=== PATIENT | female | born 1955 | race Caucasian/White ===

== ENCOUNTER 2020-02-06 08:01 | Emergency (ER) | payer MEDICARE, MEDICAID, SELFPAY ==
--- NOTE | ~2020-02-06 | XR_ITS ---
XR mandible min 4V DATE: 02/06/2020 08:56 INDICATION: Patient fell on chin 5 weeks ago. Persistent pain. TECHNIQUE: Multiple views COMPARISON: None FINDINGS: No fracture or dislocation or bone destruction is detected. IMPRESSION: No fracture or dislocation detected Reviewed, dictated and finalized at location A.
[2020-02-06 08:17] VITALS: BP 153/75; PULSE 79; RESP 16; TEMP 36.5; O2SAT 100
--- NOTE | 2020-02-06 08:20 | ED.GENADULT ---
HPI - General Adult General Chief complaint: Fall Stated complaint: Chin injury Time Seen by Provider: 02/06/20 08:20 Source: patient and RN notes reviewed Mode of arrival: ambulatory Limitations: no limitations History of Present Illness HPI narrative: This is a 64 years old female presented office for evaluation of chin injury post fall 5 weeks ago. Stated she accidentally tripped and fell onto a wooden bench at home. She injured her chin, left arm, and right knee at the time of fall, her right knee and left arm seems to heal except her chin. She still have constant pain and worse when she touches it. She did not seek care immediately because she afraid to go to the hospital. She spoke to her primary care doctor yesterday over the phone who recommended that she should get her chin evaluated today. She has tried ice on affected area along with ibuprofen and Tylenol at time for her pain. Denies head injury at the time of fall. Td is up-to-date. Related Data Home Medications Medication Instructions Recorded Confirmed buspirone 10 mg PO BID 02/06/20 02/06/20 divalproex 500 mg PO TID 02/06/20 02/06/20 insulin detemir U-100 [Levemir 25 unit SUBCUT 02/06/20 U-100 Insulin] insulin lispro [Humalog KwikPen unit SUBCUT 02/06/20 Insulin] metformin 500 mg PO BID 02/06/20 02/06/20 risperidone 1 mg PO 02/06/20 venlafaxine 150 mg PO DAILY 02/06/20 02/06/20 Allergies Allergy/AdvReac Type Severity Reaction Status Date / Time No Known Allergies Allergy Unverified 04/25/19 14:50 Review of Systems Review of Systems: Narrative: CONSTITUTIONAL: Denies feeling ill EYES: Denies visual changes ENT: Denies difficulty swallowing or her to open her jaw or CARDIOVASCULAR: Denies chest pain RESPIRATORY: Denies dyspnea GASTROINTESTINAL: Denies nausea, vomiting SKIN: Reports wound on chin appears to heal well; it was much bigger than it is right now. MUSCULOSKELETAL: Reports right knee sore at time; however she states it is much better than five weeks ago. NEUROLOGIC: Denies lightheaded PMFSH Past Medical History Medical History (Updated 02/06/20 @ 08:41 by GIOVANNI Tellez) Bipolar depression Diabetes mellitus, type II Heel spur Peripheral neuropathy TIA (transient ischemic attack) Surgical History Surgical History (Updated 02/06/20 @ 08:32 by GIOVANNI Tellez) Hx of cholecystectomy Hx of inguinal hernia repair Social History Social History (Updated 02/06/20 @ 08:30 by GIOVANNI Tellez) Smoking status: Current every day smoker Comments At time of signature, I agree with nursing past medical, surgical, social and family history. There is no relevant family history pertinent to the presenting complaint. Exam Narrative: Exam Narrative: GENERAL: This is a well-nourished, well-developed patient, in no apparent distress. HEAD: normocephalic, atraumatic. EYES: PERRL. Sclera clear/white. Vision is grossly intact. EARS: External ears normal.Hearing grossly intact. NOSE: External nose normal THROAT: Mucous membranes moist, posterior pharynx clear. No TMJ tendernesss. NECK: Neck supple, non-tender without lymphadenopathy, masses or thyromegaly. CARDIOVASCULAR: Regular rate and rhythm without murmurs, gallops, or rubs. RESPIRATORY: Clear to auscultation. Breath sounds equal bilaterally. No wheezes, rales, or rhonchi. GASTROINTESTINAL: Abdomen soft, non-tender, nondistended. Bowel sounds are active. No hepato-splenomegaly, or palpable masses. No guarding. SKIN: Right side mandibular noted a small scalp with tenderness to palpation; no obvious erythema,edematous or warmth to touch. NEURO: awake, alert, and oriented to person, place and time. There were no obvious focal neurologic abnormalities. Steady gait [place] Coma Scale Eye Opening: Spontaneous 4 [place] Coma Scale Motor: Obeys Commands 6 [place] Coma Scale Verbal: Oriented 5 Course Course Emergency Course: @1030: Spoke to Ms Weir on the p
== END 2020-02-06 09:33 | disposition home or self-care (01) ==
PROVIDERS: Emergency Provider Nurse Practitioner; PCP Family Medicine
DX: S09.93XA Unspecified injury of face, initial encounter (principal); W19.XXXD Unspecified fall, subsequent encounter; E11.42 Type 2 diabetes mellitus with diabetic polyneuropathy; Z86.73 Personal history of transient ischemic attack (TIA), and cerebral infarction without residual deficits; Z72.0 Tobacco use
CPT/HCPCS: 70110; 99213; G0463

== ENCOUNTER 2020-02-22 09:24 | Emergency (ER) | payer MEDICARE, MEDICAID, SELFPAY ==
--- NOTE | ~2020-02-22 | XR_ITS ---
EXAMINATION: XR lumbar spine 2-3V EXAM DATE: 02/22/2020 09:59 INDICATION: Initial encounter following injury, with pain of the low back. TECHNIQUE: Lumber spine frontal, lateral, lateral L5-S1 projections for interpretation. Comparison is made to prior examination from 05/30/2016. FINDINGS: Mild diffuse lumbar disc disease. The vertebral body heights are maintained. There are no acute fractures identified. There is no spondylolysis. Mild to moderate lower lumbar facet arthropath y. Sacrum, sacroiliac joints, sacral arcuate lines are intact. There are cholecystectomy clips. Scatt ered abdominal aortic arterial sclerosis. IMPRESSION: 1. Mild to moderate lumbar spondylosis. Reviewed, dictated and finalized at location A.
--- NOTE | ~2020-02-22 | XR_ITS ---
EXAMINATION: XR wrist LT min 3V EXAM DATE: 02/22/2020 09:58 INDICATION: Initial encounter following injury, with pain of the left wrist. TECHNIQUE: Left wrist frontal, frontal with ulnar deviation, oblique and lateral projections obtained and reviewed. There is no prior study for comparison. FINDINGS: Left wrist scapholunate joint space is maintained. There are no acute fractures or dislocat ions identified. There is no subcutaneous gas. The soft tissue is unremarkable. There are no radi opaque foreign bodies. IMPRESSION: 1. Left wrist exam without acute osseous findings. Reviewed, dictated and finalized at location A.
[2020-02-22 09:34] VITALS: BP 119/90; PULSE 88; RESP 16; TEMP 36.6; O2SAT 98
--- NOTE | 2020-02-22 09:35 | ED.UPPEXIN ---
HPI - Extremity Injury (Upper) General Chief Complaint: Extremity Injury, Upper Stated Complaint: rib pain/left and right wrist pain Time Seen by Provider: 02/22/20 09:35 Source: patient Mode of arrival: ambulatory Limitations: no limitations History of Present Illness HPI narrative: Carmella Sheriff is a 64 yo female with L wrist and lower lumbar pain. Fell in shower yesterday- no syncope or dizziness. rates pain as 9 out of 10 Related Data Home Medications Medication Instructions Recorded Confirmed buspirone 10 mg PO BID 02/06/20 02/22/20 divalproex 500 mg PO TID 02/06/20 02/22/20 insulin detemir U-100 [Levemir 25 unit SUBCUT DAILY 02/06/20 02/22/20 U-100 Insulin] insulin lispro [Humalog KwikPen 10 unit SUBCUT TID 02/06/20 02/22/20 Insulin] metformin 500 mg PO BID 02/06/20 02/22/20 risperidone 1 mg PO DAILY 02/06/20 02/22/20 venlafaxine 150 mg PO DAILY 02/06/20 02/22/20 Allergies Allergy/AdvReac Type Severity Reaction Status Date / Time No Known Allergies Allergy Verified 02/22/20 09:39 Review of Systems Review of Systems: Narrative: CONSTITUTIONAL: Denies fever, chills, sweats. EYES: Denies visual changes, redness, discharge. ENT: Denies rhinorrhea, congestion, sore throat, otalgia. CARDIOVASCULAR: Denies chest pain, palpitations, edema. RESPIRATORY: Denies dyspnea, wheezing, cough GASTROINTESTINAL: Denies abdominal pain, nausea, vomiting, diarrhea. GENITOURINARY: Denies dysuria, hematuria, abnormal discharge SKIN: Denies rash or itching. NEUROLOGIC: Denies numbness, or focal weakness. PSYCHIATRIC: Denies anxiety or depression. BACK: Tenderness Extremity: L wrist pain PMFSH Past Medical History Medical History Bipolar depression Diabetes mellitus, type II Heel spur Peripheral neuropathy TIA (transient ischemic attack) Surgical History Surgical History Hx of cholecystectomy Hx of inguinal hernia repair Family History Family History Other Diabetes mellitus Heart disease Hypertension Pancreatic cancer metastasized to intra-abdominal lymph node Social History Social History Smoking status: Current every day smoker Alcohol intake: current Comments At time of signature, I agree with nursing past medical, surgical, social and family history. There is no relevant family history pertinent to the presenting complaint. Exam Narrative: Exam Narrative: GENERAL: This is a well-nourished, well-developed patient, in mild distress. HEAD: normocephalic, atraumatic. EYES: PERRL. Sclera clear/white. Vision is grossly intact. EARS: External ears normal,. Hearing grossly intact. NOSE: External nose normal without nasal discharge, nares without redness, no rhinorrhea. THROAT: Mucous membranes moist, posterior pharynx NECK: Neck supple, non-tender CARDIOVASCULAR: Regular rate and rhythm without murmurs, gallops, or rubs. RESPIRATORY: Diminished to auscultation. Breath sounds equal bilaterally. Has wheezes, GASTROINTESTINAL: Abdomen soft, SKIN: warm, intact with no suspicious lesions or rash, good texture and turgor. NEURO: awake, alert, and oriented to person, place and time. There were no obvious focal neurologic abnormalities. Steady gait EXTREMITIES: Left hand cannot do finger opposition, skin warm, flexion-extension with difficulty BACK: tender without deformity Course Course Emergency Course: X-ray left wrist negative for fracture-Marv applied X-ray lumbar back-negative for fracture Vital Signs Vital signs: Vital Signs Temperature 98 F 02/22/20 09:34 Pulse Rate 88 02/22/20 09:34 Respiratory Rate 16 02/22/20 09:34 Blood Pressure 119/90 02/22/20 09:34 Pulse Oximetry 98 02/22/20 09:34 Temperature 98 F 02/22/20 09:34 Pulse Rate 88 05/2
== END 2020-02-22 10:23 | disposition home or self-care (01) ==
PROVIDERS: Emergency Provider Nurse Practitioner; PCP Family Medicine
DX: S63.502A Unspecified sprain of left wrist, initial encounter (principal); S66.912A Strain of unspecified muscle, fascia and tendon at wrist and hand level, left hand, initial encounter; M54.5 Low back pain; F31.9 Bipolar disorder, unspecified; E11.42 Type 2 diabetes mellitus with diabetic polyneuropathy; Z86.73 Personal history of transient ischemic attack (TIA), and cerebral infarction without residual deficits; F17.210 Nicotine dependence, cigarettes, uncomplicated; Z79.84 Long term (current) use of oral hypoglycemic drugs; Z79.4 Long term (current) use of insulin; W18.2XXA Fall in (into) shower or empty bathtub, initial encounter
CPT/HCPCS: 72100; 73110; 99214; G0463

== ENCOUNTER 2020-05-07 09:48 | Emergency (ER) | payer MEDICARE, MEDICAID, SELFPAY ==
--- NOTE | ~2020-05-07 | XR_ITS ---
XR shoulder LT min 2V 05/07/2020 10:26 Indication: Left shoulder pain. Limited range of motion. Procedure: 4 Views left shoulder Comparison: No prior studies for comparison. Findings: There is a comminuted mildly displaced left humeral neck fracture. Surrounding osseous stru ctures and soft tissues are unremarkable. Impression: 1: Comminuted, mildly displaced left humeral neck fracture. Reviewed, dictated and finalized at location I. Impression: 1: Comminuted, mildly displaced left humeral neck fracture.
--- NOTE | 2020-05-07 10:04 | ED.FALL ---
HPI - Fall General Chief Complaint: Extremity Injury, Upper Stated Complaint: Fall Time Seen by Provider: 05/07/20 10:04 Source: patient and RN notes reviewed History of Present Illness HPI Narrative: Patient is a 64-year-old female who presents the urgent care with complaints of left shoulder/arm pain after falling at [email or web address] just prior to arrival. Patient states that someone left a bench in the aisle and she tripped over the stool. Patient states that she fell forward and denies of any other complaints of pain to other extremities. Patient has a few bruises and abrasions on the lower right arm but otherwise no obvious injuries with the exception of the left shoulder. No other acute complaints. No acute distress noted. Patient read the plan of care. Related Data Home Medications Medication Instructions Recorded Confirmed buspirone 10 mg PO BID 02/06/20 02/22/20 divalproex 500 mg PO TID 02/06/20 02/22/20 insulin detemir U-100 [Levemir 25 unit SUBCUT DAILY 02/06/20 02/22/20 U-100 Insulin] insulin lispro [Humalog KwikPen 10 unit SUBCUT TID 02/06/20 02/22/20 Insulin] metformin 500 mg PO BID 02/06/20 02/22/20 risperidone 1 mg PO DAILY 02/06/20 02/22/20 venlafaxine 150 mg PO DAILY 02/06/20 02/22/20 Allergies Allergy/AdvReac Type Severity Reaction Status Date / Time No Known Allergies Allergy Verified 02/22/20 09:39 Review of Systems Review of Systems: Narrative: CONSTITUTIONAL: Denies fever, chills, or sweats. EYES: Denies visual changes, redness, or discharge. ENT: Denies rhinorrhea, congestion, sore throat, or otalgia. CARDIOVASCULAR: Denies chest pain, palpitations, or edema. RESPIRATORY: Denies cough or dyspnea. GASTROINTESTINAL: Denies abdominal pain, nausea, vomiting, or diarrhea. GENITOURINARY: Denies dysuria or hematuria. SKIN: Denies rash or itching. MUSCULOSKELETAL: Reports of left arm/shoulder pain NEUROLOGIC: Denies headache, numbness, or weakness. All other systems reviewed are negative, except as documented in HPI. [facility] Social History Social History Smoking status: Current every day smoker Alcohol intake: current Comments At the time of my signature, I reviewed and agree with the nursing past medical, surgical, social, and family history. There is no relevant family history pertinent to the patient complaint. Exam Narrative: Exam Narrative: GENERAL: This is a well-nourished, well-developed patient, in no apparent distress. HEAD: normocephalic, atraumatic. EYES: PERRL. Sclera clear/white. Vision is grossly intact. EARS: External ears normal NOSE: External nose normal with no obvious nasal discharge, nares without redness, no rhinorrhea. THROAT: Mucous membranes moist NECK: Neck supple SKIN: warm, intact with no suspicious lesions or rash, good texture and turgor. NEURO: awake, alert, and oriented to person, place and time. There were no obvious focal neurologic abnormalities. EXTREMITIES: Slightly depressed shoulder height on the left with moderate pain with any range of motion. Range of motion not tested due to pain. Positive strong left radial pulse with capillary refill less than 2 seconds. Hand tobacco prizer equal Course Vital Signs Vital signs: Vital Signs Temperature 97.4 F L 05/07/20 10:06 Pulse Rate 83 05/07/20 10:06 Respiratory Rate 20 05/07/20 10:06 Blood Pressure 161/77 H 05/07/20 10:06 Pulse Oximetry 98 05/07/20 10:06 Temperature 97.4 F L 05/07/20 10:06 Pulse Rate 83 05/07/20 10:06 Respiratory Rate 20 05/07/20 10:06 Blood Pressure 161/77 H 05/07/20 10:06 Pulse Oximetry 98 05/07/20 10:06 Reviewed?patient is informed that they may have pre-hypertension or hypertension based on a blood pressure reading in the department. I recommend the patient call the primary care provider listed on their discharge instructions or a physician of their choice this week to arrange follow-up for further eval
[2020-05-07 10:06] VITALS: BP 161/77; PULSE 83; RESP 20; TEMP 36.3; O2SAT 98
== END 2020-05-07 10:59 | disposition home or self-care (01) ==
PROVIDERS: Emergency Provider Nurse Practitioner Family; PCP Family Medicine
DX: S42.212A Unspecified displaced fracture of surgical neck of left humerus, initial encounter for closed fracture (principal); W18.09XA Striking against other object with subsequent fall, initial encounter; F17.200 Nicotine dependence, unspecified, uncomplicated; J44.9 Chronic obstructive pulmonary disease, unspecified; E11.9 Type 2 diabetes mellitus without complications; F31.9 Bipolar disorder, unspecified
CPT/HCPCS: 73030; 99214; A4565; G0463

== ENCOUNTER 2020-05-26 11:06 | Emergency (ER) | payer MEDICARE, MEDICAID, SELFPAY ==
--- NOTE | ~2020-05-26 | XR_ITS ---
EXAMINATION: XR elbow LT min 3V DATE: 05/26/2020 12:00 INDICATION: Left elbow swelling. TECHNIQUE: 4 views of left elbow were obtained. COMPARISON: None. FINDINGS: Bone alignment is normal. No fracture. Joint spaces are normal. No elbow joint effusion. Th ere are enthesophytes at the medial and lateral humeral epicondyles. There is posterior soft tissue s welling. IMPRESSION: 1. No fracture. Reviewed, dictated and finalized at location B. IMPRESSION: 1. No fracture.
[2020-05-26 11:24] VITALS: BP 147/87; PULSE 81; RESP 16; TEMP 36.4; O2SAT 97
--- NOTE | 2020-05-26 11:25 | ED.GENADULT ---
HPI - General Adult General Chief complaint: Extremity Injury, Upper Stated complaint: arm pain Time Seen by Provider: 05/26/20 11:40 Source: patient and RN notes reviewed Mode of arrival: ambulatory Limitations: no limitations History of Present Illness HPI narrative: 65-year-old female presents with LT upper extremity in sling and complaints of bruising, tenderness, and swelling to the left forearm for the past 20 days. Carmella says on 05/07/20 she fell and injured LT shoulder and arm was treated here at [facility] and diagnosis with a LT neck humerus closed fracture (comminuted, mildly displaced) and sent home in a sling with follow-up instructions. Ice, sling, Vicodin with some relief. Pain and swelling to LT arm continues. Carmella says she followed up and called due to the pain and swelling and was given more Vicodin for pain control. No radiation of pain. Exacerbation factor consist of movement and palpation. The relieving factor is immobility and pain medication. Dominant hand is the RT hand. The patient reports she have not been diagnosed with COVID-19. The patient reports she is not waiting for the results of a COVID-19 lab test. The patient reports she do not have fever, chills, weakness, fatigue, myalgia, or facial swelling. The patient reports she do not have a new or worsening cough or shortness of breath. Denies chest pain. The patient reports she do not have any rhinorrhea, congestion, sore throat, nausea, vomiting, abdominal pain, and diarrhea. Tolerating po intake well. Denies recent traveling. Denies concerns for COVID-19 or exposures been home with limited outdoor exposure except for essential household needs and return home. At this time, patient is not suspected of having COVID-19. Some parts of this dictation were generated by voice recognition software and may contain typographical and/or grammatical inaccuracies. Related Data Home Medications Medication Instructions Recorded Confirmed buspirone 10 mg PO BID 02/06/20 05/26/20 divalproex 500 mg PO TID 02/06/20 05/26/20 insulin detemir U-100 [Levemir 25 unit SUBCUT DAILY 02/06/20 05/26/20 U-100 Insulin] insulin lispro [Humalog KwikPen 10 unit SUBCUT TID 02/06/20 05/26/20 Insulin] metformin 500 mg PO BID 02/06/20 05/26/20 risperidone 1 mg PO DAILY 02/06/20 05/26/20 venlafaxine 150 mg PO DAILY 02/06/20 05/26/20 Allergies Allergy/AdvReac Type Severity Reaction Status Date / Time No Known Allergies Allergy Verified 05/26/20 11:32 Review of Systems Review of Systems: Narrative: CONSTITUTIONAL: Denies fever, chills, sweats. EYES: Denies visual changes, redness, discharge. ENT: Denies rhinorrhea, congestion, sore throat, otalgia. CARDIOVASCULAR: Denies chest pain, palpitations, edema. RESPIRATORY: Denies dyspnea, wheezing, cough GASTROINTESTINAL: Denies abdominal pain, nausea, vomiting, diarrhea. GENITOURINARY: Denies dysuria, hematuria, abnormal discharge SKIN: Denies rash or itching. MUSCULOSKELETAL: Denies acute back pain or myalgia. Complains of bruising, tenderness, and swelling to the left forearm pain. NEUROLOGIC: Denies numbness, or focal weakness. PSYCHIATRIC: Denies anxiety or depression. All other systems reviewed are negative, except as documented in HPI and below. [facility] Past Medical History Medical History (Updated 05/27/20 @ 00:00 by Yadira Arroyo) Bipolar depression COPD (chronic obstructive pulmonary disease) Diabetes mellitus, type II Heel spur Peripheral neuropathy TIA (transient ischemic attack) Surgical History Surgical History (Updated 05/26/20 @ 11:55 by GIOVANNI Zamorano) Hx of cholecystectomy Hx of inguinal hernia repair Family History Family History (Updated 05/26/20 @ 11:56 by GIOVANNI Zamorano) Other Diabetes mellitus Heart disease Hypertension Pancreatic cancer metastasized to intra-abdominal lymph node Social History Social History (Updated 05/26/20 @ 11:57 by Alcides
== END 2020-05-26 12:26 | disposition home or self-care (01) ==
PROVIDERS: Emergency Provider Nurse Practitioner Family; PCP Family Medicine
DX: S59.812A Other specified injuries left forearm, initial encounter (principal); W19.XXXA Unspecified fall, initial encounter; F17.210 Nicotine dependence, cigarettes, uncomplicated; J44.9 Chronic obstructive pulmonary disease, unspecified; E11.42 Type 2 diabetes mellitus with diabetic polyneuropathy; Z86.73 Personal history of transient ischemic attack (TIA), and cerebral infarction without residual deficits; F31.9 Bipolar disorder, unspecified; Z79.4 Long term (current) use of insulin; Z79.84 Long term (current) use of oral hypoglycemic drugs
CPT/HCPCS: 73080; 99213; G0463

== ENCOUNTER 2024-12-01 13:09 | Emergency (ER) | payer MEDICARE, MEDICAID, SELFPAY ==
--- NOTE | ~2024-12-01 | XR_ITS ---
XR chest 2V Ordering provider: Jacinda Krishnamurthy NP History: 69 years Female with . cough congestion . Comparison: None. FINDINGS: MEDIASTINUM: The cardiac silhouette is not enlarged. LUNGS: No infiltrates, effusions or pneumothorax. OTHER: No free air under the diaphragm. Degenerative changes of the spine with dextroscoliosis. IMPRESSION: No acute cardiopulmonary pathology. Reviewed, dictated and finalized at location A. [employer]
[2024-12-01 13:22] VITALS: BP 149/70; PULSE 85; RESP 24; TEMP 36.2; O2SAT 96
--- OUTSIDE RECORDS SUMMARY | 2024-12-01 15:00 | XMS_ITS | Continuity of Care Document ---
Author Organization [facility] Address [address] [place] [address] Insurance Providers Payer Plan Claims Address Claims Phone Policy Number Group Number Relation Employer Guarantor Name Guarantor Guarantor Address Guarantor Phone [place] Medic aid [id number] Self Carmella Bartlettde [address] [place] [address] [id number] [facility] [id number] Self Carmella Pride [address] [place] [id number] [employer] [address] [address], [place] [address] tel:[phone] Self Carmella Bartlettde [address] [place] [phone] Problems Unknown Problems Results No Results Allergies, adverse reactions, alerts No known allergies and adverse reactions Immunizations Vaccine Route Date Status Covid-19 09/16/2023 Completed Medications No administered medications reported Vital Signs Date Vital Result Comment 10/29/2023 Inhaled Oxygen Concentration 21.0 % N Faces Pain Scale 0.0 N Oxygen Saturation 98 % N Respiratory Rate 18 /min N Heart Rate 78 /min N Blood Pressure Systolic 130 mm[Hg] N Blood Pressure Diastolic 72 mm[Hg] N Body Height 56 [in_i] N Body Weight 130 [lb_av] N Body Mass Index 29.1 kg/m2 N 05/13/2023 Inhaled Oxygen Concentration 21.0 % N Faces Pain Scale 0.0 N Temperature 97.2 [degF] N Oxygen Saturation 97 % N Respiratory Rate 18 /min N Heart Rate 78 /min N Blood Pressure Systolic 132 mm[Hg] N Blood Pressure Diastolic 74 mm[Hg] N Body Height 56 [in_i] N Body Weight 157 [lb_av] N Body Mass Index 35.2 kg/m2 N 06/14/2023 Inhaled Oxygen Concentration 21.0 % N Faces Pain Scale 0.0 N Oxygen Saturation 98 % N Respiratory Rate 18 /min N Heart Rate 78 /min N Blood Pressure Systolic 128 mm[Hg] N Blood Pressure Diastolic 74 mm[Hg] N Body Height 56 [in_i] N Body Weight 147 [lb_av] N Body Mass Index 33 kg/m2 N 08/27/2023 Inhaled Oxygen Concentration 21.0 % N Faces Pain Scale 0.0 N Oxygen Saturation 97 % N Respiratory Rate 18 /min N Heart Rate 78 /min N Blood Pressure Systolic 118 mm[Hg] N Blood Pressure Diastolic 68 mm[Hg] N Body Height 56 [in_i] N Body Weight 155 [lb_av] N Body Mass Index 34.7 kg/m2 N 03/20/2024 Inhaled Oxygen Concentration 21.0 % N Faces Pain Scale 0.0 N Oxygen Saturation 97 % N Respiratory Rate 18 /min N Heart Rate 68 /min N Blood Pressure Systolic 122 mm[Hg] N Blood Pressure Diastolic 74 mm[Hg] N Body Height 56 [in_i] N Body Weight 135 [lb_av] N Body Mass Index 30.3 kg/m2 N 07/13/2024 Inhaled Oxygen Concentration 21.0 % N Faces Pain Scale 0.0 N Oxygen Saturation 98 % N Respiratory Rate 18 /min N Heart Rate 78 /min N Blood Pressure Systolic 128 mm[Hg] N Blood Pressure Diastolic 78 mm[Hg] N Body Height 56 [in_i] N Body Weight 160 [lb_av] N Body Mass Index 35.9 kg/m2 N 11/13/2024 Inhaled Oxygen Concentration 21.0 % N Oxygen Saturation 96 % N Respiratory Rate 18 /min N Heart Rate 74 /min N Blood Pressure Systolic 132 mm[Hg] N Blood Pressure Diastolic 78 mm[Hg] N Body Height 56 [in_i] N Body Weight 192 [lb_av] N Body Mass Index 43 kg/m2 N Social History No smoking Hx information available Functional Status Category Condition Date Problem (Bathing: Independen t (or in shower)) Bathing: Independent (or in shower) 05/13/2023 Problem (Feeding: Independent) Feeding: Independ ent 05/13/2023 Problem (Bowels: Continent) Bowels: Continent Problem (Mobility (on level surfaces): Independent (but may use any aid; for example, stick) >50 yards) Mobility (on level surfaces): Independent (but may use any aid; for example, stick) >50 yards 05/13/2023 Problem (Dressing: Independe nt (including buttons, zips, laces, etc.)) Dressing: Independent (including buttons, zips, laces, etc.) 05/13/2023 Problem (Transfers (bed to c hair and back): Independent) Transfers (bed to chair and back): Independent 05/13/2023 Problem (Grooming: Independe nt face/hair/teeth/ shaving (implements provided)) Grooming: Independent face/hair/teeth/ shaving (implements provided) 05/13/2023 Problem (Toilet use: Indepen dent (on and off, dressing, wiping)) Toilet use: Independent (on and off, dressing, wiping) 05/13/2023 Problem (Total score: 95) Total score: 95 2022 Problem (Bladder: Continent) Bladder: Continent 05/13/2023 Problem (Stairs: Needs help (verbal, physical, carrying aid)) Stairs: Needs help (verbal, physical, carrying aid) 05/13/2023 Problem (Feeding: Independent) Feeding: Independ ent 07/13/2024 Problem (Bathing: Independen t (or in shower)) Bathing: Independent (or in shower) 07/13/2024 Problem (Grooming: Independe nt face/hair/teeth/ shaving (implements provided)) Grooming: Independent face/hair/teeth/ shaving (implements provided) 07/13/2024 Problem (Dressing: Independe nt (including buttons, zips, laces, etc.)) Dressing: Independent (including buttons, zips, laces, etc.) 07/13/2024 Problem (Bowels: Continent) Bowels: Continent Problem (Bladder: Continent) Bladder: Continent 07/13/2024 Problem (Toilet use: Indepen dent (on and off, dressing, wiping)) Toilet use: Independent (on and off, dressing, wiping) 07/13/2024 Problem (Transfers (bed to c hair and back): Independent) Transfers (bed to chair and back): Independent 07/13/2024 Problem (Mobility (on level surfaces): Independent (but may use any aid; for example, stick) >50 yards) Mobility (on level surfaces): Independent (but may use any aid; for example, stick) >50 yards 07/13/2024 Problem (Stairs: Independent) Stairs: Independen t 07/13/2024 Problem (Total score: 100) Total score: 100 06/30 Mental Status Category Condition Date Cognitive function Normal 06/14/2023
--- OUTSIDE RECORDS SUMMARY | 2024-12-01 15:00 | XMS_ITS | Data Portability ---
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 Plan of Treatment Reminders Order Date Submit Date Provider Last Modified By Organization Details Last Modified Time Details Appointments ANY 15 2024 09:45A M Mirella Damon APN, STEM FRAZER-C Not available Not available Not available ANY 15 2024 07:30A M Mirella Damon APN, STEM FRAZER-C Not available Not available Not available Lab HbA1c (hemogl obin A1c), blood 2023 024 [facility], [address] [place] [address], [address], 07/17/2024 08:27:08 CMP, serum or plasma 2023 024 [facility], [address] [place] [address], [place], [address], 07/17/2024 08:27:06 albumin /creati nine, mass ratio, urine 2023 024 [facility], [address] [place] [address], [place], [address], 07/17/2024 08:27:03 CBC w/ auto diff 2023 024 [facility], [address] [place] [address], [place], [address], 07/17/2024 08:27:09 TSH + free T4, serum 2023 024 [facility], [address] [facility], [address], [place], [address], 07/17/2024 08:27:05 urinaly sis, dipstic k 2022 023 In-Office Order, Internal Use Only DO Not Attach Compendium DO Not Attach Compendium, Do Not Delete/merge, [id number] 09/09/2023 23:02:46 CBC w/ auto diff 2022 023 [facility], [address] [facility], [facility], [place], [address], 09/10/2023 03:07:56 CMP, serum or plasma 2022 023 [facility], [address] [facility], [facility], [place], [address], 09/10/2023 03:07:55 C reactiv e protein , QN, serum or plasma 2022 023 [facility], [address] [facility], [facility], [place], [address], 09/11/2023 08:24:09 ESR (erythr ocyte sedimen tation rate), blood 2022 023 [facility], [address] [facility], [address], [place], [address], 09/11/2023 08:24:08 TSH, ultra-s ensitiv e, serum 2022 023 [facility], [address] [facility], [address], [place], [address], 09/11/2023 08:24:06 culture , urine 2022 023 [facility], [address], [facility], [place], [address], 09/11/2023 08:24:09 HbA1c (hemogl obin A1c), blood 2022 023 [facility], [address] [facility], [facility], [place], [address], 09/11/2023 08:24:07 Referral physica l therapi st referra l 2024 025 [facility], [address] [place], [address], 11/18/2024 16:13:[address] referra l 2024 025 [facility], [address] [place], [address], 11/18/2024 16:13:[address] referra l 2022 023 [facility], [address] [facility], [facility] [address], [place], [address], 01/24/2024 11:23:56 Procedures None recorde d. Surgeries None recorde d. Imaging XR, chest, 2 view 2023 024 [facility] Scheduling, [address] [place], [address], 07/04/2024 16:13:26 Medication Orders Macrobi d 100 mg capsule 2022 023 [id number], [address] [place], [place], [id number], 01/09/2024 11:23:44 Patient TargetsNo targets recorded. Patient Instructions Encounter Date Encounter Id Patient Instructions Last Modified By Organization Details Last Modified Time 09/09/2023 [id number] influenza (flu) vaccine: care instructions Not available 09/09/2023 15:11:08 painful urinatio n (dysuria): care instructions Not available 09/09/2023 15:11:08 Quitting Tobacco : Care Instructions Not available 09/09/2023 15:11:08 Stress Incontine nce: Care Instructions Not available 09/09/2023 15:11:07 type 2 diabetes: care instructions Not available 09/09/2023 15:11:08 Increase intake of fresh fruits, and vegetables. Avoid packaged foods and fast foods. Follow a low salt diet, drink at least 8-10 8oz glasses of water a day, exercise most days of the week. Take all medications as prescribed. Keep appointments with PCP and all specialists. Not available 09/09/2023 15:09:51 follow up pendin g labs follow up in 4 months Not available 09/09/2023 15:10:14 01/09/2024 [id number] osteoporosis: ca re instructions Not available 01/09/2024 11:57:26 Quitting Tobacco : Care Instructions Not available 01/09/2024 11:57:26 chronic obstruct martin pulmonary disease (COPD): care instructions Not available 01/09/2024 11:57:26 learning about c opd and how to prevent lung infections Not available 01/09/2024 11:57:26 gastroesophageal reflux disease (GERD): care instructions Not available 01/09/2024 11:57:26 type 2 diabetes: care instructions Not available 01/09/2024 11:57:26 Stress Incontine nce: Care Instructions Not available 01/09/2024 11:57:26 Increase intake of fresh fruits, and vegetables. Avoid packaged foods and fast foods. Follow a low salt diet, drink at least 8-10 8oz glasses of water a day, exercise most days of the week. Take all medications as prescribed. Keep appointments with PCP and all specialists. Not available 01/09/2024 11:49:32 follow up in 6 months Not available 01/09/2024 11:57:38 07/01/2024 [id number] scrapes (abrasio ns): care instructions Not available 07/01/2024 15:04:10 skin tears: care instructions Not available 07/01/2024 15:04:10 A healthy lifest yle: care instructions Not available 07/01/2024 15:03:52 chronic obstruct martin pulmonary disease (COPD): care instructions Not available 07/01/2024 14:58:38 learning about c opd and how to prevent lung infections Not available 07/01/2024 14:58:38 Increase intake of fresh fruits, and vegetables. Avoid packaged foods and fast foods. Follow a low salt diet, drink at least 8-10 8oz glasses of water a day, exercise most days of the week. Take all medications as prescribed. Keep appointments with PCP and all specialists. Not available 07/01/2024 15:01:50 keep f/u as planned Not availa ble 07/01/2024 15:01:15 07/16/2024 [id number] osteoporosis: ca re instructions Not available 07/16/2024 08:58:12 tetanus and diphtheria booster: care instructions Not available 07/16/2024 09:00:10 Quitting Tobacco : Care Instructions Not available 07/16/2024 08:58:12 chronic obstruct martin pulmonary disease (COPD): care instructions Not available 07/16/2024 08:58:12 learning about c opd and how to prevent lung infections Not available 07/16/2024 08:58:12 gastroesophageal reflux disease (GERD): care instructions Not available 07/16/2024 08:58:11 type 2 diabetes: care instructions Not available 07/16/2024 08:58:12 Stress Incontine nce: Care Instructions Not available 07/16/2024 08:58:12 Increase intake of fresh fruits, and vegetables. Avoid packaged foods and fast foods. Follow a low salt diet, drink at least 8-10 8oz glasses of water a day, exercise most days of the week. Take all medications as prescribed. Keep appointments with PCP and all specialists. Not available 07/16/2024 08:46:24 follow up in 6 months Not available 07/16/2024 08:46:25 11/03/2024 [id number] Continue all medications as prescribed. Not available 11/03/2024 15:56:31 keep f/u as planned Not availa ble 11/03/2024 15:56:25 Reason for Referral Urologist Referral for Urina ry incontinence Referring Physician: Mirella Damon [facility], Encounter Date: 09/09/2023 Physical Therapist Referral for At increased risk for falls Referring Physician: Mirella Damon [facility], Encounter Date: 11/03/2024 Occupational Therapist Refer ral for At increased risk for falls Referring Physician: Mirella Damon [facility], Encounter Date: 11/03/2024 Results Created Date Observation Date Name Description Value Unit Range Abnormal Flag Note LastModifiedBy Organization Detail LastModifiedTime 09/09/20 23 09/09/2023 COMP. METAB OLIC PANEL (14) glucose 128 mg/dL 70-99 above high normal Not Available [facility] [address] [place] [address], [address], 09/10/2023 03:07:55 09/09/20 23 09/09/2023 COMP. METAB OLIC PANEL (14) BUN 17 mg/dL 8-27 Not Available [facility] [address] [place], [address], 09/10/2023 03:07:55 09/09/20 23 09/09/2023 COMP. METAB OLIC PANEL (14) creatinine 0.76 mg/dL 0.76-1 .27 Not Available [facility] [address] [place], [address], 09/10/2023 03:07:55 09/09/20 23 09/09/2023 COMP. METAB OLIC PANEL (14) eGFR 86 >=60 Units for eGFR value s are mL/mi n/1.7 3 The eGFR Calcu latio n has not been valid ated for patie nts under the age of 18. If test resul ts are displ ayed for a patie nt under the age of 18, disre sergey that value . Not Available [facility] [address] [place] [address], [address], 09/10/2023 03:07:55 09/09/20 23 09/09/2023 COMP. METAB OLIC PANEL (14) BUN/creatini ne ratio 22 07- Not Available [facility] Department [address] [place] [address], [address], 09/10/2023 03:07:55 09/09/20 23 09/09/2023 COMP. METAB OLIC PANEL (14) sodium 142 mmol/ L 134-14 4 Not Available [facility] [address] [place] [address], [address], 09/10/2023 03:07:55 09/09/20 23 09/09/2023 COMP. METAB OLIC PANEL (14) potassium 4.9 mmol/ L 3.5-5. 2 Not Available [facility] [address] [place] [address], [address], 09/10/2023 03:07:55 09/09/20 23 09/09/2023 COMP. METAB OLIC PANEL (14) chloride 103 mmol/ L 96-106 Not Available [facility] [address] [place] [address], [address], 09/10/2023 03:07:55 09/09/20 23 09/09/2023 COMP. METAB OLIC PANEL (14) carbon dioxide, total 26 mmol/ L 20-29 Not Available [facility] [address] [place] [address], [address], 09/10/2023 03:07:55 09/09/20 23 09/09/2023 COMP. METAB OLIC PANEL (14) calcium 9.6 mg/dL 8.7-10 .3 Not Available [facility] [address] [place], [address], 09/10/2023 03:07:55 09/09/20 23 09/09/2023 COMP. METAB OLIC PANEL (14) protein, total 6.5 g/dL 6.0-8. 5 Not Available [facility] [address] [place], [address], 09/10/2023 03:07:55 09/09/20 23 09/09/2023 COMP. METAB OLIC PANEL (14) albumin 3.6 g/dL 3.8-4. 8 below low normal Not Available [facility] [address] [place], [address], 09/10/2023 03:07:55 09/09/20 23 09/09/2023 COMP. METAB OLIC PANEL (14) globulin, total 2.9 g/dL 1.5-4. 5 Not Available [facility] [address] [place], [address], 09/10/2023 03:07:55 09/09/20 23 09/09/2023 COMP. METAB OLIC PANEL (14) A/G ratio 1.2 1.2-2. 2 Not Available [facility] [address] [place], [address], 09/10/2023 03:07:55 09/09/20 23 09/09/2023 COMP. METAB OLIC PANEL (14) bilirubin, total <=0.2 mg/dL 0.0-1. 2 Not Available [facility] [address] [place], [address], 09/10/2023 03:07:55 09/09/20 23 09/09/2023 COMP. METAB OLIC PANEL (14) alkaline phosphatase 145 IU/L 44-121 above high normal Not Available [facility] [address] [place] [address], [address], 09/10/2023 03:07:55 09/09/20 23 09/09/2023 COMP. METAB OLIC PANEL (14) AST (SGOT) 11 IU/L 0-40 Not Available [facility] Department [address] [place], [address], 09/10/2023 03:07:55 09/09/20 23 09/09/2023 COMP. METAB OLIC PANEL (14) ALT (SGPT) 7 IU/L 0-32 Not Available [facility] Department [address] [place], [address], 09/10/2023 03:07:55 09/09/20 23 09/09/2023 CBC WITH DIFFE RENTI AL/PL ATELE T WBC 12.8 x10e3 /uL 3.4-10 .8 above high normal Not Available [facility] [address] [place], [address], 09/10/2023 03:07:56 09/09/20 23 09/09/2023 CBC WITH DIFFE RENTI AL/PL ATELE T RBC 4.22 x10e6 /uL 3.77-5 .28 Not Available [facility] [address] [place], [address], 09/10/2023 03:07:56 09/09/20 23 09/09/2023 CBC WITH DIFFE RENTI AL/PL ATELE T hemoglobin 11.8 g/dL 11.1-1 5.9 Not Available [facility] [address] [place], [address], 09/10/2023 03:07:56 09/09/20 23 09/09/2023 CBC WITH DIFFE RENTI AL/PL ATELE T hematocrit 39.1 % 34.0-4 6.6 Not Available [facility] [address] [place], [address], 09/10/2023 03:07:56 09/09/20 23 09/09/2023 CBC WITH DIFFE RENTI AL/PL ATELE T MCV 93 fL 79-97 Not Available [facility] [address] [place], [address], 09/10/2023 03:07:56 09/09/20 23 09/09/2023 CBC WITH DIFFE RENTI AL/PL ATELE T MCH 28.0 pg 26.6-3 3.0 Not Available [facility] [address] [place], [address], 09/10/2023 03:07:56 09/09/20 23 09/09/2023 CBC WITH DIFFE RENTI AL/PL ATELE T MCHC 30.2 g/dL 31.5-3 5.7 below low normal Not Available [facility] [address] [place], [address], 09/10/2023 03:07:56 09/09/20 23 09/09/2023 CBC WITH DIFFE RENTI AL/PL ATELE T RDW 13.6 % 11.5-1 4.5 Not Available [facility] [address] [place], [address], 09/10/2023 03:07:56 09/09/20 23 09/09/2023 CBC WITH DIFFE RENTI AL/PL ATELE T platelets 548 x10e3 /uL 150-45 0 above high normal Not Available [facility] [address] [place], [address], 09/10/2023 03:07:56 09/09/20 23 09/09/2023 CBC WITH DIFFE RENTI AL/PL ATELE T neutrophils 62 % notest b. Not Available [facility] [address] [place], [address], 09/10/2023 03:07:56 09/09/20 23 09/09/2023 CBC WITH DIFFE RENTI AL/PL ATELE T lymphs 26 % notest b. Not Available [facility] [address] [place], [address], 09/10/2023 03:07:56 09/09/20 23 09/09/2023 CBC WITH DIFFE RENTI AL/PL ATELE T monocytes 7 % notest b. Not Available [facility] [address] [place], [address], 09/10/2023 03:07:56 09/09/20 23 09/09/2023 CBC WITH DIFFE RENTI AL/PL ATELE T eos 4 % notest b. Not Available [facility] [address] [place], [address], 09/10/2023 03:07:56 09/09/20 23 09/09/2023 CBC WITH DIFFE RENTI AL/PL ATELE T basos 1 % notest b. Not Available [facility] [address] [place], [address], 09/10/2023 03:07:56 09/09/20 23 09/09/2023 CBC WITH DIFFE RENTI AL/PL ATELE T neutrophils (absolute) 7.9 x10e3 /uL 1.4-7. 0 above high normal Not Available [facility] [address] [place], [address], 09/10/2023 03:07:56 09/09/20 23 09/09/2023 CBC WITH DIFFE RENTI AL/PL ATELE T lymphs (absolute) 3.4 x10e3 /uL 0.7-3. 1 above high normal Not Available [facility] [address] [place], [address], 09/10/2023 03:07:56 09/09/20 23 09/09/2023 CBC WITH DIFFE RENTI AL/PL ATELE T monocytes(ab solute) 0.9 x10e3 /uL 0.1-0. 9 Not Available [facility] [address] [place], [address], 09/10/2023 03:07:56 09/09/20 23 09/09/2023 CBC WITH DIFFE RENTI AL/PL ATELE T eos (absolute) 0.5 x10e3 /uL 0.0-0. 4 above high normal Not Available [facility] [address] [place], [address], 09/10/2023 03:07:56 09/09/20 23 09/09/2023 CBC WITH DIFFE RENTI AL/PL ATELE T baso (absolute) 0.1 x10e3 /uL 0.0-0. 2 Not Available [facility] [address] [place], [address], 09/10/2023 03:07:56 09/09/20 23 09/09/2023 CBC WITH DIFFE RENTI AL/PL ATELE T immature granulocytes 0.4 % notest b. Not Available [facility] [address] [place], [address], 09/10/2023 03:07:56 09/09/20 23 09/09/2023 CBC WITH DIFFE RENTI AL/PL ATELE T immature grans (abs) 0.1 x10e3 /uL 0.0-0. 1 Not Available [facility] [address] [place], [address], 09/10/2023 03:07:56 09/09/20 23 09/09/2023 CBC WITH DIFFE RENTI AL/PL ATELE T NRBC 0 % 0-0 Not Available [facility] [address] [place], [address], 09/10/2023 03:07:56 09/09/2009/10/2023 TSH RFX ON ABNOR MAL TO FREE T4 TSH 1.310 uIU/m L 0.450- 4.500 Not Available [facility] ([facility]) [address] [facility], [place], [address], 09/11/2023 08:24:06 09/09/20 23 09/10/2023 HEMOG LOBIN A1C hemoglobin A1C 6.8 % 4.8-5. 6 above high normal Predi abete s: 5.7 - 6.4 Diabe kathi: >6.4 Glyce mckinley contr ol for adult s with diabe kathi: <7.0 Not Available [facility] ([facility]) [address] [facility], [place], [address], 09/11/2023 08:24:07 09/09/20 23 09/10/2023 SEDIM ENTAT ION RATE- WESTE RGREN sedimentatio n rate-westerg chantel 30 mm/HR 0-40 Not Available [facility]) [address] [facility], [place], [address], 09/11/2023 08:24:08 09/09/20 23 09/10/2023 C-NIRMALA CTIVE PROTE IN, QUANT C-reactive protein, quant 5 mg/L 0-10 Not Available [facility]) [address] [facility], [place], [address], 09/11/2023 08:24:08 09/09/2009/11/2023 URINE CULTU RE,CO MPREH ENSIV E urine culture,comp rehensive Final report Not Available [facility] ([facility]) [address] [place], [address], 09/11/2023 08:24:09 09/09/2009/11/2023 URINE CULTU RE,CO MPREH ENSIV E result 1 Commen t Mixed uroge nital octavio 6,000 Colon ies/m L Not Available [facility] ([facility]) [address] [place], [address], 09/11/2023 08:24:09 09/09/20 23 09/09/2023 urina lysis , dipst ick Leukocytes Large Not Available In-Offi ce Order Internal Use Only DO Not Attach Compendium DO Not Attach Compendium, Do Not Delete/merge, [id number] 09/09/2023 14:52:47 09/09/20 23 09/09/2023 urina lysis , dipst ick Nitrite negati ve Not Available In-Office Order Internal Use Only DO Not Attach Compendium DO Not Attach Compendium, Do Not Delete/merge, [id number] 09/09/2023 14:52:47 09/09/20 23 09/09/2023 urina lysis , dipst ick Urobilinogen .2 Not Available In-Of fice Order Internal Use Only DO Not Attach Compendium DO Not Attach Compendium, Do Not Delete/merge, [id number] 09/09/2023 14:52:47 09/09/20 23 09/09/2023 urina lysis , dipst ick Protein Negati ve Not Available In-Office Order Internal Use Only DO Not Attach Compendium DO Not Attach Compendium, Do Not Delete/merge, [id number] 09/09/2023 14:52:47 09/09/20 23 09/09/2023 urina lysis , dipst ick pH 6.0 Not Available In-Office Order Internal Use Only DO Not Attach Compendium DO Not Attach Compendium, Do Not Delete/merge, [id number] 09/09/2023 14:52:47 09/09/2009/09/2023 urina lysis , dipst ick Blood Non-He molyze d: Trace Not Available In-Office Order Internal Use Only DO Not Attach Compendium DO Not Attach Compendium, Do Not Delete/merge, [id number] 09/09/2023 14:52:47 09/09/20 23 09/09/2023 urina lysis , dipst ick Specific [place] 1.005 Not Available In-Off ice Order Internal Use Only DO Not Attach Compendium DO Not Attach Compendium, Do Not Delete/merge, [id number] 09/09/2023 14:52:47 09/09/20 23 09/09/2023 urina lysis , dipst ick Ketone Negati ve Not Available In-Office Order Internal Use Only DO Not Attach Compendium DO Not Attach Compendium, Do Not Delete/merge, [id number] 09/09/2023 14:52:47 09/09/20 23 09/09/2023 urina lysis , dipst ick Bilirubin Negati ve Not Available In-Office Order Internal Use Only DO Not Attach Compendium DO Not Attach Compendium, Do Not Delete/merge, [id number] 09/09/2023 14:52:47 09/09/20 23 09/09/2023 urina lysis , dipst ick Glucose Negati ve Not Available In-Office Order Internal Use Only DO Not Attach Compendium DO Not Attach Compendium, Do Not Delete/merge, [id number] 09/09/2023 14:52:47 09/09/20 23 09/09/2023 urina lysis , dipst ick Appearance Slight ly Cloudy Not Available In-Office Order Internal Use Only DO Not Attach Compendium DO Not Attach Compendium, Do Not Delete/merge, [id number] 09/09/2023 14:52:47 09/09/20 23 09/09/2023 urina lysis , dipst ick Color Yellow Not Available In-Office Order Internal Use Only DO Not Attach Compendium DO Not Attach Compendium, Do Not Delete/merge, [id number] 09/09/2023 14:52:47 07/16/20 24 07/17/2024 ALBUM IN/CR EATIN INE RATIO ,URIN E creatinine, urine 15.5 mg/dL notest ab. Not Available [facility] ([facility]) [address] [place], [address], 07/17/2024 08:27:03 07/16/20 24 07/17/2024 ALBUM IN/CR EATIN INE RATIO ,URIN E albumin, urine <3.0 ug/mL notest ab. Not Available [facility] ([facility]) [address] [place], [address], 07/17/2024 08:27:03 07/16/20 24 07/17/2024 ALBUM IN/CR EATIN INE RATIO ,URIN E alb/creat ratio <19 Tanesha l: 0 - 29 Moder ately incre ased: 30 - 300 Sever smiley incre ased: >300 Not Available [facility] ([facility]) [address] [facility] [place], [address], 07/17/2024 08:27:03 07/16/20 24 07/17/2024 TSH+F REE T4 TSH 2.220 uIU/m L 0.450- 4.500 Not Available [facility] ([facility]) [address] [facility] [place], [address], 07/17/2024 08:27:04 07/16/20 24 07/17/2024 TSH+F REE T4 T4,free(dire ct) 1.33 NG/dL 0.82-1 .77 Not Available [facility] ([facility]) [address] [facility] [place], [address], 07/17/2024 08:27:04 07/16/2007/17/2024 COMP. METAB OLIC PANEL (14) glucose 110 mg/dL 70-99 above high normal Not Available [facility] ([facility]) [address] [place], [address], 07/17/2024 08:27:06 07/16/2007/17/2024 COMP. METAB OLIC PANEL (14) BUN 24 mg/dL 8-27 Not Available [facility] ([facility]) [address] [place], [address], 07/17/2024 08:27:06 07/16/20 24 07/17/2024 COMP. METAB OLIC PANEL (14) creatinine 0.81 mg/dL 0.57-1 .00 Not Available [facility] ([facility]) [address] [place], [address], 07/17/2024 08:27:06 07/16/20 24 07/17/2024 COMP. METAB OLIC PANEL (14) eGFR 79 mL/mi n/1.7 3 >59 Not Available [facility] ([facility]) [address] [place], [address], 07/17/2024 08:27:06 07/16/20 24 07/17/2024 COMP. METAB OLIC PANEL (14) BUN/creatini ne ratio 30 12-28 above high normal Not Available [facility] ([facility]) [address] [facility] [place], [address], 07/17/2024 08:27:06 07/16/20 24 07/17/2024 COMP. METAB OLIC PANEL (14) sodium 135 mmol/ L 134-14 4 Not Available [facility] ([facility]) [address] [facility] [place], [address], 07/17/2024 08:27:06 07/16/20 24 07/17/2024 COMP. METAB OLIC PANEL (14) potassium 5.1 mmol/ L 3.5-5. 2 Not Available [facility] ([facility]) [address] [facility] [place], [address], 07/17/2024 08:27:06 07/16/20 24 07/17/2024 COMP. METAB OLIC PANEL (14) chloride 96 mmol/ L 96-106 Not Available [facility] ([facility]) [address] [place], [address], 07/17/2024 08:27:06 07/16/20 24 07/17/2024 COMP. METAB OLIC PANEL (14) carbon dioxide, total 25 mmol/ L 20-29 Not Available [facility] ([facility]) [address] [place], [address], 07/17/2024 08:27:06 07/16/20 24 07/17/2024 COMP. METAB OLIC PANEL (14) calcium 9.8 mg/dL 8.7-10 .3 Not Available [facility] ([facility]) [address] [place], [address], 07/17/2024 08:27:06 07/16/20 24 07/17/2024 COMP. METAB OLIC PANEL (14) protein, total 6.4 g/dL 6.0-8. 5 Not Available [facility] ([facility]) [address] [place], [address], 07/17/2024 08:27:06 07/16/20 24 07/17/2024 COMP. METAB OLIC PANEL (14) albumin 3.9 g/dL 3.9-4. 9 Not Available [facility] ([facility] [address] [place] [address], 07/17/2024 08:27:06 07/16/20 24 07/17/2024 COMP. METAB OLIC PANEL (14) globulin, total 2.5 g/dL 1.5-4. 5 Not Available [facility] ([facility]) [address], [place], [address], 07/17/2024 08:27:06 07/16/20 24 07/17/2024 COMP. METAB OLIC PANEL (14) bilirubin, total 0.4 mg/dL 0.0-1. 2 Not Available [facility] ([facility]) [address] [facility] [place], [address], 07/17/2024 08:27:06 07/16/20 24 07/17/2024 COMP. METAB OLIC PANEL (14) alkaline phosphatase 115 IU/L 44-121 Not Available [facility] ([facility]) [address] [facility] [place], [address], 07/17/2024 08:27:06 07/16/20 24 07/17/2024 COMP. METAB OLIC PANEL (14) AST (SGOT) 13 IU/L 0-40 Not Available [facility] ([facility]) [address] [facility] [place], [address], 07/17/2024 08:27:06 07/16/20 24 07/17/2024 COMP. METAB OLIC PANEL (14) ALT (SGPT) 17 IU/L 0-32 Not Available [facility] ([facility]) [address] [facility], [place], [address], 07/17/2024 08:27:06 07/16/2007/17/2024 HEMOG LOBIN A1C hemoglobin A1C 6.4 % 4.8-5. 6 above high normal Predi abete s: 5.7 - 6.4 Diabe kathi: >6.4 Glyce mckinley contr ol for adult s with diabe kathi: <7.0 Not Available [facility] ([facility]) [address] [facility], [place], [address], 07/17/2024 08:27:08 07/16/2007/17/2024 CBC WITH DIFFE RENTI AL/PL ATELE T WBC 9.1 x10e3 /uL 3.4-10 .8 Not Available [facility] ([facility]) [address] [facility], [place], [address], 07/17/2024 08:27:09 07/16/2007/17/2024 CBC WITH DIFFE RENTI AL/PL ATELE T RBC 4.19 x10e6 /uL 3.77-5 .28 Not Available [facility] ([facility]) [address] [facility], [place], [address], 07/17/2024 08:27:09 07/16/2007/17/2024 CBC WITH DIFFE RENTI AL/PL ATELE T hemoglobin 13.8 g/dL 11.1-1 5.9 Not Available [facility] ([facility]) [address] [facility], [place], [address], 07/17/2024 08:27:09 07/16/2007/17/2024 CBC WITH DIFFE RENTI AL/PL ATELE T hematocrit 41.7 % 34.0-4 6.6 Not Available [facility] ([facility]) [address] [facility], [place], [address], 07/17/2024 08:27:09 07/16/20 24 07/17/2024 CBC WITH DIFFE RENTI AL/PL ATELE T MCV 100 fL 79-97 above high normal Not Available [facility] ([facility]) [address] [facility], [place], [address], 07/17/2024 08:27:09 07/16/20 24 07/17/2024 CBC WITH DIFFE RENTI AL/PL ATELE T MCH 32.9 pg 26.6-3 3.0 Not Available [facility] ([facility]) [address] [facility], [place], [address], 07/17/2024 08:27:09 07/16/2007/17/2024 CBC WITH DIFFE RENTI AL/PL ATELE T MCHC 33.1 g/dL 31.5-3 5.7 Not Available [facility] ([facility]) [address] [facility], [place], [address], 07/17/2024 08:27:09 07/16/2007/17/2024 CBC WITH DIFFE RENTI AL/PL ATELE T RDW 12.4 % 11.7-1 5.4 Not Available [facility] ([facility]) [address] [facility], [place], [address], 07/17/2024 08:27:09 07/16/2007/17/2024 CBC WITH DIFFE RENTI AL/PL ATELE T platelets 305 x10e3 /uL 150-45 0 Not Available [facility] ([facility]) [address] [facility], [place], [address], 07/17/2024 08:27:09 07/16/2007/17/2024 CBC WITH DIFFE RENTI AL/PL ATELE T neutrophils 44 % notest ab. Not Available [facility] ([facility]) [address] [facility], [place], [address], 07/17/2024 08:27:09 07/16/2007/17/2024 CBC WITH DIFFE RENTI AL/PL ATELE T lymphs 34 % notest ab. Not Available [facility] ([facility]) [address] [facility], [place], [address], 07/17/2024 08:27:09 07/16/20 24 07/17/2024 CBC WITH DIFFE RENTI AL/PL ATELE T monocytes 9 % notest ab. Not Available [facility] ([facility]) [address] [facility], [place], [address], 07/17/2024 08:27:09 07/16/2007/17/2024 CBC WITH DIFFE RENTI AL/PL ATELE T eos 10 % notest ab. Not Available [facility] ([facility]) [address] [facility], [place], [address], 07/17/2024 08:27:09 07/16/2007/17/2024 CBC WITH DIFFE RENTI AL/PL ATELE T basos 2 % notest ab. Not Available [facility] ([facility]) [address] [facility], [place], [address], 07/17/2024 08:27:09 07/16/20 24 07/17/2024 CBC WITH DIFFE RENTI AL/PL ATELE T neutrophils (absolute) 4.1 x10e3 /uL 1.4-7. 0 Not Available [facility] ([facility]) [address] [facility], [place], [address], 07/17/2024 08:27:09 07/16/20 24 07/17/2024 CBC WITH DIFFE RENTI AL/PL ATELE T lymphs (absolute) 3.0 x10e3 /uL 0.7-3. 1 Not Available [facility] ([facility]) [address] [facility], [place], [address], 07/17/2024 08:27:09 07/16/20 24 07/17/2024 CBC WITH DIFFE RENTI AL/PL ATELE T monocytes(ab solute) 0.8 x10e3 /uL 0.1-0. 9 Not Available [facility] ([facility]) [address] [place], [address], 07/17/2024 08:27:09 07/16/20 24 07/17/2024 CBC WITH DIFFE RENTI AL/PL ATELE T eos (absolute) 0.9 x10e3 /uL 0.0-0. 4 above high normal Not Available [facility] ([facility]) [address] [facility], [place], [address], 07/17/2024 08:27:09 07/16/2007/17/2024 CBC WITH DIFFE RENTI AL/PL ATELE T baso (absolute) 0.2 x10e3 /uL 0.0-0. 2 Not Available [facility] ([facility]) [address] [place], [address], 07/17/2024 08:27:09 07/16/20 24 07/17/2024 CBC WITH DIFFE RENTI AL/PL ATELE T immature granulocytes 1 % notest ab. Not Available [facility] ([facility]) [address] [place], [address], 07/17/2024 08:27:09 07/16/2007/17/2024 CBC WITH DIFFE RENTI AL/PL ATELE T immature grans (abs) 0.1 x10e3 /uL 0.0-0. 1 Not Available [facility] ([facility]) [address] [place], [address], 07/17/2024 08:27:09 07/23/2007/23/2024 Compr ehens martin metab olic 1999 panel - Serum or Plasm a sodium [moles/volum e] in serum or plasma 135 mmol/ L low: 136mmo l/Lhig h: 145mmo l/L low SODIU M 135 (L) 136 - 145 mmol/ L 07/23 1:05 PM CDT [facility] Not Available Not Available 11/20/2024 12:38:42 07/23/2007/23/2024 Compr ehens martin metab olic 1999 panel - Serum or Plasm a potassium [moles/volum e] in serum or plasma 4.3 mmol/ L low: 3.5mmo l/Lhig h: 5.1mmo l/L POTAS SIUM 4.3 3.5 - 5.1 mmol/ L 07/23 1:05 PM CDT [facility] Not Available Not Available 11/20/2024 12:38:42 07/23/2007/23/2024 Compr ehens martin metab olic 1999 panel - Serum or Plasm a chloride [moles/volum e] in serum or plasma 99 mmol/ L low: 98mmol /Lhigh : 107mmo l/L CHLOR FERNANDO 99 98 - 107 mmol/ L 07/23 1:05 PM CDT [facility] Not Available Not Available 11/20/2024 12:38:42 07/23/2007/23/2024 Compr ehens martin metab olic 1999 panel - Serum or Plasm a carbon dioxide, total [moles/volum e] in serum or plasma 28 mmol/ L low: 22mmol /Lhigh : 30mmol /L CO2, VENOU S 28 22 - 30 mmol/ L 07/23 1:05 PM CDT [facility] Not Available Not Available 11/20/2024 12:38:42 07/23/2007/23/2024 Compr ehens martin metab olic 1999 panel - Serum or Plasm a anion gap in serum or plasma 12.3 mmol/ L high: 18mmol /L ANION GAP 12.3 <18.0 mmol/ L 07/23 1:05 PM CDT [facility] Not Available Not Available 11/20/2024 12:38:42 07/23/20 24 07/23/2024 Compr ehens martin metab olic 1999 panel - Serum or Plasm a glucose [mass/volume ] in serum or plasma 75 mg/dL low: 70mg/d Lhigh: 99mg/d L GLUCO SE 75 70 - 99 mg/dL 07/23 1:05 PM CDT [facility] [employer] [facility] Not Available Not Available 11/20/2024 12:38:42 07/23/20 24 07/23/2024 Compr ehens martin metab olic 1999 panel - Serum or Plasm a urea nitrogen [mass/volume ] in serum or plasma 23 mg/dL low: 10mg/d Lhigh: 20mg/d L high BUN 23 (H) 10 - 20 mg/dL 07/23 1:05 PM CDT [facility] [employer] [facility] Not Available Not Available 11/20/2024 12:38:42 07/23/20 24 07/23/2024 Compr [employer] ([employer]ens martin metab olic 1999 panel - Serum or Plasm a creatinine [mass/volume ] in serum or plasma 0.86 mg/dL low: 0.6mg/ dLhigh : 1mg/dL CREAT ININE , BLOOD 0.86 0.60 - 1.00 mg/dL 07/23 1:05 PM CDT [facility] [employer] [facility] Not Available Not Available 11/20/2024 12:38:42 07/23/20 24 07/23/2024 Compr [employer] (formerly [employer]ens martin metab olic 1999 panel - Serum or Plasm a urea nitrogen/cre atinine [mass ratio] in serum or plasma 27 text: 12 - 20 ratio high BUN/C REATI NINE RATIO 27 (H) 12 - 20 ratio 07/23 1:05 PM CDT [facility] [employer] [facility] Not Available Not Available 11/20/2024 12:38:42 07/23/20 24 07/23/2024 Compr [employer]iser (formerly [employer]ens martin metab olic 1999 panel - Serum or Plasm a protein [mass/volume ] in serum or plasma 7.1 g/dL low: 6.3g/d Lhigh: 8.2g/d L TOTAL PROTE IN 7.1 6.3 - 8.2 g/dL 07/23 1:05 PM CDT [facility] [employer] [facility] Not Available Not Available 11/20/2024 12:38:42 07/23/2007/23/2024 Compr Wiser (formerly [employer]ens martin metab olic 1999 panel - Serum or Plasm a albumin [mass/volume ] in serum or plasma 4 g/dL low: 3.5g/d Lhigh: 5g/dL ALBUM IN 4.0 3.5 - 5.0 g/dL 07/23 1:05 PM CDT [facility] [employer] [facility] Not Available Not Available 11/20/2024 12:38:42 07/23/20 24 07/23/2024 Compr [employer] (formerly [employer]ens martin metab olic 1999 panel - Serum or Plasm a albumin/glob ulin [mass ratio] in serum or plasma 1.3 low: 1high: 2.2 A/G RATIO 1.3 1.0 - 2.2 07/23 1:05 PM CDT [facility] [employer] [facility] Not Available Not Available 11/20/2024 12:38:42 07/23/2007/23/2024 Compr [employer] (formerly [employer]ens martin metab olic 1999 panel - Serum or Plasm a calcium [mass/volume ] in serum or plasma 9 mg/dL low: 8.7mg/ dLhigh : 10.5mg /dL CALCI UM 9.0 8.7 - 10.5 mg/dL 07/23 1:05 PM CDT [facility] [employer] [facility] Not Available Not Available 11/20/2024 12:38:42 07/23/2007/23/2024 Compr [employer] (formerly [employer]ens martin metab olic 1999 panel - Serum or Plasm a bilirubin.to sergio [mass/volume ] in serum or plasma 0.4 mg/dL low: 0.2mg/ dLhigh : 1.2mg/ dL T BILI 0.4 0.2 - 1.2 mg/dL 07/23 1:05 PM CDT [facility] [employer] [facility] Not Available Not Available 11/20/2024 12:38:42 07/23/20 24 07/23/2024 Compr [employer] (formerly [employer]ens martin metab olic 2000 panel - Serum or Plasm a aspartate aminotransfe rase [enzymatic activity/vol ume] in serum or plasma 16 U/L low: 5U/Lhi gh: 34U/L SGOT (AST) 16 5 - 34 U/L 07/23 1:05 PM CDT [facility] [employer] [facility] Not Available Not Available 11/20/2024 12:38:42 07/23/2007/23/2024 Compr ehens martin metab olic 2000 panel - Serum or Plasm a alanine aminotransfe rase [enzymatic activity/vol ume] in serum or plasma 16 U/L low: 0U/Lhi gh: 55U/L SGPT (ALT) 16 0 - 55 U/L 07/23 1:05 PM CDT [facility] [employer] [facility] Not Available Not Available 11/20/2024 12:38:42 07/23/2007/23/2024 Compr ehens martin metab olic 2000 panel - Serum or Plasm a alkaline phosphatase [enzymatic activity/vol ume] in serum or plasma 102 U/L low: 40U/Lh igh: 150U/L ALKAL INE PHOSP HATAS E 102 40 - 150 U/L 07/23 1:05 PM CDT [facility] [employer] [facility] Not Available Not Available 11/20/2024 12:38:42 07/23/2007/23/2024 Compr ehens martin metab olic 2000 panel - Serum or Plasm a IS the patient required to BE fasting? No IS THE PATIE NT REQUI RED TO BE FASTI NG? No 07/23 1:05 PM CDT [facility] [employer] [facility] Not Available Not Available 11/20/2024 12:38:42 07/23/2007/23/2024 Compr ehens martin metab olic 2000 panel - Serum or Plasm a glomerular filtration rate/1.73 sq M.predicted among non-blacks [volume rate/area] in serum, plasma or blood by creatinine-b ased formula (MDRD) low: 60 GFR, ESTIM ATED >60 >=60 07/23 1:05 PM CDT [facility] [employer] [facility] Not Available Not Available 11/20/2024 12:38:42 07/23/2007/23/2024 Compr ehens martin metab olic 2000 panel - Serum or Plasm a glomerular filtration rate/1.73 sq M.predicted among blacks [volume rate/area] in serum, plasma or blood by creatinine-b ased formula (MDRD) low: 60 GFR, EST. AFRIC AN >60 >=60 07/23 1:05 PM CDT [facility] Not Available Not Available 11/20/2024 12:38:42 07/23/20 24 07/23/2024 Compr ehens martin metab olic 2000 panel - Serum or Plasm a glomerular filtration rate/1.73 sq M.predicted among non-blacks [volume rate/area] in serum, plasma or blood by creatinine-b ased formula (MDRD) low: 60 GFR, EST. NONAF RICAN >60 >=60 07/23 1:05 PM CDT [facility] [employer] [facility] [facility] Not Available Not Available 11/20/2024 12:38:42 07/23/20 24 07/23/2024 Compr ehens martin metab olic 2000 panel - Serum or Plasm a interpretati on and review of laboratory results Abnorm al Not Available Not Available 12:38:42 07/23/2007/23/2024 Hemog lobin A1c/H emogl obin. total in Blood hemoglobin A1C/hemoglob in.total in blood 6.5 % low: 4%high : 6% abnormal HGB-A 1C 6.5 (A) 4 - 6 % Not Available Not Available 11/20/2024 12:38:42 07/23/2007/23/2024 Hemog lobin A1c/H emogl obin. total in Blood interpretati on and review of laboratory results Abnorm al Not Available Not Available 12:38:42 06/22/20 24 06/19/2024 MAMMO , carlose li, digit al, bilat eral No observ ation record ed. jschulterma [facility] (Radiology) [address] [place], [address], 06/22/2024 11:16:16 07/04/2007/01/2024 XR, chest , 2 view No observ ation record ed. FITZ Jasmine [address], [place], [address], 07/06/2024 12:24:54 Result Notes None recorded. Problems Name Problem SNOMED Code Status Onset Date Resolution Date Notes Provider Name and Address Organization Details Recorded Time Dyslipidem ia 957197127 Active Not Available [facility] 4 21:31:40 Tobacco user 810462069 Active 2021 Not Available [facility] 4 21:31:39 Gastroesop hageal reflux disease without esophagiti s 151728509 Active 2021 Not Available [facility] 4 21:31:40 Overactive urinary bladder 789388932 Active 2021 Not Available [facility] 4 21:31:40 Sleep pattern disturbanc e 55173706 Active 2022 Not Available [facility] 4 21:31:40 Urinary incontinen ce 267954164 Active 2022 Not Available [facility] 4 21:31:40 Candidiasi s of skin 55388909 Active 2022 Not Available [facility] 4 21:31:40 Unintentio nal weight loss 962542064 Active 2022 Not Available [facility] 4 21:31:40 Osteoporos is 89034075 Active 2022 Not Available [facility] 4 21:31:40 Abdominal pain 42381566 Active 2022 Not Available [facility] 4 21:31:40 At increased risk for falls 425785726 Active 2024 Mirella Damon APN, [employer] Attn: Accounting [facility], [place], [address] , [place] 5 15:42:52 Does mobilize using walker 073432931 Active 2024 Mirella Damon APN [employer] Attn: Accounting ,[address] [facility], [place], [address] , [place] - [place] 5 15:42:54 Hip pain 26430039 Active Not Available [facility] 4 21:31:40 Obesity 489609369 Active Not Available [facility] 4 21:31:40 Chronic obstructiv e pulmonary disease 51732497 Active Mirella Damon APN [employer] Attn: Accounting ,[address] [facility], [place], [place], [address] [place] [address] , [place] - [place] 4 11:54:39 Type 2 diabetes mellitus without complicati on 348977961 Active Not Available [facility] 4 21:31:40 History of psychiatri c disorder 520954415 Active Per Dr. Mallory Not Available [facility] 4 21:31:40 Ataxia 68474107 Active Not Available [facility] 4 21:31:40 Smoker 98656327 Completed 08/31/2021 Mirella Damon APN [employer] Attn: Accounting ,[address] [facility], [place], [place], [address] [place] [address] , [facility] - [place] 11:37:56 Upper respirator y infection 67518910 Completed 08/31/2021 Mirella Damon APN [employer] Attn: Accounting ,[address] [facility], [place], [place], [address] [place] [address] , [place] - [place] 11:37:53 Acute bronchitis 66851099 Completed 08/31/2021 Mirella Damon APN [employer] Attn: Accounting ,[address] [facility], [place], [address] , [place] - [place] 11:37:28 Acute sinusitis 60871043 Completed 08/31/2021 Mirella Damon APN [employer] Attn: Accounting ,[address] [facility], [place], [address] , [place] - [place] 11:38:08 Cough 60420438 Completed 08/31/2021 Mirella Damon APN, [employer] Attn: Accounting ,[address] [place], [address] , [facility] 11:38:02 Low back pain 203185168 Active Not Available [facility] 4 21:31:40 Notes:Some problems listed i n Document: #[id number] could not be added to this patient's chart. Please review this document and add these problems to the patient's chart manually as needed. Problem Notes None recorded. Procedures Surgical History Date Name Laterality Status Provider Name and Address Organization Details Recorded Time 023 osteoplasty of femur completed Mirella Damon APN, [employer] Attn: Accounting,[address] [place], [address], [facility] 09/09/2023 14:59:47 022 open reduction of fracture of femur completed Mirella Damon APN, [employer] Attn: Accounting,[address] [place], [address], [facility] - [place] 09/09/2023 14:58:59 020 colonoscopy completed Adelia Garza MA [place] - [facility] 11/06/2019 16:23:25 014 Most Recent Mammogram completed Nida Nelson [place] - [place] 08/18/2014 11:21:25 Cholecystectomy completed Alexandra Platt [facility] 11/12/2016 15:48:55 Hernia Repair completed Alexandra Platt [place] - [place] 05/10/2017 16:06:24 Imaging Results Imaging Date Name Status LastModified by [facility] Details LastModified Time 06/19/2024 MAMMO, screening, digital, bilateral completed [facility] (Radiology) [address] [place] [address], [address], 06/22/2024 11:16:16 07/01/2024 XR, chest, 2 view completed [address] [place], [address], 07/06/2024 12:24:54 Procedure Notes None recorded. Medical Equipment None Reported. Allergies No known drug allergies Medications Name Sig Start Date Stop Date Status Note LastModified by Organization Details LastModified Time easy comfort safety pen needles 32g x4mm 32g x 4 mm misc active Not Available Not Available Not Available apap/code ine tab 300-30mg 04/15 completed Not Available Not Available Not Available pure comfort safety pen needle 32g x 4mm 32g x 4 mm misc 07/01 completed Not Available Not Available Not Available easy comfort pen needles 33g x 4mm 33g x 4 mm misc 09/09 completed Not Available Not Available Not Available onetouch del mis plus 33g 05/29 completed Not Available Not Available Not Available risperido ne 1 mg tabs 04/15 completed Not Available Not Available Not Available blood glucose test strips Use to test blood sugars three times daily 09/09 completed Not Available Not Available Not Available venlafaxi ne hcl er 150 mg cp24 04/15 completed Not Available Not Available Not Available insulin lispro kwikpen 100 unit/ml sopn 04/15 completed Not Available Not Available Not Available insulin syringe/0 .5ml/31g x 5/16 31g x 5/16 0.5 ml misc 07/01 completed Not Available Not Available Not Available Prescript ion - Change 01/30 completed Not Available Not Available Not Available humalog kwikpen 100 unit/ml sopn 01/12 completed Not Available Not Available Not Available senna tablets 12/14 completed Not Available Not Available Not Available alcohol pads 70 % pads 07/01 completed Not Available Not Available Not Available safety lancets 28g misc active Not Available Not Available Not Available buspirone hydrochlo ride 10 mg tabs 10/31 completed Not Available Not Available Not Available onetouch kathi ultra 09/09 completed Not Available Not Available Not Available true comfort safety pen needles 32g x 4mm 32g x 4 mm misc 09/09 completed Not Available Not Available Not Available glucomete r active Not Available Not Available Not Available insulin syrg mis 0.5/31g 07/01 completed Not Available Not Available Not Available cyclobenz aprine 10 mg tablet TK 1 T PO HS PRN 05/29 completed Not Available Not Available Not Available amoxicill in 500 mg capsule Take 1 capsule 3 times a day by oral route for 10 days. 02/08 completed Not Available Not Available Not Available latanopro st 0.005 % eye drops INSTILL 1 DROP IN BOTH EYES AT BEDTIME DIRECTED active Not Available Not Available No t Available metformin 500 mg tablet TAKE 1 TABLET BY MOUTH TWICE DAILY WITH EVENING AND MORNING MEALS 11/14 completed Not Available Not Available Not Available Qvar 80 mcg/actua tion Metered Aerosol oral inhaler INHALE 2 PUFFS BY MOUTH TWICE DAILY 05/29 completed Not Available Not Available Not Available doxycycli ne hyclate 100 mg capsule Take 1 capsule twice a day by oral route for 7 days. 05/16 completed Not Available Not Available Not Available cefuroxim e axetil 250 mg tablet TAKE 1 TABLET BY MOUTH TWICE DAILY FOR 5 DAYS FOR UTI 12/14 completed Not Available Not Available Not Available atorvasta tin 20 mg tablet 11/03 completed Not Available Not Available Not Available dihydroer gotamine 0.5 mg/pump act. (4 mg/mL) nasal spray active Not Available Not Available Not Available azithromy luis 250 mg tablet TAKE 2 TABLETS (500 MG) BY ORAL ROUTE ONCE DAILY FOR 1 DAY THEN 1 TABLET (250 MG) BY ORAL ROUTE ONCE DAILY FOR 4 DAYS 11/08 completed Not Available Not Available Not Available pravastat in 40 mg tablet Take 1 tablet every day by oral route at bedtime for 90 days. 11/06 completed Raises pt. blood sugar Not Available Not Available Not Available ibuprofen 800 mg tablet 01/30 completed Not Available Not Available Not Available ofloxacin 0.3 % eye drops 12/14 completed Not Available Not Available Not Available fluconazo le 150 mg tablet TAKE 1 TABLET BY MOUTH ONCE 05/29 completed Not Available Not Available Not Available benzonata te 200 mg capsule Take 1 capsule 3 times a day by oral route for 10 days. 11/08 completed Not Available Not Available Not Available hydrocodo ne 5 mg-acetam inophen 325 mg tablet TAKE 1 TABLET BY MOUTH EVERY 8 HOURS FOR UP TO 5 DAYS NEEDED FOR MODERATE TO SEVERE PAIN 07/01 completed Not Available Not Available Not Available Cheratuss in DAC 30 mg-10 mg-100 mg/5 mL oral syrup TAKE 10 ML EVERY 4 HOURS BY MOUTH NEEDED FOR COUGH 10/23 completed Not Available Not Available Not Available flurbipro fen 0.03 % eye drops 07/01 completed Not Available Not Available Not Available meloxicam 15 mg tablet TAKE 1 TABLET BY MOUTH EVERY DAY 12/14 completed Not Available Not Available Not Available venlafaxi ne 25 mg tablet TAKE 1 TABLET BY MOUTH TWICE DAILY 07/01 completed Not Available Not Available Not Available famotidin e 40 mg tablet 07/01 completed Wants refilled Not Available Not Available Not Available prednison e 20 mg tablet active Not Available Not Available Not Available Alcohol Pads TEST 3 TIMES A DAY active Not Available Not Available No t Available Lantus U-100 Insulin 100 unit/mL subcutane ous solution active Not Available Not Available Not Available venlafaxi ne ER 150 mg capsule,e xtended release 24 hr TAKE 1 CAPSULE BY MOUTH EVERY MORNING active Not Available Not Available No t Available diphenoxy late-atro pine 2.5 mg-0.025 mg tablet TAKE 1 TABLET BY MOUTH FOUR TIMES DAILY NEEDED FOR DIARRHEA 01/08 completed Not Available Not Available Not Available potassium chloride ER 10 mEq tablet,ex tended release TAKE 1 TABLET BY MOUTH EVERY DAY 11/03 completed Not Available Not Available Not Available acetamino phen 300 mg-codein e 30 mg tablet TK 1 T PO BID PRN 08/29 completed Not Available Not Available Not Available divalproe x 500 mg tablet,de layed release TAKE 1 TABLET BY MOUTH THREE TIMES DAILY active Not Available Not Available No t Available ciproflox acin 500 mg tablet TAKE 1 TABLET BY MOUTH TWICE DAILY FOR 10 DAYS 07/01 completed Not Available Not Available Not Available omeprazol e 40 mg capsule,d elayed release 09/09 completed Not Available Not Available Not Available aspirin 81 mg tablet,de layed release Take 1 tablet every day by oral route. active Not Available Not Available No t Available tramadol 50 mg tablet TAKE 1 TABLET BY MOUTH EVERY 6 HOURS NEEDED FOR PAIN 07/01 completed Not Available Not Available Not Available triamcino lone acetonide 0.1 % topical cream APPLY THIN LAYER TOPICALL Y TO THE AFFECTED AREA TWICE DAILY active Not Available Not Available No t Available amoxicill in 500 mg tablet Take 1 tablet 3 times a day by oral route. 04/06 completed Not Available Not Available Not Available glimepiri de 1 mg tablet TAKE 1 TABLET BY MOUTH DAILY AFTER BREAKFAS T active Not Available Not Available No t Available ketorolac 0.5 % eye drops INSTILL 1 DROP INTO AFFECTED EYE(S) BY OPHTHALM IC ROUTE 4 TIMES PER DAY 07/01 completed Not Available Not Available Not Available risperido ne 2 mg tablet active Not Available Not Available Not Available oxycodone -acetamin ophen 5 mg-325 mg tablet TAKE 1 TABLET BY MOUTH EVERY 12 HOURS NEEDED FOR PAIN 12/14 completed Not Available Not Available Not Available amoxicill in 875 mg tablet Take 1 tablet every 12 hours by oral route for 10 days. 09/01 completed Not Available Not Available Not Available prednisol one acetate 1 % eye drops,néstor pension SHAKE LIQUID AND INSTILL 1 DROP TO SURGICAL EYE THREE TIMES DAILY STARTING AFTER SURGERY 07/01 completed Not Available Not Available Not Available ciproflox acin 0.3 % eye drops 01/08 completed Not Available Not Available Not Available OneTouch Ultra Test strips TEST 3 TIMES A DAY active Not Available Not Available No t Available benzonata te 100 mg capsule TAKE 1 CAPSULE BY MOUTH THREE TIMES DAILY DIRECTED 11/03 completed Not Available Not Available Not Available Risperdal 4 mg tablet Take 1 tablet every day by oral route. 01/30 completed Not Available Not Available Not Available diclofena c 0.1 % eye drops 11/14 completed Not Available Not Available Not Available tobramyci n 0.3 % eye drops 08/09 completed Not Available Not Available Not Available buspirone 10 mg tablet TAKE 1 TABLET BY MOUTH TWICE DAILY active Not Available Not Available No t Available divalproe x ER 500 mg tablet,ex tended release 24 hr TAKE 1 TABLET BY MOUTH THREE TIMES DAILY 12/14 completed Not Available Not Available Not Available lidocaine 5 % topical patch APPLY 1 PATCH ONCE DAILY TO MOST PAINFUL AREA OF SKIN. REMOVE AFTER 12 HOURS AND ALLOW FOR 12 HOUR PATCH-FR EE PERIOD. active Not Available Not Available No t Available indometha luis 25 mg capsule Take 1 capsule 3 times a day by oral route cc prn. active Not Available Not Available No t Available nicotine 21 mg/24 hr daily transderm al patch Apply 1 patch every day by transder mal route for 42 days. 08/31 completed Not Available Not Available Not Available omeprazol e 20 mg capsule,d elayed release TAKE 1 CAPSULE BY MOUTH TWICE DAILY 07/01 completed Not Available Not Available Not Available codeine 10 mg-guaife nesin 100 mg/5 mL oral liquid Take 10 mL every 4 hours by oral route as needed cough. 11/06 completed Not Available Not Available Not Available zinc 50 mg tablet Take 1 tablet every day by oral route. 02/08 completed Not Available Not Available Not Available diclofena c sodium 50 mg tablet,de layed release 11/06 completed Not Available Not Available Not Available furosemid e 20 mg tablet TAKE 1 TABLET BY MOUTH DAILY 2023 active Not Available Not Available Not Avai lable clobetaso l 0.05 % topical ointment APPLY THIN LAYER TOPICALL Y TO GROIN RASH EVERY NIGHT 01/08 completed Not Available Not Available Not Available polyethyl leonard glycol 3350 17 gram/dose oral powder active Not Available Not Available Not Available lovastati n 20 mg tablet Take 1 tablet every day by oral route. 09/06 completed Not Available Not Available Not Available levofloxa luis 750 mg tablet 08/11 completed Not Available Not Available Not Available albuterol sulfate HFA 90 mcg/actua tion aerosol inhaler INHALE 2 PUFFS BY MOUTH EVERY 6 HOURS NEEDED FOR WHEEZING OR SHORTNES S OF BREATH active Not Available Not Available No t Available oxybutyni n chloride 5 mg tablet TAKE 1 TABLET BY MOUTH TWICE A DAY 07/16 completed Not Available Not Available Not Available ondansetr on 4 mg disintegr ating tablet DISSOLVE 1 TABLET ON TONGUE EVERY 6 HOURS NEEDED FOR NAUSEA - 1ST LINE 09/09 completed Not Available Not Available Not Available cefdinir 300 mg capsule TAKE 1 CAPSULE BY MOUTH TWICE DAILY FOR 10 DAYS 07/01 completed Not Available Not Available Not Available fluticaso ne propionat e 50 mcg/actua tion nasal spray,néstor pension 11/06 completed Not Available Not Available Not Available risperido ne 1 mg tablet TAKE 1 TABLET BY MOUTH AT BEDTIME active Not Available Not Available No t Available lisinopri l 2.5 mg tablet Take 1 tablet(s ) every day by oral route. 09/06 completed Not Available Not Available Not Available doxycycli ne hyclate 100 mg tablet 09/09 completed Not Available Not Available Not Available naproxen 500 mg tablet Take 1 tablet twice a day by oral route with meals. 01/30 completed Not Available Not Available Not Available diazepam 5 mg tablet 09/06 completed Not Available Not Available Not Available amoxicill in 875 mg-potass ium clavulana te 125 mg tablet TAKE 1 TABLET BY MOUTH TWICE DAILY FOR 14 DAYS 05/16 completed Not Available Not Available Not Available bupropion HCl XL 150 mg 24 hr tablet, extended release 08/09 completed Not Available Not Available Not Available lancing device USE DIRECTED 07/01 completed Not Available Not Available Not Available Spiriva with [employer] r 18 mcg and inhalatio n capsules INHALE THE CONTENTS OF 1 CAPSULE VIA INHALATI ON DEVICE DAILY 05/29 completed Not Available Not Available Not Available nitrofura ntoin monohydra te/macroc rystals 100 mg capsule TAKE 1 CAPSULE BY MOUTH EVERY 12 HOURS FOR 7 DAYS 01/08 completed Not Available Not Available Not Available Levemir U-100 Insulin 100 unit/mL subcutane ous solution ADMINIST ER 30 UNITS UNDER THE SKIN EVERY DAY 12/14 completed Not Available Not Available Not Available Levemir FlexPen 100 unit/mL (3 mL) solution subcutane ous insulin pen INJECT 40 UNITS UNDER THE SKIN NIGHTLY 05/29 completed Not Available Not Available Not Available BD Ultra-Fin e Short Pen Needle 31 gauge x 5/16 USE TO INJECT UNDER THE SKIN THREE TIMES DAILY DIRECTED 09/09 completed Not Available Not Available Not Available calcium 600 mg (as carbonate )-vit D3 10 mcg (400 unit)-min erals tablet Take 1 tablet twice a day by oral route. 02/08 completed Not Available Not Available Not Available Lantus Solostar U-100 Insulin 100 unit/mL (3 mL) subcutane ous pen INJECT 10 UNITS UNDER THE SKIN EVERY NIGHT 07/01 completed Not Available Not Available Not Available Humalog KwikPen (U-100) Insulin 100 unit/mL subcutane ous INJECT 12 UNITS UNDER THE SKIN THREE TIMES DAILY NEEDEDMU ST SCHEDULE APPT FOR FURTHER REFILLS 07/01 completed 5 unites 3 times daily prn Not Available Not Available Not Available Creon 24,000-76 ,000-120, 000 unit capsule,d elayed release active Not Available Not Available Not Available Myrbetriq 50 mg tablet,ex tended release TAKE 1 TABLET BY MOUTH DAILY active Not Available Not Available No t Available TRUEplus Insulin 0.5 mL 31 gauge x 5/16 syringe USE DIRECTED 09/09 completed Not Available Not Available Not Available lancets 33 gauge CHECK BLOOD SUGAR THREE TIMES DAILY 07/01 completed Not Available Not Available Not Available Ultra Thin Lancets 31 gauge TEST 3 TIMES A DAY 09/09 completed Not Available Not Available Not Available Eliquis 2.5 mg tablet TAKE 1 TABLET BY MOUTH TWICE DAILY 11/03 completed Not Available Not Available Not Available Safety Lancets 28 gauge TEST 3 TIMES A DAY 11/03 completed Not Available Not Available Not Available Anoro Ellipta 62.5 mcg-25 mcg/actua tion powder for inhalatio n INHALE 1 PUFF BY MOUTH DAILY 11/03 completed Not Available Not Available Not Available Jardiance 10 mg tablet TAKE 1 TABLET BY MOUTH EVERY DAY 12/14 completed Not Available Not Available Not Available Jardiance 25 mg tablet TAKE 1 TABLET BY MOUTH DAILY FOR DIABETES 07/01 completed Not Available Not Available Not Available Breo Ellipta 200 mcg-25 mcg/dose powder for inhalatio n Inhale 1 puff every day by inhalati on route. 01/30 completed Not Available Not Available Not Available Fish Oil 1,000 mg (120 mg-180 mg) capsule Take by oral route. 12/14 completed Not Available Not Available Not Available OneTouch Ultra Blue Test Strip TEST THREE TIMES DAILY 05/29 completed Not Available Not Available Not Available BD Angela 2nd Gen Pen Needle 32 gauge x 5/32 USE FOUR TIMES DAILY 09/09 completed Not Available Not Available Not Available OneTouch Ultra2 Meter USE TO TEST BLOOD SUGAR DIRECTED 09/09 completed Not Available Not Available Not Available Easy Comfort Pen [place] 33 gauge x 5/32 USE TO INJECT 3 TIMES A DAY 09/09 completed Not Available Not Available Not Available Pure Comfort Safety Lancets 30 gauge TEST 3 TIMES A DAY 09/09 completed Not Available Not Available Not Available Dexcom G7 Conveyor Operator USE TO CHECK BLOOD GLUCOSE BEFORE EACH MEAL AND AT BEDTIME 07/01 completed Not Available Not Available Not Available Dexcom G7 Sensor device CHANGE EVERY 10 DAYS 07/01 completed Not Available Not Available Not Available Easy Comfort Safety Pen Needle 32 gauge x 5/32 USE TO INJECT 3 TIMES A DAY active Not Available Not Available No t Available Vitals Date Recorded Body height Body mass index (BMI) Body weight Oxygen saturation Oxygen saturation in Arterial blood by Pulse oximetry Heart rate Respiratory rate Body temperature Systolic blood pressure Diastolic blood pressure Provider Name and Address Organization Details Last Updated DateTime 3 168.91 cm 23.2 kg/m2 37037.2 g 98 % 98 % 90 /min 16 /min 97.8 [degF] 122 mm[Hg] 76 mm[Hg] Sara Arango MA [place] - [facility] 3 14:43:26 Date Recorded Body height Body mass index (BMI) Body weight Oxygen saturation Oxygen saturation in Arterial blood by Pulse oximetry Heart rate Respiratory rate Body temperature Systolic blood pressure Diastolic blood pressure Provider Name and Address Organization Details Last Updated DateTime 4 168.91 cm 21.3 kg/m2 48470.3 8 g 97 % 97 % 90 /min 16 /min 98 [degF] 110 mm[Hg] 70 mm[Hg] JOSELITO Harper [place] - [facility] 4 11:34:53 Date Recorded Body height Body mass index (BMI) Body weight Oxygen saturation Oxygen saturation in Arterial blood by Pulse oximetry Respiratory rate Body temperature Heart rate Systolic blood pressure Diastolic blood pressure Provider Name and Address Organization Details Last Updated DateTime 4 168.91 cm 26.9 kg/m2 09145.1 1 g 95 % 95 % 16 /min 97.5 [degF] 72 /min 136 mm[Hg] 80 mm[Hg] Tessy Medina Minh [facility] 14:36:27 Date Recorded Body height Body mass index (BMI) Body weight Oxygen saturation Oxygen saturation in Arterial blood by Pulse oximetry Respiratory rate Body temperature Heart rate Systolic blood pressure Diastolic blood pressure Provider Name and Address Organization Details Last Updated DateTime 4 168.91 cm 27.7 kg/m2 89727.0 7 g 99 % 99 % 16 /min 97.5 [degF] 82 /min 158 mm[Hg] 82 mm[Hg] Tessy Medina Minh [facility] 08:40:35 Date Recorded Systolic blood pressure Diastolic blood pressure Provider Name and Address Organization Details Last Updated DateTime 07/16/2024 148 mm[Hg] 80 mm[Hg] Mirella Damon APN, [employer] [facility] Attn: [address] [place], [address], [facility] 07/16/2024 09:03:24 Date Recorded Body height Body mass index (BMI) Body weight Body temperature Respiratory rate Heart rate Oxygen saturation Oxygen saturation in Arterial blood by Pulse oximetry Systolic blood pressure Diastolic blood pressure Provider Name and Address Organization Details Last Updated DateTime 5 168.91 cm 30.5 kg/m2 63753.7 4 g 98 [degF] 16 /min 86 /min 98 % 98 % 162 mm[Hg] 82 mm[Hg] Tessy Medina Minh [facility] 5 15:29:14 Social History Question Answer Notes LastModified by Organizat ion Details LastModified Time Tobacco Smoking Status Current Every Day Smoker NICKY Dorado, [facility] 09/09/2023 14:37:33 Do You Have An Advance Directive? No Information not available 01/12/2021 What Is Your Level Of Alcohol Consumption? None Information not available 11/03/2024 How Many Years Have You Consumed Alcohol? 43 Information not available 01/12/2021 Are You Blind Or Do You Have Difficulty Seeing? No Glasses Information not available 09/09/2023 What Is Your Level Of Caffeine Consumption? Moderate Coffee And Pepsi Information not available 01/12/2021 In The 14 Days Before Symptom Onset, Have You Had Close Contact With A Laboratory-confi rmed COVID-19 While That Case Was Ill? No Information not available 01/12/2021 In The 14 Days Before Symptom Onset, Have You Had Close Contact With A Person Who Is Under Investigation For COVID-19 While That Person Was Ill? No Information not available 01/12/2021 Have You Been To An Area Known To Be High Risk For COVID-19? No Information not available 01/12/2021 Are You Currently Employed? No Retired Information not available 01/12/2021 Are You Deaf Or Do You Have Serious Difficulty Hearing? No Information not available 01/12/2021 What Type Of Diet Are You Following? REGULAR Information not available 01/30/2019 Do You Or Have You Ever Used E-cigarettes Or Vape? Never Used Electronic Cigarettes Information not available 10/06/2019 Are There Any Guns Present In Your Home? No Information not available 01/12/2021 What Was The Date Of Your Most Recent Tobacco Screening? 11/03/2024 Information not available 11/03/2024 How Many Children Do You Have? 3 Information not available 01/12/2021 What Is Your Current Pack Years? 30ormorepacky ears Information not available 01/12/2021 What Is Your Relationship Status? Information not available 01/12/2021 Do You Use Your Seat Belt Or Car Seat Routinely? Yes Information not available 01/12/2021 Are You Sexually Active? No Information not available 01/12/2021 Do You Have Smoke And Carbon Monoxide Detectors In Your Home? Yes No Carbon Monoxide Detectors. Information not available 01/12/2021 At What Age Did You Start Smoking Tobacco? 20 Information not available 01/12/2021 Are You Passively Exposed To Smoke? Yes Information not available 01/12/2021 Do You Or Have You Ever Used Smokeless Tobacco? Never Used Smokeless Tobacco Information not available 10/06/2019 How Much Tobacco Do You Smoke? 1 PPD Information not available 09/09/2023 General Stress Level Medium Information not available 01/30/2019 Do You Feel Stressed (tense, Restless, Nervous, Or Anxious, Or Unable To Sleep At Night)? [id number] Information not available 07/01/2024 Do You Use Any Illicit Or Recreational Drugs? Yes Marijuanna Occ Information not available 07/01/2024 Do You Use Sunscreen Routinely? Yes Information not available 01/12/2021 Has Tobacco Cessation Counseling Been Provided? Yes Information not available 01/12/2021 On What Date Was Tobacco Cessation Counseling Provided? 11/03/2024 Information not available 11/03/2024 How Many Years Have You Smoked Tobacco? 49 11/03/24 Information not available 11/03/2024 Do You Or Have You Ever Used Any Other Forms Of Tobacco Or Nicotine? No Information not available 01/12/2021 Sex: Female Functional Status Question Answer Note LastModified by Organization D etails LastModified Time Are you able to care for yourself? Yes Information n ot available 01/12/2021 What is your exercise level? None Information not available 01/09/2024 Mental Status None recorded. Family History Relationship Description Onset Age of this Age Resolved Age Notes LastModified by Organization Details LastModified Time Mother 04/30/18 ( pancra tic cancer ) sebyrma Not available 04/29/2019 15:17:25 Son Malignant tumor of kidney sebyrma Not available 2018 15:17:58 Son Total nephrectomy erobbinsma Not available 03/2020 15:37:21 Unspecified Relation Family history of malignant neoplasm colon and pancre atic erobbinsma Not available 04/06/2021 11:26:16 Unspecified Relation Disorder of stomach runs in family erobbinsma Not available 04/06/2021 11:26:37 Notes:no new changes reporte d 08/29/20, 07/06/21, 08/22/21 Oldest son is getting ready to have his 10th child.01/12/21 Youngest son is going through a divorce 01/12/21 Medical History Condition Response Coronary Artery Disease N High Blood Pressure Y Atrial Fibrillation N Kidney or Bladder Problems Y Thyroid Problems N GI Problems N Depression Y COPD Y Blood Clots N Skin Problems Y Eating Disorder N Anemia N Heart Attack ([place]) N Anxiety Disorder Y Diabetes Y Muscle, Joint, or Bone Problems Y Seizures/Epilepsy N Acid Reflux (GERD) Y Cancer N Stroke Y Asthma N Allergies N High Cholesterol Y Hepatitis N Liver Disease N Headaches N Heart Failure N Gynecological History Statement/Question Response Most Recent Mammogram 06/24/2014 Obstetrics History GPAL:G 3 P 0 0 0 3 Type Value Living 3 Total 3 Immunizations Vaccine Type Date Status Note Provider Nam e and Address Organization Details Recorded Time Influenza, split virus, trivalent, preservative 4 completed Mirella Damon APN, [employer] Attn: [address] [place], [address], [facility] 07/16/2024 08:48:17 Influenza, split virus, quadrivalent, PF 8 completed Mirella Damon APN, [employer] Attn: [address] [place], [address], [facility] 07/16/2024 08:48:17 pneumococcal polysaccharide PPV23 8 completed Mirella Damon APN, [employer] Attn: [address] [place], [address], [facility] 07/16/2024 08:48:17 Influenza, split virus, trivalent, preservative 5 completed Not Available [facility] 10/04/2023 21:31:41 Influenza, split virus, trivalent, PF 6 completed Not Available [facility] 10/04/2023 21:31:41 Influenza, MDCK, quadrivalent, PF 7 completed Not Available [facility] 10/04/2023 21:31:41 Influenza, adjuvanted, quadrivalent, PF 3 completed Not Available [facility] 10/04/2023 21:31:41 Influenza, split virus, quadrivalent, PF 0 completed Mirella Damon, INTERNET SITE DESIGNER, [employer] Attn: [address] [facility], [place], [address], [facility] 07/16/2024 08:48:17 Pneumococcal conjugate PCV 13 7 completed Not Available [facility] 10/17/2019 02:44:13 Pneumococcal conjugate PCV 13 9 completed Not Available [facility] 10/17/2019 02:37:33 Influenza, split virus, quadrivalent, preservative 9 completed Not Available [facility] 10/17/2019 02:45:32 pneumococcal polysaccharide PPV23 9 completed Not Available [facility] 10/17/2019 02:44:15 Influenza, high-dose, quadrivalent, PF 1 completed Adelia Garza MA null, [place] - [facility] 07/06/2021 13:17:27 Influenza, high-dose, quadrivalent, PF 3 completed Mirella Damon, INTERNET SITE DESIGNER, [employer] Attn: [address] [facility], [place], [place], [address] [place] [address], [facility] - [facility] 09/09/2023 22:51:12 Tdap 4 completed JOSELITO Harper null, [place] - [facility] 07/16/2024 09:29:23 Pneumococcal conjugate PCV20, polysaccharide [id number] conjugate, adjuvant, PF 5 completed Mirella Damon, INTERNET SITE DESIGNER, [employer] Attn: [address] [facility], [place], [place], [address] [place] [address], [facility] - [facility] 11/03/2024 18:15:34 Influenza, split virus, quadrivalent, preservative 7 completed Not Available [facility] 10/04/2023 21:31:41 Past Encounters Encounter ID Performer Location Encounter Start Date Encounter Closed Date Diagnosis/Indication Diagnosis SNOMED-CT Code Diagnosis ICD10 Code Diagnosis Note [id number] Jean-Pierre Kahn MD [place] [address] [place] [address] [id number] 1 08/18/2014 11:14:19 08/18/2014 12:49:18 Type 2 diabetes mellitus without complication [id number] Chronic ob structive pulmonary disease 79121187 Adult [facility] examination [id number] UTD on colonoscop y, mammogram, and flu shot. Smoker 18722632 [id number] [facility] [address] [place] [address] 99366-604 1 11/01/2014 10:09:57 11/01/2014 13:16:47 Chronic obstructive pulmonary disease 11762593 Dyslipidemia 267158803 Type 2 nishant betes mellitus without complication [id number] Lacy Goldstein [facility] [address] [place] [address] [id number] 1 03/01/2015 14:11:13 03/02/2015 11:00:11 Hip pain 01320199 [id number] [place] [address] [place] [address] [id number] 1 03/24/2015 14:28:28 03/24/2015 15:27:41 Type 2 diabetes mellitus without complication [id number] [facility] [id number] [place] [address] [place] [address] 28727-542 1 05/02/2015 10:51:07 05/02/2015 16:39:07 Type 2 diabetes mellitus without complication 434938541 Chronic ob structive pulmonary disease 49206964 Adult [facility] examination [id number] UTD on colonoscop y, mammogram, and flu shot. [id number] Regina Whyte [facility] [address] [place] [address] 27328-767 1 06/20/2015 13:59:05 06/21/2015 09:05:12 Upper respiratory infection 74728953 Smoker [id number] Regina Whyte [facility] [address] [place] [address] [id number] 1 11/02/2015 09:47:19 11/02/2015 15:03:22 Chronic obstructive pulmonary disease 98208916 J44.9 Type 2 nishant betes mellitus without complication 390588043 E11.9 Smoker 38182712 F17.200 Obesity 609883475 E66.9 [id number] Jean-Pierre Kahn MD [place] [address] [place] [address] 48683-515 1 12/06/2015 10:02:32 12/07/2015 09:27:40 Type 2 diabetes mellitus without complication 461571552 E11.9 Smoker 10886300 F17.200 Obesity 942987823 E66.9 [id number] Jean-Pierre Kahn MD [place] [address] [place] [address] [id number] 1 02/08/2016 09:50:50 02/08/2016 15:03:46 Upper respiratory infection 87763410 J06.9 Type 2 nishant betes mellitus without complication 087784988 E11.9 Acute sinusitis 95185673 J01.90 Obesity 739047137 E66.9 Smoker 83152168 F17.200 [id number] Jean-Pierre Kahn MD [place] [address] [place] [address] [id number] 1 06/11/2016 10:24:52 06/12/2016 14:22:26 Type 2 diabetes mellitus without complication 894958029 E11.9 Obesity 093119994 E66.9 Dyslipidemia 271817264 E 78.5 Chronic ob structive pulmonary disease 12914617 J44.9 Low back pain 857254815 M54.5 Adult heal th examination 554110129 Z00.00 [id number] Jean-Pierre Kahn MD [place] [address] [place] [address] 92254-154 1 11/12/2016 15:36:55 11/13/2016 15:24:08 Type 2 diabetes mellitus without complication 139009747 E11.9 Chronic ob structive pulmonary disease 09398072 J44.9 History of psychiatric disorder 045277846 Z86.59 Cramp in lower limb 4499 88777 R25.2 Low back pain 789063041 M54.5 Smoker 82847748 F17.353 [id number] Jean-Pierre Kahn MD [place] [address] [place] [address] [id number] 1 05/10/2017 15:49:42 05/13/2017 09:33:53 Type 2 diabetes mellitus 05885374 E11.9 Dyslipidemia 981979618 E 78.5 Obesity 846482472 E66.9 [id number] Jean-Pierre Kahn MD [place] [address] [place] [address] [id number] 1 08/09/2017 15:51:27 08/12/2017 10:36:47 Chronic obstructive pulmonary disease 20810702 J44.9 Low back pain 957017694 M54.5 Diabetes mellitus 452270 09 E11.9 Smoker 07738163 F17.200 Adult heal th examination 662108419 Z00.00 [id number] MD Portillo Galarza [facility] [address] [place] [address] 09/06/2017 15:19:48 09/09/2017 10:59:17 Smoker 50422504 F17.200 Acute bronchitis 6449713 2 J20.9 Chronic ob structive pulmonary disease 39478265 J44.9 [id number] MD Portillo Galarza [facility] [address] [place] [address] 1 11/08/2017 16:00:31 11/11/2017 11:10:48 Chronic obstructive pulmonary disease 52975823 J44.9 Type 2 nishant betes mellitus without complication 631685672 E11.9 Adult heal th examination 147614144 Z00.00 [id number] MD Portillo Galarza [facility] [address] [place] [address] 1 12/27/2017 15:41:03 12/30/2017 10:20:57 Otitis media 68682368 H66.91 Cough 00461204 R05 [id number] MD Alexandra Galarza [address] [facility] [place] [address] 02/21/2018 15:57:25 02/21/2018 17:29:48 Chronic obstructive pulmonary disease 91911354 J44.9 Type 2 nishant betes mellitus without complication 470328642 E11.9 Smoker 51816171 F17.342 [id number] MD Alexandra Galarza 14 IM 4 [facility] [place] [address] 1 05/23/2018 15:48:48 05/24/2018 11:36:40 Chronic obstructive pulmonary disease 59079974 J44.9 Type 2 nishant betes mellitus without complication 031348053 E11.9 Hip pain 33716684 M25.55 9 Low back pain 002601536 M54.5 [id number] MD Alexandra Galarza 14 IM 4 [facility] [place] [address] 08/11/2018 14:17:39 08/13/2018 15:23:12 History of pneumonia 373123285 Z87.01 Smoker 30246632 F17.291 [id number] MD Alexandra Galarza [address] [facility] [place] [address] 11/14/2018 15:52:22 11/17/2018 10:40:53 Type 2 diabetes mellitus 38744753 E11.9 Acute sinusitis 10231665 J01.90 Smoker 26681119 F17.200 Low back pain 319297493 M54.5 [id number] MD Alexandra Galarza [address] [facility] [place] [address] 01/30/2019 13:52:10 02/02/2019 16:43:19 Type 2 diabetes mellitus 87615443 E11.9 Contusion of forehead 11 1264211 S00.83XD Active or passive immunization 038515062 Z23 [id number] MD Alexandra Galarza 14 IM [address] [facility] [place] [address] 04/29/2019 14:57:54 05/04/2019 10:44:06 Type 2 diabetes mellitus 64412474 E11.9 Injury of wrist 60010101 3 S69.91XD Smoker 00952621 F17.404 [id number] MD Alexandra Galarza [address] [facility] [place] [address] 09/01/2019 14:59:45 09/04/2019 11:33:04 Type 2 diabetes mellitus 38600684 E11.9 Needs infl uenza immunization 562813017 Z28.3 Administra tion of pneumococcal vaccine 58035734 Z23 Smoker 38224284 F17.200 Obesity 538945936 E66.9 [id number] MD Alexandra Galarza [address] IM [address] [facility] [place] [address] 10/06/2019 15:23:38 10/08/2019 14:25:33 Acute bronchitis 73338073 J20.9 [id number] MD Alexandra Galarza [address] [facility] [place] [address] 11/06/2019 16:13:42 11/09/2019 12:24:21 Chronic obstructive pulmonary disease 75326385 J44.9 Type 2 nishant betes mellitus without complication 922588057 Z01.00 Smoker 40859771 F17.432 [id number] MD Alexandra Galarza [address] [facility] [place] [address] 02/05/2020 09:25:27 02/08/2020 21:00:10 History of fall 777464854 Z91.81 Apparently this was an one-time incident. Injury of foot 680664861 S99.921A Chin injury 352195134 S0 9.93XA Type 2 nishant betes mellitus without complication 809395391 Z01.00 Pt does not have much comment here. [id number] MD Alexandra Galarza [address] [facility] [place] [address] 04/15/2020 13:59:42 04/18/2020 10:03:46 Insomnia 647568150 G47.00 Pt states that cyclobenza kerry helps. Type 2 nishant betes mellitus 91260145 E11.9 Seizure disorder 6380350 02 G40.[address] t Dr. Acosta [id number] TYSHAWN Espino [address] [place] [address] 07/25/2020 13:22:04 07/26/2020 12:46:12 Viral screening 330911051 Z11.59 D/w pt the current pandemic of COVID-19 and call for social isolation in order to blunt the curve and minimize risk and spread. Encouraged patient and family to take restrictio ns seriously. They have verbalized understand ing of such. Viral syndrome 376818973 B34.9 [id number] MD Alexandra Galarza [address] [place] [place] [address] 08/29/2020 10:05:37 08/30/2020 14:03:24 History of fall 866136699 Z91.81 Trying to give up smoking 380682725 Z72.0 She will buy OTC nicoderm patches. Influenza immunization advised 990075506 Z71.89 [id number] MD Alexandra Galarza [address] [place] [place] [address] 01/12/2021 13:05:34 01/16/2021 18:46:16 Type 2 diabetes mellitus without complication 156796073 Z01.00 Obesity 104132972 E66.9 Smoker 21696855 F17.200 History of psychiatric disorder 390497559 Z86.59 Dyslipidemia 584786031 E 78.5 Urinary incontinence 165 739500 R32 [id number] MD Alexandra Galarza 14 IM [address] [facility] [address] [place] [address] [address] 04/06/2021 10:55:48 04/11/2021 22:42:22 Smoker 46107831 F17.200 Obesity 993060341 E66.9 Type 2 nishant betes mellitus without complication 967626396 Z01.00 Under care of neurologist 663080137 Z76.89 Screening for malignant neoplasm of colon 696302102 Z12.11 colonoscop y was done on 10-21-2019- -[facility] 616938950 Z91.89 Screening for malignant neoplasm of respiratory tract 595407080 Z12.2 Screening mammography 24 461305 Z12.31 already done this year at [facility] on 02-10-2021 Adult heal th examination 963199146 Z00.00 [id number] MD Alexandra Galarza 14 IM [address] [facility] [address] [place] [address] 07/06/2021 12:10:46 07/10/2021 12:23:16 Smoker 74784638 F17.200 Overweight 184664472 E66 .3 Type 2 nishant betes mellitus without complication 589433460 Z01.00 Edema of l ower extremity 851795476 R60.0 Toenail thickened 014650 000 R23.8 Influenza immunization advised 561244173 Z71.89 [facility] 854880589 Z91.89 Screening for malignant neoplasm of colon 638634263 Z12.11 colonoscop y was done on 10-21-2019- -to be repeated in five years Screening for malignant neoplasm of respiratory tract 425400652 Z12.2 Risk of ex posure to communicable disease 583805625 Z20.9 Active or passive immunization 830549115 Z23 Pt does not want to receive the covid vaccinatio n at present. [id number] MD Alexandra Galarza 14 IM [address] [facility] [address] [place] [address] 08/22/2021 11:56:23 08/26/2021 00:40:58 Obesity 000288275 E66.9 Smoker 02705362 F17.200 Under care of vice president regulatory 335989506 Z76.89 Diabetes mellitus 674041 09 E11.9 HgbA1c has improved during the course of this year--hylton ges to her dosages were made at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
--- OUTSIDE RECORDS SUMMARY | 2024-12-01 15:00 | XMS_ITS | Encounter Summary ---
Author Organization [facility] Address [address] [place] [address] Care Team Providers Care Seamless Hosiery Knitter Name Role Phone Mirella Mendoza TIRE MOLD TESTER-DISEASE MANAGEMENT NURSE Primary Care Provider [phone]- [phone] Reason for Visit * Reason Comments Refill Request Encounter Details Date Type Department Care Team ([facility] Contact Info) Description 10/22/2023 Refill [facility] - [address] [place] [address] Luisa Schwab MD Refill Request Social History Tobacco Use Types Packs/Day Years Used Date Smoking Tobacco: Every Day Cigarettes 1.5 46 Smokeless Tobacco: Never Alcohol Use Standard Drinks/Week Comments Yes 0 (1 standard drink = 0.6 oz pur e alcohol) a few times per year AUDIT-C Answer Date Recorded Frequency of Alcohol Consumption Not on file 07/24/2023 Q2: How many drinks containi ng alcohol do you have on a typical day when you are drinking? Patient does not drink Frequency of Binge Drinking Not on file 07/01 Overall Financial Resource Strain (CARDIA) Answe r Date Recorded How hard is it for you to pa y for the very basics like food, housing, medical care, and heating? Not hard at all 07/24/2023 [facility] [place] [facility] Occupat ional [facility] - Occupational Stress Questionnaire Answer Date Recorded Do you feel stress - tense, restless, nervous, or anxious, or unable to sleep at night because your mind is troubled all the time - these days? Only a little 07/24/2023 Hunger Vital Sign Answer Date Recorded Within the past 12 months, y ou worried that your food would run out before you got the money to buy more. Never true 07/24/20 23 Within the past 12 months, t he food you bought just didn't last and you didn't have money to get more. Never true 07/24/2023 PRAPARE - Transportation Answer Date Re corded In the past 12 months, has l ack of transportation kept you from medical appointments or from getting medications? No 07/01 In the past 12 months, has l ack of transportation kept you from meetings, work, or from getting things needed for daily living? No 07/24/2023 Housing Stability Vital Sign Answer Horace e Recorded In the last 12 months, was t here a time when you were not able to pay the mortgage or rent on time? No 07/24/2023 In the last 12 months, how many places have you lived? 1 07/24/2023 In the last 12 months, was t here a time when you did not have a steady place to sleep or slept in a prison (including now)? No 07/24/2023 Sex and Gender Information Value Date Recorded Sex Assigned at Not on file Gender Identity Not on file Sexual Orientation Not on file documented as of this encounter Functional Status Functional Status Response Date of Assess ment Is person deaf or have serious hearing difficult y? No 07/24/2023 Is person blind or have serious difficulty seein g? No 07/24/2023 Does person have serious dif ficulty walking/climbing stairs? No 07/24/2023 Does person have difficulty dressing/bathing? No 07/24/2023 Does person have difficulty doing errands alone? No 07/24/2023 Cognitive Status Response Date of Assessm ent Does person have difficulty concentrating/remembering/making decisions? No 07/24/2023 documented as of this encounter Plan of Treatment Not on file documented as of this encounter Visit Diagnoses Not on filedocumented in this encounter Care Teams Seamless Hosiery Knitter Relationship Specialty Start Date End Date Mirella Mendoza APRN-IGNACIO [address] [place] [address] PCP - General Nurse Practitioner Family 01/23/24 documented as of this encounter
--- OUTSIDE RECORDS SUMMARY | 2024-12-01 15:00 | XMS_ITS | Clinical Summary ---
Author Organization [facility] Resource Data Address [address] [place] [address] Care Team Providers Care Supervisor Transcribing Operators Name Role Phone Mirella Mendoza JUAN LUIS-WAITER/WAITRESS ECONOMY CLASS Primary Care Provider [phone]- [phone] Source Comments [facility] Resource Data,non-owned Affiliates and Associated Physician Practices is amultiple site organization consisting of ambulatory clinics and hospital sitesin [place], [place], [place] and [place]. This disclosure is being madepursuant to the Care Everywhere program and may not contain all informatio navailable regarding this patient. Last updated 18.[facility] Resource Data Allergies Active Allergy Reactions Criticality Noted Date Comments Anesthesia S-I-60 Nausea and/or Vomiting,Unknown 01/26/2022 Medications * Be aware that medications may not be up to date on this document. Always verify current medications with the patient. Medication Sig Dispensed Refills Start Date End Date Status divalproex DR (Depakote) 500 MG tablet Take 1 (one) tablet by mouth 3 times daily 03/22/2022 Active oxybutynin (Ditropan) 5 MG tablet Take 1 (one) tablet by mouth 2 times daily 07/28/2022 Active risperiDONE (RisperDAL) 1 MG tablet Take 1 (one) tablet by mouth at bedtime 03/23/2022 Active venlafaxine (Effexor) 25 MG tablet Take 1 (one) tablet by mouth 2 times daily Active Alcohol Swabs (Alcohol Pads) 70 % TEST 3 TIMES A DAY 08/11/2022 Active aspirin EC (Ecotrin) 81 MG tablet Take 1 (one) tablet by mouth once daily Active Blood Glucose Monitoring Suppl (GlucoCom Blood Glucose Monitor) SAJI Active Blood Glucose Monitoring Suppl (ONE TOUCH ULTRA 2) w/Device KIT as directed 05/28/2022 Active busPIRone (Buspar) 10 MG tablet 08/06/2022 Active OneTouch Ultra test strip TEST 3 TIMES A DAY 08/11/2022 Active blood glucose (Precision QID Test) test strip USE TO TEST BLOOD SUGAR THREE TIMES DAILY 03/20/2021 Active B-D ULTRAFINE III SHORT PEN 31G X 8 MM needle USE TO INJECT UNDER THE SKIN THREE TIMES DAILY DIRECTED 07/09/2022 Active insulin pen needle (B-D ULTRAFINE III SHORT PEN) 31G X 8 MM needle USE TO INJECT UNDER THE SKIN THREE TIMES DAILY 05/07/2021 Active TRUEplus Insulin Syringe 31G X 5/16 0.5 ML syringe as directed 03/20/2022 Active Lancet Devices (Simple Diagnostics Lancing Dev) MISC as directed 05/28/2022 Active Lancets (ONETOUCH DELICA PLUS 33G EXTRA FINE LANCET) USE TO CHECK BLOOD SUGAR THREE TIMES DAILY 07/22/2022 Active [place]-3 Fatty Acids (fish oil) 1000 MG capsule Take 1 (one) capsule by mouth once daily Active Jardiance 10 MG tablet Take 1 (one) tablet by mouth once daily 07/11/2022 Active Easy Comfort Pen [place] 33G X 4 MM MISC USE TO INJECT 3 TIMES A DAY 08/11/2022 Active BD Pen Needle Angela 2nd Gen 32G X 4 MM MISC USE FOUR TIMES DAILY 02/23/2022 Acti ve Insulin Pen Needle (Pen [place]) 32G X 4 MM MISC 4 times a day 02/23/2022 Active albuterol HFA (Proventil; Ventolin; Proair) 108 (90 Base) MCG/ACT inhaler Inhale 2 (two) puffs by mouth every 4 hours as needed for Shortness of Breath or Wheezing 09/12/2022 Active acetaminophen (Tylenol) 500 MG tablet Take 2 (two) tablets by mouth every 8 hours Maximum allowable Acetaminophen amount = 4 Grams (4000 mg) / 24 hours. 07/29/2023 Active atorvastatin (Lipitor) 20 MG tablet Take 1 (one) tablet by mouth at bedtime 07/29/2023 Active polyethylene glycol 3350 (Miralax) 17 g packet Take 17 (seventeen) g by mouth once daily as needed for Constipation 07/29/2023 Active Additional Information Patient not taking.Reported on 08/15/2023 senna (Senokot Extra Strength) 17.2 MG Take 17.2 mg by mouth 2 times daily 07/29/2023 Active Additional Information Patient not taking.Reported on 08/15/2023 vitamin D3 (Cholecalciferol) 25 MCG (1000 UNITS) tablet Take 1 (one) tablet by mouth once daily 07/30/2023 Active insulin detemir (Levemir FlexPen) pen Inject 10 (ten) Units subcutaneously at bedtime Active naloxone HCl (Narcan) 4 MG/0.1ML nasal spray [place] 1 (one) spray into the nose as needed 07/29/2023 Active omeprazole (PriLOSEC) 40 MG capsule Take 1 (one) capsule by mouth daily before breakfast 07/29/2023 Active apixaban (Eliquis) 2.5 MG tablet Take 1 (one) tablet by mouth 2 times daily for 35 days 07/29/2023 Active Additional Information Patient not taking.Reported on 08/15/2023 oxyCODONE, immediate release, (Roxicodone) 5 MG tabletIndications: Closed fracture of distal end of femur, unspecified fracture morphology, initial encounter ([facility]) Take 1 (one) tablet to 2 (two) tablets by mouth every 4 hours as needed (For moderate or severe pain) 12 tablet 07/29/2023 Active lidocaine (Lidoderm) 5 % patch Apply 1 (one) patch to skin once daily Apply patch to most painful area and remove after 12 hours. May reapply a new patch 12 hours later. 30 patch 08/15/2023 Active lidocaine (Lidoderm) 5 % patch APPLY 1 PATCH ONCE DAILY TO MOST PAINFUL AREA OF SKIN. REMOVE AFTER 12 HOURS AND ALLOW FOR 12 HOUR PATCH-FREE PERIOD. 10 patch 05/04/2024 Active Active Problems Problem Noted Date Diagnosed Date Grade I diastolic dysfunction 07/27/2023 COPD (chronic obstructive pulmonary disease) GERD (gastroesophageal reflux disease) History of CVA (cerebral vascular accident) 07/01 Severe sepsis 08/26/2022 Trauma 08/25/2022 Hypertension, unspecified type 08/25/2022 Tobacco use disorder 08/25/2022 Closed fracture of distal en d of femur, unspecified fracture morphology, initial encounter 08/25/2022 Type 2 diabetes mellitus wit hout complication, with long-term current use of insulin 08/25/2022 Chronic bronchitis 08/25/2022 Bipolar 2 disorder 08/25/2022 Class 1 obesity due to exces s calories without serious comorbidity in adult 08/25/2022 Encounters Date Type Department Care Team Description 11/05/2024 11:30 AM SUPERVISOR DISPLAY FABRICATION Office Visit [facility] - Orthopedics [address] [place] [phone] Ashlee Kern, TRANSLATOR DEAF-WAITER/WAITRESS ECONOMY CLASS Closed fracture of distal end of femur with routine healing, subsequent encounter (Primary Dx) 11/05/2024 11:29 AM SUPERVISOR DISPLAY FABRICATION - 11/05/2024 11:59 PM SUPERVISOR DISPLAY FABRICATION Hospital Encounter [facility] [address] [place] [address] Judy Blum MD Discharge Disposition: Home or Self Care 11/05/2024 Travel 10/28/2024 Travel 09/28/2024 Orders Only [facility] - [facility]opedics [address] [place] [phone] Judy Blum MD Closed fracture of distal end of femur with routine healing, subsequent encounter from Last 3 Months Immunizations Name Administration Dates Next Due FLU VACCINE QUAD IIV4 SPLIT 0.25 ML IM 9,06/11/2016 FLU VACCINE TRI IIV3 SPLIT IM (FLUVIRIN) 015,07/28/2014 INFLUENZA VACCINE, CELL CULT URE, QUADR. (FLUCELVAX QUADRIVALENT; 6MO+) (CCIIV4) 07/24/2017 INFLUENZA VACCINE, HIGH-DOSE , QUADR. (FLUZONE HIGH-DOSE QUADRIVALENT; 65Y+), 0.7 ML (HD-IIV4) 07/06/2021 INFLUENZA VACCINE, QUADR. (A FLURIA, FLUZONE QUADRIVALENT; 6MO+) (IIV4) 08/09/2017 INFLUENZA VACCINE, QUADR. (F LUZONE; FLULAVAL; FLUARIX; AFLURIA QUADRIVALENT; 6MO+), 0.5 ML (IIV4) 08/29/2020,07/20/2018 INFLUENZA VACCINE, TRIV. (FL UZONE; FLULAVAL; FLUARIX; AFLURIA TRIVALENT; 6MO+), 0.5 ML (IIV3) 06/10/2016 PNEUMOCOCCAL PPSV23 09/01/2019 PNEUMOCOCCAL PPV VACCINE 07/20/2018 Pneumococcal Pcv13 Conj 01/30/2019,08/09/2017 Social History Tobacco Use Types Packs/Day Years Used Date Smoking Tobacco: Every Day Cigarettes 1.5 46 Smokeless Tobacco: Never Tobacco Cessation:Ready to Q uit: Not Asked; Counseling Given: Not Answered Alcohol Use Standard Drinks/Week Comments Yes 0 [...] and heating? Not hard at all 07/24/2023 PHQ-2 Answer Date Recorded Patient Health Questionnaire-2 Score 0 11/05/2024 [facility] [place] of Occupat ional Health - Occupational Stress [...] place to sleep or slept in a alf (including now)? No 07/24/2023 Sex and Gender Information Value Date Recorded Sex Assigned at Not on file Gender Identity Not on file Sexual Orientation Not on file Last Filed Vital Signs Vital Sign Reading Time Taken Comments Blood Pressure 109/62 07/29/2023 3:30 PM CDT Pulse 76 07/29/2023 3:30 PM CDT Temperature 36.5 C (97.7 F) 07/29/2023 3:30 PM CDT Respiratory Rate 18 07/29/2023 3:30 PM CDT Oxygen Saturation 96% 07/29/2023 3:30 PM CDT Inhaled Oxygen Concentration - - Weight 61.7 kg (136 lb) 11/05/2024 11:49 AM SUPERVISOR DISPLAY FABRICATION Height 167.6 cm (5' 6 ) 11/05/2024 11:49 AM SUPERVISOR DISPLAY FABRICATION Body Mass Index 21.95 11/05/2024 11:49 AM SUPERVISOR DISPLAY FABRICATION Plan of Treatment Health Maintenance Due Date Last Done Comments COLOGUARD (AGES 45-75) - COLON CA SCREENING [address] COLONOGRAPHY - COLON CA SCREENING 1955 FIT - COLON CA SCREENING 1955 FLEX SIG - COLON CA SCREENING 1956 HEPATITIS C SCREENING 05/05/1974 DTAP/TDAP/TD VACCINES (1 - Tdap) 1975 ZOSTER VACCINE (1 of 2) 2006 Respiratory Syncytial Virus (RSV) Vaccine Pt: or over 60 yrs (1 - Risk 60-74 years 1-dose series) 2016 DIABETES RETINOPATHY SCREENING 08/25/2022 DIABETES-FOOT EXAM WITH MONOFILAMENT 08/25/2022 LUNG CANCER SCREENING 01/25/2024 01/24/2023, 021 COVID-19 VACCINE (1 - season) 2024 INFLUENZA VACCINE (#1) 2024 , 11/08/2022, 07/06/2021, Additional history exists PNEUMOCOCCAL VACCINE 50+ (3 of 3 - PCV20 or PCV21) 09/01/2024 09/01/2019, 01/30/2019, 07/20/2018, Additional history exists DIABETES - URINE PROTEIN SCREENING 09/30/2024 MEDICARE AWV CALENDAR YEAR 2024 DIABETES-HGB A1C 10/23/2024 07/23/2024, , 01/22/2024, Additional history exists DIABETES-SERUM CREATININE 07/23/20252023, 09/27/2023, 09/27/2023, Additional history exists MAMMOGRAM 06/19/2026 06/19/2024, 06/01, 06/20/2022, Additional history exists COLONOSCOPY - COLON CA SCREENING 10/21/2029 10/21/2019 Colorectal Cancer Screening 10/21/2029 BONE DENSITY TESTING Completed 05/01/2023 HEPATITIS B VACCINE Aged Out No longe r eligible based on patient's age to complete this topic HIB VACCINE Aged Out No longer eligi ble based on patient's age to complete this topic HPV VACCINE Aged Out No longer eligi ble based on patient's age to complete this topic MENINGOCOCCAL (Group B) VACCINE Aged Out No longer eligible based on patient's age to complete this topic MENINGOCOCCAL VACCINE Aged Out No eloy rowdy eligible based on patient's age to complete this topic Medical Devices Implanted Type Area Lead Ramp Service Man Device Identifier Shelf Expiration Date Model / Serial / Lot Graft Bone Accell Evo3 Dbm 10ml Ptty - [id number] Implanted:Qty: 1 on 08/25/2022 by Marbella Cano MD at [facility] Left: Leg Inte[employer] 03/27/2023 02-5000-100 / [id number] / [id number] Screw 3.5mm 55mm Slf-Tap Cortx Evos Strl Implanted:Qty: 1 on 08/25/2022 by Marbella Cano MD at [facility] Left: Leg [employer] [id number] / / Screw 3.5mm 65mm Slf-Tap Cortx Evos Strl Implanted:Qty: 1 on 08/25/2022 by Marbella Cano MD at [facility] Left: Leg [employer] [id number] / / Screw 3.5mm 70mm Slf-Tap Cortx Evos Strl Implanted:Qty: 1 on 08/25/2022 by Marbella Cano MD at [facility] Left: Leg [employer] [id number] / / Plate 95d 60mm 9 Hl Ss Hip Cndrl Dcp Implanted:Qty: 1 on 07/24/2023 by Judy Blum MD at [facility] Left: Femur Synthes Usa 237.92 / / Screw 4.5mm 8mm 70mm Cortx Slf-Tap Lg Implanted:Qty: 1 on 07/24/2023 by Judy Blum MD at [facility] Left: Femur [employer] 214.870 / / Screw 4.5mm 8mm 46mm 3.5mm Slf-Tap Lg Implanted:Qty: 1 on 07/24/2023 by Judy Blum MD at [facility] Left: Femur [employer] 214.846 / / Screw 4.5mm 8mm 36mm 3.5mm Slf-Tap Lg Implanted:Qty: 1 on 07/24/2023 by Judy Blum MD at [facility] Left: Femur [employer] 214.836 / / Screw 4.5mm 8mm 34mm Cortx Slf-Tap Lg Implanted:Qty: 1 on 07/24/2023 by Jean Carlos Yost MD at [facility] [employer] 214.834 / / Explanted Type Area Lead Ramp Service Man Device Identifier Shelf Expiration Date Model / Serial / Lot Wire K 1.6mm 150mm Drl Tip Cocr Fx Flut Explanted:Qty: 6 on 08/25/2022 at [facility] [employer] [id number] / / Screw 3.5mm 75mm Slf-Tap Cortx Evos Strl Explanted:Qty: 1 on 08/25/2022 by Marbella Cano MD at [facility] Left: Leg [employer] [id number] / / Cortex Screw 4.5x74 Mm Explanted:Qty: 1 on 08/25/2022 by Marbella Cano MD at [facility] Left: Leg [employer] Trauma [id number] / / 4.5mm X 76mm Lck Screw Implanted:Qty: 2 on 08/25/2022 by Marbella Cano MD at [facility] Explanted:Qty: 2 on 07/24/2023 by Jean Carlos Yost MD at [facility] [id number] / / Evos 4.5mm X 36mm Screw Implanted:Qty: 3 on 08/25/2022 at [facility] Explanted:Qty: 3 on 07/24/2023 by Jean Carlos Yost MD at [facility] [id number] / / Evos 4.5mm X 30mm Screw Implanted:Qty: 1 on 08/25/2022 at [facility] Explanted:Qty: 1 on 07/24/2023 by Jean Carlos Yost MD at [facility] [id number] / / Screw 4.5mm 8mm 64mm Cortx Slf-Tap Lg Explanted:Qty: 1 on 07/24/2023 by Judy Blum MD at [facility] Left: Femur [employer]sa 214.864 / / Screw 4.5mm 8mm 18mm Gilebrto Slf-Tap Lg Hex Explanted:Qty: 1 on 07/24/2023 by Judy Blum MD at [facility] Left: Femur [employer] 214.818 / / Screw 4.5mm 8mm 44mm 3.5mm Slf-Tap Lg Explanted:Qty: 1 on 07/24/2023 by Judy Blum MD at [facility] Left: Femur [employer] 214.844 / / Screw 4.5mm 8mm 32mm Cortx Slf-Tap Lg Explanted:Qty: 1 on 07/24/2023 by Judy Blum MD at [facility] Left: Femur [employer] 214.832 / / Locking Screw 4.5x74 Mm Implanted:Qty: 1 on 08/25/2022 by Marbella Cano MD at [facility] Explanted:Qty: 1 on 07/24/2023 by Jean Carlos Yost MD at [facility] Left: Leg [employer] Trauma [id number] / / Locking Screw 4.5x80 Mm Implanted:Qty: 1 on 08/25/2022 by Marbella Cano MD at [facility] Explanted:Qty: 1 on 07/24/2023 by Jean Carlos Yost MD at [facility] Left: Leg [employer] Trauma [id number] / / Distal Femur Plate 4.5x270 Mm, 13 Hole Implanted:Qty: 1 on 08/25/2022 by Marbella Cano MD at [facility] Explanted:Qty: 1 on 07/24/2023 by Jean Carlos Yost MD at [facility] Left: Leg [employer] Trauma [id number] / / Procedures Procedure Name Priority Date/Time Associated Diagnosis Comments XR FEMUR LEFT 2VW Routine 11/05/2024 11: 42 AM SUPERVISOR DISPLAY FABRICATION Closed fracture of distal end of femur with routine healing, subsequent encounter BASIC METABOLIC PANEL (CALCIUM TOTAL) AM Draw 07/29/2023 7:07 AM CDT HEMOGLOBIN A1C ROSELYN 08/25/2022 9:11 AM SUPERVISOR DISPLAY FABRICATION from Last 3 Months or Most Recently Relevant to Health Maintenance Results * XR Femur Left 2Vw (11/05/2024 11:42 AM SUPERVISOR DISPLAY FABRICATION) Anatomical Region Laterality Modality Lower Extremity Computed Radiogr aphy 11/05/2024 12:3 6 PM SUPERVISOR DISPLAY FABRICATION Impressions 11/05/2024 1:28 PM SUPERVISOR DISPLAY FABRICATION IMPRESSION: Unchanged alignment. Report dictated by Stephen Iglesias MD (radiology rn). I, Lisset Smith MD have personally reviewed and interpreted this examination/study. > Interpreting Provider: Lisset Smith, MD on 11/05/2024 1:28 PM Narrative 11/05/2024 1:28 PM SUPERVISOR DISPLAY FABRICATION PROCEDURE: XR FEMUR LEFT 2VW, DATE/TIME OF EXAM: 11/05/2024 11:42 AM, LOCATION [facility] INDICATION: S72.409D: Closed fracture of distal end of femur with routine healing, subsequent encounter ADDITIONAL CLINICAL INFORMATION: Ordering Provider Reason For Exam: fracture Technologist Note: Additional: COMPARISON: Left femur radiograph dated 04/23/2024. FINDINGS: Redemonstration of the distal femoral shaft fracture status post fixation with blade plate and screws. Hardware is intact. Alignment is unchanged. Lucent fracture line remains visible. No discrete callus progression. The proximal femur is intact. Diffuse osteopenia. Vascular calcifications. Procedure Note Lisset Smith MD - 11/05/2024 PROCEDURE: XR FEMUR LEFT 2VW, DATE/TIME OF EXAM: 11/05/2024 11:42 AM, LOCATION [facility] INDICATION: S72.409D: Closed fracture of distal end of femur with routine healing, subsequent encounter ADDITIONAL CLINICAL INFORMATION: Ordering Provider Reason For Exam: fracture Technologist Note: Additional: COMPARISON: Left femur radiograph dated 04/23/2024. FINDINGS: Redemonstration of the distal femoral shaft fracture status postfixation with blade plate and screws. Hardware is intact. Alignment is unchanged. Lucent fracture line remains visible. No discrete callus progression. The proximal femur is intact. Diffuse osteopenia. Vascularcalcifications. IMPRESSION: Unchanged alignment. Report dictated by Stephen Iglesias MD (radiology rn). I, Lisset Smith MD have personally reviewed and interpreted this examination/study. > Interpreting Provider: Lisset Smith MD on 11/05/2024 1:28PM Judy Blum MD DIAGNOSTIC IMAGING ORDERABLES * (ABNORMAL) BASIC METABOLIC PANEL (CALCIUM TOTAL) (07/29/2023 7:07 AM CDT) BUN 15 7 - 26 mg/dL 07/29/2023 8:20 AM CDT [facility] Creatinine 0.58 0.56 - 0.96 mg/dL 07/29/2023 8:20 AM [facility] Sodium 141 136 - 145 mmol/L 07/29/2023 8:20 AM [facility] Potassium 4.4 3.5 - 4.5 mmol/L 07/29/2023 8:20 AM [facility] Chloride 104 98 - 107 mmol/L 07/29/2023 8:20 AM [facility] CO2 26 22 - 29 mmol/L 07/29/2023 8:20 AM [facility] Glucose 128(H) 70 - 115 mg/dL 07/29/2023 8:20 AM [facility] Calcium 8.5 8.4 - 10.2 mg/dL 07/29/2023 8:20 AM [facility] Anion Gap 11 6 - 16 07/29/2023 8:20 AM [facility] BUN/Creatinine Ratio 26(H) 7 - 23 07/29/2023 8:20 AM [facility] Osmolality Calculated 294 275 - 295 mOsm/kg 07/29/2023 8:20 AM [facility] eGFR by CKD-EPI >90 >=90 mL/min/1.7 3 m2 07/29/2023 8:20 AM [facility] Blood BLOOD SPECIMEN / Unknown Lab Venipuncture / Unknown 07/29/2023 7:07 AM CDT 07/29/2023 7:49 AM [facility] Judy Blum MD LAB - CHEMISTRY ORD ERABLES [facility] [address] [place] [phone], [facility] [phone] * (ABNORMAL) HEMOGLOBIN A1C (08/25/2022 9:[address] [facility]) Hemoglobin A1c 8.6(H) <=5.6 % 08/25/2022 11:08 AM [facility] Estimated Average Glucose 200 mg/dL 08/25/2022 11:08 AM [facility] Comment: HbA1c Interpretation: Normal : < 5.7% Pre-diabetes: 5.7-6.4% Diabetes: Equal to or greater than 6.5% Test results diagnostic of diabetes should be repeated for confirmation. Treatment target values recommended by ADA and other clinical organizations should be used to evaluate metabolic control in patients. Reference: [place] Diabetes Association, Standards of Care in Diabetes -2020 In patients 70 years and older consider HbA1c target range of 7.0-7.5% (Reference: Diogenes Wilkinson et al. JAMDA. 2012) The Sebia assay for the measurement of HbA1c is a National Glycohemoglobin Standardization Program (NGSP) certified method. Blood BLOOD SPECIMEN / Unknown Venipuncture / Unknown 08/25/2022 9:11 AM SUPERVISOR DISPLAY FABRICATION 08/25/2022 9:23 AM SUPERVISOR DISPLAY FABRICATION Anyi Puentes MD LAB - CHEMISTRY LAURIE AGUILERA [facility] Organization Address City/State/ZIP Co de Phone Number [id number] [place] [address], [facility] [phone] from Last 3 Months or Most Recently Relevant to Health Maintenance Advance Directives * Full Code (Latest Code Status on File) Date Activated Date Inactivated Comments 07/24/2023 5:01 PM 07/29/2023 4:49 PM * Full Code Date Activated Date Inactivated Comments 08/25/2022 4:51 AM 09/12/2022 12:56 PM Care Teams Supervisor Transcribing Operators Relationship Specialty Start Date End Date Kelly, JUAN LUIS Vu-IGNACIO [address] [place] [phone] PCP - General Nurse Practitioner Family 01/23/24
--- OUTSIDE RECORDS SUMMARY | 2024-12-01 15:00 | XMS_ITS ---
Care Plan - [facility] Created on: December 01, 2024 MARIAH BEST : 1955 Sex: Female Author Organization [facility] Address [address] [place] [address] Phone Care Team Providers Care Concrete Bucket Hooker Name Role Phone Unavailable Unavailable Unavailable
--- OUTSIDE RECORDS SUMMARY | 2024-12-01 15:00 | XMS_ITS | Referral Summary ---
Author Organization [facility] [employer] Address [address] [place] [address] Care Team Providers Care Delimer Name Role Phone Mirella Mendoza MAGDIEL Primary Care Provider [phone] Source Comments [facility],non-owned Affiliates and Associated Physician Practices is amultiple site organization consisting of ambulatory clinics and hospital sitesin [place], [place], [place] and [place]. This disclosure is being madepursuant to the Care Everywhere program and may not contain all information available regarding this patient. Last updated 18.[facility] [employer] Encounters Date Type Department Care Team Description 11/05/2024 11:29 AM DOCTOR OF NATUROPATHIC MEDICINE - 11/05/2024 11:59 PM DOCTOR OF NATUROPATHIC MEDICINE Hospital Encounter [facility] DIAGNOSTIC RAD [address] [place] [address] Judy Blum MD Discharge Disposition: Home or Self Care 11/05/2024 Travel 11/05/2024 11:30 AM DOCTOR OF NATUROPATHIC MEDICINE Office Visit [facility] - Orthoped[facility] [address] [place] [phone] Ashlee Kern APRN-CNP Closed fracture of distal end of femur with routine healing, subsequent encounter (Primary Dx) 10/28/2024 Travel 09/28/2024 Orders Only [facility] [address] [place] [phone] Judy Blum MD Closed fracture of distal end of femur with routine healing, subsequent encounter from Last 3 Months Allergies Active Allergy Reactions Criticality Noted Date Comments Anesthesia S-I-60 Nausea and/or Vomiting,Unknown 01/26/2022 Medications * Be aware that medications may not be up to date on this document. Alwaysverify current medications with the patient. Medication Sig [...] BLOOD SUGAR THREE TIMES DAILY 07/22/2022 Active Bond-3 Fatty Acids (fish oil) 1000 MG capsule Take 1 (one) capsule by mouth once daily Active Jardiance 10 MG tablet Take 1 (one) tablet by mouth once daily 07/11/2022 Active Easy Comfort Pen Diana 33G X 4 MM MISC USE TO INJECT 3 TIMES A DAY 08/11/2022 Active BD Pen Needle Angela 2nd Gen 32G X 4 MM MISC USE FOUR TIMES DAILY 02/23/2022 Acti ve Insulin Pen Needle (Pen Diana) 32G X 4 MM MISC 4 times [...] naloxone HCl (Narcan) 4 MG/0.1ML nasal spray Maxie 1 (one) spray into the nose as [...] of femur, unspecified fracture morphology, initial encounter ([facility]) Take 1 (one) tablet to 2 (two) [...] calories without serious comorbidity in adult 08/25/2022 Immunizations Name Administration Dates Next Due FLU [...] Recorded Patient Health Questionnaire-2 Score 0 11/05/2024 [facility] [place] [facility] Occupat ional Health - Occupational Stress [...] place to sleep or slept in a skilled nursing (including now)? No 07/24/2023 Sex and Gender [...] 61.7 kg (136 lb) 11/05/2024 11:49 AM DOCTOR OF NATUROPATHIC MEDICINE Height 167.6 cm (5' 6 ) 11/05/2024 11:49 AM DOCTOR OF NATUROPATHIC MEDICINE Body Mass Index 21.95 11/05/2024 11:49 AM DOCTOR OF NATUROPATHIC MEDICINE Functional Status Functional Status Response Date of [...] person have difficulty concentrating/remembering/making decisions? No 07/24/2023 Plan of Treatment Not on file Medical Devices Implanted Type Area Dude Wrangler Device Identifier Shelf Expiration Date Model / Serial / Lot Graft Bone Accell Evo3 Dbm 10ml Ptty - [id number] Implanted:Qty: 1 on 08/25/2022 by Marbella Cano MD at [facility] Left: Leg Inte[employer] 03/27/2023 [id number] / [id number] / [id number] Screw 3.5mm 55mm Slf-Tap Cortx Evos Strl Implanted:Qty: 1 on 08/25/2022 by Marbella Cano MD at [facility] Left: Leg [employer] [id number] / / Screw 3.5mm 65mm Slf-Tap Cortx Evos Strl Implanted:Qty: 1 on 08/25/2022 by Marbella Cano MD at [facility] Left: Leg [employer] [id number] / / Screw 3.5mm 70mm Slf-Tap Cortx Evos Strl Implanted:Qty: 1 on 08/25/2022 by Marbella Cano MD at [facility] Left: Leg [employer] [id number] / / Plate 95d 60mm 9 Hl Ss Hip Cndrl Dcp Implanted:Qty: 1 on 07/24/2023 by Judy Blum MD at [facility] Left: Femur Synthes Usa 237.92 / / Screw 4.5mm 8mm 70mm Cortx Slf-Tap Lg Implanted:Qty: 1 on 07/24/2023 by Judy Blum MD at [facility] Left: Femur [employer] 214.870 / / Screw 4.5mm 8mm 46mm 3.5mm Slf-Tap Lg Implanted:Qty: 1 on 07/24/2023 by Judy Blum MD at [facility] Left: Femur [employer] 214.846 / / Screw 4.5mm 8mm 36mm 3.5mm Slf-Tap Lg Implanted:Qty: 1 on 07/24/2023 by Judy Blum MD at [facility] Left: Femur [employer] 214.836 / / Screw 4.5mm 8mm 34mm Cortx Slf-Tap Lg Implanted:Qty: 1 on 07/24/2023 by Jean Carlos Yost MD at [facility] [employer] 214.834 / / Explanted Type Area Dude Wrangler Device Identifier Shelf Expiration Date Model / Serial / Lot Wire K 1.6mm 150mm Drl Tip Cocr Fx Flut Explanted:Qty: 6 on 08/25/2022 at [facility] [employer] [id number] / / Screw 3.5mm 75mm Slf-Tap Cortx Evos Strl Explanted:Qty: 1 on 08/25/2022 by Marbella Cano MD at [facility] Left: Leg [employer] [id number] / / Cortex Screw 4.5x74 Mm Explanted:Qty: 1 on 08/25/2022 by Marbella Cano MD at [facility] Left: Leg [employer] Trauma [id number] / / 4.5mm X 76mm Lck Screw Implanted:Qty: 2 on 08/25/2022 by Marbella Cano MD at [facility] Explanted:Qty: 2 on 07/24/2023 by Jean Carlos Yost MD at [facility] [id number] / / Evos 4.5mm X 36mm Screw Implanted:Qty: 3 on 08/25/2022 at [facility] Explanted:Qty: 3 on 07/24/2023 by Jean Carlos Yost MD at [facility] [id number] / / Evos 4.5mm X 30mm Screw Implanted:Qty: 1 on 08/25/2022 at [facility] Explanted:Qty: 1 on 07/24/2023 by Jean Carlos Yost MD at [facility] [id number] / / Screw 4.5mm 8mm 64mm Cortx Slf-Tap Lg Explanted:Qty: 1 on 07/24/2023 by Judy Blum MD at [facility] Left: Femur [employer]sa 214.864 / / Screw 4.5mm 8mm 18mm Gilberto Slf-Tap Lg Hex Explanted:Qty: 1 on 07/24/2023 by Judy Blum MD at [facility] Left: Femur [employer] 214.818 / / Screw 4.5mm 8mm 44mm 3.5mm Slf-Tap Lg Explanted:Qty: 1 on 07/24/2023 by Judy Blum MD at [facility] Left: Femur [employer] 214.844 / / Screw 4.5mm 8mm 32mm Cortx Slf-Tap Lg Explanted:Qty: 1 on 07/24/2023 by Judy Blum MD at [facility] Left: Femur [employer] 214.832 / / Locking Screw 4.5x74 Mm Implanted:Qty: 1 on 08/25/2022 by Marbella Cano MD at [facility] Explanted:Qty: 1 on 07/24/2023 by Jean Carlos Yost MD at [facility] Left: Leg [employer] Trauma [id number] / / Locking Screw 4.5x80 Mm Implanted:Qty: 1 on 08/25/2022 by Marbella Cano MD at [facility] Explanted:Qty: 1 on 07/24/2023 by Jean Carlos Yost MD at [facility] Left: Leg [employer] Trauma [id number] / / Distal Femur Plate 4.5x270 Mm, 13 Hole Implanted:Qty: 1 on 08/25/2022 by Marbella Cano MD at [facility] Explanted:Qty: 1 on 07/24/2023 by Jean Carlos Yost MD at [facility] Left: Leg [employer] Trauma [id number] / / Procedures Procedure Name Priority Date/Time Associated Diagnosis Comments XR FEMUR LEFT 2VW Routine 11/05/2024 11: 42 AM DOCTOR OF NATUROPATHIC MEDICINE Closed fracture of distal end of femur with routine healing, subsequent encounter BASIC METABOLIC PANEL (CALCIUM TOTAL) AM Draw 07/29/2023 7:07 AM CDT HEMOGLOBIN A1C ROSELYN 08/25/2022 9:11 AM DOCTOR OF NATUROPATHIC MEDICINE from Last 3 Months or Most Recently Relevant to Health Maintenance Results * XR Femur Left 2Vw (11/05/2024 11:42 AM DOCTOR OF NATUROPATHIC MEDICINE) Anatomical Region Laterality Modality Lower Extremity Computed Radiogr aphy 11/05/2024 12:3 6 PM DOCTOR OF NATUROPATHIC MEDICINE Impressions 11/05/2024 1:28 PM DOCTOR OF NATUROPATHIC MEDICINE IMPRESSION: Unchanged alignment. Report dictated by Stephen Iglesias MD (cardiac cath lab radiology technologist). Lisset Cherry MD have personally reviewed and interpreted this examination/study. > Interpreting Provider: Lisset Smith MD on 11/05/2024 1:28 PM Narrative 11/05/2024 1:28 PM DOCTOR OF NATUROPATHIC MEDICINE PROCEDURE: XR FEMUR LEFT 2VW, DATE/TIME OF EXAM: 11/05/2024 11:42 AM, LOCATION [facility] INDICATION: S72.409D: Closed fracture of distal end [...] DATE/TIME OF EXAM: 11/05/2024 11:42 AM, LOCATION [facility] INDICATION: S72.409D: Closed fracture of distal end [...] alignment. Report dictated by Stephen Iglesias MD (cardiac cath lab radiology technologist). Lisset Cherry MD have personally reviewed and interpreted this examination/study. > Interpreting Provider: Lisset Smith MD on 11/05/2024 1:28PM Judy Blum MD DIAGNOSTIC IMAGING ORDERABLES * (ABNORMAL) BASIC METABOLIC PANEL (CALCIUM TOTAL) (07/29/2023 7:07 AM CDT) BUN 15 7 - 26 mg/dL 07/29/2023 8:20 AM [facility] Creatinine 0.58 0.56 - 0.96 mg/dL 07/29/2023 8:20 AM [facility] Sodium 141 136 - 145 mmol/L 07/29/2023 8:20 AM [facility] Potassium 4.4 3.5 - 4.5 mmol/L 07/29/2023 8:20 AM [facility] Chloride 104 98 - 107 mmol/L 07/29/2023 8:20 AM [facility] CO2 26 22 - 29 mmol/L 07/29/2023 8:20 AM [facility] Glucose 128(H) 70 - 115 mg/dL 07/29/2023 8:20 AM [facility] Calcium 8.5 8.4 - 10.2 mg/dL 07/29/2023 8:20 AM [facility] Anion Gap 11 6 - 16 07/29/2023 8:20 AM [facility] BUN/Creatinine Ratio 26(H) 7 - 23 07/29/2023 8:20 AM [facility] Osmolality Calculated 294 275 - 295 mOsm/kg 07/29/2023 8:20 AM [facility] eGFR by CKD-EPI >90 >=90 mL/min/1.7 3 m2 07/29/2023 8:20 AM [facility] Blood BLOOD SPECIMEN / Unknown Lab Venipuncture / Unknown 07/29/2023 7:07 AM CDT 07/29/2023 7:49 AM [facility] [place]NOTE 2] Judy Blum MD LAB - CHEMISTRY ORD ERABLES [facility] [address] [place] [address], [facility] [phone] * (ABNORMAL) HEMOGLOBIN A1C (08/25/2022 9:11 AM [facility]) Hemoglobin A1c 8.6(H) <=5.6 % 08/25/2022 11:08 AM [facility] Estimated Average Glucose 200 mg/dL 08/25/2022 11:08 AM [facility] Comment: HbA1c Interpretation: Normal : < 5.7% Pre-diabetes: 5.7-6.4% Diabetes: Equal to or greater than 6.5% Test results diagnostic of diabetes should be repeated for confirmation. Treatment target values recommended by ADA and other clinical organizations should be used to evaluate metabolic control in patients. Reference: [place] [employer], Standards of Care in Diabetes -2020 In patients 70 years and older consider HbA1c target range of 7.0-7.5% (Reference: Diogenes Wilkinson et al. JAMDA. 2012) The Sebia assay for the measurement of HbA1c is a National Glycohemoglobin Standardization Program (NGSP) certified method. Blood BLOOD SPECIMEN / Unknown Venipuncture / Unknown 08/25/2022 9:11 AM DOCTOR OF NATUROPATHIC MEDICINE 08/25/2022 9:23 AM [facility] Anyi Puentes MD LAB - CHEMISTRY LAURIE AGUILERA [facility] Organization Address City/State/ZIP Co de Phone Number [facility] [address] [place] [address], [facility] [phone] from Last 3 Months or Most Recently Relevant to Health Maintenance Advance Directives * Full Code (Latest Code Status on File) Date Activated Date Inactivated Comments 07/24/2023 5:01 PM 07/29/2023 4:49 PM * Full Code Date Activated Date Inactivated Comments 08/25/2022 4:51 AM 09/12/2022 12:56 PM Care Teams Delimer Relationship Specialty Start Date End Date Mirella Mendoza APRN-OUTDOOR LANDSCAPE ARCHITECT [address] [place] [id number] PCP - General Nurse Practitioner Family 01/23/24
--- OUTSIDE RECORDS SUMMARY | 2024-12-01 15:01 | XMS_ITS ---
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-CM) ACTIVE 07/29/2023 COGNITIVE COMMUNICATION DEFICIT (R41.841 - ICD-10-CM) ACTIVE 07/29/2023 UNSTEADINESS ON FEET (R26.81 - ICD-10-CM) ACTIVE 07/29/2023 MUSCLE WEAKNESS (GENERALIZED) (M62.81 - ICD-10-CM) ACT REY 07/29/2023 BIPOLAR II DISORDER (F31.81 - ICD-10-CM) ACTIVE 07/29/2023 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 (H25.9 - ICD-10-CM) A CTIVE 07/29/2023 HEREDITARY AND IDIOPATHIC NE UROPATHY, UNSPECIFIED (G60.9 - ICD-10-CM) ACTIVE 07/29/2023 ESSENTIAL (PRIMARY) HYPERTENSION (I10 - ICD-10-CM) ACT REY 07/29/2023 NICOTINE DEPENDENCE, UNSPECI FIED, UNCOMPLICATED (F17.200 - ICD-10-CM) ACTIVE 07/29/2023 GASTRO-ESOPHAGEAL REFLUX DIS EASE WITHOUT ESOPHAGITIS (K21.9 - ICD-10-CM) ACTIVE 07/29/2023 BIPOLAR DISORDER, UNSPECIFIED (F31.9 - ICD-10-CM) RESO LVED 07/29/2023 07/29/2023 FRACTURE OF UNSPECIFIED PART OF NECK OF LEFT FEMUR, SEQUELA (S72.002S - ICD-10-CM) RESOLVED 07/29/2023 3 Results * Individual Tests: COVID-19, RT PCR Performed by: [facility] [address] [place] [address] BENNETT MAIRON M.D. [id number] Component Value Range Date SARS-COV-2, RT PCR NEGATIVE NEGATIVE 3 06:12 pm EST * Individual Tests: COVID-19, RT PCR Performed by: [facility] [address] [place] [address] BENNETT MARION M.D. [id number] Component Value Range Date SARS-COV-2, RT PCR NEGATIVE NEGATIVE 3 03:32 pm EST * Individual Tests: COVID-19, RT PCR Performed by: [facility] [address] [place] [address] BENNETT MARION M.D. [id number] Component Value Range Date SARS-COV-2, RT PCR NEGATIVE NEGATIVE 3 03:04 pm EST * Individual Tests: COVID-19, RT PCR Performed by: [facility] [address] [place] [address] BENNETT MARION M.D. [id number] Component Value Range Date SARS-COV-2, RT PCR NEGATIVE NEGATIVE 3 09:41 am EST * Individual Tests: COVID-19, RT PCR Performed by: [facility] [address] [place] [address] BENNETT MARION M.D. [id number] Component Value Range Date SARS-COV-2, RT PCR NEGATIVE NEGATIVE 3 05:27 pm EDT * Individual Tests: COVID-19, RT PCR Performed by: [facility] [address] [place] [address] BENNETT MARION M.D. [id number] Component Value Range Date SARS-COV-2, RT PCR NEGATIVE NEGATIVE 06:08 pm EDT * R-KNEE Performed by: [facility] [address] [facility] [address] Component Value Range Date R-KNEE PROCEDURE RIGHT KNEE 3 viewsSee NoteFINDINGS RIGHT KNEE: Examination reveals mild demineralization and degenerative arthritic changes with no evidence of recent fracture or dislocation. Post surgical intramedullary nail and screws are noted in the distal femur for old supracondylar fracture.IMPRESSION RIGHT KNEE : No recent fracture or dislocation.......Electronically Signed by DAVID ALFORD MD at 13-Aug-2023 08:42:17 PM... 08/13/2023 09:42 pm EST Encounters Encounter Performer Performer Role Encounter Diagnoses Location Date Discharge - Discharged to home or self care - Home - [facility] 07/29/2023 05:35 pm EDT - 08/19/2023 04:45 pm EST Immunizations Vaccine Date TB 2 Step Mantoux Skin Test 08/09/2023 0 1:00 am EST Social History
--- OUTSIDE RECORDS SUMMARY | 2024-12-01 15:01 | XMS_ITS | Encounter Summary ---
Author Organization [facility] Address [address] [place] [address] Phone Care Team Providers Care Django Developer Name Role Phone Juanito Mckeon MD Unavailable [phone] Mirella Mendoza APRN, HOME HOSPICE AIDE Primary Care Provider [phone] Damon Pollock MD Unavailable Serg Acosta MD Unavailable Brodie Drummond APRN, HOME HOSPICE AIDE Unavailable Reason for Visit * Reason Comments Medication Refill Encounter Details Date Type Department Care Team (Late st Contact Info) Description 09/29/2024 Refill [facility] UR[facility] [address] [place] [address] Brodie Drummond APRN, HOME HOSPICE AIDE [address] [place] [address] Medication Refill Social History Tobacco Use Types Packs/Day Years Used Date Smoking Tobacco: Every Day Cigarettes 1 49.6 Started: 04/11/1975 Smokeless Tobacco: Never Alcohol Use Standard Drinks/Week Comments Yes 0 (1 standard drink = 0.6 oz pure alcohol) OCCASIONALLY (Once a month per patient) Sexually Active Control Partners Comments Not Currently Comments No Sex and Gender Information Value Date Recorded Sex Assigned at Female 05/14/2023 7:46 AM CDT Legal Sex Female 11:18 PM CDT Gender Identity Female 05/14/2023 7:46 AM CDT Sexual Orientation Not on file documented as of this encounter Plan of Treatment Upcoming Encounters Date Type Department Care Team (Late st Contact Info) Description 12/24/2024 2:15 PM CDT Office Visit [facility] Neurology [facility] [address] [place] [address] Serg Acosta MD [address] [place] [address] 12/28/2024 10:00 AM CDT Office Visit [facility] [address] [place] [address] Brodie Drummond APRN, HOME HOSPICE AIDE [address] [place] [address] 01/21/2025 10:30 AM CDT Office Visit [facility] Endocrinology [facility] [address] [place] [address] Damno Pollock MD [address] [address] documented as of this encounter Visit Diagnoses Diagnosis Urinary frequency Nocturnal enuresis Urinary urgency Urgency of urination documented in this encounter Additional Health Concerns Assessment Noted Time PHQ-9 Depression Total Score: 0 04/10/20 17 1:00 PM CDT documented as of this encounter Care Teams Django Developer Relationship Specialty Start Date End Date Mirella Mendoza APRN, HOME HOSPICE AIDE [address] [place], [place] [id number] PCP - General Family Medicine 12/25/21 Juanito Mckeon MD General Surgery 04/08/17 Damon Pollock MD [address] [address] Consulting Physician Endocrinology 02/14/22 Serg Acosta MD [address] [place] [address] Consulting Physician Neurology 12/24/22 Brodie Drummond APRN, HOME HOSPICE AIDE [address] [place] [address] Nurse Practitioner Advanced Practice Nurse 01/21/24 documented as of this encounter
--- OUTSIDE RECORDS SUMMARY | 2024-12-01 15:01 | XMS_ITS | Encounter Summary ---
Author Organization [facility] Address [address] [place] [address] Phone Care Team Providers Care Asbestos Worker Helper Name Role Phone Juanito Mckeon MD Unavailable [phone] Mirella Mendoza APRN, WORKERS COMPENSATION CLAIMS EXAMINER Primary Care Provider [phone] Damon Pollock MD Unavailable Serg Acosta MD Unavailable Brodie Drummond APRN, WORKERS COMPENSATION CLAIMS EXAMINER Unavailable Encounter Details Date Type Department Care Team (Late st Contact Info) Description 09/27/2022 Nursing Facility [facility] [address] [place] [address] Jonas Elliott, PAC [address] [place], [place] [id number] Social History Tobacco Use Types Packs/Day Years Used Date Smoking Tobacco: Every Day Cigarettes 1.5 49.6 Started: 04/11/1975 Smokeless Tobacco: Never Alcohol Use Standard Drinks/Week Comments Yes 0 (1 standard drink = 0.6 oz pur e alcohol) OCCASIONALLY Comments No Sex and Gender Information Value Date Recorded Sex Assigned at Female 05/14/2023 7:46 AM CDT Legal Sex Female 11:18 PM CDT Gender Identity Female 05/14/2023 7:46 AM CDT Sexual Orientation Not on file documented as of this encounter Progress Notes * Jonas Elliott, PAC - 09/27/2022 4:39 PM CST [facility] PROGRESS NOTE Carmella Sheriff is a 67 y.o. female at [facility] for rehabilitation. Prior to coming to rehabilitation facility patient was hospitalized at [facility] from 08/25 through 09/12 after suffering a closed fracture of distal left femur that required surgical repair. Subjective: Interval History: Patient sitting comfortably in chair. Denies any acute symptoms or concerns. Says she feels ???okay?? . Has ortho follow-up later today and is hopeful to gain clearance for increasing weight- bearing status. Nursing staff has no concerns with the patient. Past Medical History Positives Diagnosis Date ??? Bipolar 1 disorder (HCC) ??? Chronic hip pain ??? Concussion ??? COPD (chronic obstructive pulmonary disease) (HCC) ??? CVA (cerebral vascular accident) (HCC) ??? Diabetes mellitus (HCC) ??? Diabetic neuropathy (HCC) ??? Gastroesophageal reflux disease without esophagitis Family History Problem Relation Age of Onset ??? Hypertension Mother ??? Diabetes Mother ??? Parkinsonism Father ??? Alzheimer's Disease Father ??? Diabetes Brother ??? Hypertension Brother ??? Hypertension Brother Social History Socioeconomic History ??? Marital status: Spouse name: Not on file ??? Number of children: Not on file ??? Years of education: Not on file ??? Highest education level: Not on file Occupational History ??? Not on file Tobacco Use ??? Smoking status: Every Day Packs/day: 1.50 Years: 40.00 Pack years: 60.00 Types: Cigarettes Start date: 04/11/1975 ??? Smokeless tobacco: Never Vaping Use ??? Vaping Use: Never used Substance and Sexual Activity ??? Alcohol use: Yes Alcohol/week: 0.0 oz Comment: OCCASIONALLY ??? Drug use: Yes Types: Marijuana Comment: once a week ??? Sexual activity: Not on file Other Topics Concern ??? Not on file Social History Narrative ??? Not on file Past Surgical History: Procedure Laterality Date ??? ANKLE SURGERY ??? ELBOW SURGERY ??? GALLBLADDER SURGERY ??? UMBILICAL HERNIA REPAIR N/A 04/18/2017 Procedure: LAPAROSCOPIC INCISIONAL HERNIA REPAIR WITH MESH; Surgeon: Juanito Mckeon MD; Location:[facility]; Service: General Review of Systems: A 14 point comprehensive review of systems was negative except what is documented in interval history above. Objective: Exam: Vital Signs: B/P: 134/74 Pulse: 82 Respirations: 18 Temperature: 97.4 General: Well developed, well nourished, in no distress pleasant, obese Skin: Normal appearance, normal turgor, no rashes 09/13 - dressing over lateral aspect distal left thigh. Stitches over medial distal left thigh. 09/17 - diffuse macular papular erythematous blanchable rash over back HEENT: Normocephalic, atraumatic, no flaring Eyes: nonicteric, intact extra occular movement, PERRL Neck: normal, supple, no lymphadenopathy Heart: regular rate and rhythm, S1, S2 normal, no murmur, click, rub or gallop Lungs: clear to ausculation, normal respirations, normal precautions Abdominal: soft, non-tender; bowel sounds normal; no masses, no organomegaly Extremities: no deformities, joint mobility appears intact, no clubbing Neuro: Non-focal, CN intact, sensory and motor intact Psychological: alert and oriented X3, appropriate mood and affect, Intact judgement and memory Lab Results: None Imaging: None Assessment/Plan: Diabetes mellitus type 2 Continue sliding scale Humalog and Lantus Monitor Accu-Cheks 09/17 - blood sugars have been elevated as of late. Lantus dose increased. 09/20 - improving. Continue to monitor. 09/24 - blood sugars at reasonable levels last few days Generalized weakness and deconditioning Receiving nursing home care and physical therapy rehabilitation 09/27 improving but still requiring a lot of assistance Rash 09/17 - suspect drug rash. Should improve with time. Discussed conservative care and will monitor. Left distal femur fracture status post ORIF Followed by Ortho Nonweightbearing for 6 weeks at least to left lower extremity P.r.n. pain medicine 09/24 - pain well controlled 09/27 - has follow-up today. Grade 1 diastolic congestive heart failure Ejection fraction of 65% on echo from 01/01/2022 Continue furosemide and Jardiance and potassium supplementation Stable, well controlled COPD Continue inhalers and neb treatments Well controlled Previous CVA Continue aspirin Bipolar depression Continue current regimen of Effexor, risperidone Well controlled Cigarette smoking Discussed cessation strategies and encouraged to quit Patient not interested in quitting at this time Incidental adrenal nodule On CT scan on 08/26 she was found to have a 2.7 cm size left adrenal nodule Most likely this was felt to be due to adenoma Radiology's recommendation was to pay close attention in follow-up study but did not say when or what type of study. Obesity Educated on weight loss strategies and encouraged to lose weight Other chronic medical conditions include seizure disorder, overactive bladder, GERD, allergies Stable Continue home regimen VTE Prophylaxis: On prophylactic Eliquis until 09/28 I discussed advanced care planning with this patient. This note was dictated using [employer] fluency dictation system and there may be errors in rock mason. Despite proof reading the note, there may be mistakes and I apologize for those. By: Jonas Elliott, PAC, 09/27/2022 4:40 PM RETIREMENT ACTUARY REMENT ACTUARY documented in this encounter Plan of Treatment Upcoming Encounters Date Type Department Care Team (Late st Contact Info) Description 12/24/2024 2:15 PM CDT Office Visit [facility] - Neurology [facility] [address] [place] [address] Serg Acosta MD [address] [place] [address] 12/28/2024 10:00 AM CDT Office Visit [facility] [address] [place] [phone] Brodie Drummond, FIELD SERVICE SUPERVISOR, WORKERS COMPENSATION CLAIMS EXAMINER [address] [place] [address] 01/21/2025 10:30 AM CDT Office Visit [facility] - Endocrinology - [place] [address] [place] [phone] Damon Pollock MD [address] [phone] documented as of this encounter Visit Diagnoses Not on filedocumented in this encounter Additional Health Concerns Infection Onset Date Last Indicated Resolved Time COVID - 19 09/26/2023 09/26/2023 10/06/2023 12:1 6 AM RETIREMENT ACTUARY Assessment Noted Time PHQ-9 Depression Total Score: 0 04/10/20 17 1:00 PM CDT documented as of this encounter Care Teams Asbestos Worker Helper Relationship Specialty Start Date End Date Mirella Mendoza APRN, WORKERS COMPENSATION CLAIMS EXAMINER [address] [address] PCP - General Family Medicine 12/25/21 Juanito Mckeon MD General Surgery 04/08/17 Damon Pollock MD [address] [phone] Consulting Physician Endocrinology 02/14/22 Serg Acosta MD [address] [place] [address] Consulting Physician Neurology 12/24/22 Brodie Drummond APRN, WORKERS COMPENSATION CLAIMS EXAMINER [address] [place] [address] Nurse Practitioner Advanced Practice Nurse 01/21/24 documented as of this encounter
--- OUTSIDE RECORDS SUMMARY | 2024-12-01 15:01 | XMS_ITS | Referral Summary ---
Author Organization [facility] Medical Office Building B Address [address] [place] [address] Care Team Providers Care Engineer Internship Name Role Phone Mirella Mendoza NP Primary Care Provider [phone] Encounters Date Type Department Care Team Description 11/25/2024 2:00 PM HOMOEOPATH Therapy [facility] Occupational Therapy [address] [place] [address] Wei Blanc OT History of falling 11/11/2024 Telephone [facility] Gastroenterology at [address] [place] [address] Aries Rivers MA 11/09/2024 Telephone [facility] Gastroenterology at [address] [place] [address] Aries Rivers MA 11/09/2024 Telephone [facility] Gastroenterology [address] [facility] 12th [place] [address] [place] [address] Luna High RN GI Preprocedure 11/02/2024 7:25 AM HOMOEOPATH - 11/02/2024 11:59 PM HOMOEOPATH Hospital Encounter [facility] [address] [place] [address] Pancreatic insufficiency; Chronic diarrhea; Family history of pancreatic cancer Discharge Disposition: Discharge to home or self care 09/28/2024 Telephone [facility] Gastroenterology at [address] [place] [address] Galilea Chan from Last 3 Months Allergies Active Allergy Reactions Criticality Noted Date Comments Chlordiazepoxide Enflurane Nausea only Low 01/25/2022 Ether Nausea only Low 04/11/2017 STATES GETS NAUSEATED EVERY TIME SHE HAS ANESTHESIA Ether For Anesthesia Nausea only Low 01/26/2022 Medications blood-glucose meter misc Active polyethylene glycol (MIRALAX) 17 gram/dose powder Active acetaminophen (TYLENOL) 500 mg tablet Take 2 tablets (1,000 mg total) by mouth every 6 (six) hours as needed Active buPROPion XL (WELLBUTRIN XL) 150 mg 24 hr tablet Take 1 tablet (150 mg total) by mouth 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 before 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 5 Active ondansetron ODT (ZOFRAN-ODT) 4 mg disintegrating tablet Take 1 tablet (4 mg total) by mouth every 12 (twelve) hours as needed 8 Active prednisoLONE acetate (PRED FORTE) 1 % ophthalmic suspension Active aspirin 81 mg enteric coated tablet Take 1 tablet (81 mg total) by mouth daily Active latanoprost (XALATAN) 0.005 % ophthalmic solution INSTILL 1 DROP IN BOTH EYES AT BEDTIME DIRECTED 1 Active oxybutynin (DITROPAN) 5 mg tablet Take 1 tablet (5 mg total) by mouth 2 (two) times a day 1 Active potassium chloride ER 10 mEq CR tablet Take 1 tablet/capsul e (10 mEq total) by mouth daily 1 Active omega 7-hew-daj-fish oil (Fish OiL) 100-160-1,000 mg capsule Active umeclidinium-vilan teroL (ANORO ELLIPTA) 62.5-25 mcg/actuation blister with device Inhale 1 puff daily 60 each 11 2 Active risperiDONE (RisperDAL) 1 mg tablet Take 1 tablet (1 mg total) by mouth nightly at bedtime. [address] (DEPAKOTE) 500 mg EC tablet Take 1 tablet (500 mg total) by mouth 3 (three) times a day 2 Active ofloxacin (OCUFLOX) 0.3 % ophthalmic solution 2 Active ketorolac (ACULAR) 0.5 % ophthalmic solution INSTILL 1 DROP INTO AFFECTED EYE FOUR TIMES DAILY . BEGIN 2 DAYS BEFORE SURGERY 2 Active famotidine (PEPCID) 40 mg tabletIndications: Laryngospasm TAKE 1 TABLET(40 MG) BY MOUTH EVERY NIGHT 90 tablet 3 2 Active albuterol HFA (PROVENTIL HFA,VENTOLIN HFA,PROAIR HFA) 90 mcg/actuation inhaler Inhale 2 puffs every 6 (six) hours as needed for wheezing or shortness of breath 1 each 11 2 Active cholecalciferol 25 mcg (1,000 unit) tablet Take 1 tablet (1,000 Units total) by mouth daily 3 Active diphenoxylate-atro pine (LOMOTIL) 2.5-0.025 mg per tablet Take 1 tablet by mouth 4 (four) times a day as needed 3 Active lidocaine (LIDODERM) 5 % Place 1 patch on the skin daily 3 Active doxycycline 100 mg tablet 3 Active furosemide (LASIX) 20 mg tablet 3 Active busPIRone (BUSPAR) 10 mg tablet 4 Active omeprazole (PriLOSEC) 40 mg capsule 3 Active venlafaxine XR (EFFEXOR-XR) 150 mg 24 hr capsule 4 Active pancrelipase (Creon) 24,000 units of lipase capsule Take 1 capsule by mouth 3 (three) times a day with meals 270 capsule 3 5 Active Active Problems Problem Noted Date Diagnosed Date IPMN (intraductal papillary mucinous neoplasm) 0 11/09/2024 Encounter for screening colonoscopy 09/28/2024 History of colonic polyps 09/28/2024 Family history of pancreatic cancer 04/30/2024 Pancreatic insufficiency 10/29/2023 Chronic pancreatitis (CMS/HCC) 10/29/2023 Chronic diarrhea 06/29/2023 Assessment & Plan (04/30/2024 5:28 PM CDT): 2/2 pancreatic insufficiency Fecal incontinence and diarrhea doing much better on creon 24,000 units three times a day with meals Still smoking, drinks alcohol and smokes weed occasionally Weight stable since last visit Previous stool studies showed negative culture, c diff, giardia, crypto, celiac panel, CRP, stool fat, fecal calpro, elastase was decreased at <40 MRI pancreas showed mild diffuse atrophy of the pancreas with multiple dilated side branch radicles, no ductal dilation or cbd stones. Follow up EUS 09/2023 showed chronic pancreatitis Previous colonoscopy from 09/2019 showed diverticulosis and one 7 mm hyperplastic polyp Plan Chronic diarrhea 2/2 pancreatic insufficiency in the setting of chronic pancreatitis from ETOH and tobacco use, symptoms are well controlled since starting Creon Continue Creon 24,000 units TID with meals, can titrate up as needed Will need annual pancreatic cancer screening given family hx of pancreatitis in mother, will alternate between EUS and MRI and schedule for MRI 09/2024 Counseled on smoking cessation, patient is not interested at this time. Assessment & Plan (10/29/2023 9:34 PM HOMOEOPATH): Since last visit, stool studies showed negative culture, c diff, giardia, crypto, celiac panel, CRP, stool fat, fecal calpro, elastase was decreased at <40 MRI pancreas showed mild diffuse atrophy of the pancreas with multiple dilated side branch radicles, no ductal dilation or cbd stones. Follow up EUS showed chronic pancreatitis Just started creon a few days ago, diarrhea and incontinence better. No abdominal pain, weight lost of about 10 lbs since last visit 05/2023 Previous colonoscopy from 09/2019 showed diverticulosis and one 7 mm hyperplastic polyp Plan Chronic diarrhea 2/2 pancreatic insufficiency in the setting of chronic pancreatitis from ETOH and tobacco use, symptoms are well controlled since starting Creon Continue Creon 24,000 units TID with meals, can titrate up as needed Will discuss with Dr. Antony about pancreatic cancer screening given family hx of pancreatic cancer and personal hx of chronic pancreatitis Assessment & Plan (06/29/2023 11:46 AM CDT): Chronic diarrhea off and on for years, has 2-3 loose BMs, no hematochezia or melena, no nocturnal symptoms, associated with eating Diagnosed with klebsiella UTI 02/2023 and was treated with abx Lost about 70 lbs over the last 2 years, broke both legs 07/2022 No n/v, abdominal pain, appetite good eats 3 meals and snacks No NSAID use Mother with pancreatic cancer Daily smoker, drinker and occasional marijuana use Labs from 02/2023 showed mild hyponatremia of 132, chloride 96, midlly elevated alk phos 116, otherwise normal LFTs Leukocytosis of 16 with anemia hgb 11 (13.8 from 02/2023) CT A/P contrast 01/2023 showed UTI otherwise no signs of malignancy Colonoscopy from 09/2019 showed diverticulosis and one 7 mm hyperplastic polyp Plan Diarrhea work up CBC, CMP and anemia work up EGD and colonoscopy pending work up Chronic obstructive pulmonary disease, unspecifi ed 03/20/2022 Chronic maxillary sinusitis 09/19/2021 Assessment & Plan (04/17/2022 1:55 PM CDT): Augmentin twice daily with a meal Call if no improvement Assessment & Plan (09/19/2021 3:01 PM HOMOEOPATH): Pepcid 40 mg at bedtime Augmentin with a meal twice daily for 21 days Diflucan if needed Follow up in 3 months, earlier if needed, if 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, 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 Continue speech therapy exercises 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 Assessment & Plan (09/19/2021 3:01 PM HOMOEOPATH): Pepcid 40 mg at bedtime Augmentin with a meal twice daily for 21 days Diflucan if needed Follow up in 3 months, earlier if needed, if 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, 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 Continue speech therapy exercises 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 Assessment & Plan (04/17/2022 1:55 PM CDT): Improved Continue working on smoking cessation Assessment & Plan (09/19/2021 3:01 PM HOMOEOPATH): Pepcid 40 mg at bedtime Augmentin with a meal twice daily for 21 days Diflucan if needed Follow up in 3 months, earlier if needed, if 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, 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 Continue speech therapy exercises Screen for colon cancer 09/09/2019 Overview (09/09/2019): Added automatically from request for surgery [id number] Assessment & Plan (04/30/2024 5:27 PM CDT): Colonoscopy 2019 showed 7mm hyperplastic polyp, was recommended to repeat in 5 years. Immunizations Immunization Administration Dates Next Due Flucelvax Influenza Quad 07/24/2017 Influenza, Quadrivalent, Spl it, Intramuscular 08/29/2020,09/01/2019,08/09/2017,06/11 Influenza, Quadrivalent, Spl it, Preservative Free, Intramuscular 07/20/2018 Influenza, Trivalent, IM (MDV) 08/25/2015,2013 Influenza, Trivalent, Preser vative Free, Intramuscular 06/10/2016 Pneumococcal Conjugate PCV 13 01/30/2019, 017 Pneumococcal Polysaccharide PPV23 09/01/2019, Social History Tobacco Use Types Packs/Day Years Used Date Smoking Tobacco: Every Day Cigarettes 1 15 Smokeless Tobacco: Current Tobacco Cessation:Ready to Q uit: Not Asked; Counseling Given: Not Answered Comments:pack a day Alcohol Use Standard Drinks/Week Comments Yes 0 (1 standard drink = 0.6 oz pur e alcohol) AUDIT-C Answer Date Recorded Q1: How often do you have a drink containing alc ohol? 2-4 times a month 04/28/2024 Q2: How many drinks containi ng alcohol do you have on a typical day when you are drinking? 1 or 2 04/28/2024 Q3: How often do you have si x or more drinks on one occasion? Never 04/28/2024 Personal Safety Answer Date Recorded Have you ever been in or are you currently in a harmful physical or emotional relationship or is someone making you feel afraid or unsafe? Denies 10/17/2023 Comments No Sex and Gender Information Value Date Recorded Sex Assigned at Not on file Legal Sex Female 12:00 PM HOMOEOPATH Gender Identity Not on file Sexual Orientation Not on file Last Filed Vital Signs Vital Sign Reading Time Taken Comments Blood Pressure 175/89 04/28/2024 11:26 AM CDT Pulse 83 04/28/2024 11:26 AM CDT Temperature 36.1 C (97 F) 10/17/2023 1:25 PM HOMOEOPATH Respiratory Rate 18 10/29/2023 8:15 AM HOMOEOPATH Oxygen Saturation 96% 04/28/2024 11: 26 AM CDT Inhaled Oxygen Concentration - - Weight 60.2 kg (132 lb 12.8 oz) 11:26 AM CDT Height 167.6 cm (5' 6 ) 04/28/2024 11:2 6 AM CDT Body Mass Index 21.43 04/28/2024 11:26 AM CDT Plan of Treatment Upcoming Encounters Date Type Department Care Team (Latest Contact Info) Description 12/08/2024 1:30 PM CDT Hospital Encounter [facility] [place] [address] [address] Anali Antony MD [address] [address] IPMN (intraductal papillary mucinous neoplasm) 12/08/2024 1:30 PM CDT - 12/08/2024 2:30 PM CDT Surgery [facility] [address] [address] Anali Antony MD [address] [address] EUS [[id number]] 12/17/2024 11:30 AM CDT Hospital Encounter [address] [address] Luisa Schwab MD [address] [facility] [place] [address] 12/17/2024 11:30 AM CDT - 12/17/2024 12:00 PM CDT Surgery [address] [address]Luisa Tavarez MD [address] [facility] [place] [address] COLONOSCOPY Scheduled Procedures Name Priority Associated Diagnoses Date/Ti me COLONOSCOPY Encounter for screening colonoscopy History of colonic polyps 12/17/2024 11:30 AM CDT Procedures Procedure Name Priority Date/Time Associated Diagnosis Comments MRI ABDOMEN PANCREAS W WO CONTRAST Schedule Routine, Read Routine (OP Routine) 11/02/2024 8:18 AM HOMOEOPATH Pancreatic insufficiency Chronic diarrhea Family history of pancreatic cancer COLONOSCOPY 10/21/2019 1:55 PM HOMOEOPATH from Last 3 Months or Most Recently Relevant to Health Maintenance Results * MRI Abdomen Pancreas W WO Contrast (11/02/2024 8:18 AM HOMOEOPATH) Anatomical Region Laterality Modality Body N/A Magnetic Resonan ce 11/02/2024 1:53 PM HOMOEOPATH Narrative 11/02/2024 2:14 PM HOMOEOPATH EXAM DESCRIPTION: MRI ABDOMEN PANCREAS W WO CONTRAST REASON FOR STUDY: chronic pancreatitis chronic pancreatitis with pancreatic insufficiency, chronic diarrhea family hx pancreatic cancer TECHNIQUE: MRI of the abdomen performed without and with intravenous contrast according to the pancreas protocol. All images stored on PACS. 3D MIP images rendered on scanning unit and reviewed at time of interpretation. CONTRAST TYPE/DOSE: 12mL of GADOTERATE MEGLUMINE 0.5 MMOL/ML INTRAVENOUS SOLUTION (SO) injected via intravenous COMPARISON: 09/26/2023 FINDINGS: LOWER CHEST: The heart size is normal. There is no definite evidence of pericardial effusion. There is mild bibasilar subsegmental atelectasis. LIVER: The liver is grossly stable in size and contour. There is no definite evidence of a focal hepatic lesion. GALLBLADDER: Surgically absent. BILE DUCTS: There is no definite evidence of intrahepatic or extrahepatic biliary ductal dilatation. The common bile duct measures 0.6 cm in diameter. There is no definite evidence of filling defect within the common bile duct to suggest choledocholithiasis. SPLEEN: The spleen is grossly stable in size and unremarkable. PANCREAS: There is redemonstration of the mildly dilated mildly beaded pancreatic duct measuring up to 0.5 cm with multiple dilated side branches along with mild diffuse pancreatic parenchymal atrophy, and findings are likely related to sequela of chronic pancreatitis. There is no definite MRI evidence of peripancreatic inflammatory changes or peripancreatic fluid collection. There is a lobulated septated cystic lesion noted in the posterior pancreatic head posterior to the portal vein measuring 2.8 cm in the transverse dimension by 1.3 cm in the AP dimension by 2.1 cm in the craniocaudal dimension (coronal T2 image 24, axial T2 image 20). This lesion communicates with the main pancreatic duct. There are multiple thin enhancing septations noted within this cystic lesion without definite evidence of abnormal enhancement or mural nodularity. ADRENALS: The right adrenal gland is grossly stable and unremarkable. There is stable left adrenal nodule measuring 2.2 cm, which demonstrates loss of signal on out of phase sequence, and therefore compatible with benign adrenal adenoma, and no follow-up imaging is recommended. KIDNEYS/URINARY TRACT: The kidneys are grossly stable in size. The bilateral kidneys enhance symmetrically. There is stable lobulated contour of the right kidney. There are multiple subcentimeter cysts in the bilateral kidneys, which do not require follow-up imaging. There is no definite evidence of hydronephrosis. GI: There are scattered colonic diverticula noted. The remainder of the visualized bowel appears grossly unremarkable. There is no definite evidence of free fluid in the abdomen. There is no definite MRI evidence of abdominal lymphadenopathy. MUSCULOSKELETAL: There is a mild S shaped scoliotic curvature of the spine with degenerative changes. OTHER: No other abnormality. IMPRESSION: Redemonstration of the mildly dilated mildly beaded pancreatic duct with multiple dilated side branches along with mild diffuse pancreatic parenchymal atrophy, and findings are likely related to sequela of chronic pancreatitis. No definite MRI evidence of peripancreatic inflammatory changes or peripancreatic fluid collection. Lobulated septated cystic lesion in the posterior pancreatic head measuring up to 2.8 cm, which communicates with the main pancreatic duct, and therefore likely represents a side branch IPMN. Given the size of this lesion, further evaluation with EUS/FNA is recommended as clinically indicated. If EUS/FNA is not performed, then short-term follow-up MRI/MRCP with pancreatic protocol in 6 months is recommended to assess for stability as clinically indicated. No definite evidence of intrahepatic or extrahepatic biliary ductal dilatation. No definite evidence of filling defect within the common bile duct to suggest choledocholithiasis. Colonic diverticulosis. THIS IS AN ELECTRONICALLY VERIFIED FINAL REPORT 11/02/2024 2:14 PM - Electronically signed by Jasper Akins D.O. PS: PS Report ID: [id number] Reading Location: [id number] Procedure Note Jasper Akins, DO - 11/02/2024 EXAM DESCRIPTION: MRI ABDOMEN PANCREAS W WO CONTRAST REASON FOR STUDY: chronic pancreatitis chronic pancreatitis with pancreatic insufficiency, chronic diarrheafamily hx pancreatic cancer TECHNIQUE: MRI of the abdomen performed without and with intravenous contrast according to the pancreas protocol. All images stored on PACS. 3D MIP images rendered on scanning unit and reviewed at time of interpretation. CONTRAST TYPE/DOSE: 12mL of GADOTERATE MEGLUMINE 0.5 MMOL/ML INTRAVENOUS SOLUTION (SO) injected via intravenous COMPARISON: 09/26/2023 FINDINGS: LOWER CHEST: The heart size is normal. There is no definite evidence of pericardial effusion. There is mild bibasilar subsegmental atelectasis. LIVER: The liver is grossly stable in size and contour. There is no definite evidence of a focal hepatic lesion. GALLBLADDER: Surgically absent. BILE DUCTS: There is no definite evidence of intrahepatic orextrahepatic biliary ductal dilatation. The common bile duct measures 0.6 cm indiameter. There is no definite evidence of filling defect within the common bileduct to suggest choledocholithiasis. SPLEEN: The spleen is grossly stable in size and unremarkable. PANCREAS: There is redemonstration of the mildly dilated mildly beaded pancreatic duct measuring up to 0.5 cm with multiple dilated side branches along with mild diffuse pancreatic parenchymal atrophy, and findings are likely related to sequela of chronic pancreatitis. There is no definiteMRI evidence of peripancreatic inflammatory changes or peripancreatic fluid collection. There is a lobulated septated cystic lesion noted in the posteriorpancreatic head posterior to the portal vein measuring 2.8 cm in the transversedimension by 1.3 cm in the AP dimension by 2.1 cm in the craniocaudal dimension(coronal T2 image 24, axial T2 image 20). This lesion communicates with the main pancreatic duct. There are multiple thin enhancing septations notedwithin this cystic lesion without definite evidence of abnormal enhancement ormural nodularity. ADRENALS: The right adrenal gland is grossly stable and unremarkable.There is stable left adrenal nodule measuring 2.2 cm, which demonstrates loss of signal on out of phase sequence, and therefore compatible with benignadrenal adenoma, and no follow-up imaging is recommended. KIDNEYS/URINARY TRACT: The kidneys are grossly stable in size. The bilateral kidneys enhance symmetrically. There is stable lobulatedcontour of the right kidney. There are multiple subcentimeter cysts in the bilateral kidneys, which do not require follow-up imaging. There is no definite evidence of hydronephrosis. GI: There are scattered colonic diverticula noted. The remainder of the visualized bowel appears grossly unremarkable. There is no definiteevidence of free fluid in the abdomen. There is no definite MRI evidence ofabdominal lymphadenopathy. MUSCULOSKELETAL: There is a mild S shaped scoliotic curvature of thespine with degenerative changes. OTHER: No other abnormality. IMPRESSION: Redemonstration of the mildly dilated mildly beaded pancreatic duct with multiple dilated side branches along with mild diffuse pancreaticparenchymal atrophy, and findings are likely related to sequela of chronicpancreatitis. No definite MRI evidence of peripancreatic inflammatory changes or peripancreatic fluid collection. Lobulated septated cystic lesion in the posterior pancreatic headmeasuring up to 2.8 cm, which communicates with the main pancreatic duct, andtherefore likely represents a side branch IPMN. Given the size of this lesion,further evaluation with EUS/FNA is recommended as clinically indicated. IfEUS/FNA is not performed, then short-term follow-up MRI/MRCP with pancreatic protocolin 6 months is recommended to assess for stability as clinically indicated. No definite evidence of intrahepatic or extrahepatic biliary ductal dilatation. No definite evidence of filling defect within the common bileduct to suggest choledocholithiasis. Colonic diverticulosis. THIS IS AN ELECTRONICALLY VERIFIED FINAL REPORT 11/02/2024 2:14 PM - Electronically signed by Jasper Akins D.O. PS: PS Report ID: [id number] Reading Location: [id number] Luisa Schwab MD [facility] MRI PROCEDURES Final Result * COLONOSCOPY (10/21/2019 1:55 PM HOMOEOPATH) Anatomical Region Laterality Modality Other Narrative Procedure Note Oliver Daniel MD - 10/21/2019 1:55 PM CST [facility] Patient Name: Carmella Sheriff Procedure Date: 10/21/2019 1:55 PM Date of : 1955 Admit Type: Outpatient Age: 64 Gender: Female Attending MD: Oliver Daniel M.D. Room: [facility] ENDOSCOPY ROOM 1 Note Status: Finalized Patient Profile: This is a 64 year old female. History of polyps. No family history of colon cancer. Patient presentedfor screening colonoscopy. Procedure: Colonoscopy Indications: High risk colon cancer surveillance: Personalhistory of colonic polyps, Last colonoscopy: June 2014 Referring MD: Jean-Pierre Kahn M.D. Providers: Oliver Daniel M.D. Impression: - Diverticulosis in the sigmoid colon. - One 7 mm polyp in the rectum, removed with a cold snare. Resected and retrieved. - Internal hemorrhoids. Recommendation: - Await pathology results. - Repeat colonoscopy in 5 years for screeningpurposes. - Continue present medications. Medicines: Monitored Anesthesia Care Complications: No immediate complications. Estimated Blood Loss: Estimated blood loss: none. Procedure: Pre-Anesthesia Assessment: - Prior to the procedure, a History and Physical was performed, and patient medications and allergieswere reviewed. The patient's tolerance of previous anesthesia was also reviewed. The risks and benefitsof the procedure and the sedation options and riskswere discussed with the patient. All questions were answered, and informed consent was obtained. Prior Anticoagulants: The patient has taken no previous anticoagulant or antiplatelet agents. ASA Grade Assessment: II - A patient with mild systemicdisease. After reviewing the risks and benefits, the patientwas deemed in satisfactory condition to undergo the procedure. The benefits, risks and alternatives of theprocedure and sedation were discussed and informed consent was obtained. All questions were answered. Please referto the signed informed consent document in the medical record. The scope was passed under direct vision.The Pediatric Colonoscope PCF-H190L [id number] was introduced through the anus and advanced to the the cecum, identified by appendiceal orifice andileocecal valve. The bowel preparation used was Miralax. The bowel preparation used was bisacodyl tablets. Bowel prep was administered using a split dose. Thequality of the bowel preparation was good. Findings: The perianal and digital rectal examinations were normal. The cecum appeared normal. The ascending colon appeared normal. The transverse colon anddescending colon were normal. Multiple small and large-mouthed diverticula were found in thesigmoid colon. A 7 mm polyp was found in the rectum. The polyp was semi-sessile. The polyp was removed with a cold snare. Resection and retrieval were complete. Internal hemorrhoids were found during retroflexion. The hemorrhoids were small. Electronically signed by Oliver Daniel M.D. Oliver Daniel M.D. 10/21/2019 2:32:09 PM Number of Addenda: 0 Note Initiated On: 10/21/2019 1:55 PM Procedure Code(s): --- Professional --- 03087, Colonoscopy, flexible; with removal of tumor(s), polyp(s), or other lesion(s) by snare technique Diagnosis Code(s): --- Professional --- Z86.010, Personal history of colonic polyps K64.8, Other hemorrhoids K62.1, Rectal polyp K57.30, Diverticulosis of large intestine without perforation orabscess without bleeding CPT copyright 2017 [employer]. All rights reserved. The codes documented in this report are preliminary and upon civil service clerk reviewmay be revised to meet current compliance requirements. Recognized by the [place] [employer] for promoting quality in endoscopy Oliver Daniel MD ENDOSCOPY PROCEDURES Final Result from Last 3 Months or Most Recently Relevant to Health Maintenance Insurance [facility] * Guarantor: Carmella Sheriff Account Type Relation to Patient Date of Phone Billing Address Personal/Family Self [address] [place] [id number] MEDICARE SOLUTIONS IDPA [facility] DUAL COMPLETE IDPA Advance Directives For more information, please contact: [phone] * Full Code (Latest Code Status on File) Date Activated Date Inactivated Comments 10/17/2023 12:28 PM 10/17/2023 6:39 PM * Full Code Date Activated Date Inactivated Comments 10/21/2019 12:48 PM 10/21/2019 7:19 PM * Full Code Date Activated Date Inactivated Comments 10/21/2019 12:47 PM 10/21/2019 12:48 PM Care Teams Engineer Internship Relationship Specialty Start Date End Date Mendoza, Mirella Martinez NP [address] [place] [address] PCP - General Nurse Practitioner 09/19/21
--- OUTSIDE RECORDS SUMMARY | 2024-12-01 15:01 | XMS_ITS | Encounter Summary ---
Author Organization [facility] Address [address] [place] [address] Phone Care Team Providers Care Urgent Care Physician Name Role Phone Juanito Mckeon MD Unavailable [phone] Mirella Mendoza APRN, SERVICE PROVIDER Primary Care Provider [phone] Damon Pollock MD Unavailable Serg Acosta MD Unavailable Brodie Drummond APRN, SERVICE PROVIDER Unavailable Encounter Details Date Type Department Care Team (Late st Contact Info) Description 02/28/2023 Transcribe Orders [facility] [address] [place] [address] Mirella Mendoza APRN, SERVICE PROVIDER [address] [place] [address] Social History Tobacco Use Types Packs/Day Years Used Date Smoking Tobacco: Every Day Cigarettes 1.5 49.6 Started: 04/11/1975 Smokeless Tobacco: Never Alcohol Use Standard Drinks/Week Comments Yes 0 (1 standard drink = 0.6 oz pur e alcohol) OCCASIONALLY Sexually Active Control Partners Comments Not Currently Comments No Sex and Gender Information Value Date Recorded Sex Assigned at Female 05/14/2023 7:46 AM CDT Legal Sex Female 11:18 PM CDT Gender Identity Female 05/14/2023 7:46 AM CDT Sexual Orientation Not on file COVID-19 Exposure Response Date Recorded In the last 10 days, have yo u been in contact with someone who was confirmed or suspected to have Coronavirus/COVID-19? No / Unsure 03/01/2023 6:46 AM CDT documented as of this encounter Plan of Treatment Upcoming Encounters Date Type Department Care Team (Late st Contact Info) Description 12/24/2024 2:15 PM CDT Office Visit [facility] - Neurology [facility] [address] [place] [address] Serg Acosta MD [address] [place] [address] 12/28/2024 10:00 AM CDT Office Visit 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 Assessment Noted Time PHQ-9 Depression Total Score: 0 07/12/20 17 1:00 PM CDT documented as of this encounter Care Teams Urgent Care Physician Relationship Specialty Start Date End Date Mirella Mendoza APRN, SERVICE PROVIDER [address] [place] [address] PCP - General Family Medicine 12/25/21 Juanito Mckeon MD General Surgery 04/08/17 Damon Pollock MD [address] [address] Consulting Physician Endocrinology 02/14/22 Serg Acosta MD [address] [place] [address] Consulting Physician Neurology 12/24/22 Brodie Drummond APRN, SERVICE PROVIDER [address] [place] [address] Nurse Practitioner Advanced Practice Nurse 01/21/24 documented as of this encounter
--- OUTSIDE RECORDS SUMMARY | 2024-12-01 15:01 | XMS_ITS | Encounter Summary ---
Author Organization [facility] Address [address] [place] [address] Phone Care Team Providers Care Bottle Capping Machine Operator Name Role Phone Juanito Mckeon MD Unavailable [phone] Mirella Mendoza APRN, PRECISION AGRONOMIST Primary Care Provider [phone] Damon Pollock MD Unavailable Serg Acosta MD Unavailable Brodie Drummond APRN, PRECISION AGRONOMIST Unavailable Encounter Details Date Type Department Care Team (Late st Contact Info) Description 09/12/2022 Telephone [facility] [address] [place] [address] Jonas Elliott, PAC [address] [place], [place] [id number] Social History Tobacco Use Types Packs/Day Years [...] suspected to have Coronavirus/COVID-19? No / Unsure 08/24/2022 11:15 PM CERTIFIED MEDICAL TECHNICIAN documented as of this encounter Plan of Treatment Upcoming Encounters Date Type Department Care Team (Late st Contact Info) Description 12/24/2024 2:15 PM CDT Office Visit [facility] - Neurology [facility] [address] [place] [address] Serg Acosta MD [address] [place] [address] 12/28/2024 10:00 AM CDT Office Visit [facility] [address] [place] [address] Brodie Drummond APRN, PRECISION AGRONOMIST [address] [place] [address] 01/21/2025 10:30 AM CDT Office Visit [facility] Endocrinology [facility] [address] [place] [address] Damon Pollock MD [address] [address] documented as of this encounter Visit Diagnoses Diagnosis Closed nondisplaced fracture of patella, unspecified fracture morphology, unspecified laterality, initial encounter- Primary documented in this encounter Additional Health Concerns Infection Onset Date Last Indicated Resolved Time COVID - 19 09/26/2023 09/26/2023 10/06/2023 12:1 6 AM CERTIFIED MEDICAL TECHNICIAN Assessment Noted Time PHQ-9 Depression Total Score: 0 04/10/20 17 1:00 PM CDT documented as of this encounter Care Teams Bottle Capping Machine Operator Relationship Specialty Start Date End Date Mirella Mendoza APRN, IGNACIO [address] [address] PCP - General Family Medicine 12/25/21 Juanito Mckeon MD General Surgery 04/08/17 Damon Pollock MD [address] [address] Consulting Physician Endocrinology 02/14/22 Serg Acosta MD [address] [place] [address] Consulting Physician Neurology 12/24/22 Brodie Drummond APRN, IGNACIO [address] [place] [address] Nurse Practitioner Advanced Practice Nurse 01/21/24 documented as of this encounter
--- OUTSIDE RECORDS SUMMARY | 2024-12-01 15:01 | XMS_ITS | Patient Health Summary ---
Author Organization [facility] Address [address] [place] [address] Care Team Providers Care Offset Machine Operator Name Role Phone Mendoza, Mirella MCKNIGHT-IGNACIO Primary Care Provider [phone] Note from [facility] [place] [facility] [place]non-owned Affiliates and Associated Physician Practices is amultiple site organization consisting of ambulatory clinics and hospital sitesin [place], [place], [place] and [place]. This disclosure is being madepursuant to the Care Everywhere program and may not contain all information available regarding this patient. Last updated 18.[facility] [employer] Allergies * Anesthesia S-I-60(Nausea and/or Vomiting,Unknown) * Chlordiazepoxide(Unknown),Inactive * Ether(Unknown) -Low Criticality,Inactive Medications * Be aware that medications may not be up to date on this document. Alwaysverify current medications with the patient. * divalproex DR (Depakote) 500 MG tablet(Started 03/22/2022) Take 1 (one) tablet by mouth 3 times daily * oxybutynin (Ditropan) 5 MG tablet(Started 07/28/2022) Take 1 (one) tablet by mouth 2 times daily * risperiDONE (RisperDAL) 1 MG tablet(Started 03/23/2022) Take 1 (one) tablet by mouth at bedtime * venlafaxine (Effexor) 25 MG tablet Take 1 (one) tablet by mouth 2 times daily * Alcohol Swabs (Alcohol Pads) 70 %(Started 08/11/2022) TEST 3 TIMES A DAY * aspirin EC (Ecotrin) 81 MG tablet Take 1 (one) tablet by mouth once daily * Blood Glucose Monitoring Suppl (GlucoCom Blood Glucose Monitor) SAJI * Blood Glucose Monitoring Suppl (ONE TOUCH ULTRA 2) w/Device KIT(Started 05/28/2022) as directed * busPIRone (Buspar) 10 MG tablet(Started 08/06/2022) * OneTouch Ultra test strip(Started 08/11/2022) TEST 3 TIMES A DAY * blood glucose (Precision QID Test) test strip(Started 03/20/2021) USE TO TEST BLOOD SUGAR THREE TIMES DAILY * B-D ULTRAFINE III SHORT PEN 31G X 8 MM needle(Started 07/09/2022) USE TO INJECT UNDER THE SKIN THREE TIMES DAILY DIRECTED * insulin pen needle (B-D ULTRAFINE III SHORT PEN) 31G X 8 MM needle(Started 05/07/2021) USE TO INJECT UNDER THE SKIN THREE TIMES DAILY * TRUEplus Insulin Syringe 31G X 5/16 0.5 ML syringe(Started 03/20/2022) as directed * Lancet Devices (Simple Diagnostics Lancing Dev) MISC(Started 05/28/2022) as directed * Lancets (ONETOUCH DELICA PLUS 33G EXTRA FINE LANCET)(Started 07/22/2022) USE TO CHECK BLOOD SUGAR THREE TIMES DAILY * [place]-3 Fatty Acids (fish oil) 1000 MG capsule Take 1 (one) capsule by mouth once daily * Jardiance 10 MG tablet(Started 07/11/2022) Take 1 (one) tablet by mouth once daily * Easy Comfort Pen [place] 33G X 4 MM MISC(Started 08/11/2022) USE TO INJECT 3 TIMES A DAY * BD Pen Needle Angela 2nd Gen 32G X 4 MM MISC(Started 02/23/2022) USE FOUR TIMES DAILY * Insulin Pen Needle (Pen [place]) 32G X 4 MM MISC(Started 02/23/2022) 4 times a day * albuterol HFA (Proventil; Ventolin; Proair) 108 (90 Base) MCG/ACT inhaler (Started 09/12/2022) Inhale 2 (two) puffs by mouth every 4 hours as needed for Shortness of Breath or Wheezing * acetaminophen (Tylenol) 500 MG tablet(Started 07/29/2023) Take 2 (two) tablets by mouth every 8 hours Maximum allowable Acetaminophen amount = 4 Grams (4000 mg) / 24 hours. * atorvastatin (Lipitor) 20 MG tablet(Started 07/29/2023) Take 1 (one) tablet by mouth at bedtime * polyethylene glycol 3350 (Miralax) 17 g packet(Started 07/29/2023) Take 17 (seventeen) g by mouth once daily as needed for Constipation * senna (Senokot Extra Strength) 17.2 MG(Started 07/29/2023) Take 17.2 mg by mouth 2 times daily * vitamin D3 (Cholecalciferol) 25 MCG (1000 UNITS) tablet(Started 07/30/2023) Take 1 (one) tablet by mouth once daily * insulin detemir (Levemir FlexPen) pen Inject 10 (ten) Units subcutaneously at bedtime * naloxone HCl (Narcan) 4 MG/0.1ML nasal spray(Started 07/29/2023) Frederick 1 (one) spray into the nose as needed * omeprazole (PriLOSEC) 40 MG capsule(Started 07/29/2023) Take 1 (one) capsule by mouth daily before breakfast * apixaban (Eliquis) 2.5 MG tablet(Started 07/29/2023) Take 1 (one) tablet by mouth 2 times daily for 35 days * oxyCODONE, immediate release, (Roxicodone) 5 MG tablet(Started 07/29/2023) Take 1 (one) tablet to 2 (two) tablets by mouth every 4 hours as needed (For moderate or severe pain) * lidocaine (Lidoderm) 5 % patch(Started 08/15/2023) Apply 1 (one) patch to skin once daily Apply patch to most painful area and remove after 12 hours. May reapply a new patch 12 hours later. * lidocaine (Lidoderm) 5 % patch(Started 05/04/2024) APPLY 1 PATCH ONCE DAILY TO MOST PAINFUL AREA OF SKIN. REMOVE AFTER 12 HOURS AND ALLOW FOR 12 HOUR PATCH-FREE PERIOD. Active Problems Problem Noted Date Diagnosed Date [...] without serious comorbidity in adult 08/25/2022 Immunizations * FLU VACCINE QUAD IIV4 SPLIT 0.25 ML IM(Given 09/01/2019, 06/11/2016) * FLU VACCINE TRI IIV3 SPLIT IM (FLUVIRIN)(Given 08/25/2015, 07/28/2014) * INFLUENZA VACCINE, CELL CULTURE, QUADR. (FLUCELVAX QUADRIVALENT; 6MO+) (CCIIV4)(Given 07/24/2017) * INFLUENZA VACCINE, HIGH-DOSE, QUADR. (FLUZONE HIGH-DOSE QUADRIVALENT; 65Y+), 0.7 ML (HD-IIV4)(Given 07/06/2021) * INFLUENZA VACCINE, QUADR. (AFLURIA, FLUZONE QUADRIVALENT; 6MO+) (IIV4)(Given 08/09/2017) * INFLUENZA VACCINE, QUADR. (FLUZONE; FLULAVAL; FLUARIX; AFLURIA QUADRIVALENT; 6MO+), 0.5 ML (IIV4)(Given 08/29/2020, 07/20/2018) * INFLUENZA VACCINE, TRIV. (FLUZONE; FLULAVAL; FLUARIX; AFLURIA TRIVALENT; 6MO+), 0.5 ML (IIV3)(Given 06/10/2016) * PNEUMOCOCCAL PPSV23(Given 09/01/2019) * PNEUMOCOCCAL PPV VACCINE(Given 07/20/2018) * Pneumococcal Pcv13 Conj(Given 01/30/2019, 08/09/2017) Social History Tobacco Use Types Packs/Day Years [...] Recorded Patient Health Questionnaire-2 Score 0 11/05/2024 [facility] - Occupational Stress Questionnaire Answer Date Recorded [...] place to sleep or slept in a mcc (including now)? No 07/24/2023 Sex and Gender [...] 61.7 kg (136 lb) 11/05/2024 11:49 AM EDUCATION ADMINISTRATIVE ASSISTANT Height 167.6 cm (5' 6 ) 11/05/2024 11:49 AM EDUCATION ADMINISTRATIVE ASSISTANT Body Mass Index 21.95 11/05/2024 11:49 AM EDUCATION ADMINISTRATIVE ASSISTANT Medical Devices Implanted Type Area Ultrasound Supervisor Device Identifier Shelf Expiration Date Model / Serial / Lot Graft Bone Accell Evo3 Dbm 10ml Ptty - [id number] Implanted:Qty: 1 on 08/25/2022 by Marbella Cano MD at [facility] Left: Leg [employer] 03/27/2023 02-5000-100 / [id number] / [id number] Screw 3.5mm 55mm Slf-Tap Cortx Evos Strl Implanted:Qty: 1 on 08/25/2022 by Marbella Cano MD at [facility] Left: Leg [employer] [id number] / / Screw 3.5mm 65mm Slf-Tap Cortx Evos Strl Implanted:Qty: 1 on 08/25/2022 by Marbella Cano MD at [facility] Left: Leg [employer] [id number] / / Screw 3.5mm 70mm Slf-Tap Cortx Evos Strl Implanted:Qty: 1 on 08/25/2022 by Marbella Cano MD at [facility] Left: Leg [employer] [id number] / / Plate 95d 60mm 9 Hl Ss Hip Cndrl Dcp Implanted:Qty: 1 on 07/24/2023 by Judy Blum MD at [facility] Left: Femur [employer]sa 237.92 / / Screw 4.5mm 8mm 70mm Cortx Slf-Tap Lg Implanted:Qty: 1 on 07/24/2023 by Judy Blum MD at [facility] Left: Femur [employer] 214.870 / / Screw 4.5mm 8mm 46mm 3.5mm Slf-Tap Lg Implanted:Qty: 1 on 07/24/2023 by Judy Blum MD at [facility] Left: Femur [employer] 214.846 / / Screw 4.5mm 8mm 36mm 3.5mm Slf-Tap Lg Implanted:Qty: 1 on 07/24/2023 by Judy Blum MD at [facility] Left: Femur [employer] 214.836 / / Screw 4.5mm 8mm 34mm Cortx Slf-Tap Lg Implanted:Qty: 1 on 07/24/2023 by Jean Carlos Yost MD at [facility] [employer] 214.834 / / Explanted Type Area Ultrasound Supervisor Device Identifier Shelf Expiration Date Model / Serial / Lot Wire K 1.6mm 150mm Drl Tip Cocr Fx Flut Explanted:Qty: 6 on 08/25/2022 at [facility] [employer] [id number] / / Screw 3.5mm 75mm Slf-Tap Cortx Evos Strl Explanted:Qty: 1 on 08/25/2022 by Marbella Cano MD at [facility] Left: Leg [employer] [id number] / / Cortex Screw 4.5x74 Mm Explanted:Qty: 1 on 08/25/2022 by Marbella Cano MD at [facility] Left: Leg [employer] Tra[employer] [id number] / / 4.5mm X 76mm Lck Screw Implanted:Qty: 2 on 08/25/2022 by Marbella Cano MD at [facility] Explanted:Qty: 2 on 07/24/2023 by Jean Carlos Yost MD at [facility] [id number] / / Evos 4.5mm X 36mm Screw Implanted:Qty: 3 on 08/25/2022 at [facility] Explanted:Qty: 3 on 07/24/2023 by Jean Carlos Yost MD at [facility] [id number] / / Evos 4.5mm X 30mm Screw Implanted:Qty: 1 on 08/25/2022 at [facility] Explanted:Qty: 1 on 07/24/2023 by Jean Carlos Yost MD at [facility] [id number] / / Screw 4.5mm 8mm 64mm Cortx Slf-Tap Lg Explanted:Qty: 1 on 07/24/2023 by Judy Blum MD at [facility] Left: Femur [employer] 214.864 / / Screw 4.5mm 8mm 18mm Gilberto Slf-Tap Lg Hex Explanted:Qty: 1 on 07/24/2023 by Judy Blum MD at [facility] Left: Femur [employer] 214.818 / / Screw 4.5mm 8mm 44mm 3.5mm Slf-Tap Lg Explanted:Qty: 1 on 07/24/2023 by Judy Blum MD at [facility] Left: Femur [employer] 214.844 / / Screw 4.5mm 8mm 32mm Cortx Slf-Tap Lg Explanted:Qty: 1 on 07/24/2023 by Judy Blum MD at [facility] Left: Femur [employer] 214.832 / / Locking Screw 4.5x74 Mm Implanted:Qty: 1 on 08/25/2022 by Marbella Cano MD at [facility] Explanted:Qty: 1 on 07/24/2023 by Jean Carlos Yost MD at [facility] Left: Leg [employer] Trauma [id number] / / Locking Screw 4.5x80 Mm Implanted:Qty: 1 on 08/25/2022 by Marbella Cano MD at [facility] Explanted:Qty: 1 on 07/24/2023 by Jean Carlos Yost MD at [facility] Left: Leg [employer] [id number] / / Distal Femur Plate 4.5x270 Mm, 13 Hole Implanted:Qty: 1 on 08/25/2022 by Marbella Cano MD at [facility] Explanted:Qty: 1 on 07/24/2023 by Jean Carlos Yost MD at [facility] Left: Leg [employer] [id number] / / Procedures * XR FEMUR LEFT 2VW(Performed 11/05/2024) Performed for Closed fracture of distal end of femur with routine healing, subsequent encounter * XR FEMUR LEFT 2VW(Performed 04/23/2024) Performed for Closed fracture of distal end of femur with routine healing, subsequent encounter * XR FEMUR LEFT 2VW(Performed 01/23/2024) Performed for Closed fracture of distal end of femur with routine healing, subsequent encounter * XR FEMUR LEFT 2VW(Performed 11/21/2023) Performed for Closed fracture of distal end of femur with routine healing, subsequent encounter * XR FEMUR LEFT 2VW(Performed 10/10/2023) Performed for Closed fracture of distal end of femur with routine healing, subsequent encounter * XR FEMUR LEFT 2VW(Performed 08/29/2023) Performed for Closed fracture of distal end of femur with routine healing, subsequent encounter * XR FEMUR LEFT 2VW(Performed 08/15/2023) Performed for Status post open reduction and internal fixation (ORIF) of fracture * GLUCOSE - POINT OF CARE(Performed 07/29/2023) * GLUCOSE - POINT OF CARE(Performed 07/29/2023) * BASIC METABOLIC PANEL (CALCIUM TOTAL)(Performed 07/29/2023) * CBC W/O DIFFERENTIAL(Performed 07/29/2023) * GLUCOSE - POINT OF CARE(Performed 07/28/2023) * GLUCOSE - POINT OF CARE(Performed 07/28/2023) * GLUCOSE - POINT OF CARE(Performed 07/28/2023) * BASIC METABOLIC PANEL (CALCIUM TOTAL)(Performed 07/28/2023) * CBC W/O DIFFERENTIAL(Performed 07/28/2023) * GLUCOSE - POINT OF CARE(Performed 07/28/2023) * GLUCOSE - POINT OF CARE(Performed 07/27/2023) * GLUCOSE - POINT OF CARE(Performed 07/27/2023) * GLUCOSE - POINT OF CARE(Performed 07/27/2023) * GLUCOSE - POINT OF CARE(Performed 07/27/2023) * BASIC METABOLIC PANEL (CALCIUM TOTAL)(Performed 07/27/2023) * CBC W/O DIFFERENTIAL(Performed 07/27/2023) * GLUCOSE - POINT OF CARE(Performed 07/26/2023) * GLUCOSE - POINT OF CARE(Performed 07/26/2023) * GLUCOSE - POINT OF CARE(Performed 07/26/2023) * GLUCOSE - POINT OF CARE(Performed 07/26/2023) * BASIC METABOLIC PANEL (CALCIUM TOTAL)(Performed 07/26/2023) * CBC W/O DIFFERENTIAL(Performed 07/26/2023) * GLUCOSE - POINT OF CARE(Performed 07/25/2023) * GLUCOSE - POINT OF CARE(Performed 07/25/2023) * GLUCOSE - POINT OF CARE(Performed 07/25/2023) * GLUCOSE - POINT OF CARE(Performed 07/25/2023) * BLOOD TYPE VERIFICATION(Performed 07/25/2023) * VITAMIN D 25-HYDROXY(Performed 07/25/2023) * BASIC METABOLIC PANEL (CALCIUM TOTAL)(Performed 07/25/2023) * CBC W/O DIFFERENTIAL(Performed 07/25/2023) * GLUCOSE - POINT OF CARE(Performed 07/24/2023) * XR FEMUR LEFT 2VW(Performed 07/24/2023) Performed for Closed fracture of distal end of femur, unspecified fracture morphology, initial encounter ([facility]) * FL RUBÉN SURGERY(Performed 07/24/2023) Performed for Closed fracture of distal end of femur, unspecified fracture morphology, initial encounter ([facility]) * GLUCOSE - POINT OF CARE(Performed 07/24/2023) * NEURAXIAL BLOCK(Performed 07/24/2023) * UT OPEN RX FEMUR FX+PLATE/SCREW(Performed 07/24/2023) Performed for Closed bicondylar fracture of distal end of left femur, sequela * TYPE + SCREEN PANEL(Performed 07/24/2023) * GLUCOSE - POINT OF CARE(Performed 07/24/2023) * BASIC METABOLIC PANEL (CALCIUM TOTAL)(Performed 07/16/2023) Performed for Pre-op testing * EKG 12-LEAD(Performed 07/16/2023) Performed for Pre-op testing * XR FEMUR LEFT 2VW(Performed 06/13/2023) Performed for Closed fracture of distal end of left femur with routine healing, unspecified fracture morphology, subsequent encounter * XR FEMUR LEFT 2VW(Performed 03/07/2023) Performed for Closed fracture of distal end of left femur with routine healing, unspecified fracture morphology, subsequent encounter * XR FEMUR LEFT 2VW(Performed 01/03/2023) Performed for Closed fracture of distal end of femur, unspecified fracture morphology, initial encounter ([facility]) * XR FEMUR LEFT 2VW(Performed 12/03/2022) Performed for Closed fracture of distal end of femur, unspecified fracture morphology, initial encounter ([facility]) * XR FEMUR LEFT 2VW(Performed 09/27/2022) Performed for Closed fracture of distal end of femur, unspecified fracture morphology, initial encounter ([facility]) * GLUCOSE - POINT OF CARE(Performed 09/12/2022) * XR FEMUR LEFT 2VW(Performed 09/12/2022) Performed for Closed fracture of distal end of femur, unspecified fracture morphology, initial encounter ([facility]) * GLUCOSE - POINT OF CARE(Performed 09/12/2022) * PHOSPHORUS BLOOD(Performed 09/12/2022) * MAGNESIUM BLOOD(Performed 09/12/2022) * CBC W/O DIFFERENTIAL(Performed 09/12/2022) * BASIC METABOLIC PANEL (CALCIUM TOTAL)(Performed 09/12/2022) * GLUCOSE - POINT OF CARE(Performed 09/11/2022) * GLUCOSE - POINT OF CARE(Performed 09/11/2022) * GLUCOSE - POINT OF CARE(Performed 09/11/2022) * GLUCOSE - POINT OF CARE(Performed 09/11/2022) * PHOSPHORUS BLOOD(Performed 09/11/2022) * MAGNESIUM BLOOD(Performed 09/11/2022) * CBC W/O DIFFERENTIAL(Performed 09/11/2022) * BASIC METABOLIC PANEL (CALCIUM TOTAL)(Performed 09/11/2022) * GLUCOSE - POINT OF CARE(Performed 09/10/2022) * GLUCOSE - POINT OF CARE(Performed 09/10/2022) * GLUCOSE - POINT OF CARE(Performed 09/10/2022) * PHOSPHORUS BLOOD(Performed 09/10/2022) * MAGNESIUM BLOOD(Performed 09/10/2022) * CBC W/O DIFFERENTIAL(Performed 09/10/2022) * BASIC METABOLIC PANEL (CALCIUM TOTAL)(Performed 09/10/2022) * GLUCOSE - POINT OF CARE(Performed 09/09/2022) * GLUCOSE - POINT OF CARE(Performed 09/09/2022) * GLUCOSE - POINT OF CARE(Performed 09/09/2022) * PHOSPHORUS BLOOD(Performed 09/09/2022) * MAGNESIUM BLOOD(Performed 09/09/2022) * CBC W/O DIFFERENTIAL(Performed 09/09/2022) * BASIC METABOLIC PANEL (CALCIUM TOTAL)(Performed 09/09/2022) * GLUCOSE - POINT OF CARE(Performed 09/09/2022) * GLUCOSE - POINT OF CARE(Performed 09/08/2022) * GLUCOSE - POINT OF CARE(Performed 09/08/2022) * GLUCOSE - POINT OF CARE(Performed 09/08/2022) * PHOSPHORUS BLOOD(Performed 09/08/2022) * MAGNESIUM BLOOD(Performed 09/08/2022) * CBC W/O DIFFERENTIAL(Performed 09/08/2022) * BASIC METABOLIC PANEL (CALCIUM TOTAL)(Performed 09/08/2022) * GLUCOSE - POINT OF CARE(Performed 09/08/2022) * GLUCOSE - POINT OF CARE(Performed 09/07/2022) * GLUCOSE - POINT OF CARE(Performed 09/07/2022) * GLUCOSE - POINT OF CARE(Performed 09/07/2022) * GLUCOSE - POINT OF CARE(Performed 09/07/2022) * PHOSPHORUS BLOOD(Performed 09/07/2022) * MAGNESIUM BLOOD(Performed 09/07/2022) * CBC W/O DIFFERENTIAL(Performed 09/07/2022) * BASIC METABOLIC PANEL (CALCIUM TOTAL)(Performed 09/07/2022) * GLUCOSE - POINT OF CARE(Performed 09/06/2022) * GLUCOSE - POINT OF CARE(Performed 09/06/2022) * GLUCOSE - POINT OF CARE(Performed 09/06/2022) * GLUCOSE - POINT OF CARE(Performed 09/06/2022) * PHOSPHORUS BLOOD(Performed 09/06/2022) * MAGNESIUM BLOOD(Performed 09/06/2022) * CBC W/O DIFFERENTIAL(Performed 09/06/2022) * BASIC METABOLIC PANEL (CALCIUM TOTAL)(Performed 09/06/2022) * XR KNEE LEFT 2VW OR LESS(Performed 09/05/2022) Performed for Closed fracture of distal end of femur, unspecified fracture morphology, initial encounter ([facility]) * GLUCOSE - POINT OF CARE(Performed 09/05/2022) * GLUCOSE - POINT OF CARE(Performed 09/05/2022) * GLUCOSE - POINT OF CARE(Performed 09/05/2022) * GLUCOSE - POINT OF CARE(Performed 09/05/2022) * PHOSPHORUS BLOOD(Performed 09/05/2022) * MAGNESIUM BLOOD(Performed 09/05/2022) * CBC W/O DIFFERENTIAL(Performed 09/05/2022) * BASIC METABOLIC PANEL (CALCIUM TOTAL)(Performed 09/05/2022) * GLUCOSE - POINT OF CARE(Performed 09/04/2022) * GLUCOSE - POINT OF CARE(Performed 09/04/2022) * GLUCOSE - POINT OF CARE(Performed 09/04/2022) * PHOSPHORUS BLOOD(Performed 09/04/2022) * MAGNESIUM BLOOD(Performed 09/04/2022) * CBC W/O DIFFERENTIAL(Performed 09/04/2022) * BASIC METABOLIC PANEL (CALCIUM TOTAL)(Performed 09/04/2022) * GLUCOSE - POINT OF CARE(Performed 09/03/2022) * GLUCOSE - POINT OF CARE(Performed 09/03/2022) * GLUCOSE - POINT OF CARE(Performed 09/03/2022) * PHOSPHORUS BLOOD(Performed 09/03/2022) * MAGNESIUM BLOOD(Performed 09/03/2022) * CBC W/O DIFFERENTIAL(Performed 09/03/2022) * BASIC METABOLIC PANEL (CALCIUM TOTAL)(Performed 09/03/2022) * GLUCOSE - POINT OF CARE(Performed 09/02/2022) * GLUCOSE - POINT OF CARE(Performed 09/02/2022) * GLUCOSE - POINT OF CARE(Performed 09/02/2022) * GLUCOSE - POINT OF CARE(Performed 09/02/2022) * VITAMIN D 25-HYDROXY(Performed 09/02/2022) * PHOSPHORUS BLOOD(Performed 09/02/2022) * MAGNESIUM BLOOD(Performed 09/02/2022) * CBC W/O DIFFERENTIAL(Performed 09/02/2022) * BASIC METABOLIC PANEL (CALCIUM TOTAL)(Performed 09/02/2022) * GLUCOSE - POINT OF CARE(Performed 09/01/2022) * GLUCOSE - POINT OF CARE(Performed 09/01/2022) * GLUCOSE - POINT OF CARE(Performed 09/01/2022) * GLUCOSE - POINT OF CARE(Performed 09/01/2022) * PHOSPHORUS BLOOD(Performed 09/01/2022) * MAGNESIUM BLOOD(Performed 09/01/2022) * CBC W/O DIFFERENTIAL(Performed 09/01/2022) * BASIC METABOLIC PANEL (CALCIUM TOTAL)(Performed 09/01/2022) * GLUCOSE - POINT OF CARE(Performed 08/31/2022) * GLUCOSE - POINT OF CARE(Performed 08/31/2022) * GLUCOSE - POINT OF CARE(Performed 08/31/2022) * GLUCOSE - POINT OF CARE(Performed 08/31/2022) * PHOSPHORUS BLOOD(Performed 08/31/2022) * MAGNESIUM BLOOD(Performed 08/31/2022) * CBC W/O DIFFERENTIAL(Performed 08/31/2022) * BASIC METABOLIC PANEL (CALCIUM TOTAL)(Performed 08/31/2022) * GLUCOSE - POINT OF CARE(Performed 08/30/2022) * GLUCOSE - POINT OF CARE(Performed 08/30/2022) * GLUCOSE - POINT OF CARE(Performed 08/30/2022) * GLUCOSE - POINT OF CARE(Performed 08/30/2022) * PHOSPHORUS BLOOD(Performed 08/30/2022) * MAGNESIUM BLOOD(Performed 08/30/2022) * CBC W/O DIFFERENTIAL(Performed 08/30/2022) * BASIC METABOLIC PANEL (CALCIUM TOTAL)(Performed 08/30/2022) * GLUCOSE - POINT OF CARE(Performed 08/29/2022) * GLUCOSE - POINT OF CARE(Performed 08/29/2022) * GLUCOSE - POINT OF CARE(Performed 08/29/2022) * CARDIAC EKG ORDER(Performed 08/29/2022) * GLUCOSE - POINT OF CARE(Performed 08/29/2022) * GLUCOSE - POINT OF CARE(Performed 08/29/2022) * PHOSPHORUS BLOOD(Performed 08/29/2022) * MAGNESIUM BLOOD(Performed 08/29/2022) * CBC W/O DIFFERENTIAL(Performed 08/29/2022) * BASIC METABOLIC PANEL (CALCIUM TOTAL)(Performed 08/29/2022) * GLUCOSE - POINT OF CARE(Performed 08/29/2022) * GLUCOSE - POINT OF CARE(Performed 08/28/2022) * GLUCOSE - POINT OF CARE(Performed 08/28/2022) * GLUCOSE - POINT OF CARE(Performed 08/28/2022) * GLUCOSE - POINT OF CARE(Performed 08/28/2022) * GLUCOSE - POINT OF CARE(Performed 08/28/2022) * GLUCOSE - POINT OF CARE(Performed 08/28/2022) * PHOSPHORUS BLOOD(Performed 08/28/2022) * MAGNESIUM BLOOD(Performed 08/28/2022) * CBC W/O DIFFERENTIAL(Performed 08/28/2022) * BASIC METABOLIC PANEL (CALCIUM TOTAL)(Performed 08/28/2022) * GLUCOSE - POINT OF CARE(Performed 08/28/2022) * GLUCOSE - POINT OF CARE(Performed 08/27/2022) * GLUCOSE - POINT OF CARE(Performed 08/27/2022) * GLUCOSE - POINT OF CARE(Performed 08/27/2022) * GLUCOSE - POINT OF CARE(Performed 08/27/2022) * GLUCOSE - POINT OF CARE(Performed 08/27/2022) * PHOSPHORUS BLOOD(Performed 08/27/2022) * MAGNESIUM BLOOD(Performed 08/27/2022) * CBC W/O DIFFERENTIAL(Performed 08/27/2022) * BASIC METABOLIC PANEL (CALCIUM TOTAL)(Performed 08/27/2022) * GLUCOSE - POINT OF CARE(Performed 08/27/2022) * GLUCOSE - POINT OF CARE(Performed 08/26/2022) * GLUCOSE - POINT OF CARE(Performed 08/26/2022) * CT CHEST PE W ABD PELVIS W CONT(Performed 08/26/2022) Performed for Altered mental status, unspecified altered mental status type * GLUCOSE - POINT OF CARE(Performed 08/26/2022) * GLUCOSE - POINT OF CARE(Performed 08/26/2022) * CULTURE BLOOD(Performed 08/26/2022) * EKG 12-LEAD(Performed 08/26/2022) Performed for Altered mental status, unspecified altered mental status type * URINE MICROSCOPIC ONLY REFLEX TO CULTURE(Performed 08/26/2022) * URINALYSIS REFLEX MICROSCOPIC REFLEX CULTURE(Performed 08/26/2022) * SARS-COV-2 (COVID-19) FLU A/B RSV PCR RAPID(Performed 08/26/2022) * MRSA DNA PCR(Performed 08/26/2022) * PROCALCITONIN LEVEL(Performed 08/26/2022) * PHOSPHORUS BLOOD(Performed 08/26/2022) * LACTIC ACID BLOOD(Performed 08/26/2022) * COMPREHENSIVE METABOLIC PANEL(Performed 08/26/2022) * MAGNESIUM BLOOD(Performed 08/26/2022) * CBC W/O DIFFERENTIAL(Performed 08/26/2022) * CULTURE BLOOD(Performed 08/26/2022) * XR CHEST 1VW PORTABLE(Performed 08/26/2022) Performed for Chronic bronchitis, unspecified chronic bronchitis type (HCC) * CT ANGIO BRAIN NECK STROKE(Performed 08/26/2022) Performed for Altered mental status, unspecified altered mental status type * CT BRAIN STROKE(Performed 08/26/2022) Performed for Altered mental status, unspecified altered mental status type * GLUCOSE - POINT OF CARE(Performed 08/26/2022) * GLUCOSE - POINT OF CARE(Performed 08/26/2022) * GLUCOSE - POINT OF CARE(Performed 08/26/2022) * GLUCOSE - POINT OF CARE(Performed 08/25/2022) * GLUCOSE - POINT OF CARE(Performed 08/25/2022) * FL RUBÉN SURGERY(Performed 08/25/2022) Performed for Closed fracture of distal end of femur, unspecified fracture morphology, initial encounter ([facility]) * XR FEMUR LEFT 2VW(Performed 08/25/2022) Performed for Closed fracture of distal end of femur, unspecified fracture morphology, initial encounter ([facility]) * GLUCOSE - POINT OF CARE(Performed 08/25/2022) * GLUCOSE - POINT OF CARE(Performed 08/25/2022) * OPEN REDUCTION INTERNAL FIXATION (ORIF) FEMUR(Performed 08/25/2022) Performed for Diagnosis unknown * ENDOTRACHEAL TUBE NOTE(Performed 08/25/2022) * GLUCOSE - POINT OF CARE(Performed 08/25/2022) * HEMOGLOBIN A1C(Performed 08/25/2022) * GLUCOSE - POINT OF CARE(Performed 08/25/2022) * CT KNEE LEFT WO CONTRAST(Performed 08/25/2022) Performed for Trauma * EKG 12-LEAD(Performed 08/25/2022) Performed for Trauma, Closed fracture of distal end of femur, unspecified fracture morphology, initial encounter ([facility]), Type 2 diabetes mellitus without complication, with long-term current use of insulin ([facility]), Tobacco use, Hypertension, unspecified type * COMPREHENSIVE METABOLIC PANEL(Performed 08/25/2022) * CBC W AUTO DIFFERENTIAL(Performed 08/25/2022) * XR KNEE LEFT 2VW OR LESS(Performed 08/25/2022) Performed for Trauma * XR FEMUR LEFT 2VW(Performed 08/25/2022) Performed for Trauma Results * XR Femur Left 2Vw (11/05/2024 11:42 AM EDUCATION ADMINISTRATIVE ASSISTANT) Only the most recent of16 resultswithin the time period is included. Anatomical Region Laterality Modality Lower Extremity Computed Radiogr aphy 11/05/2024 12:3 6 PM EDUCATION ADMINISTRATIVE ASSISTANT Impressions 11/05/2024 1:28 PM EDUCATION ADMINISTRATIVE ASSISTANT IMPRESSION: Unchanged alignment. Report dictated by Stephen Iglesias MD (rn residential). Lisset Cherry MD have personally reviewed and interpreted this examination/study. > Interpreting Provider: Lisset Smith MD on 11/05/2024 1:28 PM Narrative 11/05/2024 1:28 PM EDUCATION ADMINISTRATIVE ASSISTANT PROCEDURE: XR FEMUR LEFT 2VW, DATE/TIME OF EXAM: 11/05/2024 11:42 AM, LOCATION [facility] INDICATION: S72.409D: Closed fracture of distal end [...] DATE/TIME OF EXAM: 11/05/2024 11:42 AM, LOCATION [facility] INDICATION: S72.409D: Closed fracture of distal end [...] alignment. Report dictated by Stephen Iglesias MD (rn residential). Lisset Cherry MD have personally reviewed and interpreted this examination/study. > Interpreting Provider: Lisset Smith MD on 11/05/2024 1:28PM Judy Blum MD DIAGNOSTIC IMAGING ORDERABLES * (ABNORMAL) GLUCOSE - POINT OF CARE (07/29/2023 12:06 PM CDT) Only the most recent of104 resultswithin the time period is included. Pathologist [facility] [place] Glucose WB/POC 156(H) 70 - 115 mg/dL 07/29/2023 12:07 PM CDT [facility] Specimen Type Venous 07/29/2023 12:07 PM T [facility] Blood BLOOD SPECIMEN / Unknown 07/29/2023 12:06 PM CDT 07/29/2023 12:07 PM CDT Marjorie Abernathy MD LAB - POINT OF CARE ORDERABLES Performing Organization Address [facility] Co de Phone Number [address] [address], [facility] [phone] * (ABNORMAL) CBC W/O DIFFERENTIAL (07/29/2023 7:07 AM CDT) Only the most recent of23 resultswithin the time period is included. [facility] WBC 12.2(H) 3.5 - 10.5 10 3/uL 07/29/2023 8:13 AM [facility] RBC 3.20(L) 3.80 - 5.20 10 6/uL 07/29/2023 8:13 AM [facility] Hemoglobin 9.5(L) 12.0 - 15.6 g/dL 07/29/2023 8:13 AM [facility] Hematocrit 29.0(L) 35.0 - 45.0 % 07/29/2023 8:13 AM [facility] MCV 90.6 80.7 - 98.3 fL 07/29/2023 8:13 AM [facility] MCH 29.7 26.7 - 34.0 pg 07/29/2023 8:13 AM [facility] MCHC 32.8 30.8 - 35.9 g/dL 07/29/2023 8:13 AM T [facility] RDW-SD 45.1 36.0 - 50.0 fL 07/29/2023 8:13 AM [facility] RDW-CV 13.6 11.2 - 14.8 % 07/29/2023 8:13 AM [facility] Platelet Count 350 150 - 400 10 3/uL 07/29/2023 8:13 AM [facility] MPV 9.2(L) 9.4 - 12.9 fL 07/29/2023 8:13 AM [facility] nRBC Absolute 0.00 0 10 3/uL 07/29/2023 8:13 AM [facility] nRBC Auto 0.0 0 /100 WBC 07/29/2023 8:13 AM [facility] Blood BLOOD SPECIMEN / Unknown Lab Venipuncture / Unknown 07/29/2023 7:07 AM CDT 07/29/2023 7:49 AM CDT Judy Blum MD LAB - HEMATOLOGY OR DERABLES [facility] [address] [place] [id number], [facility] [phone] * (ABNORMAL) BASIC METABOLIC PANEL (CALCIUM TOTAL) (07/29/2023 7:07 AM CDT) Only the most recent of23 resultswithin the time period is included. BUN 15 7 - 26 mg/dL 07/29/2023 8:20 AM [facility] Creatinine 0.58 0.56 - 0.96 mg/dL 07/29/2023 8:20 AM [facility] Sodium 141 136 - 145 mmol/L 07/29/2023 8:20 AM [facility] Potassium 4.4 3.5 - 4.5 mmol/L 07/29/2023 8:20 AM [facility] Chloride 104 98 - 107 mmol/L 07/29/2023 8:20 AM [facility] CO2 26 22 - 29 mmol/L 07/29/2023 8:20 AM CDT [facility] Glucose 128(H) 70 - 115 mg/dL 07/29/2023 8:20 AM T [facility] Calcium 8.5 8.4 - 10.2 mg/dL 07/29/2023 8:20 AM [facility] Anion Gap 11 6 - 16 07/29/2023 8:20 AM [facility] BUN/Creatinine Ratio 26(H) 7 - 23 07/29/2023 8:20 AM T [facility] Osmolality Calculated 294 275 - 295 mOsm/kg 07/29/2023 8:20 AM T [facility] eGFR by CKD-EPI >90 >=90 mL/min/1.7 3 m2 07/29/2023 8:20 AM T [facility] Blood BLOOD SPECIMEN / Unknown Lab Venipuncture / Unknown 07/29/2023 7:07 AM CDT 07/29/2023 7:49 AM CDT Judy Blum MD LAB - CHEMISTRY ORD ERABLES [facility] [address] [place] [phone], [facility] [phone] * BLOOD TYPE VERIFICATION (07/25/2023 1:49 AM CDT) ABO Rh B POS 07/25/2023 2:2 4 AM CDT [facility] Blood Bank BLOOD SPECIMEN / Unknown 07/25/2023 1:49 AM CDT 07/25/2023 2:00 AM CDT Judy Blum MD LAB - BLOOD BANK OR DERABLES [facility] [address] [place] [phone], [facility] [phone] * (ABNORMAL) VITAMIN D 25-HYDROXY (07/25/2023 1:32 AM CDT) Only the most recent of2 resultswithin the time period is included. Vitamin D, 25 Hydroxy 29.0(L) 30.0 - 80.0 ng/mL 07/25/2023 5:51 PM CDT [facility] Comment: The recommendations for 25-Hydroxy Vitamin D clinical decision points are as follows: Deficient: <20.0 ng/mL Insufficient: 20.0 - 29.9 ng/mL Sufficient: 30.0 - 100.0 ng/mL Potential Toxicity: >100 ng/mL Reference: The Endocrine Society Clinical Practice Guidelines. 2011 If the 25-Hydroxy Vitamin D results are inconsitent with clinical evidence, it is recommended that follow-up testing using a method such as LC/MS/MS be performed to confirm the result. Blood BLOOD SPECIMEN / Unknown Lab Venipuncture / Unknown 07/25/2023 1:32 AM CDT 07/25/2023 2:18 AM CDT Kim Samuels PA-C LAB - CHEMIS TRY ORDERABLES Performing Organization Address City/[facility]/ZIP Co de Phone Number [address] [address], [facility] [phone] * FL RUBÉN SURGERY (07/24/2023 5:47 PM CDT) Only the most recent of2 resultswithin the time period is included. Narrative [facility] - 07/24/2023 6:47 PM CDT Fluoroscopy was used for this exam in the OR. Please see the Operative report. Judy Blum MD FLUOROSCOPY ORDERAB LES Performing Organization Address City/[facility]/ZIP Co de Phone Number [facility] * Neuraxial Block (07/24/2023 1:42 PM CDT) Narrative Bahman Vazquez MD - 07/24/2023 1:42 PM CDT Jean Carlos Mehta MD 07/24/2023 1:45 PM Neuraxial Block Note Pre-Procedure: Procedure Name: Neuraxial Block Patient Location: OR Indications: at surgeon's request, surgical anesthesia and postop pain management Pre-Anesthetic Checklist: Patient identified, IV Checked, Risks and benefits discussed, Surgical consent verified, Monitors and equipment, Site examined, Pre-op evaluation done, Time-out performed, Informed consent obtained, Questions answered/anesthesia questions answered and Allergies reviewed Anticoagulation/ Anti-thrombosis status confirmed? Yes Supplemental O2: nasal cannula Monitors: BP, continuous pluse ox and EKG Patient Condition: awake Patient Sedated? No Procedure: Block Type: Spinal Prep: Chloraprep Sterile Field: mask, cap/hat, sterile established and sterile gloves Approach: midline Skin was localized? Yes Skin localized with: lidocaine (XYLOCAINE) 1 % injection - Infiltration 1 mL - 07/24/2023 12:57:00 PM Spinal Block: Needle Type: spinal needle Needle Gauge: 25 Needle Length: 90 mm Placement Site: L4-5 Number of Attempts: 1 CSF: free flow, aspiration before injection, aspiration after injection Local anesthetics used? Yes Spinal local anesthetics/Additives: bupivacaine PF (MARCAINE PF) 0.5 % injection - Intraspinal 3 mg - 07/24/2023 1:01:00 PM Degree of difficulty: none Procedure Tolerance: tolerated well Position post procedure: supine Vital Signs: Vital signs monitored and stable throughout. See anesthesia record for details. Start Time: 07/24/2023 12:57 PM End Time: 07/24/2023 1:01 PM Total Time: 4 Staff: Anesthesia Provider: Bahman Vazquez MD Provider #1: Jean Carlos Mehta MD - performed the procedure Kevon Wood II, MD GENERAL ANESTHESIA ORDERABLES * TYPE + SCREEN PANEL (07/24/2023 1:30 PM CDT) Antibody Screen NEG 3:06 PM CDT [facility] ABO Rh B POS 07/24/2023 3:06 PM CDT [facility] Blood Bank BLOOD SPECIMEN / Unknown 07/24/2023 1:30 PM CDT 07/24/2023 1:56 PM CDT Judy Blum MD LAB - BLOOD BANK OR DERABLES [facility] [address] [place] [address], [place] [phone] * EKG 12-LEAD (07/16/2023 3:33 PM CDT) Only the most recent of3 resultswithin the time period is included. [facility] Ventricular Rate 70 BPM [facility] Atrial Rate 70 BPM [facility] P-R Interval 160 ms [facility] QRS Duration ms 80 ms [facility] Q-T Interval ms 414 ms [facility] QTC Calculation (Bezet) 447 ms [facility] Calculated P [place] 40 degrees [facility] MUSE Calculated R [place] 66 degrees SL MUSE Calculated T [place] 61 degrees [facility] Interpretation EKG SINUS RHYTHM WITH MARKED SINUS ARRYTHMIA OTHERWISE NORMAL ECG WHEN COMPARED WITH ECG OF 26-AUG-2022 08:23, VENT. RATE HAS DECREASED BY 55 BPM LEFT POSTERIOR FASCICULAR BLOCK IS NO LONGER PRESENT NONSPECIFIC T WAVE ABNORMALITY NO LONGER EVIDENT IN INFERIOR LEADS NONSPECIFIC T WAVE ABNORMALITY NO LONGER EVIDENT IN LATERAL LEADS Confirmed by HAZEL PARK MD ([id number]) on 07/30/2023 4:41:20 PM [facility] 07/16/2023 3:33 PM CDT 07/30/2023 4:41 PM CDT Provider Unknown ECG ORDERABLES [facility] * PHOSPHORUS BLOOD (09/12/2022 6:08 AM EDUCATION ADMINISTRATIVE ASSISTANT) Only the most recent of18 resultswithin the time period is included. [facility] Phosphorus 4.2 2.9 - 5.1 mg/dL 09/12/2022 7:13 AM EDUCATION ADMINISTRATIVE ASSISTANT [facility] Blood BLOOD SPECIMEN / Unknown Lab Venipuncture / Unknown 09/12/2022 6:08 AM EDUCATION ADMINISTRATIVE ASSISTANT 09/12/2022 6:45 AM EDUCATION ADMINISTRATIVE ASSISTANT Anyi Puentes MD LAB - CHEMISTRY [address] [place] [id number] [place] [address], [facility] [phone] * MAGNESIUM BLOOD (09/12/2022 6:08 AM EDUCATION ADMINISTRATIVE ASSISTANT) Only the most recent of18 resultswithin the time period is included. [facility] Magnesium 2.0 1.6 - 2.6 mg/dL 09/12/2022 7:13 AM EDUCATION ADMINISTRATIVE ASSISTANT [facility] Blood BLOOD SPECIMEN / Unknown Lab Venipuncture / Unknown 09/12/2022 6:08 AM EDUCATION ADMINISTRATIVE ASSISTANT 09/12/2022 6:45 AM EDUCATION ADMINISTRATIVE ASSISTANT Anyi Puentes MD LAB - CHEMISTRY LAURIE Jj Organization Address City/State/ZIP Co de Phone Number [address] [address], [facility] [phone] * XR KNEE LEFT 2VW OR LESS (09/05/2022 9:17 PM EDUCATION ADMINISTRATIVE ASSISTANT) Only the most recent of2 resultswithin the time period is included. Anatomical Region Laterality Modality Lower Extremity Radiographic Leandra ging 09/06/2022 9:40 AM EDUCATION ADMINISTRATIVE ASSISTANT Narrative 09/06/2022 11:21 AM EDUCATION ADMINISTRATIVE ASSISTANT PROCEDURE: XR KNEE LEFT 2VW OR LESS, DATE/TIME OF EXAM: 09/05/2022 9:17 PM, LOCATION: [facility] INDICATION: S72.409A: Closed fracture of distal end of femur, unspecified fracture morphology, initial encounter ([facility]) ADDITIONAL CLINICAL INFORMATION: Ordering Provider Reason For Exam: Trauma Technologist Note: Additional: COMPARISON: Left femur radiograph 08/25/[address] left knee 08/25/2022 TECHNIQUE: Frontal and lateral views of the left knee. FINDINGS/IMPRESSION: Redemonstrated internal fixation of a comminuted to moderately displaced intra-articular distal femoral fracture with surgical plate and multiple screws. The hardware appears intact. The alignment is unchanged. The tibia and fibula are intact without evidence of fracture. The knee joint space is intact. Small suprapatellar joint effusion is noted. Small osteophytes are seen. Soft tissue swelling is noted. > Dictated by Kirby Guerrier MD (rn residential) I, Jonas Fabian MD have personally reviewed and interpreted this examination/study. > Interpreting Provider: Jonas Fabian MD on 09/06/2022 11:21 AM Procedure Note Jonas Fabian MD - 09/06/2022 PROCEDURE: XR KNEE LEFT 2VW OR LESS, DATE/TIME OF EXAM: 09/05/2022 9:17 PM, LOCATION: [facility] INDICATION: S72.409A: Closed fracture of distal end of femur, unspecified fracture morphology, initial encounter ([facility]) ADDITIONAL CLINICAL INFORMATION: Ordering Provider Reason For Exam: Trauma Technologist Note: Additional: COMPARISON: Left femur radiograph 08/25/[address] left knee 08/25/2022 TECHNIQUE: Frontal and lateral views of the left knee. FINDINGS/IMPRESSION: Redemonstrated internal fixation of a comminuted to moderately displaced intra-articular distal femoral fracture with surgical plate and multiple screws. The hardware appears intact. The alignment is unchanged. Thetibia and fibula are intact without evidence of fracture. The knee joint spaceis intact. Small suprapatellar joint effusion is noted. Small osteophytesare seen. Soft tissue swelling is noted. > Dictated by Kirby Guerrier MD (rn residential) Jonas Cherry MD have personally reviewed and interpreted this examination/study. > Interpreting Provider: Jonas Fabian MD on 09/06/2022 11:21 AM Adeline Calhoun MD DIAGNOSTIC IMAGING ORDERABLES * CARDIAC EKG ORDER (08/29/2022 11:24 AM EDUCATION ADMINISTRATIVE ASSISTANT) Narrative 08/29/2022 11:24 AM EDUCATION ADMINISTRATIVE ASSISTANT Ordered by an unspecified provider. Scanned Document CARDIAC SERVICES ORD ERABLES * CT CHEST PE W ABD PELVIS W CONT (08/26/2022 1:15 PM EDUCATION ADMINISTRATIVE ASSISTANT) Anatomical Region Laterality Modality Chest, Abdomen, Pelvis Computed Tomography 08/26/2022 1:34 PM EDUCATION ADMINISTRATIVE ASSISTANT Impressions 08/26/2022 3:37 PM EDUCATION ADMINISTRATIVE ASSISTANT Impression: 1.Bilateral dependent opacities with mild bronchiectasis and peribronchial thickening is seen which could be secondary to aspiration pneumonitis. 2.Diffuse rugal thickening of the stomach wall, more than expected for nondistended stomach which may represent gastritis. 3.Incidentally noted 2.7 cm sized left adrenal nodule, likely an adenoma. Attention should be paid in the follow-up study. > Dictated by Donta Anne MD (rn residential). Lisset Cherry MD have personally reviewed and interpreted this examination/study. > Interpreting Provider: Lisset Smith MD on 08/26/2022 3:37 PM Narrative 08/26/2022 3:37 PM EDUCATION ADMINISTRATIVE ASSISTANT PROCEDURE: CT CHEST PE W ABD PELVIS W CONT, DATE/TIME OF EXAM: 08/26/2022 1:25 PM, LOCATION [facility] INDICATION: R41.82: Altered mental status, unspecified altered mental status type ADDITIONAL CLINICAL INFORMATION: Ordering Provider Reason For Exam: Concern for PE, PE protocol + abdomen pelvis COMPARISON: None. TECHNIQUE: CT of the chest was performed following the uneventful administration of 75 mL of Isovue 370 intravenous contrast according to a pulmonary embolism protocol. CT of the abdomen and pelvis was also performed during the portal venous phase according to standard protocol. Multiplanar reconstructions were created. Findings: Chest: Study Quality This examination for the diagnosis of pulmonary embolism is adequate. Pulmonary Arteries: No evidence of acute pulmonary embolism. Thoracic Vasculature: No vascular abnormality is present. Lower Neck and Axillae: Normal. Lungs: Bilateral dependent opacities with mild bronchiectasis and peribronchial thickening is seen which could be secondary to aspiration pneumonitis. No suspicious pulmonary nodules are identified. No pleural fluid or pneumothorax is present. Heart and Pericardium: There is cardiomegaly. There is thinning of the apical myocardium likely from prior infarction. No pericardial fluid or thickening is present. The coronary arteries are atherosclerotic. Mediastinum and Roxanne: No enlarged lymph nodes are present. Abdomen/pelvis: Liver: Normal. Gallbladder and Bile Ducts: The gallbladder is absent. Spleen: Normal. Pancreas: Normal. Adrenals: An approximately 2.7 cm sized left adrenal gland nodule is noted, likely an adenoma. Right adrenal gland is unremarkable. Kidneys: The right kidney multiple scars. There is no hydronephrosis. Left kidney is normal morphology. No calculi or hydronephrosis seen. Gastrointestinal: There is diffuse thickening of the stomach wall, more than expected for nondistended stomach which may represent gastritis. There is no dilated bowel loops. Diffuse sigmoid colon diverticulosis without evidence of diverticulitis. Normal appendix. Mesentery/Peritoneum/Retroperitoneum: No free intraperitoneal air. No free fluid in the abdomen or pelvis. Bladder: A Tuttle catheter terminates within a decompressed urinary bladder. Contrast is seen in the bladder. Reproductive Organs: The uterus is normal. Abdominal Vasculature: Atherosclerotic calcification of the aorta and its branch vessels. Bones: Bone windows demonstrate no suspicious lytic or blastic lesions. The visible osseous structures are intact. A sclerotic lesion in the right femoral head is likely a bone island. Soft tissues: Normal. Procedure Note Lisset Smith MD - 08/26/2022 PROCEDURE: CT CHEST PE W ABD PELVIS W CONT, DATE/TIME OF EXAM:08/26/2022 1:25 PM, LOCATION [facility] INDICATION: R41.82: Altered mental status, unspecified altered mental status type ADDITIONAL CLINICAL INFORMATION: Ordering Provider Reason For Exam: Concern for PE, PE protocol +abdomen pelvis COMPARISON: None. TECHNIQUE: CT of the chest was performed following the uneventful administration of 75 mL of Isovue 370 intravenous contrast according toa pulmonary embolism protocol. CT of the abdomen and pelvis was also performed during the portal venous phase according to standard protocol. Multiplanar reconstructions were created. Findings: Chest: Study Quality This examination for the diagnosis of pulmonary embolism is adequate. Pulmonary Arteries: No evidence of acute pulmonary embolism. Thoracic Vasculature: No vascular abnormality is present. Lower Neck and Axillae: Normal. Lungs: Bilateral dependent opacities with mild bronchiectasis and peribronchial thickening is seen which could be secondary to aspiration pneumonitis.No suspicious pulmonary nodules are identified. No pleural fluid or pneumothorax is present. Heart and Pericardium: There is cardiomegaly. There is thinning of the apical myocardium likely from prior infarction. No pericardial fluid or thickening is present.The coronary arteries are atherosclerotic. Mediastinum and Roxanne: No enlarged lymph nodes are present. Abdomen/pelvis: Liver: Normal. Gallbladder and Bile Ducts: The gallbladder is absent. Spleen: Normal. Pancreas: Normal. Adrenals: An approximately 2.7 cm sized left adrenal gland nodule is noted, likelyan adenoma. Right adrenal gland is unremarkable. Kidneys: The right kidney multiple scars. There is no hydronephrosis. Left kidneyis normal morphology. No calculi or hydronephrosis seen. Gastrointestinal: There is diffuse thickening of the stomach wall, more than expected for nondistended stomach which may represent gastritis. There is no dilated bowel loops. Diffuse sigmoid colon diverticulosis without evidence of diverticulitis. Normal appendix. Mesentery/Peritoneum/Retroperitoneum: No free intraperitoneal air. No free fluid in the abdomen or pelvis. Bladder: A Tuttle catheter terminates within a decompressed urinary bladder.Contrast is seen in the bladder. Reproductive Organs: The uterus is normal. Abdominal Vasculature: Atherosclerotic calcification of the aorta and its branch vessels. Bones: Bone windows demonstrate no suspicious lytic or blastic lesions. The visible osseous structures are intact. A sclerotic lesion in the right femoral head is likely a bone island. Soft tissues: Normal. Impression: 1.Bilateral dependent opacities with mild bronchiectasis andperibronchial thickening is seen which could be secondary to aspiration pneumonitis. 2.Diffuse rugal thickening of the stomach wall, more than expected for nondistended stomach which may represent gastritis. 3.Incidentally noted 2.7 cm sized left adrenal nodule, likely anadenoma. Attention should be paid in the follow-up study. > Dictated by Donta Anne MD (rn residential). I, Lisset Smith MD have personally reviewed and interpreted this examination/study. > Interpreting Provider: Lisset Smith MD on :37 PM Dewey Guzman MD CT ORDERABLES * CULTURE BLOOD (08/26/2022 8:29 AM EDUCATION ADMINISTRATIVE ASSISTANT) Only the most recent of2 resultswithin the time period is included. Culture No growth day 5 ASIF 08/31/2022 1:30 PM EDUCATION ADMINISTRATIVE ASSISTANT [facility] Blood PERIPHERAL BLOOD / Unknown Venipuncture / Unknown 08/26/2022 8:29 AM EDUCATION ADMINISTRATIVE ASSISTANT 08/26/2022 8:31 AM EDUCATION ADMINISTRATIVE ASSISTANT Dewey Guzman MD LAB - MICROBIOLOGY O RDERABLES [facility] [address] [place] [address], [facility] [phone] * (ABNORMAL) URINE MICROSCOPIC ONLY REFLEX TO CULTURE (08/26/2022 8:21 AM EDUCATION ADMINISTRATIVE ASSISTANT) Reflex Status Culture not indicated 08/26/2022 8:44 AM EDUCATION ADMINISTRATIVE ASSISTANT [facility] RBC UA 6-10(A) None Seen, 0-2, 3-5 /HPF 08/26/2022 8:44 AM [facility] WBC UA 0-5 None Seen, 0-5 /HPF 08/26/2022 8:44 AM [facility] Bacteria UA 1+(A) None /HPF 08/26/2022 8:44 AM [facility] Squamous Epithelial Cells UA 0-2 None Seen, 0-2, 3-5 /HPF 08/26/2022 8:44 AM [facility] Mucus UA 1+ /LPF 08/26/2022 8:44 AM [facility] Urine URINE SPECIMEN OBTAINED BY CLEAN CATCH PROCEDURE / Unknown Collection / Unknown 08/26/2022 8:21 AM EDUCATION ADMINISTRATIVE ASSISTANT 08/26/2022 8:[address] [facility] - 08/26/2022 8:44 AM EDUCATION ADMINISTRATIVE ASSISTANT Dewey uGzman MD LAB - URINALYSIS ORD ERABLES Performing Organization Address City/State/[facility] Co de Phone Number [address] [id number] [phone] * (ABNORMAL) URINALYSIS REFLEX MICROSCOPIC REFLEX CULTURE (08/26/2022 8:21 AM EDUCATION ADMINISTRATIVE ASSISTANT) Color UA Yellow Straw, Yellow 08/26/2022 8:43 AM [facility] Clarity UA Clear Clear 08/26/2022 8:43 AM [facility] Specific [place] UA 1.015 1.005 - 1.030 08/26/2022 8:43 AM [facility] pH UA 7.0 5.0 - 8.0 pH 08/26/2022 8:43 AM [facility] Protein UA 1+(A) Negative 08/26/2022 8:43 AM [facility] Glucose UA 2+(A) Negative 08/26/2022 8:43 AM [facility] Ketone UA Negative Negative 08/26/2022 8:43 AM [facility] Bilirubin UA Negative Negative 08/26/2022 8:43 AM [facility] Blood UA 1+(A) Negative 08/26/2022 8:43 AM [facility] Nitrite UA Negative Negative 08/26/2022 8:43 AM [facility] Leukocyte Esterase Negative Negative 08/26/2022 8:43 AM [facility] Urobilinogen UA Negative Negative mg/dL 08/26/2022 8:43 AM [facility] Urine URINE SPECIMEN OBTAINED BY CLEAN CATCH PROCEDURE / Unknown Collection / Unknown 08/26/2022 8:21 AM EDUCATION ADMINISTRATIVE ASSISTANT 08/26/2022 8:24 AM [facility] Dewey Guzman MD LAB - URINALYSIS ORD ERABLES [facility] [address] [place] [address], [facility] [phone] * SARS-COV-2 (COVID-19) FLU A/B RSV PCR RAPID (08/26/2022 8:11 AM [facility]) COVID-19 PCR Not detected Not detected 08/26/20 9:12 AM [facility] Influenza A PCR Not detected Not detected 08/26/2022 9:12 AM [facility] Influenza B PCR Not detected Not detected 08/26/2022 9:12 AM [facility] RSV PCR Not detected Not detected 08/26/2022 9:12 AM [facility] Microbiology SPECIMEN FROM NASOPHARYNGEAL STRUCTURE / Unknown Collection / Unknown 08/26/2022 8:11 AM EDUCATION ADMINISTRATIVE ASSISTANT 08/26/2022 8:13 AM [facility] Narrative [facility] - 08/26/2022 9:12 AM [facility] This nucleic acid amplification assay has been authorized by the Food and Drug administration (FDA) under an Emergency Use Authorization (EUA). This test is only authorized for the duration of time the declaration that circumstances exist justifying the authorization of emergency use of in vitro diagnostic tests for detection of SARS-CoV-2 virus and/or diagnosis of COVID-19 infection under section 564(b)(1) of the Act, 21 U.S.C 360bbb-3 (b)(1), unless the authorization is terminated or revoked sooner. Fact Sheets for this EUA assay are available upon request. Dewey Guzman MD LAB - MICROBIOLOGY O STACIA [facility] [address] [place] [address], [facility] [phone] * MRSA DNA PCR (08/26/2022 8:11 AM EDUCATION ADMINISTRATIVE ASSISTANT) MRSA DNA by PCR Not detected Not detected 08/26/2022 11:09 AM [facility] Microbiology SPECIMEN FROM NASAL FOSSAE / Unknown Collection / Unknown 08/26/2022 8:11 AM EDUCATION ADMINISTRATIVE ASSISTANT 08/26/2022 8:13 AM EDUCATION ADMINISTRATIVE ASSISTANT Narrative [facility]CRO[facility] - 08/26/2022 11:09 AM EDUCATION ADMINISTRATIVE ASSISTANT Methicillin-resistant Staphylococcus aureus (MRSA) DNA is not detected (presumed not colonized with MRSA). Dewey Guzman MD LAB - MICROBIOLOGY O STACIA Performing Organization Address [facility]/ZIP Co de Phone Number [facility] [address] [place] [address], [facility] [phone] * PROCALCITONIN LEVEL (08/26/2022 8:03 AM EDUCATION ADMINISTRATIVE ASSISTANT) PROCALCITONIN 0.10 <=0.10 ng/mL 08/26/2022 9:49 AM [facility] Blood BLOOD SPECIMEN / Unknown Venipuncture / Unknown 08/26/2022 8:03 AM EDUCATION ADMINISTRATIVE ASSISTANT 08/26/2022 8:09 AM EDUCATION ADMINISTRATIVE ASSISTANT Narrative [facility] - 08/26/2022 9:49 AM EDUCATION ADMINISTRATIVE ASSISTANT The change in procalcitonin (PCT) concentration over time provides support in decision making on antibiotic discontinuation for suspected or confirmed septic patients. Follow-up samples should be tested once every 1-2 days based upon physician discretion taking into account the patient s evolution and progress. Consider discontinuation of antibiotic therapy if the PCT current is <= 0.5 ng/mL or if the delta PCT is > 80%. Duration of antibiotics should not be determined solely on PCT; established guidelines for the indication should be followed. PCT peak: Highest observed PCT concentration PCT current: Most recent PCT concentration Calculate delta PCT using the following equation: Delta PCT = PCT Peak PCT current X 100% PCT Peak The Change in Procalcitonin Calculator is available at [email or web address] If clinical picture has not improved and PCT remains high, reevaluate and consider treatment failure or other causes. Dewey Guzman MD LAB - CHEMISTRY LAURIE AGUILERA [facility] ([place], [place]) Organization Address City/State/ZIP Co de Phone Number [facility] [address] [place] [address], [facility] [phone] * (ABNORMAL) COMPREHENSIVE METABOLIC PANEL (08/26/2022 8:03 AM [facility]) Only the most recent of2 resultswithin the time period is included. BUN 21 7 - 26 mg/dL 08/26/2022 8:46 AM [facility] Creatinine 1.03(H) 0.56 - 0.96 mg/dL 08/26/2022 8:46 AM [facility] Sodium 147(H) 136 - 145 mmol/L 08/26/2022 8:46 AM [facility] Potassium 4.5 3.5 - 4.5 mmol/L 08/26/2022 8:46 AM [facility] Chloride 108(H) 98 - 107 mmol/L 08/26/2022 8:46 AM [facility] CO2 29 22 - 29 mmol/L 08/26/2022 8:46 AM [facility] Glucose 169(H) 70 - 115 mg/dL 08/26/2022 8:46 AM [facility] Calcium 9.1 8.4 - 10.2 mg/dL 08/26/2022 8:46 AM [facility] Protein Total 6.3 6.0 - 8.3 g/dL 08/26/2022 8:46 AM [facility] Albumin 2.8(L) 3.4 - 5.0 g/dL 08/26/2022 8:46 AM [facility] Bilirubin Total 0.5 0.2 - 1.2 mg/dL 08/26/2022 8:46 AM [facility] Alkaline Phosphatase 114 40 - 150 U/L 08/26/2022 8:46 AM [facility] ALT 30 5 - 55 U/L 08/26/2022 8:46 AM [facility] AST 27 5 - 34 U/L 08/26/2022 8:46 AM [facility] Anion Gap 15 8 - 18 08/26/2022 8:46 AM [facility] BUN/Creatinine Ratio 20 7 - 23 08/26/2022 8:46 AM [facility] Osmolality Calculated 311(H) 270 - 300 mOsm/kg 08/26/2022 8:46 AM [facility] Albumin/Globulin Ratio 0.8(L) 1.1 - 2.3 08/26/2022 8:46 AM [facility] eGFR by CKD-EPI 60(L) >=90 mL/min/1.7 3 m2 08/26/2022 8:46 AM [facility] Blood BLOOD SPECIMEN / Unknown Venipuncture / Unknown 08/26/2022 8:03 AM EDUCATION ADMINISTRATIVE ASSISTANT 08/26/2022 8:11 AM EDUCATION ADMINISTRATIVE ASSISTANT Dewey Guzman MD LAB - CHEMISTRY LAURIE AGUILERA [address] [address], [facility] [phone] * LACTIC ACID BLOOD (08/26/2022 8:03 AM EDUCATION ADMINISTRATIVE ASSISTANT) Lactic Acid-Stat 1.0 <=2.0 mmol/L 08/26/2022 8:32 AM [facility] Blood BLOOD SPECIMEN / Unknown Venipuncture / Unknown 08/26/2022 8:03 AM EDUCATION ADMINISTRATIVE ASSISTANT 08/26/2022 8:10 AM EDUCATION ADMINISTRATIVE ASSISTANT Dewey Guzman MD LAB - CHEMISTRY LAURIE AGUILERA [address] [address], [facility] [phone] * XR CHEST 1VW PORTABLE (08/26/2022 7:27 AM EDUCATION ADMINISTRATIVE ASSISTANT) Anatomical Region Laterality Modality Chest Radiographic Leandra ging 08/26/2022 8:07 AM EDUCATION ADMINISTRATIVE ASSISTANT Narrative 08/26/2022 11:58 AM EDUCATION ADMINISTRATIVE ASSISTANT PROCEDURE: XR CHEST 1VW PORTABLE, DATE/TIME OF EXAM: 08/26/2022 7:27 AM, LOCATION [facility] INDICATION: J42: Chronic bronchitis, unspecified chronic bronchitis type ([facility]/HCC) ADDITIONAL CLINICAL INFORMATION: Ordering Provider Reason For Exam: Altered mental status post op from femur fracture with new O2 requirement. COMPARISON: None. FINDINGS/IMPRESSION: Blunting of the bilateral costophrenic angles are noted which may resent pleural effusions or pleural thickening. The cardiac chambers are mildly enlarged. No dense consolidation or pneumothorax is identified. The visible bony thorax is intact. > Dictated by Navneet Mukherjee MD (rn residential). Maldonado Cherry DO have personally reviewed and interpreted this examination/study. > Interpreting Provider: Maldonado Kovacs DO on 08/26/2022 11:58 AM Procedure Note Maldonado Kovacs DO - 08/26/2022 PROCEDURE: XR CHEST 1VW PORTABLE, DATE/TIME OF EXAM: 08/26/2022 7:27AM, LOCATION [facility] INDICATION: J42: Chronic bronchitis, unspecified chronic bronchitis type ([facility]/HCC) ADDITIONAL CLINICAL INFORMATION: Ordering Provider Reason For Exam: Altered mental status post op from femur fracture with new O2 requirement. COMPARISON: None. FINDINGS/IMPRESSION: Blunting of the bilateral costophrenic angles are noted which may resent pleural effusions or pleural thickening. The cardiac chambers are mildly enlarged. No dense consolidation or pneumothorax is identified. Thevisible bony thorax is intact. > Dictated by Navneet Mukherjee MD (rn residential). Maldonado Cherry DO have personally reviewed and interpreted this examination/study. > Interpreting Provider: Maldonado Kovacs DO on 08/26/2022 11:58 AM Dewey Guzman MD DIAGNOSTIC IMAGING O RDERABLES * CT ANGIO BRAIN NECK STROKE (08/26/2022 6:23 AM EDUCATION ADMINISTRATIVE ASSISTANT) Anatomical Region Laterality Modality Head Computed Tomogra phy 08/26/2022 6:22 AM EDUCATION ADMINISTRATIVE ASSISTANT Impressions 08/26/2022 1:39 PM EDUCATION ADMINISTRATIVE ASSISTANT IMPRESSION: 1.Patent intracranial arteries. 2.No stenosis of cervical segments of carotid and vertebral arteries. These findings were discussed with patient's care provider, Dr. Mccabe, by on 08/26/2022 6:28 AM with read back verification. > Dictated by Jaden Rodriguez MD (technical operations vice president) IDipika MD have personally reviewed and interpreted this examination/study. > Interpreting Provider: Dipika Finley MD on 08/26/2022 1:39 PM Narrative 08/26/2022 1:39 PM EDUCATION ADMINISTRATIVE ASSISTANT PROCEDURE: CT ANGIO BRAIN NECK STROKE, DATE/TIME OF EXAM: 08/26/2022 6:26 AM, LOCATION [facility] INDICATION: R41.82: Altered mental status, unspecified altered mental status type COMPARISON: None. EXAMINATION: CT angiogram of the brain CT angiogram of the neck TECHNIQUE: CT angiography of the head and neck was obtained after administration of intravenous contrast. Three dimensional postprocessing was performed by the technologist and sent to the workstation for review. NASCET criteria was utilized for evaluation of carotid stenosis. Additionally, Viz.AI was used for large vessel occlusion detection. CT dose reduction technique was used, including Automated Exposure Control. CONTRAST: Iopamidol 76% iv soln: 75 ml FINDINGS: CTA brain: *Right carotid system: Normal caliber patent ICA without stenosis. Patent DOTTY and MCA. Normal anterior communicating artery. *Left carotid system: Normal caliber patent ICA without stenosis. Patent DOTTY and MCA. Normal anterior communicating artery. *Posterior circulation: Patent vertebral arteries and basilar artery without stenosis. Patent engine inspector. Visualization of right posterior communicating artery. There is no aneurysm. The dural venous sinuses appear patent. CTA neck: *Aortic arch: Scattered atelectatic calcification. No ostial stenosis. Two-vessel configuration of the branch vessel origin. *Right carotid system: Patent. No stenosis. Small calcified plaque at the carotid bulb. *Left carotid system: Patent. No stenosis. No calcified plaque. Medially visualization of the ICA. *Right vertebral artery: Patent. No stenosis. No calcified plaque. *Left vertebral artery: Patent. No stenosis. No calcified plaque. Extravascular findings: No significant finding. Procedure Note Dipika Finley MD - 08/26/2022 PROCEDURE: CT ANGIO BRAIN NECK STROKE, DATE/TIME OF EXAM: :26 AM, LOCATION [facility] INDICATION: R41.82: Altered mental status, unspecified altered mental status type COMPARISON: None. EXAMINATION: CT angiogram of the brain CT angiogram of the neck TECHNIQUE: CT angiography of the head and neck was obtained after administration of intravenous contrast. Three dimensional postprocessing was performed by the technologist and sent to the workstation DisplayLink. NASCET criteria was utilized for evaluation of carotid stenosis. Additionally, Viz.AI was used for large vessel occlusion detection. CTdose reduction technique was used, including Automated Exposure Control. CONTRAST: Iopamidol 76% iv soln: 75 ml FINDINGS: CTA brain: *Right carotid system: Normal caliber patent ICA without stenosis.Patent DOTTY and MCA. Normal anterior communicating artery. *Left carotid system: Normal caliber patent ICA without stenosis. Patent DOTTY and MCA. Normal anterior communicating artery. *Posterior circulation: Patent vertebral arteries and basilar artery without stenosis. Patent engine inspector. Visualization of right posterior communicating artery. There is no aneurysm. The dural venous sinuses appear patent. CTA neck: *Aortic arch: Scattered atelectatic calcification. No ostial stenosis. Two-vessel configuration of the branch vessel origin. *Right carotid system: Patent. No stenosis. Small calcified plaque atthe carotid bulb. *Left carotid system: Patent. No stenosis. No calcified plaque. Medially visualization of the ICA. *Right vertebral artery: Patent. No stenosis. No calcified plaque. *Left vertebral artery: Patent. No stenosis. No calcified plaque. Extravascular findings: No significant finding. IMPRESSION: 1.Patent intracranial arteries. 2.No stenosis of cervical segments of carotid and vertebral arteries. These findings were discussed with patient's care provider, Dr. Mccabe,by on 08/26/2022 6:28 AM with read back verification. > Dictated by Jaden Rodriguez MD (technical operations vice president) I, Dipika Finley MD have personally reviewed and interpreted this examination/study. > Interpreting Provider: Dipika Finley MD on 08/26/2022 1:39 PM Dewey Guzman MD CT ORDERABLES * CT BRAIN STROKE (08/26/2022 6:07 AM EDUCATION ADMINISTRATIVE ASSISTANT) Anatomical Region Laterality Modality Head Computed Tomogra phy 08/26/2022 8:37 AM EDUCATION ADMINISTRATIVE ASSISTANT Impressions 08/26/2022 1:14 PM EDUCATION ADMINISTRATIVE ASSISTANT IMPRESSION: No acute intracranial abnormality. These findings were discussed with patient's care provider, Dr. Mccabe, by on 08/26/2022 6:28 AM with read back verification. The findings were also discussed with Dr. Mccabe, by ultrasound of the study radiologist on 08/26/2022 at 6:37 AM EDUCATION ADMINISTRATIVE ASSISTANT. Report dictated by Brodie Ledbetter MD, (rn residential). I, Dipika Finley MD have personally reviewed and interpreted this examination/study. > Interpreting Provider: Dipika Finley MD on 08/26/2022 1:14 PM Narrative 08/26/2022 1:14 PM EDUCATION ADMINISTRATIVE ASSISTANT PROCEDURE: CT BRAIN STROKE, DATE/TIME OF EXAM: 08/26/2022 6:12 AM, LOCATION [facility] INDICATION: R41.82: Altered mental status, unspecified altered mental status type ADDITIONAL CLINICAL INFORMATION: Ordering Provider Reason For Exam: code stroke with AMS COMPARISON: None. EXAMINATION: CT scan of the head without intravenous contrast TECHNIQUE: CT of the head was performed without intravenous contrast according to standard protocol. CT dose reduction technique was used, including Automated Exposure Control. FINDINGS: Mild chronic microvascular ischemic changes are seen. There is moderate generalized cerebral and mild cerebellar volume loss. There is no CT evidence of acute infarct. There is no acute hemorrhage. There is no hydrocephalus, midline shift or extra-axial fluid collection. The paranasal sinuses and tympanomastoid cavities are aerated. The patient is status post left cataract surgery. No significant osseous abnormality is noted. Procedure Note Dipika Finley MD - 08/26/2022 PROCEDURE: CT BRAIN STROKE, DATE/TIME OF EXAM: 08/26/2022 6:12 AM, LOCATION [facility] INDICATION: R41.82: Altered mental status, unspecified altered mental status type ADDITIONAL CLINICAL INFORMATION: Ordering Provider Reason For Exam: code stroke with AMS COMPARISON: None. EXAMINATION: CT scan of the head without intravenous contrast TECHNIQUE: CT of the head was performed without intravenous contrast according to standard protocol. CT dose reduction technique was used, including Automated Exposure Control. FINDINGS: Mild chronic microvascular ischemic changes are seen. There is moderate generalized cerebral and mild cerebellar volume loss. There is no CT evidence of acute infarct. There is no acute hemorrhage. There is no hydrocephalus, midline shiftor extra-axial fluid collection. The paranasal sinuses and tympanomastoid cavities are aerated. Thepatient is status post left cataract surgery. No significant osseous abnormalityis noted. IMPRESSION: No acute intracranial abnormality. These findings were discussed with patient's care provider, Dr. Mccabe,by on 08/26/2022 6:28 AM with read back verification. The findings were also discussed with Dr. Mccabe, by ultrasound of the study radiologist on 08/26/2022 at 6:37 AM EDUCATION ADMINISTRATIVE ASSISTANT. Report dictated by Brodie Ledbetter MD, (rn residential). I, Dipika Finley MD have personally reviewed and interpreted this examination/study. > Interpreting Provider: Dipika Finley MD on 08/26/2022 1:14 PM [address] Guzman MD CT ORDERABLES * ETT LINE PERFORMABLE (08/25/2022 1:54 PM EDUCATION ADMINISTRATIVE ASSISTANT) Narrative Maldonado Montague Anes Asst - 08/25/2022 1:54 PM EDUCATION ADMINISTRATIVE ASSISTANT Maldonado Montague Anes Assalex 08/25/2022 2:19 PM Endotracheal Tube Placement: Patient Location: OR. Intubation Event Date/Time: 08/25/2022 1:54 PM Procedure: intubation (21430). Procedure Section: Sedation: under general anesthesia. Indications for Airway Management: anesthesia Procedure pretreatments used? No Induction: standard IV Patient Position: supine Mask Ventilation: easy. Blade Type: Holden Blade Size: 3 Laryngoscopy View: grade 1 (full cords) Intubation Adjuncts: stylet Tube: endotracheal tube Placement: oral Tube type: cuff - inflated Tube Size (MM): 7 Tube Size (FR): 7 Depth of Insertion (CM): 21 Measured From: gums Cuff Inflated With: air Number of Attempts: 1. Placement Verified By: direct visualization, bilateral breath sounds, chest auscultation and CO2 monitor CXR Findings: ETT in proper place. Tube secured with: adhesive tape and ETT valdez. Dentition unchanged? Yes Difficult Airway? No. Procedure Start Time: 08/25/2022 1:54 PM. Procedure End Time: 08/25/2022 1:54 PM. Procedure Total Time: 0 minutes. Staff Section Anesthesia Provider: Jagjit Leahy MD, Performed the procedure Jagjit Leahy MD GENERAL ANESTHESIA O RDERABLES * (ABNORMAL) HEMOGLOBIN A1C (08/25/2022 9:11 AM EDUCATION ADMINISTRATIVE ASSISTANT) Hemoglobin A1c 8.6(H) <=5.6 % 08/25/2022 11:08 AM [facility] Estimated Average Glucose 200 mg/dL 08/25/2022 11:08 AM [facility] Comment: HbA1c Interpretation: Normal : < 5.7% Pre-diabetes: 5.7-6.4% Diabetes: Equal to or greater than 6.5% Test results diagnostic of diabetes should be repeated for confirmation. Treatment target values recommended by ADA and other clinical organizations should be used to evaluate metabolic control in patients. Reference: [place] [employer], Standards of Care in Diabetes -2020 In patients 70 years and older consider HbA1c target range of 7.0-7.5% (Reference: Diogenes Wilkinson et al. JAMDA. 2012) The Sebia assay for the measurement of HbA1c is a National Glycohemoglobin Standardization Program (NGSP) certified method. Blood BLOOD SPECIMEN / Unknown Venipuncture / Unknown 08/25/2022 9:11 AM EDUCATION ADMINISTRATIVE ASSISTANT 08/25/2022 9:23 AM EDUCATION ADMINISTRATIVE ASSISTANT Anyi Puentes MD LAB - CHEMISTRY LAURIE AGUILERA [facility] ([place], [place]) Organization Address City/State/[facility] Co de Phone Number [address] [address], [facility] [phone] * CT KNEE LEFT WO CONTRAST (08/25/2022 7:55 AM EDUCATION ADMINISTRATIVE ASSISTANT) Anatomical Region Laterality Modality Lower Extremity Computed Tomogra phy 08/25/2022 7:58 AM EDUCATION ADMINISTRATIVE ASSISTANT Narrative 08/25/2022 10:42 AM EDUCATION ADMINISTRATIVE ASSISTANT PROCEDURE: CT KNEE LEFT WO CONTRAST, DATE/TIME OF EXAM: 08/25/2022 7:55 AM, LOCATION [facility] INDICATION: T14.90XA: Trauma ADDITIONAL CLINICAL INFORMATION: Ordering Provider Reason For Exam: distal femur fx. Preop planning COMPARISON: Left femur and left knee radiographs 08/25/2022 TECHNIQUE: CT of the left knee without contrast was performed utilizing standard protocol. FINDINGS/IMPRESSION: Comminuted moderately displaced fracture through the distal femoral metaphysis with intra-articular extension into the intercondylar notch and fracture line is involving the patellar articular surface. Mild asymmetric widening of the lateral knee joint space. The tibia and fibula appear intact without evidence of acute fracture. Small joint effusion is noted. Soft tissue swelling/hematoma around the knee. Mild tricompartmental osteoarthritis. > Dictated by Kirby Guerrier MD (rn residential) Lisset Cherry MD have personally reviewed and interpreted this examination/study. > Interpreting Provider: Lisset Smith MD on 08/25/2022 10:42 AM Procedure Note Lisset Smith MD - 08/25/2022 PROCEDURE: CT KNEE LEFT WO CONTRAST, DATE/TIME OF EXAM: :55 AM, LOCATION [facility] INDICATION: T14.90XA: Trauma ADDITIONAL CLINICAL INFORMATION: Ordering Provider Reason For Exam: distal femur fx. Preop planning COMPARISON: Left femur and left knee radiographs 08/25/2022 TECHNIQUE: CT of the left knee without contrast was performed utilizing standard protocol. FINDINGS/IMPRESSION: Comminuted moderately displaced fracture through the distal femoral metaphysis with intra-articular extension into the intercondylar notchand fracture line is involving the patellar articular surface. Mild asymmetric widening of the lateral knee joint space. The tibia and fibula appear intact without evidence of acute fracture. Small joint effusion is noted. Soft tissue swelling/hematoma around the knee. Mild tricompartmental osteoarthritis. > Dictated by Kirby Guerrier MD (rn residential) Lisset Cherry MD have personally reviewed and interpreted this examination/study. > Interpreting Provider: Lisset Smith MD on 0:42 AM Anyi Puentes MD CT ORDERABLES * (ABNORMAL) CBC W AUTO DIFFERENTIAL (08/25/2022 4:33 AM EDUCATION ADMINISTRATIVE ASSISTANT) WBC 18.5(H) 3.5 - 10.5 10 3/uL 08/25/2022 4:56 AM [facility] RBC 4.81 3.80 - 5.20 10 6/uL 08/25/2022 4:56 AM [facility] Hemoglobin 14.4 12.0 - 15.6 g/dL 08/25/2022 4:56 AM [facility] Hematocrit 43.0 35.0 - 45.0 % 08/25/2022 4:56 AM [facility] MCV 89.4 80.7 - 98.3 fL 08/25/2022 4:56 AM [facility] MCH 29.9 26.7 - 34.0 pg 08/25/2022 4:56 AM [facility] MCHC 33.5 30.8 - 35.9 g/dL 08/25/2022 4:56 AM [facility] RDW-SD 42.6 36.0 - 50.0 fL 08/25/2022 4:56 AM [facility] RDW-CV 13.0 11.2 - 14.8 % 08/25/2022 4:56 AM [facility] Platelet Count 322 150 - 400 10 3/uL 08/25/2022 4:56 AM [facility] MPV 8.8(L) 9.4 - 12.9 fL 08/25/2022 4:56 AM [facility] nRBC Absolute 0.00 0 10 3/uL 08/25/2022 4:56 AM [facility] nRBC Auto 0.0 0 /100 WBC 08/25/2022 4:56 AM [facility] Neutrophils % 71.3(H) 35.0 - 70.0 % 08/25/2022 4:56 AM [facility] Lymphocytes % 20.0 20.0 - 43.0 % 08/25/2022 4:56 AM [facility] Monocytes % 6.8 5.0 - 13.0 % 08/25/2022 4:56 AM [facility] Eosinophils % 0.4 0.0 - 6.0 % 08/25/2022 4:56 AM [facility] Basophil % 0.6 0.0 - 2.0 % 08/25/2022 4:56 AM [facility] Neutrophils Absolute 13.16(H) 1.60 - 7.00 10 3/uL 08/25/2022 4:56 AM [facility] Lymphocyte Absolute 3.70 1.10 - 3.90 10 3/uL 08/25/2022 4:56 AM [facility] Monocytes Absolute 1.26(H) 0.26 - 1.07 10 3/uL 08/25/2022 4:56 AM [facility] Eosinophils Absolute 0.07 0.00 - 0.47 10 3/uL 08/25/2022 4:56 AM [facility] Basophils Absolute 0.12(H) 0.00 - 0.08 10 3/uL 08/25/2022 4:56 AM [facility] Immature Granulocytes % 0.9 0.0 - 1.0 % 08/25/2022 4:56 AM [facility] Immature Granulocytes Absolute 0.17 08/25/2022 4:56 AM [facility] Blood BLOOD SPECIMEN / Unknown Venipuncture / Unknown 08/25/2022 4:33 AM EDUCATION ADMINISTRATIVE ASSISTANT 08/25/2022 4:38 AM EDUCATION ADMINISTRATIVE ASSISTANT Anyi Puentes MD LAB - HEMATOLOGY ORD ERABLES [facility] [address] [place] [address], [facility] [phone] Care Teams Offset Machine Operator Relationship Specialty Start Date End Date Mirella Mendoza APRN-IGNACIO [address] [place] [address] PCP - General Nurse Practitioner Family 01/23/24
--- OUTSIDE RECORDS SUMMARY | 2024-12-01 15:01 | XMS_ITS | Encounter Summary ---
Author Organization [facility] Address [address] [place] [address] Phone Care Team Providers Care Chef Name Role Phone Juanito Mckeon MD Unavailable [phone] Mirella Damon APRN, FOREIGN LANGUAGE INSTRUCTOR Primary Care Provider [phone] Damon Pollock MD Unavailable Serg Acosta MD Unavailable Brodie Drummond APRN, FOREIGN LANGUAGE INSTRUCTOR Unavailable Encounter Details Date Type Department Care Team (Late st Contact Info) Description 10/02/2022 Nursing Facility [facility] [address] [place] [address] Jonas Elliott, PAC [address] [place], [place] [id number] Social History Tobacco Use Types Packs/Day Years [...] this encounter Progress Notes * Jonas Elliott, SERGIO - 10/02/2022 4:39 PM CST [facility] DISCHARGE SUMMARY Name: Carmella Sheriff Age: 67 y.o. : 1955 Attending Physician: No att. providers found Admission Date/Time: (Not on file) Expected Discharge Date: 10/02/2022 Primary Care Physician: MIRELLA DAMON APRN, CNP Discharging Provider: SERGIO Oliver INSTRUCTIONS FOR PHYSICIANS ON FOLLOW UP AFTER DISCHARGE: Follow-up with PCP in 1-2 weeks. Keep follow-up appointment with Ortho. Discharge Instructions: Discharge Condition: improved Disposition: Home Diet: Cardiac Diet and Diabetic Diet Activity: activity as tolerated Discharge Diagnoses: Left distal femur fracture status post ORIF, diabetes mellitus type 2, generalized weakness and deconditioning, grade 1 diastolic congestive heart failure, COPD, previous CVA, left adrenal nodule, cigarette smoking, bipolar depression. seizure disorder, overactive bladder, GERD, allergies, rash on low back Admitting Diagnoses: Left distal femur fracture status post ORIF, diabetes mellitus type 2, generalized weakness and deconditioning, grade 1 diastolic congestive heart failure, COPD, previous CVA, left adrenal nodule, cigarette smoking, bipolar depression. seizure disorder, overactive bladder, GERD, allergies SKILLED CARE COURSE: Carmella Sheriff was admitted to half-way facility for acute care rehabilitation. Prior to coming to rehabilitation facility patient was hospitalized at [facility] from 08/25through 09/12 after suffering a closed fracture of distal left femur that required surgical repair. While at the rehabilitation facility, the patient received half-way care and physical therapy rehabilitation. Her weight-bearing status was a hindrance in her recovery as she was not allowed to put weight on her left lower extremity. She is able to transfer in and out of the wheelchair and toilet herself. She followed up with Ortholast week and was hopeful to be cleared for more weight- bearing status on left leg but that was notthe case and does not have a follow- up for about a month. She received insurance cut and she has chosen to go home. She will be living with her daughter and son-in-law while she recovers. Her daughter is actually of a caregiver for the patient for 5 hours a day which will be a big asset her recovery. Today the patient says she feels ???good?? . The only acute symptoms she is having is a pruritic rash on her low back which is mostly consistentwith contact dermatitis and I have started her on some hydrocortisone cream and she should continueto use as needed at home. Rash should continue to improve but if not will need to discuss with her primary care doctor when she follows up in the next 1-2 weeks. She feels comfortable with discharge plan and is excited to be going home. The pain in her leg has continued to improve and she does not need nearly as much pain medicine as she did upon arrival. Exam Day of Discharge: Vital Signs: B/P: 128/70 Pulse: 78 Respirations: 19 Temperature: 96.2 General: Well developed, well nourished, in no distress pleasant, obese Skin: Normal appearance, normal turgor, no rashes 09/13 - dressing over lateral aspect distal left thigh. Stitches over medial distal left thigh. 10/01/2022 - diffuse dry scattered macular erythematous blanchable rash over back HEENT: Normocephalic, [...] and affect, Intact judgement and memory Lab / Imaging Review: Lab Results: None Imaging: None DISCHARGE PLAN: Patient will be discharging home today. Will be living with daughter and son-in-law while she recovers. Home health will be ordered for continued PT/OT at home. She has all the durable medical equipment that she needs at home already. Understands to continue all current medications as directed and follow up with PCP in 1-2 weeks. Keep follow-up appointment with Ortho. Discussed with patient the incidental finding of the left adrenal nodule that will need surveillance by PCP in a few months. I have spent time coordinating care for this half-way facility discharge: Greater than 30 minutes spent in coordinating care This note was dictated using [employer] fluency dictation system and there may be errors in shirrer. Despite proof reading the note, there may be mistakes and I apologize for those. Signed: Jonas Elliott, PAC, 10/02/2022, 4:39 PM LABORER WOOD PRESERVING PLANT RER WOOD PRESERVING PLANT documented in this encounter Plan of Treatment Upcoming Encounters Date Type Department Care Team (Late st Contact Info) Description 12/24/2024 2:15 PM CDT Office Visit [facility] - Neurology [facility] [address] [place] [address] Serg Acosta MD [address]2 [place] [address] 12/28/2024 10:00 AM CDT Office Visit [facility] #2 [place] [address] Brodie Drummond APRN, FOREIGN LANGUAGE INSTRUCTOR [address] [place] [address] 01/21/2025 10:30 AM CDT Office Visit [facility] Endocrinology [facility] #2 [facility] [place] [address] Damon Pollock MD #[address] [address] documented as of this encounter Visit Diagnoses Not on filedocumented in this encounter Additional Health Concerns Infection Onset Date Last Indicated Resolved Time COVID - 19 09/26/2023 09/26/2023 10/06/2023 12:1 6 AM LABORER WOOD PRESERVING PLANT Assessment Noted Time PHQ-9 Depression Total Score: 0 04/10/20 17 1:00 PM CDT documented as of this encounter Care Teams Chef Relationship Specialty Start Date End Date Mirella Damon APRN, FOREIGN LANGUAGE INSTRUCTOR [address] [place] [address] PCP - General Family Medicine 12/25/21 Juanito Mckeon MD General Surgery 04/08/17 Damon Pollock MD #[address] [address] Consulting Physician Endocrinology 02/14/22 Serg Acosta MD [address] [place] [address] Consulting Physician Neurology 12/24/22 Brodie Drummond APRN, FOREIGN LANGUAGE INSTRUCTOR [address] [place] [address] Nurse Practitioner Advanced Practice Nurse 01/21/24 documented as of this encounter
--- OUTSIDE RECORDS SUMMARY | 2024-12-01 15:01 | XMS_ITS | Encounter Summary ---
Author Organization [facility] Address [address] [place] [address] Phone Care Team Providers Care Engine Research Engineer Name Role Phone Juanito Mckeon MD Unavailable [phone] Mirella Damon APRN, 1ST PRESSMAN Primary Care Provider [phone] Damon Pollock MD Unavailable Serg Acosta MD Unavailable Brodie Drummond APRN, 1ST PRESSMAN Unavailable [phone] Encounter Details Date Type Department Care Team (Late st Contact Info) Description 01/29/2022 Nursing Facility [facility] [address] [place] [address] Jonas Elliott, PAC [address] [place], [place] [id number] Social History Tobacco Use Types Packs/Day Years [...] suspected to have Coronavirus/COVID-19? No / Unsure 01/23/2022 7:53 PM CDT documented as of this encounter Progress Notes * Jonas Elliott, SERGIO - 01/29/2022 1:35 PM CDT [facility] DISCHARGE SUMMARY Name: Carmella Sheriff Age: 66 y.o. : 1955 Attending Physician: Betty att. providers found Admission Date/Time: 01/26/2022 Expected Discharge Date: 01/29/2022. Primary Care Physician: MIRELLA DAMON APRN, CNP Discharging Provider: SERGIO Oliver INSTRUCTIONS FOR PHYSICIANS ON FOLLOW UP AFTER DISCHARGE: Follow-up with PCP: MIRELLA DAMON APRN, CNP in 1-2 weeks Discharge Instructions: Discharge Condition: Improved Disposition: Home Diet: Diabetic Diet Activity: activity as tolerated Discharge Diagnoses: insulin-dependent diabetes mellitus, peripheral neuropathy, COPD, bipolar disorder, GERD Admitting Diagnoses: Influenza, muscle weakness and deconditioning, insulin- dependent diabetes mellitus, peripheral neuropathy, COPD, bipolar disorder, GERD SKILLED CARE COURSE: Carmella Sheriff was admitted to detention facility for acute care rehabilitation. Prior to going to the rehabilitation facility she was hospitalized or influenza along with generalized weakness and altered mental status. She was sent to the nursing facility or a detention and rehabilitative care, especially considering she lives at home by herself. Her stay in the nursing facility was very brief. I saw her for the 1st time this morning and she was ambulating around her room with a steady gait without assistance and overall she was feeling fine and she told me that physical therapy had evaluated her this morning and had cleared her so she is hopeful to go home soon. She feels well otherwise with no acute concerns. She ambulates with a cane at home, lives by herself but she has a daughter that is heavily involved. Later in the day nursing leadership informed me that patient willbe discharged and will go home later today which I feel is reasonable. The patient understands to follow up with her PCP in 1-2 weeks and continue all her current medications. Exam Day of Discharge: Vital Signs: B/P: 144/78 Pulse: 68 Respirations: 18 Temperature: 98 Exam: General: Well developed, well nourished, in no distress Skin: Normal appearance, normal turgor, no rashes HEENT: Normocephalic, atraumatic, no flaring Eyes: nonicteric, [...] judgement and memory Lab / Imaging Review: None in the skilled nursing DISCHARGE PLAN: Patient will be discharged back home later today here and she has a good social support in her daughter as she is heavily involved. She will continue to ambulate with the assistance of a cane which she did at baseline. She is to follow up with her PCP in the next 1-2 weeks. She is to continue all her current medications. She is to follow up with her various specialists including Neurology who shesees for her neuropathy and Psychiatry who she sees every 3 months. I have spent time coordinating care for this hospital discharge: Greater than 30 minutes spent in coordinating care Advance Care Planning: Aggregate shfb-qi-tcho time, greater than 16 minutes was spent discussing end-of-life care planning with patient/family and/or Power of Farm Machinery Erector. Discussed CPR, Intubation, treatment goals, and Quality of life/Intensity of care. Patient desires CPR-Full Treatment Signed: Jonas Elliott, PAC, 01/29/2022, 1:36 PM CDT documented in this encounter Plan of Treatment Upcoming Encounters Date Type Department Care Team (Late st Contact Info) Description 12/24/2024 2:15 PM CDT [facility] [place] [address] [place] [address] Serg Acosta MD [address]2 [place] [address] 12/28/2024 10:00 AM CDT Office Visit [facility] #[address] [place] [address] Brodie Drummond APRN, 1ST PRESSMAN [address] [place] [address] 01/21/2025 10:30 AM CDT Office Visit [facility] - Endocrinology [facility] #[address] [place] [address] Damon Pollock MD #[address] [phone] documented as of this encounter Visit Diagnoses Not on filedocumented in this encounter Additional Health Concerns Infection Onset Date Last Indicated Resolved Time Influenza 01/23/2022 01/23/2022 01/30/2022 12:1 6 AM CDT COVID - 19 09/26/2023 09/26/2023 10/06/2023 12:1 6 AM TIMEKEEPER SUPERVISOR Assessment Noted Time PHQ-9 Depression Total Score: 0 04/10/20 17 1:00 PM CDT documented as of this encounter Care Teams Engine Research Engineer Relationship Specialty Start Date End Date Mirella Damon APRN, 1ST PRESSMAN [address] [place] [phone] PCP - General Family Medicine 12/25/21 Juanito Mckeon MD General Surgery 04/08/17 Damon Pollock MD #[address] [address] Consulting Physician Endocrinology 02/14/22 Serg Acosta MD #[address] [place] [address] Consulting Physician Neurology 12/24/22 Brodie Drummond APRN, 1ST PRESSMAN [address] [place] [address] Nurse Practitioner Advanced Practice Nurse 01/21/24 documented as of this encounter
--- OUTSIDE RECORDS SUMMARY | 2024-12-01 15:01 | XMS_ITS | Encounter Summary ---
Author Organization [facility] Address [address] [place] [address] Phone Care Team Providers Care Marine Steam Fitter Helper Name Role Phone Juanito Mckeon MD Unavailable [phone] Mirella Mendoza APRN, RN NEONATAL Primary Care Provider [phone] Damon Pollock MD Unavailable Serg Acosta MD Unavailable Brodie Drummond APRN, RN NEONATAL Unavailable Reason for Visit * Reason Comments Medication Refill Encounter Details Date Type Department Care Team (Late st Contact Info) Description 03/17/2024 Refill [facility] - Endocrinology - [place] [address] [place] [address] Damon Pollock MD #[address] [address] Medication Refill Social History Tobacco Use Types [...] on file documented as of this encounter Miscellaneous Notes * Telephone Encounter - Sabine Davis RN - 03/17/2024 11:20 AM CDT Medication(s) refilled and signed per [facility] Chronic Medication Refill Standing Order for Pediatric and Adult Patients. documented in this encounter Plan of Treatment Upcoming Encounters Date Type Department Care Team (Late st Contact Info) Description 12/24/2024 2:15 PM CDT Office Visit [facility] - Neurology [facility] #2 [place] [address] Serg Acosta MD #2 [place] [address] 12/28/2024 10:00 AM CDT Office Visit [facility] #[address] [place] [address] Brodie Drummond APRN, RN NEONATAL [address] [place] [address] 01/21/2025 10:30 AM CDT Office Visit [facility] Medical [facility] Endocrinology [facility] #[address] [place] [address] Damon Pollock MD #[address] [address] documented as of this encounter Visit Diagnoses Not on filedocumented in this encounter Additional Health Concerns Assessment Noted Time PHQ-9 Depression Total Score: 0 04/10/20 17 1:00 PM CDT documented as of this encounter Care Teams Marine Steam Fitter Helper Relationship Specialty Start Date End Date Mirella Mendoza APRN, IGNACIO [address] [place] [phone] PCP - General Family Medicine 12/25/21 Juanito Mckeon MD General Surgery 04/08/17 Damon Pollock MD #[address] [phone] Consulting Physician Endocrinology 02/14/22 Serg Acosta MD #[address] [place] [address] Consulting Physician Neurology 12/24/22 Brodie Drummond APRN, RN NEONATAL [address] [place] [address] Nurse Practitioner Advanced Practice Nurse 01/21/24 documented as of this encounter
--- OUTSIDE RECORDS SUMMARY | 2024-12-01 15:01 | XMS_ITS ---
Author Organization [facility] Address [address] [place] [address] Phone Care Team Providers Care Pl Sql Developer Name Role Phone Unavailable Unavailable Unavailable Plan of Treatment No Plan of Treatment Recorded Assessments Includes: Assessments for all patient encounters No Assessments Recorded Medical Equipment - Implanted Devices Includes: Current and historical Devices No Medical Equipment Recorded Medications Administered Includes: Administered Medications in patient's chart No Administered Medications Recorded Results Includes: Results from 12/02/2023 through 12/01/2024 No Results Recorded For Specified Dates History of Present Illness History of Present Illness not supported for this document type No History of Present Illness Recorded Social History No Social History Recorded - Smoking Status Unknown Medical History Includes: Medical History in patient's chart No Medical History Recorded Family History Includes: Family History in patient's chart No Family History Recorded Review of Systems Review of Systems not supported for this document type No Review of Systems Recorded Mental Status No Mental Status Recorded Functional Status No Functional Status Recorded Physical Exam Physical Exam not supported for this document type No Physical Exam Recorded Clinical Notes Includes: Signed Clinical Notes starting from 10/19/2022 No Clinical Notes Recorded
--- OUTSIDE RECORDS SUMMARY | 2024-12-01 15:01 | XMS_ITS | Encounter Summary ---
Author Organization [facility] Address [address] [place] [address] Phone Care Team Providers Care Transplanter Orchid Name Role Phone Juanito Mckeon MD Unavailable [phone] Mirella Mendoza APRN, STILL PHOTOGRAPHER Primary Care Provider [phone] Damon oPllock MD Unavailable Serg Acosta MD Unavailable Brodie Drummond APRN, [facility] Unavailable Reason for Visit * Reason Comments Medication Refill Encounter Details Date Type Department Care Team (Late st Contact Info) Description 08/21/2023 Refill [facility] - Endocrinology - [place] #[address] [place] [address] Damon Pollock MD #[address] [address] Medication Refill Social History Tobacco [...] Telephone Encounter - Sabine Davis RN - 08/21/2023 12:14 PM CLERICAL AND ADMINISTRATIVE WORKERS Requested Prescriptions Pending Prescriptions Disp Refills ??? Continuous Blood Gluc Sensor (Dexcom G7 Sensor) Misc [Pharmacy Med Name: DEXCOM G7 SENSOR] 9 Each 1 Sig: CHANGE EVERY 10 DAYS Next appt: Message sent to schedule follow up. ICAL AND ADMINISTRATIVE WORKERS documented in this encounter Plan of Treatment Upcoming Encounters Date Type Department Care Team (Late st Contact Info) Description 12/24/2024 2:15 PM CDT Office Visit [facility] - Neurology [facility] #2 [place] [address] Serg Acosta MD #2 [place] [address] 12/28/2024 10:00 AM CDT Office Visit [facility] #2 [place] [address] Brodie Drummond APRN, STILL PHOTOGRAPHER [address] [place] [address] 01/21/2025 10:30 AM CDT Office Visit [facility] - Endocrinology [facility] #[address] [place] [address] Damon Pollock MD #[address] [address] documented as of this encounter Visit Diagnoses Not on filedocumented in this encounter Additional Health Concerns Infection Onset Date Last Indicated Resolved Time COVID - 19 09/26/2023 09/26/2023 10/06/2023 12:1 6 AM CLERICAL AND ADMINISTRATIVE WORKERS Assessment Noted Time PHQ-9 Depression Total Score: 0 04/10/20 17 1:00 PM CDT documented as of this encounter Care Teams Transplanter Orchid Relationship Specialty Start Date End Date Mirella Mendoza APRN, STILL PHOTOGRAPHER [address] [place] [address] PCP - General Family Medicine 12/25/21 Juanito Mckeon MD General Surgery 04/08/17 Damon Pollock MD #[address] [address] Consulting Physician Endocrinology 02/14/22 Serg Acosta MD #[address] [place] [address] Consulting Physician Neurology 12/24/22 Brodie Drummond APRN, STILL PHOTOGRAPHER [address] [place] [address] Nurse Practitioner Advanced Practice Nurse 01/21/24 documented as of this encounter
--- OUTSIDE RECORDS SUMMARY | 2024-12-01 15:01 | XMS_ITS | Encounter Summary ---
Author Organization [facility] Address [address] [place] [address] Phone Care Team Providers Care Quantitative Analyst Marketing Name Role Phone Juanito cMkeon MD Unavailable [phone] Mirella Mendoza APRN, FINISH REPAIRER Primary Care Provider [phone] Damon Pollock MD Unavailable Serg Acosta MD Unavailable Brodie Drummond APRN, [employer] Unavailable [phone] Reason for Visit * Reason Comments Medication Refill Encounter Details Date Type Department Care Team (Late st Contact Info) Description 10/22/2023 Refill [facility] - [facility]ocrinology - [place] #[address] [place] [address] Damon Pollock MD #[address] [address] Medication Refill Social History Tobacco [...] Telephone Encounter - Sabine Davis RN - 10/22/2023 1:26 PM CANDY ROLLING MACHINE OPERATOR Requested Prescriptions Pending Prescriptions Disp Refills ??? Jardiance 25 MG Tablet [Pharmacy Med Name: JARDIANCE 25MG TABLET] 30 Tablet 2 Sig: TAKE 1 TABLET BY MOUTH DAILY Next appt: 10/23/2023 Y ROLLING MACHINE OPERATOR documented in this encounter Plan of Treatment Upcoming Encounters Date Type Department Care Team (Late st Contact Info) Description 12/24/2024 2:15 PM CDT Office Visit [facility] - Neurology [facility] #2 [place] [address] Serg Acosta MD #[address] [place] [address] 12/28/2024 10:00 AM CDT Office Visit [facility] #2 [place] [address] Brodie Drummond APRN, FINISH REPAIRER #[address] [place] [address] 01/21/2025 10:30 AM CDT Office Visit [facility] Endocrinology [facility] #2 [place] [address] Damon Pollock MD #[address] [phone] documented as of this encounter Visit Diagnoses Not on filedocumented in this encounter Additional Health Concerns Assessment Noted Time PHQ-9 Depression Total Score: 0 04/10/20 17 1:00 PM CDT documented as of this encounter Care Teams Quantitative Analyst Marketing Relationship Specialty Start Date End Date Mirella Mendoza APRN, IGNACIO [address] [address] PCP - General Family Medicine 12/25/21 Juanito Mckeon MD General Surgery 04/08/17 Damon Pollock MD #[address] [phone] Consulting Physician Endocrinology 02/14/22 Serg Acosta MD #2 [place] [address] Consulting Physician Neurology 12/24/22 Brodie Drummond APRN, FINISH REPAIRER #[address] [place] [address] Nurse Practitioner Advanced Practice Nurse 01/21/24 documented as of this encounter
--- OUTSIDE RECORDS SUMMARY | 2024-12-01 15:01 | XMS_ITS | Encounter Summary ---
Author Organization [facility] Address [address] [place] [address] Phone Care Team Providers Care Blind Hanger Name Role Phone Juanito Mckeon MD Unavailable [phone] Mirella Mendoza APRN, SHAPE CARVER Primary Care Provider [phone] Damon Pollock MD Unavailable Serg Acosta MD Unavailable Broide Drummond APRN, [facility] Unavailable Reason for Visit * Reason Comments Medication Refill Encounter Details Date Type Department Care Team (Late st Contact Info) Description 02/12/2024 [facility]ill [facility] - [facility]ology - [place] #2 [place] [address] Damon Pollock MD #[address] [address] Medication Refill Social History Tobacco [...] Telephone Encounter - Sabine Davis RN - 02/12/2024 9:50 AM CDT Medication(s) refilled and signed per [facility] Chronic Medication Refill Standing Order for Pediatric and Adult Patients. documented in this encounter Plan of Treatment Upcoming Encounters Date Type Department Care Team (Late st Contact Info) Description 12/24/2024 2:15 PM CDT Office Visit [facility] - Neurology [facility] #2 [place] [address] Serg Acosta MD #2 [place] [address] 12/28/2024 10:00 AM CDT Office Visit [facility] UROLOGY #2 [place] [address] Brodie Drummond APRN, SHAPE CARVER #2 [place] [address] 01/21/2025 10:30 AM CDT Office Visit [facility] Endocrinology [facility] #2 [place] [address] Damon Pollock MD #[address] [address] documented as of this encounter Visit Diagnoses Not on filedocumented in this encounter Additional Health Concerns Assessment Noted Time PHQ-9 Depression Total Score: 0 04/10/20 17 1:00 PM CDT documented as of this encounter Care Teams Blind Hanger Relationship Specialty Start Date End Date Mirella Mendoza APRN, IGNACIO [address] [place] [id number] PCP - General Family Medicine 12/25/21 Juanito Mckeon MD General Surgery 04/08/17 Damon Pollock MD #[address] [phone] Consulting Physician Endocrinology 02/14/22 Serg Acosta MD #2 [place] [address] Consulting Physician Neurology 12/24/22 Brodie Drummond APRN, SHAPE CARVER [address]2 [place] [address] Nurse Practitioner Advanced Practice Nurse 01/21/24 documented as of this encounter
--- OUTSIDE RECORDS SUMMARY | 2024-12-01 15:01 | XMS_ITS | Encounter Summary ---
Author Organization [facility] Address [address] [place] [address] Phone Care Team Providers Care Md Urologist Name Role Phone Juanito Mckeon MD Unavailable [phone] Mirella Mendoza APRN, GAS MAKER Primary Care Provider [phone] Damon Pollock MD Unavailable Serg Acosta MD Unavailable [phone] Brodie Drummond APRN, GAS MAKER Unavailable Encounter Details Date Type Department Care Team (Late st Contact Info) Description 09/17/2022 Nursing Facility [facility] [address] [place] [address] Jonas Elliott, PAC [address] [place], [place] [id number] Social History Tobacco Use Types Packs/Day Years [...] Coronavirus/COVID-19? No / Unsure 08/24/2022 11:15 PM ORACLE DRM CONSULTANT documented as of this encounter Progress Notes * Jonas Elliott, PAC - 09/17/2022 12:20 PM CST [facility] PROGRESS NOTE Carmella Sheriff is a 67 y.o. female at [facility] for rehabilitation. Prior to coming to rehabilitation facility patient was hospitalized at [facility] from 08/25 through 09/12 after suffering a closed fracture of distal left femur that required surgical repair. Subjective: Interval History: Patient sitting comfortably in chair. Says she just had therapy this morning and it ???hurt but it was okay?? . Having pain in her left leg but the pain medicine helps. Makes note of a pruritic rash primarily on her back which has been present since her hospitalization. Past Medical History Positives Diagnosis Date ??? Bipolar 1 disorder (HCC) ??? Chronic hip pain ??? Concussion ??? COPD (chronic obstructive pulmonary disease) ([facility]) ??? CVA (cerebral vascular accident) ([facility]) ??? Diabetes mellitus (HCC) ??? Diabetic neuropathy [...] REPAIR WITH MESH; Surgeon: Juanito Mckeon MD; Location:[facility]; Service: General Review of Systems: A 14 point comprehensive review of systems was negative except what is documented in interval history above. Objective: Exam: Vital Signs: B/P: 128/70 Pulse: 72 Respirations: 16 Temperature: 97.7 General: Well developed, well nourished, in no distress pleasant, obese Skin: Normal appearance, normal turgor, no rashes 09/13 - dressing over lateral aspect distal left thigh. Stitches over medial distal left thigh. 09/17 - diffuse macular urogram was blanchable rash over back HEENT: Normocephalic, atraumatic, [...] memory Lab Results: None Imaging: None Assessment/Plan: Generalized weakness and deconditioning Receiving prison care and physical therapy rehabilitation Rash 09/17 - suspect drug rash. Should improve with time. Discussed conservative care and will monitor. Left distal femur fracture status post ORIF Followed by Ortho Nonweightbearing for 6 weeks at least to left lower extremity P.r.n. pain medicine Diabetes mellitus type 2 Continue sliding scale Humalog and Lantus Monitor Accu-Cheks 09/17 - blood sugars have been elevated as of late. Lantus dose increased. Grade 1 diastolic congestive heart failure Ejection [...] this patient. This note was dictated using [employer] fluency dictation system and there may be errors in software development leader. Despite proof reading the note, there may be mistakes and I apologize for those. By: Jonas Elliott, PAC, 09/17/2022 12:22 PM ORACLE DRM CONSULTANT LE DRM CONSULTANT documented in this encounter Plan of Treatment Upcoming Encounters Date Type Department Care Team (Late st Contact Info) Description 12/24/2024 2:15 PM CDT Office Visit [facility] - Neurology [facility] #2 [place] [address] Serg Acosta MD #2 [place] [address] 12/28/2024 10:00 AM CDT Office Visit [facility] UROLOGY #[address] [place] [address] Brodie Drummond, LEAD JAVA DEVELOPER ARCHITECT, GAS MAKER [address] [place] [address] 01/21/2025 10:30 AM CDT Office Visit [facility]ology - [place] #2 [place] [address] Damon Pollock MD #[address] [phone] documented as of this encounter Visit Diagnoses Not on filedocumented in this encounter Additional Health Concerns Infection Onset Date Last Indicated Resolved Time COVID - 19 09/26/2023 09/26/2023 10/06/2023 12:1 6 AM ORACLE DRM CONSULTANT Assessment Noted Time PHQ-9 Depression Total Score: 0 04/10/20 17 1:00 PM CDT documented as of this encounter Care Teams Md Urologist Relationship Specialty Start Date End Date Mirella Mendoza APRN, GAS MAKER [address] [address] PCP - General Family Medicine 12/25/21 Juanito Mckeon MD General Surgery 04/08/17 Damon Pollock MD #[address] [phone] Consulting Physician Endocrinology 02/14/22 Serg Acosta MD #2 [place] [address] Consulting Physician Neurology 12/24/22 Brodie Drummond APRN, GAS MAKER [address] [place] [address] Nurse Practitioner Advanced Practice Nurse 01/21/24 documented as of this encounter
--- OUTSIDE RECORDS SUMMARY | 2024-12-01 15:01 | XMS_ITS | Encounter Summary ---
Author Organization [facility] Address [address] [place] [address] Phone Care Team Providers Care Svp Research And Strategic Analysis Name Role Phone Juanito Mckeon MD Unavailable [phone] Mirella Mendoza APRN, TRANSMITTER OPERATOR Primary Care Provider [phone] Damon Pollock MD Unavailable Serg Acosta MD Unavailable Brodie Drummond APRN, TRANSMITTER OPERATOR Unavailable [phone] Reason for Visit * Reason Onset Date Comments Med reconciliation 05/27/2023 Encounter Details Date Type Department Care Team (Late st Contact Info) Description 05/27/2023 Telephone [facility] [address] [place] [address] Susie Linder, RN [place] Med reconciliation Social History Tobacco Use Types Packs/Day Years [...] suspected to have Coronavirus/COVID-19? No / Unsure 05/27/2023 8:14 AM CDT documented as of this encounter Miscellaneous Notes * Telephone Encounter - Susie Linder RN - 05/27/2023 3:02 PM CDT S: Tramadol 50mg found in the home at visit. Prescription is for 1 tab every 6 hours as needed by mouth for pain. B:Pain post op A: Noted Tramadol in home at visit which is prescribed for patient and is new in home. Please respond to each line item below. Called to Dr Payne office, left. Office fax not allowing fax through. Awaiting call back. Please review the following potential major [id number] interactions: Interaction Details Significance Orders Drug-Drug Drug-Drug: busPIRone and traMADol, venlafaxine Additive serotonergic effects may occur during coadministration of buspirone and traMADol, venlafaxine, and the risk of developing serotonin syndrome may be increased. Details Major busPIRone (BUSPAR) 10 MG Tablet venlafaxine (EFFEXOR-XR) 150 MG CAPSULE SR 24 HR traMADol (ULTRAM) 50 MG Tablet Drug-Drug Drug-Drug: traMADol and venlafaxine Serotonergic effects of tramadol and serotonin/norepinephrine reuptake inhibitors (SNRIs) may be additive. The risk of serotonin syndrome/toxicity may be increased. Details Major traMADol (ULTRAM) 50 MG Tablet venlafaxine (EFFEXOR-XR) 150 MG CAPSULE SR 24 HR Patient is Rt knee pain. Please route response to P Clinical Support Triage or call [facility] option 4 for a nurse. Response is required within 24 hours to meet regulatory requirements. Thank you documented in this encounter Plan of Treatment Upcoming Encounters Date Type Department Care Team (Late st Contact Info) Description 12/24/2024 2:15 PM CDT Office Visit [facility] - Neurology [facility] #2 [place] [address] Serg Acosta MD #[address] [place] [address] 12/28/2024 10:00 AM CDT Office Visit [facility] #[address] [place] [address] Brodie Drummond APRN, TRANSMITTER OPERATOR [address] [place] [address] 01/21/2025 10:30 AM CDT Office Visit [facility] Endocrinology [facility] [address] [place] [address] Damon Pollock MD #[address] [address] documented as of this encounter Visit Diagnoses Not on filedocumented in this encounter Additional Health Concerns Infection Onset Date Last Indicated Resolved Time COVID - 19 09/26/2023 09/26/2023 10/06/2023 12:1 6 AM SPRAY OPERATOR Assessment Noted Time PHQ-9 Depression Total Score: 0 04/10/20 17 1:00 PM CDT documented as of this encounter Care Teams Svp Research And Strategic Analysis Relationship Specialty Start Date End Date Mirella Mendoza APRN, TRANSMITTER OPERATOR [address] [place] [address] PCP - General Family Medicine 12/25/21 Juanito Mckeon MD General Surgery 04/08/17 Damon Pollock MD #[address] [address] Consulting Physician Endocrinology 02/14/22 Serg Acosta MD [address] [place] [address] Consulting Physician Neurology 12/24/22 Brodie Drummond APRN, TRANSMITTER OPERATOR [address] [place] [address] Nurse Practitioner Advanced Practice Nurse 01/21/24 documented as of this encounter
--- OUTSIDE RECORDS SUMMARY | 2024-12-01 15:01 | XMS_ITS | Encounter Summary ---
Author Organization [facility] Address [address] [place] [address] Phone Care Team Providers Care Commercial Administrator Name Role Phone Juanito Mckeon MD Unavailable [phone] Mirella Mendoza APRN, REHABILITATION PROGRAM COORDINATOR Primary Care Provider [phone] Damon Pollock MD Unavailable Serg Acosta MD Unavailable [phone] Brodie Drummond APRN, REHABILITATION PROGRAM COORDINATOR Unavailable [phone] Reason for Referral * PT/OT/ST (Routine) - Closed Specialty Diagnoses / Procedures Referred By Wisam johnson Referred To Contact Physical Therapy Diagnoses Pain in right thigh Left shoulder pain, unspecified chronicity Displaced supracondylar fracture with intracondylar extension of lower end of right femur, subsequent encounter for closed fracture with routine healing Displaced supracondylar fracture without intracondylar extension of lower end of left femur, subsequent encounter for closed fracture with routine healing Primary osteoarthritis, left shoulder Willie Payne MD [address] [place] [address] Phone: tel: fax: [facility] [address], [address] [place] [address] Phone: tel: fax: Referral ID Status Reason Start Date Expiration Date Visits Re quested Visits Authorized [id number] Closed 06/24/2024 50 10 Scheduling Instructions Encounter Details Date Type Department Care Team (Latest Contact Info) Description 06/24/2024 Transcribe Orders [facility] [address] [place] [address] Willei Payne MD [address] [place] [address] Pain in right thigh (Primary Dx); Left shoulder pain, unspecified chronicity; Displaced supracondylar fracture with intracondylar extension of lower end of right femur, subsequent encounter for closed fracture with routine healing; Displaced supracondylar fracture without intracondylar extension of lower end of left femur, subsequent encounter for closed fracture with routine healing; Primary osteoarthritis, left shoulder Social History Tobacco Use Types Packs/Day Years [...] Description 12/24/2024 2:15 PM CDT Office Visit [facility] - Neurology - [place] #[address] [place] [address] Serg Acosta MD #[address] [place] [address] 12/28/2024 10:00 AM CDT Office Visit [facility]Y #[address] [place] [address] Brodie Drummond APRN, REHABILITATION PROGRAM COORDINATOR #[address] [place] [address] 01/21/2025 10:30 AM CDT Office Visit [facility] - Endocrinology - [place] [address] [place] [address] Damon Pollock MD #[address] [phone] Scheduled Referrals Name Type Priority Associated Diagnoses Orde r Schedule PHYSICAL THERAPY REFERRAL Outpatient Referral Routine Pain in right thigh Left shoulder pain, unspecified chronicity Displaced supracondylar fracture with intracondylar extension of lower end of right femur, subsequent encounter for closed fracture with routine healing Displaced supracondylar fracture without intracondylar extension of lower end of left femur, subsequent encounter for closed fracture with routine healing Primary osteoarthritis, left shoulder Expected: 06/24/2024, Expires: 06/24/2025 documented as of this encounter Visit Diagnoses Diagnosis Pain in right thigh- Primary Left shoulder pain, unspecified chronicity Displaced supracondylar fracture with intracondylar extension of lower end of right femur, subsequent encounter for closed fracture with routine healing Displaced supracondylar fracture without intracondylar extension of lower end of left femur, subsequent encounter for closed fracture with routine healing Primary osteoarthritis, left shoulder documented in this encounter Additional Health Concerns Assessment Noted Time PHQ-9 Depression Total Score: 0 04/10/20 17 1:00 PM CDT documented as of this encounter Care Teams Commercial Administrator Relationship Specialty Start Date End Date Mirella Mendoza APRN, REHABILITATION PROGRAM COORDINATOR [address] [place] [address] PCP - General Family Medicine 12/25/21 Juanito Mckeon MD General Surgery 04/08/17 Damon Pollock MD #[address] [address] Consulting Physician Endocrinology 02/14/22 Serg Acosta MD #2 [place] [address] Consulting Physician Neurology 12/24/22 Brodie Drummond APRN, REHABILITATION PROGRAM COORDINATOR #[address] [place] [address] Nurse Practitioner Advanced Practice Nurse 01/21/24 documented as of this encounter
--- OUTSIDE RECORDS SUMMARY | 2024-12-01 15:01 | XMS_ITS | Encounter Summary ---
Author Organization [facility] Address [address] [place] [address] Phone Care Team Providers Care Director Of Casework Services Name Role Phone Juanito Mckeon MD Unavailable [phone] Mirella Mendoza APRN, FIRE SPRINKLER DESIGNER Primary Care Provider [phone] Damon Pollock MD Unavailable Serg Acosta MD Unavailable Brodie Drummond APRN, FIRE SPRINKLER DESIGNER Unavailable [phone] Encounter Details Date Type Department Care Team (Late st Contact Info) Description 09/24/2022 Nursing Facility [facility] [address] [place] [address] Jonas Elliott, PAC [address] [place], [place] [id number] Social History Tobacco Use Types Packs/Day Years [...] Progress Notes * Jonas Elliott, PAC - 09/24/2022 12:10 PM CST [facility] PROGRESS NOTE Carmella Sheriff is a 67 y.o. female at [facility] for rehabilitation. Prior to coming to rehabilitation facility patient was hospitalized at [facility] from 08/25 through 09/12 after suffering a closed fracture of distal left femur that required surgical repair. Subjective: Interval History: Patient sitting comfortably in chair. Just came in from smoking a cigarette. Denies any acute symptoms or concerns. Says she is having quite a bit of left leg pain but is tolerable. Past Medical History Positives Diagnosis Date ??? [...] REPAIR WITH MESH; Surgeon: Juanito Mckeon MD; Location:[facility]; Service: General Review of Systems: A 14 point comprehensive review of systems was negative except what is documented in interval history above. Objective: Exam: Vital Signs: B/P: 114/54 Pulse: 68 Respirations: 18 Temperature: 97.4 General: Well developed, [...] few days Generalized weakness and deconditioning Receiving detention care and physical therapy rehabilitation Rash 09/17 - suspect drug rash. Should improve with time. Discussed conservative care and will monitor. Left distal femur fracture status post ORIF Followed by Ortho Nonweightbearing for 6 weeks at least to left lower extremity P.r.n. pain medicine 09/24 - pain well controlled Grade 1 diastolic congestive heart failure Ejection [...] this patient. This note was dictated using [employer] dictation system and there may be errors in twister tender paper. Despite proof reading the note, there may be mistakes and I apologize for those. By: Jonas Elliott, PAC, 09/24/2022 12:10 PM REAL ESTATE SERVICES COORDINATOR ESTATE SERVICES COORDINATOR documented in this encounter Plan of Treatment Upcoming Encounters Date Type Department Care Team (Late st Contact Info) Description 12/24/2024 2:15 PM CDT Office Visit [facility] - Neurology [facility] [address] [place] [address] Serg Acosta MD [address] [place] [address] 12/28/2024 10:00 AM CDT Office Visit [facility] UROLOGY #[address] [place] [address] Brodie Drummond APRN, FIRE SPRINKLER DESIGNER #[address] [place] [address] 01/21/2025 10:30 AM CDT Office Visit [facility] - Endocrinology [facility] #[address] [place] [address] Damon Pollock MD #[address] [phone] documented as of this encounter Visit Diagnoses Not on filedocumented in this encounter Additional Health Concerns Infection Onset Date Last Indicated Resolved Time COVID - 19 09/26/2023 09/26/2023 10/06/2023 12:1 6 AM REAL ESTATE SERVICES COORDINATOR Assessment Noted Time PHQ-9 Depression Total Score: 0 04/10/20 17 1:00 PM CDT documented as of this encounter Care Teams Director Of Casework Services Relationship Specialty Start Date End Date Mirella Mendoza APRN, FIRE SPRINKLER DESIGNER [address] [id number] PCP - General Family Medicine 12/25/21 Juanito Mckeon MD General Surgery 04/08/17 Damon Pollock MD #[address] [phone] Consulting Physician Endocrinology 02/14/22 Serg Acosta MD #2 [place] [address] Consulting Physician Neurology 12/24/22 Brodie Drummond APRN, FIRE SPRINKLER DESIGNER [address] [place] [address] Nurse Practitioner Advanced Practice Nurse 01/21/24 documented as of this encounter
--- OUTSIDE RECORDS SUMMARY | 2024-12-01 15:01 | XMS_ITS | Clinical Summary ---
Author Organization [facility] Address [address] [facility], [place] [address] Phone Care Team Providers Care Asset Protection Agent Name Role Phone Juanito Mckeon MD Unavailable [phone] Mirella Mendoza APRN, LOGGING SUPERVISOR Primary Care Provider [phone] Damon Pollock MD Unavailable Serg Acosta MD Unavailable [phone] Brodie Drummond APRN, LOGGING SUPERVISOR Unavailable Allergies Active Allergy Reactions Criticality Noted Date Comments Ether Nausea 04/11/2017 STATES GETS NAUSEATED EVERY TIME SHE HAS ANESTHESIA Chlordiazepoxide Other (see Comments) 2 Medications divalproex (DEPAKOTE) 500 MG Tablet Delayed ResponseIndications :Bipolar Mood Disorder Take 1 Tablet by mouth 3 times daily. Indications: Manic-Depression 2 015 Active risperiDONE (RISPERDAL) 1 MG TabletIndications:M ixed Bipolar Affective Disorder Take 1 Tablet by mouth nightly. Indications: MIXED BIPOLAR AFFECTIVE DISORDER 2 015 Active fish oil-omega-3 fatty acids 1000 MG CapsuleIndications: Nutrition supplement Take 1,200 mg by mouth daily. Indications: Nutrition supplement Active albuterol 108 (90 Base) MCG/ACT Aerosol SolutionIndications :SOB take 2 Puffs by inhalation every 6 hours as needed for Shortness of Breath or Wheezing. Indications: SOB 022 Active latanoprost (XALATAN) 0.005 % SolutionIndications :dry eyes Place 1 Drop in both eyes nightly. Administer one drop in each eye nightly Indications: dry eyes 022 Active omeprazole (PriLOSEC) 20 MG CAPSULE DELAYED RELEASEIndications: Symptomatic Gastroesophageal Reflux Disease (Inactive) Take 20 mg by mouth 2 times daily. Indications: Gastroesophageal Reflux Disease with Current Symptoms Active potassium chloride CR (KLORCON) 10 MEQ Tablet Controlled ReleaseIndications: Hypokalemia Take 1 Tablet by mouth daily. Indications: Low Amount of Potassium in the Blood Active Insulin Pen Needle (Pen [place]) 32G X 4 MM Misc 4 times a day 400 Each 3 022 Active amLODIPine (NORVASC) 5 MG Tablet Take 1 Tablet by mouth nightly. 90 Tablet 023 Active Umeclidinium-Vilant seng (ANORO ELLIPTA) 62.5-25 MCG/ACT AEROSOL POWDER, BREATH ACTIVATEDIndication s:Chronic Obstructive Pulmonary Disease take 1 Puff by inhalation daily. Indications: Chronic Obstructive Lung Disease Active busPIRone (BUSPAR) 10 MG TabletIndications:A nxiety Disorder Take 10 mg by mouth 2 times daily. Indications: Anxiety Disorder Active venlafaxine (EFFEXOR-XR) 150 MG CAPSULE SR 24 HRIndications:Major Depressive Disorder Take 150 mg by mouth daily. Indications: Major Depressive Disorder Activ e Aspirin 81 MG CapsuleIndications: Ischemic Stroke Take 81 mg by mouth nightly. Indications: Stroke Due To Limited Blood Flow Active acetaminophen (TYLENOL) 500 MG TabletIndications:P ain Take 500 mg by mouth every 6 hours as needed for Moderate or more severe pain or Severe pain. not more than 4000 mg in 24 hours Indications: Pain Active Continuous Blood Gluc Steel Pourer (Dexcom G7 Steel Pourer) Device Check blood glucose before each meal and at bedtime 1 Each 023 Active traMADol (ULTRAM) 50 MG TabletIndications:P ain Take 1 Tablet by mouth every 6 hours as needed for Moderate or more severe pain or Severe pain. Indications: Pain Active oxyCODONE (ROXICODONE) 5 MG TabletIndications:A cute Pain take 1-2 tablets by mouth every 4 hours as needed for pain Indications: Acute Pain Active pancrelipase, wlfzew-zfihtvzs-uku lase, (Creon) [address]-[address] units Capsule [address] Particles Take 1 Capsule by mouth 3 times daily. Active Continuous Glucose Sensor (Dexcom G7 Sensor) Misc CHANGE EVERY 10 DAYS 3 Each 2 024 Active Myrbetriq 50 MG TABLET SR 24 HRIndications:Urina ry frequency,Nocturnal enuresis,Urinary urgency TAKE 1 TABLET BY MOUTH DAILY 90 Tablet 3 025 Active glimepiride (AMARYL) 1 MG Tablet Take 2 Tablets by mouth daily after breakfast. 180 Tablet 1 025 Active Active Problems Problem Noted Date Diagnosed Date Closed fracture of right distal femur 03/09/2023 UTI (urinary tract infection) 11/08/2022 Hypokalemia 11/08/2022 Hypoglycemia 11/07/2022 Class 1 obesity due to exces s calories with serious comorbidity and body mass index (BMI) of 31.0 to 31.9 in adult 02/23/2022 Tobacco use 02/23/2022 Physical deconditioning 01/24/2022 COPD without exacerbation 01/24/2022 Type 2 diabetes mellitus wit h diabetic polyneuropathy, with long-term current use of insulin 01/24/2022 Gastroesophageal reflux disease without esophagi tis 01/24/2022 Type 2 diabetes mellitus with hyperglycemia 12/30 Influenza A 01/23/2022 Sacroiliac joint dysfunction of right side 03/06 Sepsis, unspecified organism 07/20/2018 Pneumonia due to infectious organism 07/19/2018 Mobility impaired 07/04/2018 Sacroiliac joint dysfunction of both sides 05/02 Incisional hernia, without obstruction or gangre ne 04/10/2017 Pain of toe of left foot 09/11/2016 History of stroke 03/13/2016 Diabetic polyneuropathy asso ciated with type 2 diabetes mellitus 10/11/2015 Bipolar depression 10/11/2015 Ataxia 10/11/2015 Tobacco dependence 10/11/2015 Resolved Problems Problem Noted Date Diagnosed Date Resolved Date Cellulitis and abscess of leg 01/26/2022 01/26/2022 Acute metabolic encephalopathy 01/24/2022 01/25/2022 Leukocytosis 01/24/2022 01/25/2022 Encounters Date Type Department Care Team Description 12/01/2024 Documentation Only [facility] [address] [place] [address] Casandra Philip, PT 11/23/2024 Telephone [facility] [facility] [place] [address] Damon Pollock MD 11/19/2024 Documentation Only [facility] [address] [place] [address] Casandra Philip, PT 10/09/2024 Telephone [facility] [facility] [place] [address] Damon Pollock MD Medication Management 10/03/[address] [facility] [address] [facility] [place] [address] Damon Pollock MD Medication Refill 09/29/2024 Refill [facility] [address] [facility] [place] [address] Brodie Drummond, BUTTONER, LOGGING SUPERVISOR Medication Refill from Last 3 Months Immunizations Immunization Administration Dates Next Due Influenza Vaccine 06/10/2016 Influenza Vaccine greater than 3 yrs 08/25/2015 Influenza Vaccine, MDCK,quad rivalent, pres free 07/24/2017 Influenza Vaccine, Quadrivalent, PF 08/29/2020,1 Influenza Vaccine,unspecifie d Formulation 09/16/2023 Influenza, High-dose, Quadrivalent 09/09/2023, Influenza, Injectable, Quadrivalent 08/02,09/01/2019,08/09/2017,2015 Influenza, Quadrivalent, Adjuvanted 11/08/2022 Influenza, Seasonal, Injecta ble, Undefined 08/25/2015,07/28/2014 Pneumococcal Vaccine - 13 Valent 01/30/2019,07/31 Pneumococcal Vaccine Adult - 23 Valent 09/01/2019,07/20/2018 TB Skin Test 08/09/2023 Tuberculin Skin Test; Purifi ed Protein Derivative Solutiol 09/12/2022 Family History Medical History Relation Name Comments Diabetes Brother 1 Hypertension Brother 1 Hypertension Brother 2 Alzheimer's Disease Father Parkinsonism Father Cancer Mother Diabetes Mother Hypertension Mother Relation Name Status Comments Brother 1 Brother 2 Alive Father Mother Alive Social History Tobacco Use Types Packs/Day Years Used Date Smoking Tobacco: Every Day Cigarettes 1 49.6 Started: 04/11/1975 Smokeless Tobacco: Never Tobacco Cessation:Ready to Q [...] AM CDT Sexual Orientation Not on file Last Filed Vital Signs Vital Sign Reading Time Taken Comments Blood Pressure 150/83 07/23/2024 10:18 AM CDT Pulse 74 07/23/2024 10:18 AM CDT Temperature 36.3 C (97.3 F) 07/23/2024 10:18 AM CDT Respiratory Rate 22 07/23/2024 10:18 AM CDT Oxygen Saturation 97% 07/23/2024 10:18 AM CDT Inhaled Oxygen Concentration - - Weight 77.6 kg (171 lb) 07/23/2024 10:18 AM CDT Height 167.6 cm (5' 6 ) 06/29/2024 9:41 AM CDT Body Mass Index 27.6 06/29/2024 9:41 AM CDT Plan of Treatment Upcoming Encounters Date Type Department Care Team (Late st Contact Info) Description 12/24/2024 2:15 PM CDT [facility] [address] [facility] [place] [address] Serg Acosta MD [address] [facility] [place] [address] 12/28/2024 10:00 AM CDT Office Visit [facility] [address] [facility] [place] [address] Brodie Drummond, BUTTONER, LOGGING SUPERVISOR [address] [facility] [place] [address] 01/21/2025 10:30 AM CDT [facility] - [place] [address] [facility] [place] [phone] Damon Pollock MD [address] [place] [address] Health Maintenance Due Date Last Done Comments Diabetes: Eye Exam 1955 Hepatitis C Virus (HCV) Screening 1955 Cologuard 2006 Immunochemical Fecal Occult Blood 2006 Zoster Immunization (1 of 2) 2006 Respiratory Syncytial Virus (RSV) Immunization (Adult) (1 - Risk 60-74 years 1-dose series) 2016 Lung Cancer Screening 01/25/2024 01/24/2023 , 08/26/2022, 07/21/2021 Influenza Immunization (#1) 05/31/202408/30, 09/09/2023, 11/08/2022, Additional history exists SARS-COV-2 Immunization (2 - 2023- season) 2024 09/16/2023 Pneumococcal Immunization (50+ years) (3 of 3 - PCV20 or PCV21) 09/01/2024 09/01/2019, 01/30/2019, 07/20/2018, Additional history exists Diabetes: Foot Exam 01/21/2025 01/22/2024, Diabetes: Hemoglobin A1c 01/21/2025 024, 04/22/2024, 01/22/2024, Additional history exists DEXA Bone Density 05/01/2025 05/01/2023 Mammogram 06/19/2025 06/19/2024, 06/01, 02/10/2021, Additional history exists Diabetes: Nephropathy Screening 07/23/2025 07/23/2024, 09/27/2023, 09/09/2023, Additional history exists Colonoscopy 10/21/2029 10/21/2019, 10/20/2019 Colorectal Cancer Screening 10/21/2029 10/21/2019, 10/20/2019 Pneumococcal Immunization Combined Discontinued 09/01/2019, 01/30/2019, 07/20/2018, Additional history exists DTaP/Tdap/Td Immunization Discontinued 07/16/2024 TdaP Immunization Completed 07/16/2024 Hepatitis B Immunization Aged Out No longer eligible based on patient's age to complete this topic Meningococcal Immunization (ACWY) Aged Out No longer eligible based on patient's age to complete this topic Rotavirus Immunization Aged Out No lo nger eligible based on patient's age to complete this topic Medical Devices Implanted Type Area Clinical Academic Allergist Device Identifier Shelf Expiration Date Model / Serial / Lot Mesh Ventralex Gable Med 6.4cm Eptfe - [id number] Implanted:Qty: 1 on 04/18/2017 by Juanito Mckeon MD at [facility] IMPLANT N/A: Abdomen CR BARD / DAVOL 09/28/2018 [id number] / [id number] / [id number] Screw Locking T2 Alpha Imn Screws 5x70mm - [id number] Implanted:Qty: 1 on 03/10/2023 by Willie Payne MD at [facility] IMPLANT Right: Femur Bethel Trauma 10/30/2032 [id number] / [id number] / [id number] Screw Locking T2 Alpha Imn Screws 5x50mm - [id number] Implanted:Qty: 1 on 03/10/2023 by Willie Payne MD at [facility] IMPLANT Right: Femur Bethel Trauma 04/29/2031 [id number] / [id number] / [id number] Screw Locking T2 Alpha Imn Screws 5x75mm - [id number] Implanted:Qty: 1 on 03/10/2023 by Willie Payne MD at [facility] IMPLANT Right: Femur Anuradha Trauma 08/29/2032 [id number] / [id number] / [id number] Screw Locking T2 Alpha Imn Screws 5x60mm - [id number] Implanted:Qty: 1 on 03/10/2023 by Willie Payne MD at [facility] IMPLANT Right: Femur Bethel Trauma 09/29/2030 [id number] / [id number] / [id number] Screw Locking T2 Alpha Imn Screws 5x35mm - [id number] Implanted:Qty: 1 on 03/10/2023 by Willie Payne MD at [facility] IMPLANT Right: Femur Anuradha Trauma 01/28/2032 [id number] / [id number] / [id number] Screw Locking T2 Alpha Imn Screws 5x35mm - [id number] Implanted:Qty: 1 on 03/10/2023 by Willie Payne MD at [facility] IMPLANT Right: Femur Anuradha Trauma 11/27/2032 [id number] / [id number] / [id number] Cap End 4mm Ankle Insertion Arthrodesis Nail Strl T2 8mm - [id number] Implanted:Qty: 1 on 03/10/2023 by Willie Payne MD at [facility] IMPLANT Right: Femur Anuradha Trauma 10/30/2027 [id number] / [id number] / [id number] Bethel 5 X 55mm Cannulated Screw Out Of Asnis Tray Implanted:Qty: 1 on 03/10/2023 by Willie Payne MD at [facility] Right: Femur ANURADHA / TRAUMA [id number] / [id number] / [id number] Anuradha Basim T2 Scn System Supracondylar Nail Implanted:Qty: 1 on 03/10/2023 by Willie Payne MD at [facility] Right: Femur ANURADHA / TRAUMA 08/29/2024 1826-1217S / [id number] / [id number] Procedures Procedure Name Priority Date/Time Associated Diagnosis Comments CMP (COMPREHENSIVE METABOLIC PANEL) Routine 07/23/2024 11:10 AM CDT Type 2 diabetes mellitus with diabetic polyneuropathy, with long-term current use of insulin (HCC) POCT GLYCOSYLATED HEMOGLOBIN Routine 07/23/2024 10:26 AM CDT Type 2 diabetes mellitus with diabetic polyneuropathy, with long-term current use of insulin (HCC) [facility] SCREENING BILATERAL DIGITAL W CAD W ALEXANDRA Routine 06/19/2024 8:40 AM CDT Encounter for screening mammogram for malignant neoplasm of breast [facility] BONE DENSITOMETRY AXIAL SKELETON Routine 05/01/2023 10:13 AM CDT Personal history of (healed) traumatic fracture CT CHEST SCREENING WO Routine 01/24/2023 10:08 AM CDT Nicotine dependence, cigarettes, uncomplicated from Last 3 Months or Most Recently Relevant to Health Maintenance Results * (ABNORMAL) CMP (COMPREHENSIVE METABOLIC PANEL) (07/23/2024 11:10 AM CDT) SODIUM 135(L) 136 - 145 mmol/L 07/23/2024 1:05 PM CDT [facility] POTASSIUM 4.3 3.5 - 5.1 mmol/L 07/23/2024 1:05 PM CDT [facility] CHLORIDE 99 98 - 107 mmol/L 07/23/2024 1:05 PM CDT [facility] CO2, VENOUS 28 22 - 30 mmol/L 07/23/2024 1:05 PM CDT [facility] ANION GAP 12.3 <18.0 mmol/L 07/23/2024 1:05 PM CDT [facility] GLUCOSE 75 70 - 99 mg/dL 07/23/2024 1:05 PM [facility] BUN 23(H) 10 - 20 mg/dL 07/23/2024 1:05 PM [facility] CREATININE, BLOOD 0.86 0.60 - 1.00 mg/dL 07/23/2024 1:05 PM [facility] BUN/CREATININE RATIO 27(H) 12 - 20 ratio 07/23/2024 1:05 PM [facility] TOTAL PROTEIN 7.1 6.3 - 8.2 g/dL 07/23/2024 1:05 PM [facility] ALBUMIN 4.0 3.5 - 5.0 g/dL 07/23/2024 1:05 PM [facility] A/G RATIO 1.3 1.0 - 2.2 07/23/2024 1:05 PM [facility] CALCIUM 9.0 8.7 - 10.5 mg/dL 07/23/2024 1:05 PM [facility] T BILI 0.4 0.2 - 1.2 mg/dL 07/23/2024 1:05 PM [facility] SGOT (AST) 16 5 - 34 U/L 07/23/2024 1:05 PM [facility] SGPT (ALT) 16 0 - 55 U/L 07/23/2024 1:05 PM [facility] ALKALINE PHOSPHATASE 102 40 - 150 U/L 07/23/2024 1:05 PM [facility] IS THE PATIENT REQUIRED TO BE FASTING? No 07/23/2024 1:05 PM [facility] GFR, ESTIMATED >60 >=60 07/23/2024 1:05 PM [facility] Comment: Creatinine Clearance is the preferred criteria for selecting drug dose adjustments in renally impaired patients. The GFR is provided as additional pertinent clinical information. GFR is reported in mL/min/1.73 sq m. Calculation based on the Chronic Kidney Disease Epidemiology Collaboration (CKD- EPI) equation refit without adjustment for race. GFR, EST. >60 >=60 024 1:05 PM CDT [facility] GFR, EST. NONAFRICAN >60 >=60 07/23/2024 1:05 PM CDT [facility] Blood Venipuncture / Unknown 07/23/2024 11:10 AM CDT 07/23/2024 12:18 PM CDT us Damon Pollock MD CHEMISTRY ORDERABLES Final Resul t [facility] [address] [place] [address] * (ABNORMAL) POCT GLYCOSYLATED HEMOGLOBIN (07/23/2024 10:26 AM CDT) HGB-A1C 6.5(A) 4 - 6 % Blood 07/23/2024 10:2 6 AM CDT us Damon Pollock MD POINT OF CARE TESTING (MANUAL) F inal Result * [facility] SCREENING BILATERAL DIGITAL W CAD W ALEXANDRA (06/19/2024 8:40 AM CDT) Anatomical Region Laterality Modality breast Bilateral Mammography 06/19/2024 8:21 AM CDT Narrative 06/22/2024 9:50 AM CDT - [facility] SCREENING BILATERAL DIGITAL W CAD W ALEXANDRA BILATERAL DIGITAL SCREENING MAMMOGRAM 3D/2D WITH CAD WITH MEDIOLATERAL OBLIQUE CRANIOCAUDAL: 06/19/2024 The study was acquired using digital technology and interpreted from soft copy. Current study was also evaluated with ICAD version 7.2. 2D digital mammographic views, as well as 3D digital tomosynthesis were performed in the CC and MLO projections. CLINICAL: Routine screening. Patient has no complaints. Patient reports 70 pound weight loss since last mammogram. No personal history of cancer. No family history of breast cancer. COMPARISONS: Comparison is made to exams dated: 06/20/2022, 02/10/2021, and 01/17/2019 [facility]. BREAST TISSUE:There are scattered areas of fibroglandular density. FINDINGS: There are benign calcifications in both breasts. No significant masses, calcifications, or other findings are seen in either breast. There has been no significant interval change. IMPRESSION: BENIGN There is no mammographic evidence of malignancy. A 1 year screening mammogram is recommended. A letter will be sent to the patient with these results. The patient will be entered into a reminder system with a target due date of 1 year for her next screening exam. Electronically signed by: Smooth Lazar M.D. ll/penrad:06/19/2024 16:19:53 Manager Culinary(s): RT Jordyn(R)(M), [facility] letter sent: Normal Exam Reading location: [place] Mammogram BI-RADS: Category 2: Benign Procedure Note Smooth Lazar MD - 06/22/2024 - [facility] SCREENING BILATERAL DIGITAL W CAD W ALEXANDRA BILATERAL DIGITAL SCREENING MAMMOGRAM 3D/2D WITH CAD WITH MEDIOLATERAL OBLIQUE CRANIOCAUDAL: 06/19/2024 The study was acquired using digital technology and interpreted from soft copy. Current study was also evaluated with ICAD version 7.2. 2D digital mammographic views, as well as 3D digital tomosynthesis were performed in the CC and MLO projections. CLINICAL: Routine screening. Patient has no complaints. Patient reports 70 pound weight loss since last mammogram. No personal history of cancer. No family history of breast cancer. COMPARISONS: Comparison is made to exams dated: 06/20/2022, 02/10/2021, and 01/17/2019 [facility]. BREAST TISSUE:There are scattered areas of fibroglandular density. FINDINGS: There are benign calcifications in both breasts. No significant masses, calcifications, or other findings are seen in either breast. There has been no significant interval change. IMPRESSION: BENIGN There is no mammographic evidence of malignancy. A 1 year screening mammogram is recommended. A letter will be sent to the patient with these results. The patient will be entered into a reminder system with a target due date of 1 year for her next screening exam. Electronically signed by: Smooth murguia/kirt:06/19/2024 16:19:53 Manager Culinary(s): RT Jordyn(R)(M), [facility] letter sent: Normal Exam Reading location: [place] Mammogram BI-RADS: Category 2: Benign us Mirella Mendoza BUTTONER, LOGGING SUPERVISOR IMG MAMMO ORDERABLES Kristan l Result * [facility] BONE DENSITOMETRY AXIAL SKELETON (05/01/2023 10:13 AM CDT) Anatomical Region Laterality Modality BODY N/A Computed Radiogr aphy 05/01/2023 10:5 2 AM CDT Impressions 05/01/2023 10:55 AM CDT IMPRESSION: OSTEOPOROSIS. REFERENCE: Bone mineral density: Normal (T-score above or = -1.0) Low bone mass (T-score between -1.0 and -2.5) replaces the previously used term osteopenia Osteoporosis (T-score = or below -2.5) Medical evaluation for secondary causes of low bone mineral density may be appropriate. FRAX is a World Health Organization validated fracture risk assessment tool that calculates a person's 10 year probability of a major osteoporosis related fracture and hip fracture. According to the National Osteoporosis Foundation guidelines, postmenopausal women and men age 50 or older with low bone mass and a 10 year probability of a major osteoporosis related fracture = or greater than 20% or a 10 year probability of a hip fracture = or greater than 3% should be considered for treatment. For further information, including treatment recommendations, please refer to the 2019 ISCD Official Positions (http://www.iscd.org) and the NOF's Clinician's Guide to Prevention and Treatment of Osteoporosis (http://www.nof.org/professionals/clinical-guidelines) Narrative 05/01/2023 10:55 AM CDT EXAM DESCRIPTION: [facility] BONE DENSITOMETRY AXIAL SKELETON REASON FOR STUDY: 67 y/o year old F with given history of: Personal history of (healed) traumatic fracture Clinical Academic Allergist/Model: [email or web address] (S/N [id number]) CLINICAL INFORMATION: Current height: 66 inches Maximum height: 67.5 inches Weight: 153 pounds Risk factors: Bilateral hip instrumentation. History of smoking. History of fracture. COMPARISON: None available FINDINGS: AP LUMBAR SPINE L1-L4: Total BMD is 0.874 g/cm2 T-score is -2.6 LEFT FOREARM: Total BMD is 0.727 g/cm2 T-score is -1.8 FRAX: FRAX tool cannot be utilized as T-Score for mandatory regions required to calculate FRAX is unavailable. THIS IS AN ELECTRONICALLY VERIFIED FINAL REPORT 05/01/2023 10:52 AM - Electronically signed by Denver Walters M.D. AG: MAGGIE Report ID: [id number] Reading Location: [place] [address] Procedure Note Denver Walters MD - 05/01/2023 EXAM DESCRIPTION: [facility] BONE DENSITOMETRY AXIAL SKELETON REASON FOR STUDY: 67 y/o year old F with given history of: Personal history of (healed) traumatic fracture Clinical Academic Allergist/Model: [email or web address] (S/N [id number]) CLINICAL INFORMATION: Current height: 66 inches Maximum height: 67.5 inches Weight: 153 pounds Risk factors: Bilateral hip instrumentation. History of smoking. History of fracture. COMPARISON: None available FINDINGS: AP LUMBAR SPINE L1-L4: Total BMD is 0.874 g/cm2 T-score is -2.6 LEFT FOREARM: Total BMD is 0.727 g/cm2 T-score is -1.8 FRAX: FRAX tool cannot be utilized as T-Score for mandatory regions required to calculate FRAX is unavailable. THIS IS AN ELECTRONICALLY VERIFIED FINAL REPORT 05/01/2023 10:52 AM - Electronically signed by Denver Walters M.D. AG: MAGGIE Report ID: [id number] Reading Location: [id number] IMPRESSION: OSTEOPOROSIS. REFERENCE: Bone mineral density: Normal (T-score above or = -1.0) Low bone mass (T-score between -1.0 and -2.5) replaces the previously used term osteopenia Osteoporosis (T-score = or below -2.5) Medical evaluation for secondary causes of low bone mineral density may be appropriate. FRAX is a World Health Organization validated fracture risk assessment tool that calculates a person's 10 year probability of a major osteoporosis related fracture and hip fracture. According to the National Osteoporosis Foundation guidelines, postmenopausal women and men age 50 or older with low bone mass and a 10 year probability of a major osteoporosis related fracture = or greater than 20% or a 10 year probability of a hip fracture = or greater than 3% should be considered for treatment. For further information, including treatment recommendations, please refer to the 2019 ISCD Official Positions (http://www.iscd.org) and the NOF's Clinician's Guide to Prevention and Treatment of Osteoporosis (http://www.nof.org/professionals/clinical-guidelines) us Mirella Mendoza APRN, CNP IMDary DEXA ORDERABLES Final Result * CT CHEST SCREENING WO (01/24/2023 10:08 AM CDT) Anatomical Region Laterality Modality Chest N/A Computed Tomogra phy 01/24/2023 9:16 PM CDT Impressions 01/24/2023 9:19 PM CDT IMPRESSION: 1. New 2 mm right upper lobe pulmonary nodules compared to 07/21/2021 Lung-RADS v1.1 category 2: Benign appearance or behavior. Recommendation: Low dose Screening CT of chest in 12 months. Narrative 01/24/2023 9:19 PM CDT EXAM DESCRIPTION: CT CHEST SCREENING WO REASON FOR STUDY: Screening CT of the chest in a current smoker with a 66 pack year smoking history. Additional history: None. TECHNIQUE: Low dose CT scan of the chest was performed without intravenous contrast using helical scanning technique. The exam extends from the lung apices through the lung bases. Automatic exposure control was used as a dose optimization technique. NOTE: This study was performed for the specific purposes of lung cancer screening and is not an alternative to diagnostic chest CT. RADIATION DOSE: CT dose index volume (CTDIvol) = 3.62 mGy COMPARISON: 06/21/2021 FINDINGS: SMOKING RELATED LUNG DISEASE: Mild emphysema. Mild peripheral ground-glass and reticulation as evidence for scarring/fibrosis. LUNG NODULES: New 2 mm anterior right upper lobe nodule (40). New 2 mm anterior right upper lobe nodule (57). Grossly stable 2 mm anterior left upper lobe nodule (67). OTHER: Mild lower lobe bronchiectasis. No consolidation. No pleural effusion or pneumothorax. No mediastinal or hilar lymphadenopathy. The heart is normal in size. Severe coronary artery calcification. The aorta is nonaneurysmal. No axillary lymphadenopathy. No chest wall mass. Images of the upper abdomen demonstrate cholecystectomy clips. Chronic left adrenal gland adenoma measuring 2.5 x 2.0 cm. This was partially included within the field of view on the prior examination which precludes assessment of interval change. No specific follow-up is recommended. Bone windows demonstrate no acute fracture. Degenerative changes within the left shoulder. THIS IS AN ELECTRONICALLY VERIFIED FINAL REPORT 01/24/2023 9:16 PM - Electronically signed by Denver Walters M.D. AG: MAGGIE Report ID: [id number] Reading Location: [place] [address] Procedure Note Denver Walters MD - 01/24/2023 EXAM DESCRIPTION: CT CHEST SCREENING WO REASON FOR STUDY: Screening CT of the chest in a current smoker with a 66 pack year smoking history. Additional history: None. TECHNIQUE: Low dose CT scan of the chest was performed without intravenous contrast using helical scanning technique. The exam extends from the lung apices through the lung bases. Automatic exposure control was used as a dose optimization technique. NOTE: This study was performed for the specific purposes of lung cancer screening and is not an alternative to diagnostic chest CT. RADIATION DOSE: CT dose index volume (CTDIvol) = 3.62 mGy COMPARISON: 06/21/2021 FINDINGS: SMOKING RELATED LUNG DISEASE: Mild emphysema. Mild peripheral ground-glass and reticulation as evidence for scarring/fibrosis. LUNG NODULES: New 2 mm anterior right upper lobe nodule (40). New 2 mm anterior right upper lobe nodule (57). Grossly stable 2 mm anterior left upper lobe nodule (67). OTHER: Mild lower lobe bronchiectasis. No consolidation. No pleural effusion or pneumothorax. No mediastinal or hilar lymphadenopathy. The heart is normal in size. Severe coronary artery calcification. The aorta is nonaneurysmal. No axillary lymphadenopathy. No chest wall mass. Images of the upper abdomen demonstrate cholecystectomy clips. Chronic left adrenal gland adenoma measuring 2.5 x 2.0 cm. This was partially included within the field of view on the prior examination which precludes assessment of interval change. No specific follow-up is recommended. Bone windows demonstrate no acute fracture. Degenerative changes within the left shoulder. THIS IS AN ELECTRONICALLY VERIFIED FINAL REPORT 01/24/2023 9:16 PM - Electronically signed by Denver Walters M.D. AG: MAGGIE Report ID: [id number] Reading Location: [id number] IMPRESSION: 1. New 2 mm right upper lobe pulmonary nodules compared to 07/21/2021 Lung-RADS v1.1 category 2: Benign appearance or behavior. Recommendation: Low dose Screening CT of chest in 12 months. Mirella Mendoza BUTTONER, LOGGING SUPERVISOR IMG CT ORDERABLES Final R esult from Last 3 Months or Most Recently Relevant to Health Maintenance Insurance * Guarantor: Mariah Sheriff Account Type Relation to Patient Date of Phone Billing Address Personal/Family Self 1955 [address] [facility] [address] [place] [address] MEDICAID [place] [employer] [place] Advance Directives * Full Code (Latest Code Status on File) Date Activated Date Inactivated Comments 10/25/2023 12:27 PM 06/15/2024 7:29 AM * Full Code Date Activated Date Inactivated Comments 05/14/2023 9:12 AM 09/26/2023 10:54 PM * Full Code Date Activated Date Inactivated Comments 03/09/2023 10:27 PM 03/12/2023 3:54 PM CPR-Full Tr eatment: FULL ARREST: Attempt Resuscitation/CPR wit intubation and mechanical ventilation. PRE-ARREST: Use entire range of life support measures to stabilize the patient. * Full Code Date Activated Date Inactivated Comments 11/08/2022 1:35 AM 11/08/2022 5:42 PM CPR-Full Treat ment: FULL ARREST: Attempt Resuscitation/CPR wit intubation and mechanical ventilation. PRE-ARREST: Use entire range of life support measures to stabilize the patient. * Full Code Date Activated Date Inactivated Comments 01/24/2022 1:43 AM 01/26/2022 2:57 PM CPR-Full Socrates atment: FULL ARREST: Attempt Resuscitation/CPR wit intubation and mechanical ventilation. PRE-ARREST: Use entire range of life support measures to stabilize the patient. Care Teams Asset Protection Agent Relationship Specialty Start Date End Date Mirella Mendoza APRN, CNP [address] [place] [address] PCP - General Family Medicine 12/25/21 Juanito Mckeon MD General Surgery 04/08/17 Damon Pollock MD #[address] [address] Consulting Physician Endocrinology 02/14/22 Serg Acosta MD #2 [place] [address] Consulting Physician Neurology 12/24/22 Brodie Drummond APRN, LOGGING SUPERVISOR [address] [place] [address] Nurse Practitioner Advanced Practice Nurse 01/21/24
--- OUTSIDE RECORDS SUMMARY | 2024-12-01 15:01 | XMS_ITS | Encounter Summary ---
Author Organization [facility] Address [address] [place] [address] Phone Care Team Providers Care Kosher Dietary Service Supervisor Name Role Phone Juanito Mckeon MD Unavailable [phone] Mirella Mendoza APRN, ADVANCE SCOUT Primary Care Provider [phone] Damon Pollock MD Unavailable Serg Acosta MD Unavailable Brodie Drummond APRN, ADVANCE SCOUT Unavailable Encounter Details Date Type Department Care Team (Late st Contact Info) Description 10/01/2022 Nursing Facility [facility] [address] [place] [address] Jonas Elliott, PAC [address] [place], [place] [id number] Social History Tobacco Use Types Packs/Day Years [...] Progress Notes * Jonas Elliott, PAC - 10/01/2022 1:32 PM CST [facility] PROGRESS NOTE Carmella Sheriff is a 67 y.o. female at [facility] for rehabilitation. Prior to coming to rehabilitation facility patient was hospitalized at [facility] from 08/25 through 09/12 after suffering a closed fracture of distal left femur that required surgical repair. Subjective: Interval History: Patient sitting comfortably in chair. Says that rash on low back is still present. Very pruritic. No acute symptoms otherwise. Followed up with Ortho at the end of last week who did not advance her weight- bearing status. Says that she had insurance cut. She is appealing and hopes to stay for more therapy. If she loses the appeal she will go stay with her daughter who works from home. Nursing staff has no concerns with the [...] REPAIR WITH MESH; Surgeon: Juanito Mckeon MD; Location:[facility]; Service: General Review of Systems: A 14 point comprehensive review of systems was negative except what is documented in interval history above. Objective: Exam: Vital Signs: B/P: 122/70 Pulse: 74 Respirations: 18 Temperature: 96.2 General: Well developed, well nourished, [...] sugars at reasonable levels last few days 10/01/22 - well controlled as of late Generalized weakness and deconditioning Receiving [facility] care and physical therapy rehabilitation 09/27 improving but still requiring a lot of assistance Rash on low back 10/01 - possibly contact dermatitis. Benadryl p.r.n.. Will schedule topical hydrocortisone cream for the next 10 days q.d.. Left distal femur fracture status post ORIF Followed by Ortho Nonweightbearing for 6 weeks at least to left lower extremity P.r.n. pain medicine 09/24 - pain well controlled 09/27 - has follow-up today. 1/2 - did not get cleared for further weight-bearing by ortho. Grade 1 diastolic congestive heart failure Ejection [...] discussed advanced care planning with this patient. Disposition: 10/01 - patient had a insurance cut. She is appealing in hopes of staying for more therapy. If she loses she will go home to live with her daughter who works from home and is home all the time and son-in-law. This note was dictated using M*Modal fluency dictation system and there may be errors in signal maintainer. Despite proof reading the note, there may be mistakes and I apologize for those. By: SERGIO Oliver, 10/01/2022 1:32 PM TESTER [employer] ER [employer] documented in this encounter Plan of Treatment Upcoming Encounters Date Type Department Care Team (Late st Contact Info) Description 12/24/2024 2:15 PM CDT Office Visit [facility] - Neurology - [place] [address] [place] [address] Serg Acosta MD [address] [place] [address] 12/28/2024 10:00 AM CDT Office Visit [facility] #2 [place] [address] Brodie Drummond APRN, ADVANCE SCOUT [address] [place] [address] 01/21/2025 10:30 AM CDT Office Visit [facility] - Endocrinology - [place] [address] [place] [address] Damon Pollock MD #[address] [phone] documented as of this encounter Visit Diagnoses Not on filedocumented in this encounter Additional Health Concerns Infection Onset Date Last Indicated Resolved Time COVID - 19 09/26/2023 09/26/2023 10/06/2023 12:1 6 AM TESTER [employer]OD [employer]ODUCTS Assessment Noted Time PHQ-9 Depression Total Score: 0 04/10/20 17 1:00 PM CDT documented as of this encounter Care Teams Kosher Dietary Service Supervisor Relationship Specialty Start Date End Date Mirella Mendoza APRN, ADVANCE SCOUT [address] [place] [address] PCP - General Family Medicine 12/25/21 Juanito Mckeon MD General Surgery 04/08/17 Damon Pollock MD #[address] [phone] Consulting Physician Endocrinology 02/14/22 Serg Acosta MD [address] [place] [address] Consulting Physician Neurology 12/24/22 Brodie Drummond APRN, ADVANCE SCOUT [address] [place] [address] Nurse Practitioner Advanced Practice Nurse 01/21/24 documented as of this encounter
--- OUTSIDE RECORDS SUMMARY | 2024-12-01 15:01 | XMS_ITS | Encounter Summary ---
Author Organization [facility] Address [address] [place] [address] Phone Care Team Providers Care Water And Gas Helper Name Role Phone Juanito Mckeon MD Unavailable [phone] Mirella Mendoza APRN, MEDICAL COMMUNICATION SPECIALIST Primary Care Provider [phone] Damon Pollock MD Unavailable Serg Acosta MD Unavailable Broide Drummond APRN, MEDICAL COMMUNICATION SPECIALIST Unavailable Encounter Details Date Type Department Care Team (Late st Contact Info) Description 09/20/2022 Nursing Facility [facility] [address] [place] [address] Jonas Elliott, PAC [address] [place], [place] [id number] Social History Tobacco Use Types Packs/Day Years [...] Coronavirus/COVID-19? No / Unsure 08/24/2022 11:15 PM CASCARA BARK CUTTER documented as of this encounter Progress Notes * Jonas Elliott, PAC - 09/20/2022 3:33 PM CST [facility] PROGRESS NOTE Carmella Sheriff is a 67 y.o. female at [facility] for rehabilitation. Prior to coming to rehabilitation facility patient was hospitalized at [facility] from 08/25 through 09/12 after suffering a closed fracture of distal left femur that required surgical repair. Subjective: Interval History: Patient sitting comfortably in chair. Denies any acute symptoms. Feels like pain is well controlled. Is upset because sometime she is having urge urinary incontinence type symptoms as it takes her a long time to get to the bathroom currently. Past Medical History Positives Diagnosis Date ??? Bipolar 1 disorder ([facility]) ??? Chronic hip pain ??? Concussion ??? COPD (chronic obstructive pulmonary disease) ([facility]) ??? CVA (cerebral vascular accident) ([facility]) ??? Diabetes mellitus ([facility]) ??? Diabetic neuropathy ([facility]) ??? Gastroesophageal reflux disease without esophagitis Family [...] REPAIR WITH MESH; Surgeon: Juanito Mckeon MD; Location:[facility]; Service: General Review of Systems: A 14 point comprehensive review of systems was negative except what is documented in interval history above. Objective: Exam: Vital Signs: B/P: 128/70 Pulse: 76 Respirations: 18 Temperature: 97.3 General: Well developed, well nourished, in no [...] increased. 09/20 - improving. Continue to monitor. Generalized weakness and deconditioning Receiving residential care and physical therapy rehabilitation Rash 09/17 - suspect drug rash. Should improve with time. Discussed conservative care and will monitor. Left distal femur fracture status post ORIF Followed by Ortho Nonweightbearing for 6 weeks at least to left lower extremity P.r.n. pain medicine Grade 1 diastolic congestive heart failure Ejection [...] this patient. This note was dictated using Fliggo fluency dictation system and there may be errors in [place]field program coordinator. Despite proof reading the note, there may be mistakes and I apologize for those. By: Jonas Elliott, PAC, 09/20/2022 3:34 PM CASCARA BARK CUTTER ARA BARK CUTTER documented in this encounter Plan of Treatment Upcoming Encounters Date Type Department Care Team (Late st Contact Info) Description 12/24/2024 2:15 PM CDT [facility] [address] [place] [address] Serg Acosta MD [address] [place] [address] 12/28/2024 10:00 AM CDT Office Visit [facility] [address] [place] [address] Brodie Drummond, CREDIT INTERVIEWER, MEDICAL COMMUNICATION SPECIALIST [address] [place] [address] 01/21/2025 10:30 AM CDT Office Visit [facility] - Endocrinology - [place] [address] [place] [phone] Damon Pollock MD #[address] [phone] documented as of this encounter Visit Diagnoses Not on filedocumented in this encounter Additional Health Concerns Infection Onset Date Last Indicated Resolved Time COVID - 19 09/26/2023 09/26/2023 10/06/2023 12:1 6 AM CASCARA BARK CUTTER Assessment Noted Time PHQ-9 Depression Total Score: 0 04/10/20 17 1:00 PM CDT documented as of this encounter Care Teams Water And Gas Helper Relationship Specialty Start Date End Date Mirella Mendoza APRN, MEDICAL COMMUNICATION SPECIALIST [address] [address] PCP - General Family Medicine 12/25/21 Juanito Mckeon MD General Surgery 04/08/17 Damon Pollock MD #[address] [phone] Consulting Physician Endocrinology 02/14/22 Serg Acosta MD [address] [place] [address] Consulting Physician Neurology 12/24/22 Brodie Drummond APRN, MEDICAL COMMUNICATION SPECIALIST [address] [place] [address] Nurse Practitioner Advanced Practice Nurse 01/21/24 documented as of this encounter
--- OUTSIDE RECORDS SUMMARY | 2024-12-01 15:01 | XMS_ITS | Encounter Summary ---
Author Organization [facility] Address [address] [place] [address] Phone Care Team Providers Care Export Clerk Name Role Phone Juanito Mckeon MD Unavailable [phone] Mirella Mendoza APRN, APPLIED BEHAVIOR SCIENCE SPECIALIST Primary Care Provider [phone] Damon Pollock MD Unavailable Serg Acosta MD Unavailable Brodie Drummond APRN, APPLIED BEHAVIOR SCIENCE SPECIALIST Unavailable Encounter Details Date Type Department Care Team (Late st Contact Info) Description 12/01/2024 Documentation Only [facility] at [facility] [address] [place] [address] Casandra Philip, PT [place] Social History Tobacco Use Types Packs/Day Years [...] as of this encounter Miscellaneous Notes * Plan of Care - Casandra Philip, PT - 12/01/2024 10:48 AM CST Entered in error RAL CAR YARD SUPERVISOR documented in this encounter Plan of Treatment Upcoming Encounters Date Type Department Care Team (Late st Contact Info) Description 12/24/2024 2:15 PM CDT Office Visit [facility] - Neurology - [place] [address] [place] [address] Serg Acosta MD [address] [place] [address] 12/28/2024 10:00 AM CDT Office Visit [facility] [address] [place] [address] Brodie Drummond APRN, APPLIED BEHAVIOR SCIENCE SPECIALIST [address] [place] [address] 01/21/2025 10:30 AM CDT Office Visit [facility] - Endocrinology - [place] [address] [place] [address] Damon Pollock MD #[address] [address] documented as of this encounter Visit Diagnoses Not on filedocumented in this encounter Additional Health Concerns Assessment Noted Time PHQ-9 Depression Total Score: 0 04/10/20 17 1:00 PM CDT documented as of this encounter Care Teams Export Clerk Relationship Specialty Start Date End Date Mirella Mendoza APRN, APPLIED BEHAVIOR SCIENCE SPECIALIST [address] [place] [address] PCP - General Family Medicine 12/25/21 Juanito Mckeon MD General Surgery 04/08/17 Damon Pollock MD #[address] [phone] Consulting Physician Endocrinology 02/14/22 Serg Acosta MD [address] [place] [phone] Consulting Physician Neurology 12/24/22 Brodie Drummond, OSTRICH FARMER, APPLIED BEHAVIOR SCIENCE SPECIALIST [address] [place] [address] Nurse Practitioner Advanced Practice Nurse 01/21/24 documented as of this encounter
--- OUTSIDE RECORDS SUMMARY | 2024-12-01 15:01 | XMS_ITS | Encounter Summary ---
Author Organization [facility] Address [address] [place] [address] Phone Care Team Providers Care Electrical And Instrumentation Manager Name Role Phone Juanito Mckeon MD Unavailable [phone] Mirella Mendoza APRN, MICA WASHER GLUER Primary Care Provider [phone] Damon Pollock MD Unavailable Serg Acosta MD Unavailable Brodie Drummond APRN, MICA WASHER GLUER Unavailable Reason for Visit * Reason Onset Date Comments Medication Management 10/16/2023 Encounter Details Date Type Department Care Team (Late st Contact Info) Description 10/16/2023 [facility] [address] [place] [address] Susie Linder, RN [place] Medication Management Social History Tobacco Use Types Packs/Day Years [...] Telephone Encounter - Susie Linder RN - 10/16/2023 3:28 PM CST Please respond to each line item below. Patient recertification to [facility] on 10/16/23 Medication review completed with Александр Miller PT on 10/16/23. Patient is not taking the following medications: 1. Norvasc 5 mg nightly. Medication discrepancies requiring clarification include: 1. Dx for xalatan gtts bilat eyes Please review potential major drug to drug interactions: Drug-Drug Drug-Drug: traMADol and venlafaxine Serotonergic effects of tramadol and serotonin/norepinephrine reuptake inhibitors (SNRIs) may be additive. The risk of serotonin syndrome/toxicity may be increased. Details Major traMADol (ULTRAM) 50 MG Tablet venlafaxine (EFFEXOR-XR) 150 MG CAPSULE SR 24 HR Drug-Drug Drug-Drug: busPIRone and traMADol, venlafaxine Additive serotonergic effects may occur during coadministration of buspirone and traMADol, venlafaxine, and the risk of developing serotonin syndrome may be increased. Details Major busPIRone (BUSPAR) 10 MG Tablet traMADol (ULTRAM) 50 MG Tablet Patient is pain, anxiety, abdominal upse Please route response to [facility] Clinical Support Triage or call [facility] [phone], option 4 for a nurse. Response is required within 24 hours to meet regulatory requirements. Thank you O AND ORGAN REFINISHER * Telephone Encounter - Susie Linder RN - 10/16/2023 3:14 PM CST Please respond to each line item below. Patient recertification to [facility] on 10/16/23 Medication review completed with Александр Miller PT on 10/16/23. Patient is not taking the following medications: 1. Norvasc 5 mg nightly. Medication discrepancies requiring clarification include: 1. Dx for xalatan gtts bilat eyes Please review potential major drug to drug interactions: Drug-Drug Drug-Drug: traMADol and venlafaxine Serotonergic effects of tramadol and serotonin/norepinephrine reuptake inhibitors (SNRIs) may be additive. The risk of serotonin syndrome/toxicity may be increased. Details Major traMADol (ULTRAM) 50 MG Tablet venlafaxine (EFFEXOR-XR) 150 MG CAPSULE SR 24 HR Drug-Drug Drug-Drug: busPIRone and traMADol, venlafaxine Additive serotonergic effects may occur during coadministration of buspirone and traMADol, venlafaxine, and the risk of developing serotonin syndrome may be increased. Details Major busPIRone (BUSPAR) 10 MG Tablet traMADol (ULTRAM) 50 MG Tablet Patient is pain, anxiety, abdominal upse Please route response to P Clinical Support Triage or call [facility] [phone], option 4 for a nurse. Response is required within 24 hours to meet regulatory requirements. Thank you O AND ORGAN REFINISHER documented in this encounter Plan of Treatment Upcoming Encounters Date Type Department Care Team (Late st Contact Info) Description 12/24/2024 2:15 PM CDT Office Visit [facility] - Neurology [facility] [address] [place] [address] Serg Acosta MD [address] [place] [address] 12/28/2024 10:00 AM CDT Office Visit [facility] #[address] [place] [phone] Brodie Drummond, CALL CENTER OPERATIONS MANAGER, MICA WASHER GLUER [address] [place], [place] [phone] 01/21/2025 10:30 AM CDT Office Visit [facility] Endocrinology [facility] #[address] [place] [address] Damon Pollock MD #[address] [phone] documented as of this encounter Visit Diagnoses Not on filedocumented in this encounter Additional Health Concerns Assessment Noted Time PHQ-9 Depression Total Score: 0 04/10/20 17 1:00 PM CDT documented as of this encounter Care Teams Electrical And Instrumentation Manager Relationship Specialty Start Date End Date Mirella Mendoza APRN, MICA WASHER GLUER [address] [facility] [address] [place] [address] PCP - General Family Medicine 12/25/21 Juanito Mckeon MD General Surgery 04/08/17 Damon Pollock MD #[address] [address] Consulting Physician Endocrinology 02/14/22 Serg Acosta MD #2 [place] [address] Consulting Physician Neurology 12/24/22 Brodie Drummond APRN, MICA WASHER GLUER [address] [place] [address] Nurse Practitioner Advanced Practice Nurse 01/21/24 documented as of this encounter
--- OUTSIDE RECORDS SUMMARY | 2024-12-01 15:01 | XMS_ITS | Encounter Summary ---
Author Organization [facility] Address [address] [place] [address] Phone Care Team Providers Care Nail Feeder Name Role Phone Juanito Mckeon MD Unavailable Mirella Mendoza APRN, VICE PRESIDENT OF CONSULTING SERVICES Primary Care Provider [phone] Damon Pollock MD Unavailable Serg Acosta MD Unavailable [phone] Brodie Drummond APRN, VICE PRESIDENT OF CONSULTING SERVICES Unavailable [phone] Encounter Details Date Type Department Care Team (Late st Contact Info) Description 09/13/2022 Nursing Facility [facility] [address] [place] [address] Jonas Elliott, PAC [address] [place], [place] [id number] Social History Tobacco Use Types Packs/Day Years [...] Coronavirus/COVID-19? No / Unsure 08/24/2022 11:15 PM VICE PRESIDENT PAYMENT documented as of this encounter Progress Notes * Jonas Elliott, PAC - 09/13/2022 3:28 PM CST [facility] PROGRESS NOTE Carmella Sheriff is a 67 y.o. female at [facility] for rehabilitation. Prior to coming to rehabilitation facility patient was hospitalized at [facility] from 08/25 through 09/12 after suffering a closed fracture of distal left femur that required surgical repair. Subjective: Interval History: Patient sitting comfortably in chair. Feels like her pain in her left leg is well controlled. She denies any acute medical symptoms. Only concern is that she wants to go outside have a cigarette. Past Medical History Positives Diagnosis Date ??? Bipolar 1 disorder (HCC) ??? Chronic hip pain ??? Concussion ??? COPD (chronic obstructive pulmonary disease) ([facility]) ??? CVA (cerebral vascular accident) ([facility]) ??? Diabetes mellitus (HCC) ??? Diabetic neuropathy ([facility]) ??? Gastroesophageal reflux disease without esophagitis Family [...] REPAIR WITH MESH; Surgeon: Juanito Mckeon MD; Location:[facility]; Service: General Review of Systems: A 14 point comprehensive review of systems was negative except what is documented in interval history above. Objective: Exam: Vital Signs: B/P: 142/78 Pulse: 76 Respirations: 18 Temperature: 97.9 General: Well developed, well nourished, in no distress pleasant, obese Skin: Normal appearance, normal turgor, no rashes 12/15 - dressing over lateral aspect distal left thigh. Stitches over medial distal left thigh. HEENT: Normocephalic, atraumatic, no flaring Eyes: nonicteric, [...] None Assessment/Plan: Generalized weakness and deconditioning Receiving [facility] care and physical therapy rehabilitation Left distal femur fracture status post ORIF Followed by Ortho Nonweightbearing for 6 weeks at least to left lower extremity P.r.n. pain medicine COPD Continue inhalers and neb treatments Well controlled Diabetes mellitus type 2 Continue sliding scale Humalog and Lantus Monitor Accu-Cheks Well controlled Grade 1 diastolic congestive heart failure Ejection fraction of 65% on echo from 01/01/2022 Continue furosemide and Jardiance and potassium supplementation Stable, well controlled Previous CVA Continue aspirin Bipolar depression [...] this patient. This note was dictated using [employer] fluency dictation system and there may be errors in oyster fisherman. Despite proof reading the note, there may be mistakes and I apologize for those. By: Jonas Elliott, PAC, 09/13/2022 3:28 PM VICE PRESIDENT PAYMENT PRESIDENT PAYMENT documented in this encounter Plan of Treatment Upcoming Encounters Date Type Department Care Team (Late st Contact Info) Description 12/24/2024 2:15 PM CDT Office Visit [facility] - Neurology - [place] [address] [place] [phone] Serg Acosta MD [address] [place] [address] 12/28/2024 10:00 AM CDT Office Visit [facility] [address] [place] [phone] Brodie Drummond, RETAIL WAREHOUSE ASSOCIATE, VICE PRESIDENT OF CONSULTING SERVICES [address] [place] [address] 01/21/2025 10:30 AM CDT Office Visit [facility] - Endocrinology [facility] [address] [place] [phone] Damon Pollock MD [address] [place] [address] documented as of this encounter Visit Diagnoses Not on filedocumented in this encounter Additional Health Concerns Infection Onset Date Last Indicated Resolved Time COVID - 19 09/26/2023 09/26/2023 10/06/2023 12:1 6 AM VICE PRESIDENT PAYMENT Assessment Noted Time PHQ-9 Depression Total Score: 0 04/10/20 17 1:00 PM CDT documented as of this encounter Care Teams Nail Feeder Relationship Specialty Start Date End Date Mirella Mendoza APRN, VICE PRESIDENT OF CONSULTING SERVICES [address] [place], [place] [id number] PCP - General Family Medicine 12/25/21 Juanito Mckeon MD General Surgery 04/08/17 Damon Pollock MD [address] [facility] [address] [place] [address] Consulting Physician Endocrinology 02/14/22 Serg Acosta MD [address] [place] [address] Consulting Physician Neurology 12/24/22 Brodie Drummond APRN, VICE PRESIDENT OF CONSULTING SERVICES [address] [place] [address] Nurse Practitioner Advanced Practice Nurse 01/21/24 documented as of this encounter
--- OUTSIDE RECORDS SUMMARY | 2024-12-01 15:01 | XMS_ITS ---
Author Organization [facility] Address Unknown Allergies, Adverse Reactions, Alerts Substance Reaction Status Noted Date Resolved Date ether active 09/12/2022 chlordiazePOXIDE active 09/12/2022 Anesthesia active 01/26/2022 Problems Problem Status Start Date End Date UNSPECIFIED FRACTURE OF LOWE R END OF LEFT FEMUR, SUBSEQUENT ENCOUNTER FOR CLOSED FRACTURE WITH ROUTINE HEALING (Primary) (S72.402D - ICD-10-CM) ACTIVE 09/12/2022 METABOLIC ENCEPHALOPATHY (Pr imary) (G93.41 - ICD-10-CM) RESOLVED 01/26/2022 08/30/2022 ENCOUNTER FOR OTHER ORTHOPED IC AFTERCARE (Z47.89 - ICD-10-CM) ACTIVE 09/12/2022 INFLUENZA DUE TO OTHER IDENT IFIED INFLUENZA VIRUS WITH OTHER RESPIRATORY MANIFESTATIONS (J10.1 - ICD-10-CM) RESOLVED 022 08/30/2022 CHRONIC OBSTRUCTIVE PULMONAR Y DISEASE, UNSPECIFIED (J44.9 - ICD-10-CM) ACTIVE 01/26/2022 TYPE 2 DIABETES MELLITUS WIT H DIABETIC POLYNEUROPATHY (E11.42 - ICD-10-CM) ACTIVE 01/26/2022 TYPE 2 DIABETES MELLITUS WIT H HYPERGLYCEMIA (E11.65 - ICD-10-CM) RESOLVED 01/26/2022 08/30/2022 SIMPLE CHRONIC BRONCHITIS (J41.0 - ICD-10-CM) ACTIVE 09/12/2022 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 (M99.04 - ICD-10-CM) RESOLVED 01/26/2022 08/30/2022 MUSCLE WEAKNESS (GENERALIZED) (M62.81 - ICD-10-CM) RES OLVED 01/26/2022 08/30/2022 NEED FOR ASSISTANCE WITH PER FAWN CARE (Z74.1 - ICD-10-CM) ACTIVE 09/12/2022 DIFFICULTY IN WALKING, NOT E LSEWHERE CLASSIFIED (R26.2 - ICD-10-CM) ACTIVE 09/12/2022 PERSONAL HISTORY OF TRANSIEN T ISCHEMIC ATTACK (TIA), AND CEREBRAL INFARCTION WITHOUT RESIDUAL DEFICITS (Z86.73 - ICD-10-CM) ACTIVE 09/12/2022 ESSENTIAL (PRIMARY) HYPERTENSION (I10 - ICD-10-CM) ACT REY 09/12/2022 RETENTION OF URINE, UNSPECIFIED (R33.9 - ICD-10-CM) AC TIVE 09/12/2022 BIPOLAR DISORDER, UNSPECIFIED (F31.9 - ICD-10-CM) ACTI VE 01/26/2022 PAIN IN UNSPECIFIED HIP (M25.559 - ICD-10-CM) ACTIVE 01/26/2022 OTHER CHRONIC PAIN (G89.29 - ICD-10-CM) ACTIVE 0 01/26/2022 GASTRO-ESOPHAGEAL REFLUX DIS EASE WITHOUT ESOPHAGITIS (K21.9 - ICD-10-CM) ACTIVE 01/26/2022 Results * UTO-PATIENT DISCHARGED Performed by: [place] [address] [address] [facility] [address] Component Value Range Date TEST NAME CMP,CBC 01/31/2022 10:2 8 am EDT PATIENT DISCHARGED * 10:28 am EDT Encounters Encounter Performer Performer Role Encounter Diagnoses Location Date Discharge - Discharged to home or self care - Home - Private home/apt. with no home health services [facility] 01/26/2022 02:54 pm EDT - 01/29/2022 01:15 pm EDT Discharge - Discharged to home or self care - Other - Private home/apt. with home health services [facility] 09/12/2022 01:41 pm EST - 10/02/2022 12:30 pm EST Immunizations Vaccine Date TB 1 Step Mantoux (PPD) 09/12/2022 09:00 pm EST Pneumovax (PCV 13)(74517) 01/30/2019 01: 00 am EDT Pneumovax (PPSV23)(48139) 07/20/2018 01: 00 am EDT Flucelvax (Influenza vaccine) SARS-COV-2 Bivalent Booster- Pfizer Social History
--- OUTSIDE RECORDS SUMMARY | 2024-12-01 15:01 | XMS_ITS | Clinical Summary ---
Author Organization [facility] Address [address] [place] [address] Care Team Providers Care Pump Runner Name Role Phone Mirella Mendoza NP Primary Care Provider Allergies Active Allergy Reactions Criticality Noted Date [...] 1 tablet (150 mg total) by mouth roll clamp operator before breakfast 5 Active ondansetron ODT (ZOFRAN-ODT) [...] total) by mouth daily 1 Active omega 3-rkn-qio-fish oil (Fish OiL) 100-160-1,000 mg capsule Active [...] time. 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 Continue speech therapy exercises 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 Assessment & Plan (09/19/2021 3:01 PM FASHION MODEL): Pepcid 40 mg at bedtime Augmentin with a meal twice daily for 21 days Diflucan if needed Follow up in 3 months, earlier if needed, if 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, 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 Continue speech therapy exercises 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 Assessment & Plan (04/17/2022 1:55 PM CDT): Improved Continue working on smoking cessation Assessment & Plan (09/19/2021 3:01 PM FASHION MODEL): Pepcid 40 mg at bedtime Augmentin with a meal twice daily for 21 days Diflucan if needed Follow up in 3 months, earlier if needed, 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 Encounters Date Type Department Care Team Description 11/25/2024 2:00 PM FASHION MODEL Therapy [facility] Occupational Therapy [address] [place] [address] Wei Blacn OT History of falling 11/11/2024 Telephone [facility] G[facility] at [address] [place] [address] Aries Rivers MA 11/09/2024 Telephone [facility] at [address] [place] [address] Aries Rivers MA 11/09/[address] [facility] Gastroenterology [address] [facility] 12th [place] [address] [place] [address] Luna High RN GI Preprocedure 11/02/2024 7:25 AM FASHION MODEL - 11/02/2024 11:59 PM FASHION MODEL Hospital [facility] [address] [place] [address] Pancreatic insufficiency; Chronic diarrhea; Family history of pancreatic cancer Discharge Disposition: Discharge to home or self care 09/28/2024 Telephone [facility] G[facility]enterology at [address] [place] [address] Galilea Chan from Last 3 Months Immunizations Immunization Administration Dates Next Due Flucelvax Influenza Quad 07/24/2017 Influenza, Quadrivalent, Spl it, Intramuscular 08/29/2020,09/01/2019,08/09/2017,06/11 Influenza, Quadrivalent, Spl it, Preservative Free, Intramuscular 07/20/2018 Influenza, Trivalent, IM (MDV) 08/25/2015,2013 Influenza, Trivalent, Preser vative Free, Intramuscular 06/10/2016 Pneumococcal Conjugate PCV 13 01/30/2019, 017 Pneumococcal Polysaccharide PPV23 09/01/2019, Surgical History Surgery Date Site/Laterality Comments CHOLECYSTECTOMY COLONOSCOPY 06/30/2014 - 07/30/2014 FEMUR FRACTURE SURGERY Right ELBOW SURGERY Right FEMUR FRACTURE SURGERY Left FOOT SURGERY Right Medical History Medical History Date Comments Type 2 diabetes mellitus (HCC) Bipolar disorder (HCC) Stroke (HCC) Depression Peripheral neuropathy PONV (postoperative nausea and vomiting) Colon polyp GERD (gastroesophageal reflux disease) Cholelithiasis Hypertension COPD (chronic obstructive pulmonary disease) ([facility] C) Family History Medical History Relation Name Comments Diabetes Brother Hypertension Brother Mental illness Brother Cancer Father Diabetes Father Hypertension Father Mental illness Father Stroke Father Diabetes Mother Hypertension Mother Pancreatic cancer Mother Stroke Mother Diabetes Sister Hypertension Sister Relation Name Status Comments Brother Father Mother Sister Social History Tobacco Use Types Packs/Day Years [...] on file Legal Sex Female 12:00 PM FASHION MODEL Gender Identity Not on file Sexual Orientation Not on file Obstetrics History Last Filed Vital Signs Vital Sign Reading Time Taken Comments Blood Pressure 175/89 04/28/2024 11:26 AM CDT Pulse 83 04/28/2024 11:26 AM CDT Temperature 36.1 C (97 F) 10/17/2023 1:25 PM FASHION MODEL Respiratory Rate 18 10/29/2023 8:15 AM FASHION MODEL Oxygen Saturation 96% 04/28/2024 11: 26 AM CDT Inhaled Oxygen Concentration - - Weight 60.2 kg (132 lb 12.8 oz) 024 11:26 AM CDT Height 167.6 cm (5' 6 ) 04/28/2024 11:2 6 AM CDT Body Mass Index 21.43 04/28/2024 11:26 AM CDT Plan of Treatment Upcoming Encounters Date Type Department Care Team (Latest Contact Info) Description 12/08/2024 1:30 PM CDT Hospital Encounter [facility] [address] [address] Anali Antony MD [address] [address] IPMN (intraductal papillary mucinous neoplasm) 12/08/2024 1:30 PM CDT - 12/08/2024 2:30 PM CDT Surgery [facility] [address] [address] Anali Antony MD [address] [address] EUS [[id number]] 12/17/2024 11:30 AM CDT Hospital Encounter [facility] [address] [place] [address] Luisa Schwab MD [address] [place] [address] [place] [address] 12/17/2024 11:30 AM CDT - 12/17/2024 12:00 PM CDT Surgery [facility] [address] [place] [address] Luisa Schwab MD [address] [place] [address] COLONOSCOPY Scheduled Procedures Name Priority Associated Diagnoses Date/Ti me COLONOSCOPY Encounter for screening colonoscopy History of colonic polyps 12/17/2024 11:30 AM CDT Health Maintenance Due Date Last Done Comments Depression Screening 1955 Hepatitis C Screening 1955 Hepatitis B Screening 1974 Zoster Vaccine (1 of 2) 2006 Well Visit 65+ 2021 Influenza Vaccine (#1) 2024 , 11/08/2022, 07/06/2021, Additional history exists Pneumococcal vaccine 65+ (3 of 3 - PCV20 or PCV21) 09/01/2024 09/01/2019, 01/30/2019, 07/20/2018, Additional history exists Fall Risk Assessment 10/17/2024 10/17/2023 Osteoporosis Screening-Bone Density Scan 05/01/2025 05/01/2023, 05/01/2023 Breast Cancer Screening-Mammogram 06/19/2025 06/19/2024, 06/19/2024, 06/20/2022, Additional history exists Colon Cancer Screening-Colonoscopy 10/21/2029 10/21/2019 DTaP/Tdap/Td Vaccine (2 - Td or Tdap) 07/16/2034 07/16/2024 Colon Cancer Screening-CT Colonography Discontinued 10/21/2019 Colon Cancer Screening-DNA Stool Discontinued 10/21/19 Colon Cancer Screening-FIT Discontinued 10/21/2019 Colon Cancer Screening-Sigmoidoscopy Discontinued 10/21/2019 Procedures Procedure Name Priority Date/Time Associated Diagnosis Comments MRI ABDOMEN PANCREAS W WO CONTRAST Schedule Routine, Read Routine (OP Routine) 11/02/2024 8:18 AM FASHION MODEL Pancreatic insufficiency Chronic diarrhea Family history of pancreatic cancer COLONOSCOPY 10/21/2019 1:55 PM FASHION MODEL from Last 3 Months or Most Recently Relevant to Health Maintenance Results * MRI Abdomen Pancreas W WO Contrast (11/02/2024 8:18 AM FASHION MODEL) Anatomical Region Laterality Modality Body N/A Magnetic Resonan ce 11/02/2024 1:53 PM FASHION MODEL Narrative 11/02/2024 2:14 PM FASHION MODEL EXAM DESCRIPTION: MRI ABDOMEN PANCREAS W WO [...] Jasper Akins D.O. PS: PS Report ID: [id number] Reading Location: [id number] Procedure Note Jasper Akins DO - 11/02/2024 EXAM DESCRIPTION: MRI ABDOMEN [...] Jasper Akins D.O. PS: PS Report ID: [id number] Reading Location: [place] [address] Luisa Schwab MD IM MRI PROCEDURES Final Result * COLONOSCOPY (10/21/2019 1:55 PM FASHION MODEL) Anatomical Region Laterality Modality Other Narrative Procedure Note Oliver Daniel MD - 10/21/2019 1:55 PM CST [facility] Patient Name: Carmella Sheriff Procedure Date: 10/21/2019 1:55 PM Date of : 1955 Admit Type: Outpatient Age: 64 Gender: Female Attending MD: Oliver Daniel M.D. Room: [facility] 1 Note Status: Finalized Patient [...] passed under direct vision.The Pediatric Colonoscope [id number]-H190L [id number] was introduced through the anus and advanced [...] 1:55 PM Procedure Code(s): --- Professional --- 73054, Colonoscopy, flexible; with removal of tumor(s), polyp(s), or other lesion(s) by snare technique Diagnosis Code(s): --- Professional --- Z86.010, Personal history of colonic polyps K64.8, Other hemorrhoids K62.1, Rectal polyp K57.30, Diverticulosis of large intestine without perforation orabscess without bleeding CPT copyright 2017 [employer]. All rights reserved. The codes documented in this report are preliminary and upon nuclear medicine pet ct technologist reviewmay be revised to meet current compliance requirements. Recognized by the [employer] for promoting quality in endoscopy Oliver Daniel MD ENDOSCOPY PROCEDURES Final Result from Last 3 Months or Most Recently Relevant to Health Maintenance Insurance [place] [address] * Guarantor: Carmella Sheriff Account Type Relation to Patient Date of Phone Billing Address Personal/Family Self [address] [place] [address] MEDICARE [employer] [facility] MEDICARE Address: [address] [address] [place] [address] [employer] Advance Directives For more information, please contact: [phone] * Full Code (Latest Code Status on File) Date Activated Date Inactivated Comments 10/17/2023 12:28 PM 10/17/2023 6:39 PM * Full Code Date Activated Date Inactivated Comments 10/21/2019 12:48 PM 10/21/2019 7:19 PM * Full Code Date Activated Date Inactivated Comments 10/21/2019 12:47 PM 10/21/2019 12:48 PM Care Teams Pump Runner Relationship Specialty Start Date End Date Mirella Mendoza NP [address] [place] [id number] PCP - General Nurse Practitioner 09/19/21
--- OUTSIDE RECORDS SUMMARY | 2024-12-01 15:01 | XMS_ITS | Encounter Summary ---
Author Organization [facility] Address [address] [place] [address] Phone Care Team Providers Care Integration Solution Architect Name Role Phone Juanito Mckeon MD Unavailable [phone] Mirella Damon APRN, PRINTING MECHANIST Primary Care Provider [phone] Damon Pollock MD Unavailable Serg Acosta MD Unavailable Brodie Drummond APRN, PRINTING MECHANIST Unavailable Encounter Details Date Type Department Care Team (Late st Contact Info) Description 09/14/2022 Nursing Facility [facility] [address] [place] [address] Alethea Tirado MD [address] [place] [address] Social History Tobacco Use Types Packs/Day Years [...] Coronavirus/COVID-19? No / Unsure 08/24/2022 11:15 PM SQUADRON WORKER documented as of this encounter H&P Notes * Lisa Morgan - 09/14/2022 2:58 PM CST . [facility] History and Physical Chief Complaint: Fall, left femur fracture s/p surgical repair HPI: Carmella Sheriff is a 67 y.o. female who has transferred to [facility] from [facility] for post-acute care and rehabilitation. The patient was admitted to the hospital from 08/25 to 09/12 after falling and suffering a closed fracture of her distal left femur that required ORIF. At the time of this assessment, the patient was not in any acute distress but still has some pain in her LLE. She stated that she typically lives alone but is considering living with her daughter once she is discharged so that she can help take care of grandchildren. Allergies: is allergic to anesthetic ether [ether]. Past Medical History: She has a past medical history of Bipolar 1 disorder ([facility]), Chronic hip pain,Concussion, COPD (chronic obstructive pulmonary disease) ([facility]), CVA (cerebral vascular accident) ([facility]), Diabetes mellitus ([facility]), Diabetic neuropathy ([facility]), and Gastroesophageal reflux disease without esophagitis. Surgical History: has a past surgical history that includes Ankle Surgery; Elbow Surgery; Gallbladder Surgery; and Umbilical Hernia Repair (N/A, 04/18/2017). Social History: reports that she has been smoking cigarettes. She started smoking about 47 years ago. She has a 60.00 pack-year smoking history. She has never used smokeless tobacco. She reports current alcohol use. She reports current drug use. Drug: Marijuana. Family History: family history includes Alzheimer's Disease in her father; Diabetes in her brother and mother; Hypertension in her brother, brother, and mother; Parkinsonism in her father. Review of Systems: All systems reviewed and are negative except what is mentioned in HPI. Physical Exam: Vital Signs: All vitals were reviewed in the facility EMR and are stable. Exam: General: Well developed, well nourished, in no distress Skin: Normal appearance, normal turgor, no rashes HEENT: Normocephalic, atraumatic, no flaring, edentulous Eyes: nonicteric, intact extra occular movement, PERRL, s/p L cataract extraction, R cataract (operation scheduled) Neck: normal, supple, no lymphadenopathy Heart: regular rate and rhythm, S1, S2 normal, no murmur, click, rub or gallop Lungs: normal respirations, normal precautions, coarse breath sounds Abdominal: soft, non-tender; bowel sounds normal; no masses, no organomegaly : external genitalia normal in appearance Extremities: no deformities, joint mobility appears intact, no clubbing, decreased ROM LLE s/p ORIF, stitches and wound dressing in place over left thigh Musculoskeletal: kyphoscoliosis Neuro: Non-focal, CN intact, sensory and motor intact Psychological: alert and oriented X3, anxious affect, Intact judgement and memory Data Review: Lab Results: Lab Results Component Value Date WBC 17.49 (H) 08/25/2022 HEMOGLOBIN 14.4 08/25/2022 HEMATOCRIT 43.0 08/25/2022 PLATELETCNT 308 08/25/2022 MCV 91.7 08/25/2022 Lab Results Component Value Date SODIUM 134 (L) 08/25/2022 POTASSIUM 4.0 08/25/2022 CHLORIDE 97 (L) 08/25/2022 CO2VEN 26 08/25/2022 GLUCOSE 345 (H) 08/25/2022 ANIONGAP 15.0 08/25/2022 BUN 22 08/25/2022 CREATININE 1.06 08/25/2022 CALCIUM 9.5 08/25/2022 Lab Results Component Value Date INR 1.0 08/25/2022 PTP 13.5 08/25/2022 Assessment/Plan: 1. Fall and left distal femur fracture s/p ORIF. The patient is to receive PT and OT at the SNF to improve strength, balance, and mobility back to baseline. She is nonweightbearing on her LLE for thenext 6 weeks and is to follow-up with Ortho. Continue pain management with PRN oxycodone. 2. COPD with extensive smoking history. No acute respiratory distress. Continue inhalers and nebulizer treatments. 3. Tobacco use. The patient has been strongly encouraged to stop smoking and has been educated on the health risks. She did not express any interest in quitting but did agree to try to reduce the amount she smokes from 1 ppd to 1/2 ppd. 4. Diabetes mellitus type 2. Well-controlled. Continue sliding scale Humalog and Lantus. Check blood glucose regularly. Monitor A1c periodically. 5. Obesity. The patient has been encouraged to lose weight through healthier diet and exercise. 6. Grade 1 diastolic CHF. No exacerbation. EF of 65% on Echo from 01/01/2022. Continue furosemide, Jardiance, and potassium supplementation. 7. Hx of CVA. No lasting neurological deficits. Continue aspirin. 8. Bipolar depression. Mood currently stable. Continue Effexor and risperidone. 9. Incidental adrenal nodule. Noted on CT scan on 08/26. 2.7 cm left adrenal nodule which was felt to be most likely due to adenoma. Follow-up as outpatient. 10. GERD. No acute symptoms. Continue PPI therapy with omeprazole. VTE Prophylaxis: The patient is on prophylactic Eliquis until 09/28 Advance Care Planning: Aggregate [id number]-[id number] time, greater than 16 minutes was spent discussing end-of-life care planning with patient/family and/or Power of Software Support Analyst. Discussed CPR, Intubation, treatment goals, and Quality of life/Intensity of care. Patient desires No CPR-Comfort focused treatment Lisa Cherry, acting as a scribe, am personally taking down the notes in the presence of Dr. Alethea Tirado M.D. Take no action on this note until reviewed and authenticated by the physician. By: LISA MORGAN, 09/14/2022, 2:58 PM SQUADRON WORKER Primary Care Physician: MIRELLA DAMON APRN, PRINTING MECHANIST Cosigned by Alethea Tirado MD at 09/18/2022 5:25 PM SQUADRON WORKER DRON WORKER DRON WORKER Associated attestation - Alethea Tirado MD - 09/18/2022 5:25 PM SQUADRON WORKER I evaluated and examined the patient in the presence of sebastienibvenecia Morgan and discussed the physical findings and clinical assessment with her and reviewed the medical records and notes above and agree with the content and details of the note. documented in this encounter Plan of Treatment Upcoming Encounters Date Type Department Care Team (Late st Contact Info) Description 12/24/2024 2:15 PM CDT Office Visit [facility] - Neurology - [place] [address] [place] [address] Serg Acosta MD [address] [place] [address] 12/28/2024 10:00 AM CDT Office Visit [facility] [address] [place] [address] Brodie Drummond APRN, PRINTING MECHANIST [address] [place] [address] 01/21/2025 10:30 AM CDT Office Visit [facility] - Endocrinology [facility] [address] [place] [address] Damon Pollock MD [address] [address] documented as of this encounter Visit Diagnoses Not on filedocumented in this encounter Additional Health Concerns Infection Onset Date Last Indicated Resolved Time COVID - 19 09/26/2023 09/26/2023 10/06/2023 12:1 6 AM SQUADRON WORKER Assessment Noted Time PHQ-9 Depression Total Score: 0 04/10/20 17 1:00 PM CDT documented as of this encounter Care Teams Integration Solution Architect Relationship Specialty Start Date End Date Mirella Damon APRN, PRINTING MECHANIST [address] [place] [address] PCP - General Family Medicine 12/25/21 Juanito Mckeon MD General Surgery 04/08/17 Damon Pollock MD [address] [address] Consulting Physician Endocrinology 02/14/22 Serg Acosta MD [address] [place] [address] Consulting Physician Neurology 12/24/22 Brodie Drummond APRN, PRINTING MECHANIST [address] [place] [address] Nurse Practitioner Advanced Practice Nurse 01/21/24 documented as of this encounter
--- OUTSIDE RECORDS SUMMARY | 2024-12-01 15:01 | XMS_ITS | Clinical Summary ---
Author Organization [facility] Address [address] [place] [address] Phone Care Team Providers Care Cartoon Designer Name Role Phone Unavailable Unavailable Unavailable Reason for Visit and Chief Complaint GENERAL OFFICE VISIT Plan of Treatment No Plan of Treatment Recorded Assessments Includes: Assessments from this encounter No Assessments Recorded Medical Equipment - Implanted Devices Includes: Current Devices No Medical Equipment Recorded Medications Administered Includes: Administered Medications from this encounter No Administered Medications Recorded Results Includes: Results discussed during this encounter No Results Recorded For Specified Dates History of Present Illness Includes: History of Present Illness from this encounter No History of Present Illness Recorded Social History No Social History Recorded - Smoking Status Unknown Medical History Includes: Medical History addressed during this encounter No Medical History Recorded Family History Includes: Family History addressed during this encounter No Family History Recorded Review of Systems Includes: Review of Systems from this encounter No Review of Systems Recorded Mental Status Includes: Mental Status from this encounter No Mental Status Recorded Functional Status Includes: Functional Status from this encounter No Functional Status Recorded Physical Exam Includes: Physical Exam from this encounter No Physical Exam Recorded Clinical Notes Includes: Clinical Notes from this encounter No Clinical Notes Recorded
--- OUTSIDE RECORDS SUMMARY | 2024-12-01 15:06 | XMS_ITS | Clinical Summary ---
Author Organization [facility] Address [address] [place] [address] Phone Care Team Providers Care Fourdrinier Wire Weaver Name Role Phone Unavailable Unavailable Unavailable Reason [...]
--- OUTSIDE RECORDS SUMMARY | 2024-12-01 15:06 | XMS_ITS ---
Author Organization [facility] Address [address] [place] [address] Phone Care Team Providers Care Game Manager Name Role Phone Unavailable Unavailable Unavailable Plan [...]
--- NOTE | 2024-12-01 15:08 | ED.URI ---
HPI - URI/Sore Throat General Chief Complaint: Upper Respiratory Infection Stated Complaint: cough and head congestion Time Seen by Provider: 12/01/24 14:50 Source: patient, RN notes reviewed and old records reviewed Mode of arrival: ambulatory (with walker) Limitations: no limitations History of Present Illness HPI Narrative: 69 year old female who presents to [facility] care with complaints of 5 day history of cough, headache, hard to breath and can't sleep. Patient reports that she has been using her inhaler and has been taking Mucinex for her symptoms. Patient denies any known fevers chills or body aches. Patient reports that she is still smoking cigarettes daily usually about a pack daily and does have history of COPD. Patient is able to talk in full sentences with no acute distress noted. Patient reports that she is coughing up some white mucous at times. MD elicited complaint: cough Pertinent past history: COPD and other (tobacco abuse) Onset (ago): day(s) (5) Severity: moderate Able to tolerate fluids by mouth: Yes Treatments prior to arrival: other (Mucinex and inhaler) Related Data Home Medications ?Medication ?Instructions ?Recorded ?Confirmed ?Last Taken ?Type buspirone 10 mg tablet 10 mg PO BID 02/06/20 05/26/20 Unknown History divalproex 500 mg tablet,delayed 500 mg PO TID 02/06/20 05/26/20 Unknown History release insulin detemir U-100 100 unit/mL 25 unit subcut DAILY 02/06/20 05/26/20 Unknown History subcutaneous solution (Levemir U-100 Insulin) insulin lispro 100 unit/mL 10 unit subcut TID 02/06/20 05/26/20 Unknown History subcutaneous pen (Humalog KwikPen (U-100) Insulin) metformin 500 mg tablet 500 mg PO BID 02/06/20 05/26/20 Unknown History risperidone 1 mg tablet 1 mg PO DAILY 02/06/20 05/26/20 Unknown History venlafaxine 150 mg 150 mg PO DAILY 02/06/20 05/26/20 Unknown History capsule,extended release 24 hr glimepiride 1 mg tablet mg 12/01/24 Unknown History mirabegron 50 mg tablet,extended mg PO 12/01/24 Unknown History release 24 hr (Myrbetriq) Allergies Allergy/AdvReac Type Severity Reaction Status Date / Time No Known Allergies Allergy Verified 05/26/20 11:32 Review of Systems Review of Systems: CONSTITUTIONAL: Reports some malaise, no chills, sweats, or fever. EYES: Denies visual changes, redness, or discharge. ENT: Reports rhinorrhea, congestion,no sinus pain, no otalgia and no sore throat. CARDIOVASCULAR: Denies chest pain, palpitations, or edema. RESPIRATORY: Reports positive for cough.?Reports dyspnea with exertion. GASTROINTESTINAL: Denies abdominal pain, nausea, vomiting, diarrhea SKIN: Denies rash or itching. MUSCULOSKELETAL: Denies myalgia. NEUROLOGIC: Reports headache. All systems reviewed & are unremarkable except as noted in HPI and below PMFSH Past Medical History Medical History (Updated 12/04/24 @ 08:57 by Jacinda Krishnamurthy NP) Femur fracture, left COPD (chronic obstructive pulmonary disease) Bipolar depression Diabetes mellitus, type II Heel spur Peripheral neuropathy TIA (transient ischemic attack) Surgical History Surgical History (Updated 05/26/20 @ 11:55 by GIOVANNI Zamorano) Hx of inguinal hernia repair Hx of cholecystectomy Family History Family History (Updated 05/26/20 @ 11:56 by GIOVANNI Zamorano) Other Diabetes mellitus Heart disease Hypertension Pancreatic cancer metastasized to intra-abdominal lymph node Social History Social History (Updated 12/04/24 @ 08:58 by Jacinda Krishnamurthy NP) Smoking packs per day: 1 Smoking cigarettes per day: 20.0 Years smoked: 44 Smoking pack-years: 44.00 Smoking status: Current every day smoker Tobacco type: cigarettes Alcohol intake: current Substance use: current Substance use type: marijuana Occupation/Education: other Additional occupation/education comments: Disable Gender identity (if verbalized by the patient): Female Comments At time of signature, agree with nursing past medical, surgical, social and family history. There is no relevant family history pertinent to the presenting complaint Exam Narrative: GENERAL:Chronic ill-appearing, looks older that stated age,well-nourished, and in no acute distress. HEAD: Normocephalic EYES: PERRLA, conjunctivae clear ENT: Nares clear, turbinates edematous and erythematous, clear discharge. Mucous membranes moist. TM pearly gomez with dull light reflex bilaterally; no tragal tenderness. Oropharynx erythematous without lesions. Tonsils not enlarged and without exudate, no drooling, no hoarseness, no trismus, uvula midline.post nasal drainage present NECK: Supple. No lymphadenopathy CHEST: Coarse breath sounds on auscultation, breath sounds equal. No wheezing, rhonchi, rales, or stridor. No respiratory distress, speaks in full sentences.cough productive at times, SAO2 96% on room air HEART: Regular rate and rhythm. No murmur heard. SKIN: Warm, dry, no rash. NEURO: Alert and oriented x3. PSYCH: Normal mood and affect Course Course Emergency Course: Patient is aware of diagnosis, understands and agrees to treatment plan.? Anticipatory guidance given.? Patient agrees to follow-up as directed and is aware of reasons to seek care at the emergency department. Portions of this record may have been created with voice recognition software Level of Care: Express Care Visit Vital Signs Vital signs: Vital Signs Temperature 36.2 C L 12/01/24 13:22 Pulse Rate 85 12/01/24 13:22 Respiratory Rate 24 H 12/01/24 13:22 Blood Pressure 149/70 H 12/01/24 13:22 Pulse Oximetry 96 12/01/24 13:22 Oxygen Delivery Room Air 12/01/24 13:22 Temperature 36.2 C L 12/01/24 13:22 Pulse Rate 85 12/01/24 13:22 Respiratory Rate 24 H 12/01/24 13:22 Blood Pressure 149/70 H 12/01/24 13:22 Pulse Oximetry 96 12/01/24 13:22 Oxygen Delivery Room Air 12/01/24 13:22 Reviewed MDM - URI/Sore Throat MDM Narrative Medical decision making narrative: Differential diagnosis considered: Knight virus, strep pharyngitis, allergic rhinitis, upper respiratory tract infection, sinusitis, rhinosinusitis, nasopharyngitis. viral pharyngitis, otitis media, otitis externa, pneumonia, bronchitis, viral cough syndrome, viral syndrome, and influenza.? Exam findings show no acute concerns or changes; patient is non-toxic appearing and is in no distress.? Patient is appropriate for outpatient treatment and follow-up. Differential Diagnosis Differential diagnosis: Likely upper respiratory infection, viral infection, bronchitis and other (exacerbation of COPD) Medical Records Attestation: I reviewed the patient's medical records. Lab Data Attestation: I reviewed the patient's lab results. Imaging Data My impression: No acute cardiopulmonary findings Radiologist's impression: [facility] [address] [place] [address] XRay Report Signed Patient: Carmella Sheriff : 1955 MR#: [id number] Age: 69 Acct:[id number] Loc: [facility] ADM Date: 12/01/24Attending Dr: Ordering Physician: Jacinda Krishnamurthy APRN Date of Service: 12/01/24 Procedure(s): XR chest 2V Accession Number(s): [id number] cc: DAMON,MIRELLA ALONZO; Jacinda Krishnamurthy APRN~ XR chest 2V Ordering provider: Jacinda Krishnamurthy NP History: 69 years Female with . cough congestion . Comparison: None. FINDINGS: MEDIASTINUM: The cardiac silhouette is not enlarged. LUNGS: No infiltrates, effusions or pneumothorax. OTHER: No free air under the diaphragm. Degenerative changes of the spine with dextroscoliosis. IMPRESSION: No acute cardiopulmonary pathology. Reviewed, dictated and finalized at location [facility]. [facility] Please be advised this is a medical document. It is intended for [id number] communication. It is written in medical language and may contain unfamiliar abbreviations or verbiage. Medical documents are intended to carry relevant information, facts as evident, and the clinical opinion of the practitioner at the time of the encounter. This report may have been done utilizing a voice recognition system. Attempts have been made to correct errors. However, there may be uncorrected grammatical, spelling, and recognition errors present. The file time of this note does not necessarily represent the time of service. Dictated By: Daljit Bejarano MD 12/01/24 1453 Signed By: <Electronically signed by Daljit Bejarano MD in OV> Critical Care Time Critical Care Time Critical Care Time: No Discharge Plan Discharge Clinical Impression: COPD with exacerbation Patient Disposition: Home, Self-Care Condition: Stable Instructions: Emphysema (ED) Additional Instructions: Increase fluids especially juices and water [id number]-[id number] cough and cold medicine of your choice for your symptoms Tylenol or Ibuprofen Continue your inhaler/nebulizer as directed Steroids as directed--take with food heat to the face 20-30 minutes 4-6 times a day for pain Salt water gargles, throat lozenges or throat sprays as desired If your symptoms persist, change or worsen significantly before you can contact your personal physician then please, without delay, go to the emergency department for further evaluation. Follow-up with PCP in 7-10 days or sooner if needed Follow up with PCP soon in regards to your blood pressure which is elevated above threshold for referral. Blood pressure above 120/80 may indicate pre-hypertension. 149/70 Patient Language: Tongan Prescriptions: New prednisone 20 mg tablet 20 mg PO BID Qty: 10 0RF albuterol sulfate [Ventolin HFA] 90 mcg/actuation HFA aerosol inhaler 2 puff inhalation QID PRN (Reason: shortness of breath or wheezing) Qty: 8.5 0RF No Action glimepiride 1 mg tablet mirabegron [Myrbetriq] 50 mg tablet extended release 24 hr PO metformin 500 mg tablet 500 mg PO BID venlafaxine 150 mg capsule,extended release 24hr 150 mg PO DAILY divalproex 500 mg tablet,delayed release (DR/EC) 500 mg PO TID buspirone 10 mg tablet 10 mg PO BID risperidone 1 mg tablet 1 mg PO DAILY insulin lispro [Humalog KwikPen Insulin] 100 unit/mL insulin pen 10 unit SUBCUT TID Levemir U-100 Insulin 100 unit/mL solution 25 unit SUBCUT DAILY hydrocodone-acetaminophen 5-325 mg tablet 1 tablet PO Q6H PRN (Reason: pain) Qty: 20 0RF Follow-up/Referrals: Kelly,Mirella Samano APN [Primary Care Provider] - Time of Disposition: 15:42 Quality [place] Coma Scale Eyes: Open Verbal: Oriented and Alert Motor: Follows Commands Festus Coma Total Score: 15
== END 2024-12-01 15:46 | disposition home or self-care (01) ==
PROVIDERS: Emergency Provider Registered Nurse; PCP Nurse Practitioner Family
DX: J44.1 Chronic obstructive pulmonary disease with (acute) exacerbation (principal); F17.210 Nicotine dependence, cigarettes, uncomplicated; E11.42 Type 2 diabetes mellitus with diabetic polyneuropathy; Z79.4 Long term (current) use of insulin; Z86.73 Personal history of transient ischemic attack (TIA), and cerebral infarction without residual deficits; F31.9 Bipolar disorder, unspecified
CPT/HCPCS: 71046; 99213; G0463

== ENCOUNTER 2025-05-14 15:53 | Emergency (ER) | payer MEDICARE, MEDICAID, SELFPAY ==
--- OUTSIDE RECORDS SUMMARY | 2025-05-14 15:55 | XMS_ITS | Encounter Summary ---
Author Organization [facility] Address [address] [place] [address] Phone Care Team Providers Care Research & Analytics Manager Name Role Phone Juanito Mckeon MD Unavailable [phone] Mirella Mendoza APRN, PRESIDENT AND CMO Primary Care Provider [phone] Damon Pollock MD Unavailable Serg Acosta MD Unavailable Brodie Drummond APRN, PRESIDENT AND CMO Unavailable Encounter Details Date Type Department Care Team (Late st Contact Info) Description 09/27/2022 Nursing Facility [facility] [address] [place] [address] Jonas Elliott, PAC [address] [place], [place] [id number] Social History Tobacco Use Types Packs/Day Years Used Date Smoking Tobacco: Every Day Cigarettes 1.5 50.1 Started: 04/11/1975 Smokeless Tobacco: Never Alcohol Use [...] Elliott, PAC - 09/27/2022 4:39 PM CST [facility] PROGRESS NOTE Carmella Sheriff is a 67 y.[address]. female [address] [facility] for rehabilitation. Prior to coming to rehabilitation facility patient was hospitalized at [facility] from 08/25 through 09/12 after suffering [...] REPAIR WITH MESH; Surgeon: Juanito Mckeon MD; Location:[facility]; Service: General Review of Systems: A [...] few days Generalized weakness and deconditioning Receiving senior living care and physical therapy rehabilitation 09/27 improving [...] this patient. This note was dictated using Keenko fluency dictation system and there may be errors in patternmaker. Despite proof reading the note, there may be mistakes and I apologize for those. By: Jonas Elliott, PAC, 09/27/2022 4:40 PM HOG PUSHER PUSHER documented in this encounter Plan of Treatment Upcoming Encounters Date Type Department Care Team (Late st Contact Info) Description 07/27/2025 10:45 AM CDT Office Visit [facility] #[address] [place] [phone] Brodie Drummond, ARMATURE WINDER HELPER REPAIR, PRESIDENT AND CMO [address] [place] [address] 07/29/2025 10:30 AM CDT Office Visit [facility] - Endocrinology - [place] [address] [place] [phone] Damon Pollock MD [address] [phone] documented as of this encounter Visit Diagnoses Not on filedocumented in this encounter Additional Health Concerns Infection Onset Date Last Indicated Resolved Time COVID - 19 09/26/2023 09/26/2023 10/06/2023 12:1 6 AM HOG PUSHER Assessment Noted Time PHQ-9 Depression Total Score: 0 04/10/20 17 1:00 PM CDT documented as of this encounter Care Teams Research & Analytics Manager Relationship Specialty Start Date End Date Mirella Mendoza APRN, PRESIDENT AND CMO [address] [place] [address] PCP - General Family Medicine 12/25/21 Juanito Mckeon MD General Surgery 04/08/17 Damon Pollock MD #[address] [phone] Consulting Physician Endocrinology 02/14/22 Serg Acosta MD [address] [place] [address] Consulting Physician Neurology 12/24/22 Brodie Drummond APRN, PRESIDENT AND CMO [address] [place] [address] Nurse Practitioner Advanced Practice Nurse 01/21/24 documented as of this encounter
--- OUTSIDE RECORDS SUMMARY | 2025-05-14 15:55 | XMS_ITS | Clinical Summary ---
Author Organization [facility] Address [address], [place] [address] Phone Care Team Providers Care Recreational Vehicle Repairer Name Role Phone Juanito Mckeon MD Unavailable [phone] Mirella Mendoza APRN, CHEMICAL RESEARCH TECHNICIAN Primary Care Provider [phone] Damon Pollock MD Unavailable Serg Acosta MD Unavailable Brodie Durmmond APRN, CHEMICAL RESEARCH TECHNICIAN Unavailable Allergies Active Allergy Reactions Criticality Noted Date Comments Ether Nausea 04/11/2017 STATES GETS NAUSEATED EVERY TIME SHE HAS ANESTHESIA Chlordiazepoxide Other (see Comments) 2 Medications divalproex (DEPAKOTE) 500 MG Tablet Delayed ResponseIndication s:Bipolar Mood Disorder Take 1 Tablet by mouth 3 times daily. Indications: Manic-Depression 2 2014 Active risperiDONE (RISPERDAL) 1 MG TabletIndications: Mixed Bipolar Affective Disorder Take 1 Tablet by mouth nightly. Indications: MIXED BIPOLAR AFFECTIVE DISORDER 2 2014 Active fish oil-omega-3 fatty acids 1000 MG CapsuleIndications :Nutrition supplement Take 1,200 mg by mouth daily. Indications: Nutrition supplement Active albuterol 108 (90 Base) MCG/ACT Aerosol SolutionIndication s:SOB take 2 Puffs by inhalation every 6 hours as needed for Shortness of Breath or Wheezing. Indications: SOB 2021 Active latanoprost (XALATAN) 0.005 % SolutionIndication s:dry eyes Place 1 Drop in both eyes nightly. Administer one drop in each eye nightly Indications: dry eyes 2021 Active omeprazole (PriLOSEC) 20 MG CAPSULE DELAYED RELEASEIndications :Symptomatic Gastroesophageal Reflux Disease (Inactive) Take 20 mg by mouth 2 times daily. Indications: Gastroesophageal Reflux Disease with Current Symptoms 2021 Active potassium chloride CR (KLORCON) 10 MEQ Tablet Controlled ReleaseIndications :Hypokalemia Take 1 Tablet by mouth daily. Indications: Low Amount of Potassium in the Blood 2021 Active Insulin Pen Needle (Pen Waskish) 32G X 4 MM Misc 4 times a day 400 Each 3 2021 Active amLODIPine (NORVASC) 5 MG Tablet Take 1 Tablet by mouth nightly. 90 Tablet 2022 Active Umeclidinium-Vilan terol (ANORO ELLIPTA) 62.5-25 MCG/ACT AEROSOL POWDER, BREATH ACTIVATEDIndicatio ns:Chronic Obstructive Pulmonary Disease take 1 Puff by inhalation daily. Indications: Chronic Obstructive Lung Disease Active busPIRone (BUSPAR) 10 MG TabletIndications: Anxiety Disorder Take 10 mg by mouth 2 times daily. Indications: Anxiety Disorder Active venlafaxine (EFFEXOR-XR) 150 MG CAPSULE SR 24 HRIndications:Zoe r Depressive Disorder Take 150 mg by mouth daily. Indications: Major Depressive Disorder Active Aspirin 81 MG CapsuleIndications :Ischemic Stroke Take 81 mg by mouth nightly. Indications: Stroke Due To Limited Blood Flow Active acetaminophen (TYLENOL) 500 MG TabletIndications: Pain Take 500 mg by mouth every 6 hours as needed for Moderate or more severe pain or Severe pain. not more than 4000 mg in 24 hours Indications: Pain Active Continuous Blood Gluc Dye Range Feeder (Dexcom G7 Dye Range Feeder) Device Check blood glucose before each meal and at bedtime 1 Each 2022 Active traMADol (ULTRAM) 50 MG TabletIndications: Pain Take 1 Tablet by mouth every 6 hours as needed for Moderate or more severe pain or Severe pain. Indications: Pain Active oxyCODONE (ROXICODONE) 5 MG TabletIndications: Acute Pain take 1-2 tablets by mouth every 4 hours as needed for pain Indications: Acute Pain Active pancrelipase, nfcixf-jpwqzybw-im ylase, (Creon) [address]-[address]ule [address] Particles Take 1 Capsule by mouth 3 times daily. Active Continuous Glucose Sensor (Dexcom G7 Sensor) Misc CHANGE EVERY 10 DAYS 3 Each 2 2023 Active Mirabegron ER (Myrbetriq) 50 MG TABLET SR 24 HRIndications:Urin katerin frequency,Nocturna l enuresis,Urinary urgency Take 50 mg by mouth daily. 90 Tablet 3 2024 Active Continuous Glucose Sensor (Dexcom G7 Sensor) Misc Every 10 days 9 Each 1 2024 Active Continuous Glucose Dye Range Feeder (Dexcom G7 Dye Range Feeder) Device Check blood glucose before each meal and at bedtime 1 Each 2024 Active glimepiride (AMARYL) 2 MG Tablet Take 1 Tablet by mouth 2 times daily. 180 Tablet 1 2024 Active glimepiride (AMARYL) 2 MG Tablet Take 1 Tablet by mouth daily after breakfast. 90 Tablet 1 04/20 Discontinued glimepiride (AMARYL) 2 MG Tablet TAKE 1 TABLET BY MOUTH DAILY AFTER BREAKFAST 90 Tablet 1 04/23 Discontinued( Reorder) Active Problems Problem Noted Date Diagnosed Date [...] Encounters Date Type Department Care Team Description 05/14/2025 Telephone [facility] [address] [place] [phone] Brodie Drummond APRN, CHEMICAL RESEARCH TECHNICIAN 05/14/2025 Telephone [facility] [address] [place] [address] [phone] Mirella Mendoza APRN, CHEMICAL RESEARCH TECHNICIAN Advice Only 04/23/2025 10:30 AM CDT Office Visit [facility] Endocrinology [facility] [address] [place] [phone] Damon Pollock MD Type 2 diabetes mellitus with diabetic polyneuropathy, with long-term current use of insulin (HCC) (Primary Dx); Medication dose changed; Class 1 obesity due to excess calories with serious comorbidity and body mass index (BMI) of 30.0 to 30.9 in adult; Tobacco use Discharge Disposition: Discharged to home or Selfcare 04/23/2025 Travel 04/20/2025 Telephone [facility] [address] [place] [phone] Mirella Mendoza APRN, CHEMICAL RESEARCH TECHNICIAN Advice Only 04/20/2025 [facility] [address] [place] [phone] Damon Pollock MD Medication Refill from Last 3 Months Immunizations [...] Date Smoking Tobacco: Every Day Cigarettes 1 50.1 Started: 04/11/1975 Smokeless Tobacco: Never Tobacco Cessation:Ready [...] Sign Reading Time Taken Comments Blood Pressure 132/78 04/23/2025 10:32 AM CDT Pulse 115 04/23/2025 10:32 AM CDT Temperature 36.4 C (97.6 F) 04/23/2025 10:32 AM CDT Respiratory Rate 20 04/23/2025 10:32 AM CDT Oxygen Saturation 98% 04/23/2025 10:32 AM CDT Inhaled Oxygen Concentration - - Weight 84.8 kg (187 lb) 04/23/2025 10:32 AM CDT Height 167.6 cm (5' 6) 01/19/2025 1:12 PM CDT Body Mass Index 30.18 01/19/2025 1:12 PM CDT Plan of Treatment Upcoming Encounters Date Type Department Care Team (Late st Contact Info) Description 07/27/2025 10:45 AM CDT Office Visit [facility] [address] [place] [address] Brodie Drummond APRN, CHEMICAL RESEARCH TECHNICIAN [address] [place] [address] 07/29/2025 10:30 AM CDT Office Visit [facility] - Endocrinology - [place] [address] [place] [address] Damon Pollock MD #[address] [phone] Health Maintenance Due Date Last Done Comments Diabetes: Eye Exam 1955 Hepatitis C Virus (HCV) Screening 1955 Cologuard 2001 Immunochemical Fecal Occult Blood 2001 Zoster Immunization (1 of 2) 2006 Respiratory Syncytial Virus (RSV) Immunization (Adult) (1 - Risk 60-74 years 1-dose series) 2016 Lung Cancer Screening 01/25/2024 01/24/2023 , 08/26/2022, 07/21/2021 SARS-COV-2 Immunization (2 - season) 2024 09/16/2023 DEXA Bone Density 05/01/2025 05/01/2023 Influenza Immunization (#1) 05/31/202508/30, 09/09/2023, 11/08/2022, Additional history exists Mammogram 06/19/2025 06/19/2024, 06/01, 02/10/2021, Additional history exists Diabetes: Nephropathy Screening 07/23/2025 07/23/2024, 09/27/2023, 09/09/2023, Additional history exists Diabetes: Hemoglobin A1c 10/24/2025 025, 01/21/2025, 07/23/2024, Additional history exists Diabetes: Foot Exam 01/21/2026 01/21/2025, 01/22/2024, 05/21/2023 Colonoscopy 04/12/2035 04/12/2025, 10/21/2019 Colorectal Cancer Screening 04/12/2035 DTaP/Tdap/Td Immunization Discontinued 07/16/2024 TdaP Immunization Completed 07/16/2024 Pneumococcal Immunization (50+ years) Completed 11/03/2024, 09/01/2019, 01/30/2019, Additional history exists Pneumococcal Immunization Combined Discontinued 11/03/2024, 09/01/2019, 01/30/2019, Additional history exists Hepatitis B Immunization Aged Out No longer eligible based on patient's age to complete this topic Human Papillomavirus (HPV) Immunization Aged Out No longer eligible based on patient's age to complete this topic Meningococcal Immunization (ACWY) Aged Out No longer eligible based on patient's age to complete this topic Rotavirus Immunization Aged Out No lo nger eligible based on patient's age to complete this topic Medical Devices Implanted Type Area Electrical High Tension Tester Device Identifier Shelf Expiration Date Model / Serial / Lot Mesh Ventralex [place] Med 6.4cm Eptfe - [id number] Implanted:Qty: 1 on 04/18/2017 [facility] IMPLANT N/A: Abdomen CR BARD / DAVOL 09/28/2018 [id number] / [id number] / [id number] Screw Locking T2 Alpha Imn Screws 5x70mm - [id number] Implanted:Qty: 1 on 03/10/2023 by [facility] IMPLANT Right: Femur Twin Brooks Trauma 10/30/2032 [id number] / [id number] / [id number] Screw Locking T2 Alpha Imn Screws 5x50mm - [id number] Implanted:Qty: 1 on 03/10/2023 by [facility] IMPLANT Right: Femur Anuradha Trauma 04/29/2031 [id number] / [id number] / [id number] Screw Locking T2 Alpha Imn Screws 5x75mm - [id number] Implanted:Qty: 1 on 03/10/2023 by Willie [facility] IMPLANT Right: Femur [employer] Trauma 08/29/2032 [id number] / [id number] / [id number] Screw Locking T2 Alpha Imn Screws 5x60mm - [id number] Implanted:Qty: 1 on 03/10/2023 by Willie [facility] IMPLANT Right: Femur [employer] Trauma 09/29/2030 2360-5060S / [id number] / [id number] Screw Locking T2 Alpha Imn Screws 5x35mm - [id number] Implanted:Qty: 1 on 03/10/2023 by Willie Payne MD at [facility] IMPLANT Right: Femur [employer] Trauma 01/28/2032 2360-5035S / [id number] / [id number] Screw Locking T2 Alpha Imn Screws 5x35mm - [id number] Implanted:Qty: 1 on 03/10/2023 by Willie Payne MD at [facility] IMPLANT Right: Femur Anuradha Trauma 11/27/2032 2360-5035S / [id number] / [id number] Cap End 4mm Ankle Insertion Arthrodesis Nail Strl T2 8mm - [id number] Implanted:Qty: 1 on 03/10/2023 by Willie [facility] at [facility] IMPLANT Right: Femur [employer] Brooks Trauma 10/30/2027 1826-0003S / 1826-0003S / [id number] Twin Brooks 5 X 55mm Cannulated Screw Out Of Asnis Tray Implanted:Qty: 1 on 03/10/2023 by Willie Payne MD at [facility] Right: Femur ANURADHA / TRAUMA [id number] / [id number] / [id number] Anuradha Basim T2 Scn System Supracondylar Nail Implanted:Qty: 1 on 03/10/2023 by Willie Payne MD at [facility] Right: Femur ANURADHA / TRAUMA 08/29/2024 1826-1217S / 1826-1217S / [id number] Procedures Procedure Name Priority Date/Time Associated Diagnosis Comments POCT GLYCOSYLATED HEMOGLOBIN Routine 04/23/2025 10:35 AM CDT Type 2 diabetes mellitus with diabetic polyneuropathy, with long-term current use of insulin (HCC) CMP (COMPREHENSIVE METABOLIC PANEL) Routine 07/23/2024 11:10 AM CDT Type 2 diabetes mellitus with diabetic polyneuropathy, with long-term current use of insulin (HCC) [facility] SCREENING BILATERAL DIGITAL W CAD W ALEXANDRA Routine 06/19/2024 8:40 AM CDT Encounter for screening mammogram for malignant neoplasm of breast [facility] BONE DENSITOMETRY AXIAL SKELETON Routine 05/01/2023 10:13 AM CDT Personal history of (healed) traumatic fracture CT CHEST SCREENING WO Routine 01/24/2023 10:08 AM CDT Nicotine dependence, cigarettes, uncomplicated from Last 3 Months or Most Recently Relevant to Health Maintenance Results * (ABNORMAL) POCT GLYCOSYLATED HEMOGLOBIN (04/23/2025 10:35 AM CDT) HGB-A1C 8.9(A) 4 - 6 % Blood 04/23/2025 10:3 5 AM CDT Damon Pollock MD POINT OF CARE TESTING (MANUAL) F inal Result * (ABNORMAL) CMP (COMPREHENSIVE METABOLIC PANEL) (07/23/2024 11:10 AM CDT) SODIUM 135(L) 136 - 145 mmol/L 07/23/2024 1:05 PM T [facility] POTASSIUM 4.3 3.5 - 5.1 mmol/L 07/23/2024 1:05 PM T [facility] CHLORIDE 99 98 - 107 mmol/L 07/23/2024 1:05 PM [facility] CO2, VENOUS 28 22 - 30 mmol/L 07/23/2024 1:05 PM T [facility] ANION GAP 12.3 <18.0 mmol/L 07/23/2024 1:05 PM T [facility] GLUCOSE 75 70 - 99 mg/dL 07/23/2024 1:05 PM [facility] BUN 23(H) 10 - 20 mg/dL 07/23/2024 1:05 PM [facility] CREATININE, BLOOD 0.86 0.60 - 1.00 mg/dL 07/23/2024 1:05 PM [facility] BUN/CREATININE RATIO 27(H) 12 - 20 ratio 07/23/2024 1:05 PM [facility] TOTAL PROTEIN 7.1 6.3 - 8.2 g/dL 07/23/2024 1:05 PM [facility] ALBUMIN 4.0 3.5 - 5.0 g/dL 07/23/2024 1:05 PM [facility] A/G RATIO 1.3 1.0 - 2.2 07/23/2024 1:05 PM [facility] CALCIUM 9.0 8.7 - 10.5 mg/dL 07/23/2024 1:05 PM [facility] T BILI 0.4 0.2 - 1.2 mg/dL 07/23/2024 1:05 PM T [facility] SGOT (AST) 16 5 - 34 U/L 07/23/2024 1:05 PM [facility] SGPT (ALT) 16 0 - 55 U/L 07/23/2024 1:05 PM CDT [facility] ALKALINE PHOSPHATASE 102 40 - 150 U/L 07/23/2024 1:05 PM CDT [facility] IS THE PATIENT REQUIRED TO BE FASTING? No 07/23/2024 1:05 PM CDT [facility] GFR, ESTIMATED >60 >=60 07/23/2024 1:05 PM CDT [facility] Comment: Creatinine Clearance is the preferred criteria for selecting drug dose adjustments in renally impaired patients. The GFR is provided as additional pertinent clinical information. GFR is reported in mL/min/1.73 sq m. Calculation based on the Chronic Kidney Disease Epidemiology Collaboration (CKD- EPI) equation refit without adjustment for race. GFR, EST. >60 >=60 024 1:05 PM CDT [facility] GFR, EST. NONAFRICAN >60 >=60 07/23/2024 1:05 PM CDT [facility] Blood Venipuncture / Unknown 07/23/2024 11:10 AM CDT 07/23/2024 12:18 PM CDT us Damon Pollock MD CHEMISTRY ORDERABLES Final Resul t [facility] #[address] [place] [address] * DAVID SCREENING BILATERAL DIGITAL W CAD [...] to exams dated: 06/20/2022, 02/10/2021, and 01/17/2019 [facility]. BREAST TISSUE:There are scattered areas of fibroglandular [...] exam. Electronically signed by: Smooth murguia/kirt:06/19/2024 16:19:53 Treating Engineer(s): RT Jordyn(R)(M), [facility] letter sent: Normal Exam Reading location: [place] [...] to exams dated: 06/20/2022, 02/10/2021, and 01/17/2019 [facility]. BREAST TISSUE:There are scattered areas of fibroglandular [...] exam. Electronically signed by: Smooth murguia/kirt:06/19/2024 16:19:53 Treating Engineer(s): RT Jordyn(R)(M), [facility] letter sent: Normal Exam Reading location: [place] Mammogram BI-RADS: Category 2: Benign us Mirella Mendoza FAST FOOD CREW MEMBER, CHEMICAL RESEARCH TECHNICIAN IMG MAMMO ORDERABLES Kristan l Result * [facility] BONE DENSITOMETRY AXIAL SKELETON (05/01/2023 10:13 AM [...] Narrative 05/01/2023 10:55 AM CDT EXAM DESCRIPTION: [facility] BONE DENSITOMETRY AXIAL SKELETON REASON FOR STUDY: 67 y/o year old F with given history of: Personal history of (healed) traumatic fracture Electrical High Tension Tester/Model: [employer] (S/N [id number]) CLINICAL INFORMATION: Current height: 66 inches Maximum [...] Denver Walters M.D. AG: MAGGIE Report ID: [id number] Reading Location: [place] [address] Procedure Note Denver Walters MD - 05/01/2023 EXAM DESCRIPTION: [facility] BONE DENSITOMETRY AXIAL SKELETON REASON FOR STUDY: 67 y/o year old F with given history of: Personal history of (healed) traumatic fracture Electrical High Tension Tester/Model: Independent Bank (S/N [id number]) CLINICAL INFORMATION: Current height: 66 inches Maximum [...] Denver Walters M.D. AG: MAGGIE Report ID: [id number] Reading Location: [id number] IMPRESSION: OSTEOPOROSIS. REFERENCE: Bone mineral density: Normal [...] to Prevention and Treatment of Osteoporosis (http://www.nof.org/professionals/clinical-guidelines) Mirella Mendoza FAST FOOD CREW MEMBER, CHEMICAL RESEARCH TECHNICIAN IMG DEXA ORDERABLES Final Result * CT CHEST [...] Denver Walters M.D. AG: MAGGIE Report ID: [id number] Reading Location: [id number] Procedure Note Denver Walters MD - 01/24/2023 [...] 9:16 PM - Electronically signed by Denver Wlaters M.D. AG: MAGGIE Report ID: [id number] Reading Location: [id number] IMPRESSION: 1. New 2 mm right upper lobe pulmonary nodules compared to 07/21/2021 Lung-RADS v1.1 category 2: Benign appearance or behavior. Recommendation: Low dose Screening CT of chest in 12 months. Mirella Mendoza FAST FOOD CREW MEMBER, CHEMICAL RESEARCH TECHNICIAN IMG CT ORDERABLES Final R esult from Last 3 Months or Most Recently Relevant to Health Maintenance Insurance * Guarantor: Mariah Sheriff Account Type Relation to Patient Date of Phone Billing Address Personal/Family Self 1955 [address] [facility] [address] [place] [address] MEDICAID [place] MEDICARE C [employer] [place] [...] measures to stabilize the patient. Care Teams Recreational Vehicle Repairer Relationship Specialty Start Date End Date Mirella Mendoza APRN, CHEMICAL RESEARCH TECHNICIAN [address] [place] [address] PCP - General Family Medicine 12/25/21 Juanito Mckeon MD General Surgery 04/08/17 Damon Pollock MD #[address] [phone] Consulting Physician Endocrinology 02/14/22 Serg Acosta MD [address] [place] [address] Consulting Physician Neurology 12/24/22 Brodie Drummond APRN, CHEMICAL RESEARCH TECHNICIAN [address] [place] [address] Nurse Practitioner Advanced Practice Nurse 01/21/24
--- OUTSIDE RECORDS SUMMARY | 2025-05-14 15:55 | XMS_ITS | Encounter Summary ---
Author Organization [facility] Address [address] [facility] [place] [address] Care Team Providers Care Dolly Pusher Name Role Phone Mirella Mendoza FOOD SERVICE KITCHEN SUPERVISOR-MUSIC ARRANGER Primary Care Provider [phone] Reason for Visit * Reason Comments Refill Request Encounter Details Date Type Department Care Team ([facility] Contact Info) Description 10/22/2023 Refill [facility] - [address] [place] [address] Luisa Schwab MD Refill Request [...] and heating? Not hard at all 07/24/2023 [facility] - Occupational Stress [...] place to sleep or slept in a correction (including now)? No 07/24/2023 Comments No Sex and Gender Information Value Date Recorded Sex Assigned at Not on file Legal Sex Female 3:31 PM CDT Gender Identity Not on file Sexual Orientation Not on file documented as of this encounter Functional Status * Is person deaf or have serious hearing difficulty? Answer Date of Assessment Author No 07/24/2023 9:12 PM CDT Yrn White RN * Is person blind or have serious difficulty seeing? Answer Date of Assessment Author No 07/24/2023 9:12 PM DAKOTAHT Yrn White RN * Does person have serious difficulty walking/climbing stairs? Answer Date of Assessment Author No 07/24/2023 9:12 PM DAKOTAHT Yrn White RN * Does person have difficulty dressing/bathing? Answer Date of Assessment Author No 07/24/2023 9:12 PM DAKOTAHT Yrn White RN * Does person have difficulty doing errands alone? Answer Date of Assessment Author No 07/24/2023 9:12 PM DAKOTAHT Yrn White RN documented as of this encounter Mental Status * Does person have difficulty concentrating/remembering/making decisions? Answer Entry Date Author No 07/24/2023 9:12 PM CDT Yrn White RN documented in this encounter Plan of Treatment Not on file documented as of this encounter Visit Diagnoses Not on filedocumented in this encounter Care Teams Dolly Pusher Relationship Specialty Start Date End Date Kelly, JUAN LUIS Vu-IGNACIO [address] [place] [address] PCP - General Nurse Practitioner Family 01/23/24 documented as of this encounter
--- OUTSIDE RECORDS SUMMARY | 2025-05-14 15:55 | XMS_ITS | Encounter Summary ---
Author Organization [facility] Address [address] [place] [address] Phone Care Team Providers Care Ingredient Handler Name Role Phone Juanito Mckeon MD Unavailable [phone] Mirella Mendoza APRN, BICYCLE MECHANIC Primary Care Provider [phone] Damon Pollock MD Unavailable Serg Acosta MD Unavailable Brodie Drummond APRN, BICYCLE MECHANIC Unavailable Reason for Visit * Reason Onset Date Comments Advice Only 05/14/2025 Encounter Details Date Type Department Care Team (Late st Contact Info) Description 05/14/2025 Telephone [facility] [address] [place] [address] Mirella Mendoza APRN, BICYCLE MECHANIC [address] [place] [address] Advice Only Social History Tobacco Use Types Packs/Day Years Used Date Smoking Tobacco: Every Day Cigarettes 1 50.1 Started: 04/11/1975 Smokeless Tobacco: Never Alcohol [...] encounter Miscellaneous Notes * Telephone Encounter - Brent Corrales - 05/14/2025 12:53 PM CDT Symptoms: Back Pain - Not From Injury, Urination Pain Outcome: Transfer to household appliances service technician queue Reason: Caller denied all higher acuity questions The caller accepted this outcome. Caller Denied: * Age over 30: sudden AND severe upper back pain * Pain anywhere else on the body documented in this encounter Plan of Treatment Upcoming Encounters Date Type Department Care Team (Late st Contact Info) Description 07/27/2025 10:45 AM CDT Office Visit [facility] #[address] [place] [address] Brodie Drummond APRN, BICYCLE MECHANIC [address] [place] [address] 07/29/2025 10:30 AM CDT Office Visit [facility] - [facility] - [place] [address] [place] [address] Damon Pollock MD [address] [address] documented as of this encounter Visit Diagnoses Not on filedocumented in this encounter Additional Health Concerns Assessment Noted Time PHQ-9 Depression Total Score: 0 04/10/20 17 1:00 PM CDT documented as of this encounter Care Teams Ingredient Handler Relationship Specialty Start Date End Date Mirella Mendoza APRN, BICYCLE MECHANIC [address] [place] [address] PCP - General Family Medicine 12/25/21 Juanito Mckeon MD General Surgery 04/08/17 Damon Pollock MD #[address] [phone] Consulting Physician Endocrinology 02/14/22 Serg Acosta MD #[address] [place] [phone] Consulting Physician Neurology 12/24/22 Brodie Drummond APRN, BICYCLE MECHANIC [address] [place] [address] Nurse Practitioner Advanced Practice Nurse 01/21/24 documented as of this encounter
--- OUTSIDE RECORDS SUMMARY | 2025-05-14 15:55 | XMS_ITS | Encounter Summary ---
Author Organization [facility] Address [address] [place] [address] Phone Care Team Providers Care Social Media Marketer Name Role Phone Juanito Mckeon MD Unavailable [phone] Mirella Mendoza APRN, SHERIFF'S DETECTIVE Primary Care Provider [phone] Damon Pollock MD Unavailable Serg Acosta MD Unavailable [phone] Brodie Drummond APRN, [facility] Unavailable Reason for Visit * Reason Comments Medication Refill Encounter Details Date Type Department Care Team (Late st Contact Info) Description 02/12/2024 Refill [facility] - [place] [address] [place] [address] Damon Pollock MD #[address] [address] Medication Refill Social History Tobacco [...] AM CDT Medication(s) refilled and signed per [facility] Chronic Medication Refill Standing Order for Pediatric and Adult Patients. documented in this encounter Plan of Treatment Upcoming Encounters Date Type Department Care Team (Late st Contact Info) Description 07/27/2025 10:45 AM CDT Office Visit [facility] [address] [place] [address] Brodie Drummond APRN, IGNACIO [address] [place] [address] 07/29/2025 10:30 AM CDT Office Visit [facility] - [place] [address] [place] [address] Damon Pollock MD #[address] [address] documented as of this encounter Visit Diagnoses Not on filedocumented in this encounter Additional Health Concerns Assessment Noted Time PHQ-9 Depression Total Score: 0 04/10/20 17 1:00 PM CDT documented as of this encounter Care Teams Social Media Marketer Relationship Specialty Start Date End Date Mirella Mendoza APRN, SHERIFF'S DETECTIVE [address] [place] [address] PCP - General Family Medicine 12/25/21 Juanito Mckeon MD General Surgery 04/08/17 Damon Pollock MD #[address] [phone] Consulting Physician Endocrinology 02/14/22 Serg Acosta MD [address] [place] [address] Consulting Physician Neurology 12/24/22 Brodie Drummond APRN, SHERIFF'S DETECTIVE [address] [place] [address] Nurse Practitioner Advanced Practice Nurse 01/21/24 documented as of this encounter
--- OUTSIDE RECORDS SUMMARY | 2025-05-14 15:55 | XMS_ITS | Encounter Summary ---
Author Organization [facility] Address [address] [place] [address] Phone Care Team Providers Care Vegetable Specker Name Role Phone Juanito Mckeon MD Unavailable [phone] Mirella Mendoza APRN, BOTTOM POUNDER CEMENT SHOES Primary Care Provider [phone] Damon Pollock MD Unavailable Serg Acosta MD Unavailable Brodie Drummond APRN, BOTTOM POUNDER CEMENT SHOES Unavailable Reason for Visit * Reason Onset Date Comments Medication Management 10/16/2023 Encounter Details Date Type Department Care Team (Late st Contact Info) Description 10/16/2023 Telephone [facility] [address] [place] [address] Susie Linder, RN [place] Medication Management Social [...] anxiety, abdominal upse Please route response to [facility] Clinical Support Triage or call [facility] [phone], option 4 for a nurse. Response is required within 24 hours to meet regulatory requirements. Thank you ER LOBSTER * Telephone Encounter - Susie Linder RN [...] to P Clinical Support Triage or call [facility] [phone], option 4 for a nurse. Response is required within 24 hours to meet regulatory requirements. Thank you ER LOBSTER documented in this encounter Plan of Treatment Upcoming Encounters Date Type Department Care Team (Late st Contact Info) Description 07/27/2025 10:45 AM CDT Office Visit [facility] [address] [place] [address] Brodie Drummond APRN, BOTTOM POUNDER CEMENT SHOES [address] [place] [address] 07/29/2025 10:30 AM CDT Office Visit [facility] - Endocrinology - [place] [address] [place] [address] Damon Pollock MD #[address] [address] documented as of this encounter Visit Diagnoses Not on filedocumented in this encounter Additional Health Concerns Assessment Noted Time PHQ-9 Depression Total Score: 0 04/10/20 17 1:00 PM CDT documented as of this encounter Care Teams Vegetable Specker Relationship Specialty Start Date End Date Mirella Mendoza APRN, BOTTOM POUNDER CEMENT SHOES [address] [facility] [address] [place] [address] PCP - General Family Medicine 12/25/21 Juanito Mckeon MD General Surgery 04/08/17 Damon Pollock MD #[address] [address] Consulting Physician Endocrinology 02/14/22 Serg Acosta MD #[address] [place] [address] Consulting Physician Neurology 12/24/22 Brodie Drummond APRN, BOTTOM POUNDER CEMENT SHOES [address] [place] [address] Nurse Practitioner Advanced Practice Nurse 01/21/24 documented as of this encounter
--- OUTSIDE RECORDS SUMMARY | 2025-05-14 15:55 | XMS_ITS | Encounter Summary ---
Author Organization [facility] Address [address] [place] [address] Phone Care Team Providers Care Stockroom Coordinator Name Role Phone Juanito Mckeon MD Unavailable [phone] Mirella Mendoza APRN, NUTRITION CONSULTANT Primary Care Provider [phone] Damon Pollock MD Unavailable Serg Acosta MD Unavailable Brodie Drummond APRN, NUTRITION CONSULTANT Unavailable Encounter Details Date Type Department Care Team (Late st Contact Info) Description 05/14/2025 Telephone [facility] [address] [place] [address] Brodie Drummond, BIOINFORMATICS TECHNICIAN, NUTRITION CONSULTANT [address] [place] [address] Social History Tobacco Use Types Packs/Day Years [...] encounter Miscellaneous Notes * Telephone Encounter - Malgorzata Cash RN - 05/14/2025 12:58 PM CDT Patient was calling for Ricardo MCKNIGHT who works for [facility]. Attempted to provide Patient with contact information and Patient refused. Cold transferred Patient to office. documented in this encounter Plan of Treatment Upcoming Encounters Date Type Department Care Team (Late st Contact Info) Description 07/27/2025 10:45 AM CDT Office Visit [facility] [address] [place] [address] Brodie Drummond APRN, NUTRITION CONSULTANT [address] [place] [address] 07/29/2025 10:30 AM CDT Office Visit [facility] End[facility] #[address] [place] [address] Damon Pollock MD #[address] [address] documented as of this encounter Visit Diagnoses Not on filedocumented in this encounter Additional Health Concerns Assessment Noted Time PHQ-9 Depression Total Score: 0 04/10/20 17 1:00 PM CDT documented as of this encounter Care Teams Stockroom Coordinator Relationship Specialty Start Date End Date Mirella Mendoza APRN, NUTRITION CONSULTANT [address] [place] [address] PCP - General Family Medicine 12/25/21 Juanito Mckeon MD General Surgery 04/08/17 Damon Pollock MD #[address] [phone] Consulting Physician Endocrinology 02/14/22 Serg Acosta MD [address] [place] [address] Consulting Physician Neurology 12/24/22 Brodie Drummond APRN, NUTRITION CONSULTANT [address] [place] [address] Nurse Practitioner Advanced Practice Nurse 01/21/24 documented as of this encounter
--- OUTSIDE RECORDS SUMMARY | 2025-05-14 15:55 | XMS_ITS | Encounter Summary ---
Author Organization [facility] Address [address] [place] [address] Phone Care Team Providers Care Food Service Director Name Role Phone Juanito Mckeon MD Unavailable [phone] Mirella Damon APRN, EMG TECHNICIAN Primary Care Provider [phone] Damon Pollock MD Unavailable Serg Acosta MD Unavailable [phone] Brodie Drummond APRN, EMG TECHNICIAN Unavailable [phone] Encounter Details Date Type Department Care Team (Late st Contact Info) Description 10/02/2022 Nursing Facility [facility] [address] [place] [address] Jonas Elliott, PAC [address] [place], [place] [id number] Social History Tobacco Use Types Packs/Day Years [...] Elliott, SERGIO - 10/02/2022 4:39 PM CST [facility] DISCHARGE SUMMARY Name: Carmella Sheriff [...] CARE COURSE: Carmella Sheriff was admitted to prison facility for acute care rehabilitation. Prior to coming to rehabilitation facility patient was hospitalized at [facility] from 08/25through 09/12 after suffering a closed fracture of distal left femur that required surgical repair. While at the rehabilitation facility, the patient received prison care and physical therapy rehabilitation. Her weight-bearing [...] have spent time coordinating care for this prison facility discharge: Greater than 30 minutes spent in coordinating care This note was dictated using Strikeface fluency dictation system and there may be errors in law professor. Despite proof reading the note, there may be mistakes and I apologize for those. Signed: Jonas Elliott, PAC, 10/02/2022, 4:39 PM PRECINCT I POLICE SERGEANT INCT I POLICE SERGEANT documented in this encounter Plan of Treatment Upcoming Encounters Date Type Department Care Team (Late st Contact Info) Description 07/27/2025 10:45 AM CDT Office Visit [facility] [address] [place] [address] Brodie Drummond APRN, EMG TECHNICIAN [address] [place] [address] 07/29/2025 10:30 AM CDT Office Visit [facility] - [place] [address] [place] [address] Damon Pollock MD #[address] [address] documented as of this encounter Visit Diagnoses Not on filedocumented in this encounter Additional Health Concerns Infection Onset Date Last Indicated Resolved Time COVID - 19 09/26/2023 09/26/2023 10/06/2023 12:1 6 AM PRECINCT I POLICE SERGEANT Assessment Noted Time PHQ-9 Depression Total Score: 0 04/10/20 17 1:00 PM CDT documented as of this encounter Care Teams Food Service Director Relationship Specialty Start Date End Date Mirella Damon APRN, IGNACIO [address] [facility] [address] [place] [address] PCP - General Family Medicine 12/25/21 Juanito Mckeon MD General Surgery 04/08/17 Damon Pollock MD #[address] [address] Consulting Physician Endocrinology 02/14/22 Serg Acosta MD [address] [place] [address] Consulting Physician Neurology 12/24/22 Brodie Drummond APRN, IGNACIO [address] [place] [address] Nurse Practitioner Advanced Practice Nurse 01/21/24 documented as of this encounter
--- OUTSIDE RECORDS SUMMARY | 2025-05-14 15:55 | XMS_ITS | Clinical Summary ---
Author Organization [facility] Address [address] [place] [address] Care Team Providers Care Section Hand Name Role Phone Mirella Mendoza JUAN LUIS-PROFESSIONAL ORGANIZER Primary Care Provider [phone] Source Comments [facility],non-owned Affiliates and Associated Physician Practices is amultiple site organization consisting of ambulatory clinics and hospital sitesin [place], [place], [place] and [place]. This disclosure is being madepursuant to the Care Everywhere program and may not contain all information available regarding this patient. Last updated 18.[facility] Allergies Active Allergy Reactions Criticality Noted Date Comments Anesthesia S-I-60 Nausea and/or Vomiting,Unknown 01/26/2022 Medications * Be aware that medications may not be up to date on this document. Alwaysverify current medications with the patient. divalproex DR (Depakote) 500 MG tablet Take 1 (one) tablet by mouth 3 times daily 03/22/20 22 Active oxybutynin (Ditropan) 5 MG tablet Take 1 (one) tablet by mouth 2 times daily 07/28/20 22 Active risperiDONE (RisperDAL) 1 MG tablet Take 1 (one) tablet by mouth at bedtime 03/23/20 22 Active venlafaxine (Effexor) 25 MG tablet Take 1 (one) tablet by mouth 2 times daily Active Alcohol Swabs (Alcohol Pads) 70 % TEST 3 TIMES A DAY 08/11/20 22 Active aspirin EC (Ecotrin) 81 MG tablet Take 1 (one) tablet by mouth once daily Active Blood Glucose Monitoring Suppl (GlucoCom Blood Glucose Monitor) SAJI Active Blood Glucose Monitoring Suppl (ONE TOUCH ULTRA 2) w/Device KIT as directed 05/28/20 22 Active busPIRone (Buspar) 10 MG tablet 08/06/20 22 Active OneTouch Ultra test strip TEST 3 TIMES A DAY 08/11/20 22 Active blood glucose (Precision QID Test) test strip USE TO TEST BLOOD SUGAR THREE TIMES DAILY 03/20/20 21 Active B-D ULTRAFINE III SHORT PEN 31G X 8 MM needle USE TO INJECT UNDER THE SKIN THREE TIMES DAILY DIRECTED 07/09/20 22 Active insulin pen needle (B-D ULTRAFINE III SHORT PEN) 31G X 8 MM needle USE TO INJECT UNDER THE SKIN THREE TIMES DAILY 05/07/20 Active TRUEplus Insulin Syringe 31G X 5/16 0.5 ML syringe as directed 03/20/20 22 Active Lancet Devices (Simple Diagnostics Lancing Dev) MISC as directed 05/28/20 22 Active Lancets (ONETOUCH DELICA PLUS 33G EXTRA FINE LANCET) USE TO CHECK BLOOD SUGAR THREE TIMES DAILY 07/22/20 22 Active Austin-3 Fatty Acids (fish oil) 1000 MG capsule Take 1 (one) capsule by mouth once daily Active Jardiance 10 MG tablet Take 1 (one) tablet by mouth once daily 07/11/20 22 Active Easy Comfort Pen [place] 33G X 4 MM MISC USE TO INJECT 3 TIMES A DAY 08/11/20 22 Active BD Pen Needle Angela 2nd Gen 32G X 4 MM MISC USE FOUR TIMES DAILY 02/24/20 22 Active Insulin Pen Needle (Pen [place]) 32G X 4 MM MISC 4 times a day 02/24/20 22 Active albuterol HFA (Proventil; Ventolin; Proair) 108 (90 Base) MCG/ACT inhaler Inhale 2 (two) puffs by mouth every 4 hours as needed for Shortness of Breath or Wheezing 09/12/20 22 Active acetaminophen (Tylenol) 500 MG tablet Take 2 (two) tablets by mouth every 8 hours Maximum allowable Acetaminophen amount = 4 Grams (4000 mg) / 24 hours. 07/29/20 23 Active atorvastatin (Lipitor) 20 MG tablet Take 1 (one) tablet by mouth at bedtime 07/29/20 23 Active polyethylene glycol 3350 (Miralax) 17 g packet Take 17 (seventeen) g by mouth once daily as needed for Constipation 07/29/20 23 Active Additional Information Patient not taking.Reported on 08/15/2023 senna (Senokot Extra Strength) 17.2 MG Take 17.2 mg by mouth 2 times daily 07/29/20 Active Additional Information Patient not taking.Reported on 08/15/2023 vitamin D3 (Cholecalcifero l) 25 MCG (1000 UNITS) tablet Take 1 (one) tablet by mouth once daily 07/30/20 Active insulin detemir (Levemir FlexPen) pen Inject 10 (ten) Units subcutaneously at bedtime Active naloxone HCl (Narcan) 4 MG/0.1ML nasal spray Sawyer 1 (one) spray into the nose as needed 07/29/20 Active omeprazole (PriLOSEC) 40 MG capsule Take 1 (one) capsule by mouth daily before breakfast 07/29/20 Active apixaban (Eliquis) 2.5 MG tablet Take 1 (one) tablet by mouth 2 times daily for 35 days 07/29/20 Active Additional Information Patient not taking.Reported on 08/15/2023 oxyCODONE, immediate release, (Roxicodone) 5 MG tabletIndicatio ns:Closed fracture of distal end of femur, unspecified fracture morphology, initial encounter ([facility]) Take 1 (one) tablet to 2 (two) tablets by mouth every 4 hours as needed (For moderate or severe pain) 12 tablet 07/29/20 Active lidocaine (Lidoderm) 5 % patch Apply 1 (one) patch to skin once daily Apply patch to most painful area and remove after 12 hours. May reapply a new patch 12 hours later. 30 patch 08/15/20 Active lidocaine (Lidoderm) 5 % patch APPLY 1 PATCH ONCE DAILY TO MOST PAINFUL AREA OF SKIN. REMOVE AFTER 12 HOURS AND ALLOW FOR 12 HOUR PATCH-FREE PERIOD. 10 patch 05/04/20 24 Active Active Problems Problem Noted Date Diagnosed [...] without serious comorbidity in adult 08/25/2022 Immunizations Immunization Administration Dates Next Due FLU VACCINE QUAD [...] Recorded Patient Health Questionnaire-2 Score 0 11/05/2024 [facility]thel of Occupat ional Health - Occupational Stress [...] in a prison (including now)? No 07/24/2023 Comments No Sex [...] 61.7 kg (136 lb) 11/05/2024 11:49 AM FUEL ASSEMBLER Height 167.6 cm (5' 6) 11/05/2024 11:49 AM FUEL ASSEMBLER Body Mass Index 21.95 11/05/2024 11:49 AM FUEL ASSEMBLER Plan of Treatment Health Maintenance Due Date Last Done Comments COLOGUARD (AGES 45-75) - COLON CA SCREENING 1955 CT COLONOGRAPHY - COLON CA SCREENING [...] WITH MONOFILAMENT 08/25/2022 LUNG CANCER SCREENING 01/25/2024 01/24/2023 , 01/24/2023, 07/21/2021 COVID-19 VACCINE ( - season) 2024 PNEUMOCOCCAL VACCINE 50+ (3 of 3 - PCV20 or PCV21) 09/01/2024 09/01/2019, 01/30/2019, 07/20/2018, Additional history exists DIABETES - URINE PROTEIN SCREENING 09/30/2024 MEDICARE AWV CALENDAR YEAR 2024 DIABETES-HGB A1C 10/23/2024 07/23/2024, , 01/22/2024, Additional history exists INFLUENZA VACCINE (#1) 2025 , 11/08/2022, 07/06/2021, Additional history exists DIABETES-SERUM CREATININE 07/23/20252023, 09/27/2023, 09/27/2023, Additional history exists MAMMOGRAM 06/19/2026 06/19/2024, 06/01, 06/20/2022, Additional history exists COLON MONITORING 10/21/2029 10/21/2019 COLONOSCOPY - COLON CA SCREENING 10/21/2029 10/21/2019 [...] complete this topic MENINGOCOCCAL (Group B) VACCINE SHARED DECISION-MAKING Aged Out No longer eligible based on patient's age to complete this topic MENINGOCOCCAL GROUPS A/C/Y/W VACCINE Aged Out No longer eligible based on patient's age to complete this topic Medical Devices Implanted Type Area [employer] Social Science Teacher Device Identifier Shelf Expiration Date Model / Serial / Lot Graft Bone Accell Evo3 Dbm 10ml Ptty - [id number] Implanted:Qty: 1 on 08/25/2022 by Marbella Cano MD at [facility] Left: Leg [employer] 03/27/2023 02-5000-100 / [id number] / [id number] Screw 3.5mm 55mm Slf-Tap Cortx Evos Strl Implanted:Qty: 1 on 08/25/2022 by Marbella Cano MD at [facility] Left: Leg [employer] [id number] / / Screw 3.5mm 65mm Slf-Tap Cortx Evos Strl Implanted:Qty: 1 on 08/25/2022 by Marbella Cano MD at [facility] Left: Leg [employer] [id number] / / Screw 3.5mm 70mm Slf-Tap Cortx Evos Strl Implanted:Qty: 1 on 08/25/2022 by Marbella Cano MD at [facility] Left: Leg [employer] [id number] / / Plate 95d 60mm 9 Hl Ss Hip Cndrl Dcp Implanted:Qty: 1 on 07/24/2023 by Judy Blum MD at [facility] Left: Femur Synthes [employer]sa 237.92 / / Screw 4.5mm 8mm 70mm Cortx Slf-Tap Lg Implanted:Qty: 1 on 07/24/2023 by Judy Blum MD at [facility] Left: Femur [employer] 214.870 / / Screw 4.5mm 8mm 46mm 3.5mm Slf-Tap Lg Implanted:Qty: 1 on 07/24/2023 by Judy Blum MD at [facility] Left: Femur [employer] 214.846 / / Screw 4.5mm 8mm 36mm 3.5mm Slf-Tap Lg Implanted:Qty: 1 on 07/24/2023 by Judy Blum MD at [facility] Left: Femur Synthes [facility] 214.836 / / Screw 4.5mm 8mm 34mm Cortx Slf-Tap Lg Implanted:Qty: 1 on 07/24/2023 by Jean Carlos Yost MD at [facility] [employer] 214.834 / / Explanted Type Area [employer] Social Science Teacher Device Identifier Shelf Expiration Date Model / Serial / Lot Wire K 1.6mm 150mm Drl Tip Cocr Fx Flut Explanted:Qty: 6 on 08/25/2022 at [facility] [employer] [id number] / / Screw 3.5mm 75mm Slf-Tap Cortx Evos Strl Explanted:Qty: 1 on 08/25/2022 by Marbella Cano MD at [facility] Left: Leg [employer] [id number] / / Cortex Screw 4.5x74 Mm Explanted:Qty: 1 on 08/25/2022 by Marbella Cano MD at [facility] Left: Leg [employer] Trauma [id number] / / 4.5mm X 76mm Lck Screw Implanted:Qty: 2 on 08/25/2022 by Marbella Cano MD at [facility] Explanted:Qty: 2 on 07/24/2023 by Jean Carlos Yost MD at [facility] [id number] / / Evos 4.5mm X 36mm Screw Implanted:Qty: 3 on 08/25/2022 at [facility] Explanted:Qty: 3 on 07/24/2023 by Jean Carlos Yost MD at [facility] [id number] / / Evos 4.5mm X 30mm Screw Implanted:Qty: 1 on 08/25/2022 at [facility] Explanted:Qty: 1 on 07/24/2023 by Jean Carlos Yost MD at [facility] [id number] / / Screw 4.5mm 8mm 64mm Cortx Slf-Tap Lg Explanted:Qty: 1 on 07/24/2023 by Judy Blum MD at [facility] Left: Femur [employer] 214.864 / / Screw 4.5mm 8mm 18mm Gilberto Slf-Tap Lg Hex Explanted:Qty: 1 on 07/24/2023 by Judy Blum MD at [facility] Left: Femur [employer] 214.818 / / Screw 4.5mm 8mm 44mm 3.5mm Slf-Tap Lg Explanted:Qty: 1 on 07/24/2023 by Judy Blum MD at [facility] Left: Femur [employer] 214.844 / / Screw 4.5mm 8mm 32mm Cortx Slf-Tap Lg Explanted:Qty: 1 on 07/24/2023 by Judy Blum MD at [facility] Left: Femur [employer] 214.832 / / Locking Screw 4.5x74 Mm Implanted:Qty: 1 on 08/25/2022 by Marbella Cano MD at [facility] Explanted:Qty: 1 on 07/24/2023 by Jean Carlos Yost MD at [facility] Left: Leg [employer] Trauma [id number] / / Locking Screw 4.5x80 Mm Implanted:Qty: 1 on 08/25/2022 by Marbella Cano MD at [facility] Explanted:Qty: 1 on 07/24/2023 by Jean Carlos Yost MD at [facility] Left: Leg [employer] Tra[employer] [id number] / / Distal Femur Plate 4.5x270 Mm, 13 Hole Implanted:Qty: 1 on 08/25/2022 by Marbella Cano MD at [facility] Explanted:Qty: 1 on 07/24/2023 by Jean Carlos Yost MD at [facility] Left: Leg [employer] [id number] / / Procedures Procedure Name Priority Date/Time Associated Diagnosis Comments BASIC METABOLIC PANEL (CALCIUM TOTAL) AM Draw 07/29/2023 7:07 AM CDT HEMOGLOBIN A1C ROSELYN 08/25/2022 9:11 AM FUEL ASSEMBLER from Last 3 Months or Most Recently Relevant to Health Maintenance Results * (ABNORMAL) BASIC METABOLIC PANEL (CALCIUM TOTAL) (07/29/2023 7:07 AM CDT) BUN 15 7 - 26 mg/dL 07/29/2023 8:20 AM [facility] Creatinine 0.58 0.56 - 0.96 mg/dL 07/29/2023 8:20 AM [facility] Sodium 141 136 - 145 mmol/L 07/29/2023 8:20 AM [facility] Potassium 4.4 3.5 - 4.5 mmol/L 07/29/2023 8:20 AM [facility] Chloride 104 98 - 107 mmol/L 07/29/2023 8:20 AM [facility] CO2 26 22 - 29 mmol/L 07/29/2023 8:20 AM [facility] Glucose 128(H) 70 - 115 mg/dL 07/29/2023 8:20 AM [facility] Calcium 8.5 8.4 - 10.2 mg/dL 07/29/2023 8:20 AM [facility] Anion Gap 11 6 - 16 07/29/2023 8:20 AM [facility] BUN/Creatinine Ratio 26(H) 7 - 23 07/29/2023 8:20 AM [facility] Osmolality Calculated 294 275 - 295 mOsm/kg 07/29/2023 8:20 AM [facility] eGFR by CKD-EPI >90 >=90 mL/min/1.7 3 m2 07/29/2023 8:20 AM [facility] Blood BLOOD SPECIMEN / Unknown Lab Venipuncture / Unknown 07/29/2023 7:07 AM CDT 07/29/2023 7:49 AM CDT Judy Blum MD LAB - CHEMISTRY ORDERABLES Final Result Performing Organization Address [facility]/Va Hospital/ZIP Co de Phone Number [facility] [address] [place] [address], [place] [phone] * (ABNORMAL) HEMOGLOBIN A1C (08/25/2022 9:11 AM [facility]) [facility] Hemoglobin A1c 8.6(H) <=5.6 % 08/25/2022 11:08 AM [facility] Estimated Average Glucose 200 mg/dL 08/25/2022 11:08 AM [facility] Comment: HbA1c Interpretation: Normal : < 5.7% Pre-diabetes: 5.7-6.4% Diabetes: Equal to or greater than 6.5% Test results diagnostic of diabetes should be repeated for confirmation. Treatment target values recommended by ADA and other clinical organizations should be used to evaluate metabolic control in patients. Reference: [place] Diabetes Association, Standards of Care in Diabetes -2020 In patients 70 years and older consider HbA1c target range of 7.0-7.5% (Reference: Diogenes Wilkinson et al. JAMDA. 2012) The Sebia assay for the measurement of HbA1c is a National Glycohemoglobin Standardization Program (NGSP) certified method. Blood BLOOD SPECIMEN / Unknown Venipuncture / Unknown 08/25/2022 9:11 AM FUEL ASSEMBLER 08/25/2022 9:23 AM FUEL ASSEMBLER us Anyi Puentes MD LAB - CHEMISTRY ORDERABLES Final Result Performing Organization Address City/Va Hospital/ZIP Co de Phone Number [facility] [address] [place] [address], [place] [phone] from Last 3 Months or Most Recently Relevant to Health Maintenance Insurance [facility] MANAGED MEDICARE [facility] MANAGED MEDICARE [facility] Advance Directives * Full Code (Latest Code Status on File) Date Activated Date Inactivated Comments 07/24/2023 5:01 PM 07/29/2023 4:49 PM * Full Code Date Activated Date Inactivated Comments 08/25/2022 4:51 AM 09/12/2022 12:56 PM Care Teams Section Hand Relationship Specialty Start Date End Date Mendoza, JUAN LUIS Vu-IGNACIO [address] [address] [place] [phone] PCP - General Nurse Practitioner Family 01/23/24
--- OUTSIDE RECORDS SUMMARY | 2025-05-14 15:55 | XMS_ITS | Encounter Summary ---
Author Organization [facility] Address [address] [place] [address] Phone Care Team Providers Care Trucking Manager Name Role Phone Juanito Mckeon MD Unavailable [phone] Mirella Mendoza APRN, FOOD WRITER Primary Care Provider [phone] Damon Pollock MD Unavailable Serg Acosta MD Unavailable [phone] Brodie Drummond APRN, FOOD WRITER Unavailable Encounter Details Date Type Department Care Team (Late st Contact Info) Description 02/28/2023 [facility] [address] [place] [address] Mirella Mendoza APRN, FOOD WRITER [address] [place] [address] Social History Tobacco Use Types [...] Description 07/27/2025 10:45 AM CDT Office Visit [facility] [address] [place] [phone] Brodie Drummond APRN, FOOD WRITER [address] [place] [address] 07/29/2025 10:30 AM CDT Office Visit [facility] - Endocrinology [facility] [address] [place] [phone] Damon Pollock MD [address] [phone] documented as of this encounter Visit Diagnoses Not on filedocumented in this encounter Additional Health Concerns Infection Onset Date Last Indicated Resolved Time COVID - 19 09/26/2023 09/26/2023 10/06/2023 12:1 6 AM PRESIDENT & FOUNDER Assessment Noted Time PHQ-9 Depression Total Score: 0 04/10/20 17 1:00 PM CDT documented as of this encounter Care Teams Trucking Manager Relationship Specialty Start Date End Date Mirella Mendoza APRN, FOOD WRITER [address] [place] [address] PCP - General Family Medicine 12/25/21 Juanito Mckeon MD General Surgery 04/08/17 Damon Pollock MD [address] [phone] Consulting Physician Endocrinology 02/14/22 Serg Acosta MD [address] [place] [phone] Consulting Physician Neurology 12/24/22 Brodie Drummond APRN, FOOD WRITER [address] [place] [address] Nurse Practitioner Advanced Practice Nurse 01/21/24 documented as of this encounter
--- OUTSIDE RECORDS SUMMARY | 2025-05-14 15:55 | XMS_ITS | Continuity of Care Document ---
Author Organization [facility] Address [address] [place] [address] Insurance Providers Payer Plan Claims Address Claims Phone Policy Number Group Number Relation Employer Guarantor Name Guarantor Guarantor Address Guarantor Phone [place] Medic aid [id number] Self Carmella Sheriff [address] [place] [id number] [facility] [id number] Self Carmella Tride [address] [place] [address] [address] [address], [place] [address] tel:[phone] [id number] Self Carmlela Sheriff [address] [place] [address] Problems Unknown Problems Results No Results Allergies, adverse reactions, alerts No known allergies and adverse reactions Immunizations Vaccine Route Date Status Covid-19 09/16/2023 Completed Medications No administered medications reported Vital Signs Date Vital Result Comment 10/29/2023 Inhaled Oxygen Concentration (3150-0) 21. 0 % N Faces Pain Scale (85083-1) 0.0 N Oxygen Saturation (76513-0) 98 % N Respiratory Rate (9279-1) 18 /min N Heart Rate (8867-4) 78 /min N Blood Pressure Systolic (8480-6) 130 mm[Hg] N Blood Pressure Diastolic (8462-4) 72 mm[Hg] N Body Height (8302-2) 56 [in_i] N Body Weight (90141-9) 130 [lb_av] N Body Mass Index (50501-2) 29.1 kg/m2 N 05/13/2023 Inhaled Oxygen Concentration (3150-0) 21. 0 % N Faces Pain Scale (57170-3) 0.0 N Temperature (8310-5) 97.2 [degF] N Oxygen Saturation (57486-7) 97 % N Respiratory Rate (9279-1) 18 /min N Heart Rate (8867-4) 78 /min N Blood Pressure Systolic (8480-6) 132 mm[Hg] N Blood Pressure Diastolic (8462-4) 74 mm[Hg] N Body Height (8302-2) 56 [in_i] N Body Weight (42853-5) 157 [lb_av] N Body Mass Index (62939-8) 35.2 kg/m2 N 06/14/2023 Inhaled Oxygen Concentration (3150-0) 21. 0 % N Faces Pain Scale (83286-3) 0.0 N Oxygen Saturation (40961-6) 98 % N Respiratory Rate (9279-1) 18 /min N Heart Rate (8867-4) 78 /min N Blood Pressure Systolic (8480-6) 128 mm[Hg] N Blood Pressure Diastolic (8462-4) 74 mm[Hg] N Body Height (8302-2) 56 [in_i] N Body Weight (55282-0) 147 [lb_av] N Body Mass Index (73349-9) 33 kg/m2 N 08/27/2023 Inhaled Oxygen Concentration (3150-0) 21. 0 % N Faces Pain Scale (02907-2) 0.0 N Oxygen Saturation (95704-7) 97 % N Respiratory Rate (9279-1) 18 /min N Heart Rate (8867-4) 78 /min N Blood Pressure Systolic (8480-6) 118 mm[Hg] N Blood Pressure Diastolic (8462-4) 68 mm[Hg] N Body Height (8302-2) 56 [in_i] N Body Weight (75719-9) 155 [lb_av] N Body Mass Index (88571-2) 34.7 kg/m2 N 03/20/2024 Inhaled Oxygen Concentration (3150-0) 21. 0 % N Faces Pain Scale (81761-1) 0.0 N Oxygen Saturation (36654-1) 97 % N Respiratory Rate (9279-1) 18 /min N Heart Rate (8867-4) 68 /min N Blood Pressure Systolic (8480-6) 122 mm[Hg] N Blood Pressure Diastolic (8462-4) 74 mm[Hg] N Body Height (8302-2) 56 [in_i] N Body Weight (94573-3) 135 [lb_av] N Body Mass Index (29467-0) 30.3 kg/m2 N 07/13/2024 Inhaled Oxygen Concentration (3150-0) 21. 0 % N Faces Pain Scale (65533-3) 0.0 N Oxygen Saturation (19236-1) 98 % N Respiratory Rate (9279-1) 18 /min N Heart Rate (8867-4) 78 /min N Blood Pressure Systolic (8480-6) 128 mm[Hg] N Blood Pressure Diastolic (8462-4) 78 mm[Hg] N Body Height (8302-2) 56 [in_i] N Body Weight (59137-2) 160 [lb_av] N Body Mass Index (57467-9) 35.9 kg/m2 N 11/13/2024 Inhaled Oxygen Concentration (3150-0) 21. 0 % N Oxygen Saturation (69162-4) 96 % N Respiratory Rate (9279-1) 18 /min N Heart Rate (8867-4) 74 /min N Blood Pressure Systolic (8480-6) 132 mm[Hg] N Blood Pressure Diastolic (8462-4) 78 mm[Hg] N Body Height (8302-2) 56 [in_i] N Body Weight (93246-5) 192 [lb_av] N Body Mass Index (07012-6) 43 kg/m2 N Social History No smoking [...]
--- OUTSIDE RECORDS SUMMARY | 2025-05-14 15:55 | XMS_ITS | Encounter Summary ---
Author Organization [facility] Address [address] [place] [address] Phone Care Team Providers Care Licensed Optician Name Role Phone Juanito Mckeon MD Unavailable [phone] Mirella Mendoza APRN, ONLINE COMMUNICATIONS MANAGER Primary Care Provider [phone] Damon Pollock MD Unavailable Serg Acosta MD Unavailable [phone] Brodie Drummond APRN, [facility] Unavailable Reason for Visit * Reason Comments Medication Refill Encounter Details Date Type Department Care Team (Late st Contact Info) Description 10/22/2023 [facility]ill [facility] - [place] [address] [place] [address] Damon Pollock MD [address] [phone] Medication Refill Social History Tobacco [...] Sabine Davis RN - 10/22/2023 1:26 PM NECK BAND SETTER Requested Prescriptions Pending Prescriptions Disp Refills ??? Jardiance 25 MG Tablet [Pharmacy Med Name: JARDIANCE 25MG TABLET] 30 Tablet 2 Sig: TAKE 1 TABLET BY MOUTH DAILY Next appt: 10/23/2023 BAND SETTER documented in this encounter Plan of Treatment Upcoming Encounters Date Type Department Care Team (Late st Contact Info) Description 07/27/2025 10:45 AM CDT Office Visit [facility] [address] [place] [address] Brodie Drummond APRN, ONLINE COMMUNICATIONS MANAGER [address] [place] [address] 07/29/2025 10:30 AM CDT Office Visit [facility] - End[facility]ology - [place] [address] [place] [address] Damon Pollock MD [address] [address] documented as of this encounter Visit Diagnoses Not on filedocumented in this encounter Additional Health Concerns Assessment Noted Time PHQ-9 Depression Total Score: 0 04/10/20 17 1:00 PM CDT documented as of this encounter Care Teams Licensed Optician Relationship Specialty Start Date End Date Mirella Mendoza APRN, ONLINE COMMUNICATIONS MANAGER [address] [place] [address] PCP - General Family Medicine 12/25/21 Juanito Mckeon MD General Surgery 04/08/17 Damon Pollock MD #[address] [phone] Consulting Physician Endocrinology 02/14/22 Serg Acosta MD [address] [place] [phone] Consulting Physician Neurology 12/24/22 Brodie Drummond APRN, ONLINE COMMUNICATIONS MANAGER [address] [place] [address] Nurse Practitioner Advanced Practice Nurse 01/21/24 documented as of this encounter
--- OUTSIDE RECORDS SUMMARY | 2025-05-14 15:55 | XMS_ITS | Encounter Summary ---
Author Organization [facility] Address [address] [place] [address] Phone Care Team Providers Care Offender Job Retention Specialist Name Role Phone Juanito Mckeon MD Unavailable [phone] Mirella Mendoza APRN, [employer] Primary Care Provider [phone] Damon Pollock MD Unavailable Serg Acosta MD Unavailable Brodie Drummond APRN, [employer] Unavailable Encounter Details Date Type Department Care Team (Late st Contact Info) Description 10/01/2022 Nursing Facility [facility] [address] [place] [address] Jonas Elliott, PAC [address] [place], [place] [id number] Social History Tobacco Use Types Packs/Day Years [...] Elliott, PAC - 10/01/2022 1:32 PM CST [facility] PROGRESS NOTE Carmella Sheriff is a 67 y.o. female at [facility] for rehabilitation. Prior to coming to rehabilitation facility patient was hospitalized at [facility] from 08/25 through 09/12 after suffering [...] REPAIR WITH MESH; Surgeon: Juanito Mckeon MD; Location:[facility]; Service: General Review of Systems: A [...] system and there may be errors in surgical appliance fitter. Despite proof reading the note, there may be mistakes and I apologize for those. By: SERGIO Oliver, 10/01/2022 1:32 PM OUTSIDE REPAIRER SPECIAL IDE REPAIRER SPECIAL documented in this encounter Plan of Treatment Upcoming Encounters Date Type Department Care Team (Late st Contact Info) Description 07/27/2025 10:45 AM CDT Office Visit [facility] [address] [place] [id number] Brodie Drummond APRN, [employer] [address] [place] [address] 07/29/2025 10:30 AM CDT Office Visit [facility] - [facility] [address] [place] [address] Damon Pollock MD [address] [address] documented as of this encounter Visit Diagnoses Not on filedocumented in this encounter Additional Health Concerns Infection Onset Date Last Indicated Resolved Time COVID - 19 09/26/2023 09/26/2023 10/06/2023 12:1 6 AM OUTSIDE REPAIRER SPECIAL Assessment Noted Time PHQ-9 Depression Total Score: 0 04/10/20 17 1:00 PM CDT documented as of this encounter Care Teams Offender Job Retention Specialist Relationship Specialty Start Date End Date Mirella Mendoza APRN, [employer] [address] [facility] [address] [place] [address] PCP - General Family Medicine 12/25/21 Juanito Mckeon MD General Surgery 04/08/17 Damon Pollock MD #[address] [address] Consulting Physician Endocrinology 02/14/22 Serg Acosta MD [address] [place] [phone] Consulting Physician Neurology 12/24/22 Brodie Drummond APRN, [employer] [address] [place] [address] Nurse Practitioner Advanced Practice Nurse 01/21/24 documented as of this encounter
--- OUTSIDE RECORDS SUMMARY | 2025-05-14 15:56 | XMS_ITS | Encounter Summary ---
Author Organization [facility] Address [address] [place] [address] Phone Care Team Providers Care Integrated Pest Management Technician Name Role Phone Juanito Mckeon MD Unavailable [phone] Mirella Mendoza APRN, TRIMMING MACHINE SET UP OPERATOR Primary Care Provider [phone] Damon Pollock MD Unavailable Serg Acosta MD Unavailable [phone] Brodie Drummond APRN, [facility] Unavailable Reason for Visit * Reason Comments Medication Refill Encounter Details Date Type Department Care Team (Late st Contact Info) Description 08/21/2023 Refill [facility] - [place] [address] [place] [address] Damon Pollock MD #[address] [address] Medication Refill Social History Tobacco [...] Sabine Davis RN - 08/21/2023 12:14 PM MUCK MINER BLASTING Requested Prescriptions Pending Prescriptions Disp Refills ??? Continuous Blood Gluc Sensor (Dexcom G7 Sensor) Misc [Pharmacy Med Name: DEXCOM G7 SENSOR] 9 Each 1 Sig: CHANGE EVERY 10 DAYS Next appt: Message sent to schedule follow up. MINER BLASTING documented in this encounter Plan of Treatment Upcoming Encounters Date Type Department Care Team (Late st Contact Info) Description 07/27/2025 10:45 AM CDT Office Visit [facility] [address] [place] [address] Brodie Drummond APRN, TRIMMING MACHINE SET UP OPERATOR [address] [place] [address] 07/29/2025 10:30 AM CDT Office Visit [facility] - Endocrinology - [place] [address] [place] [address] Damon Pollock MD #[address] [address] documented as of this encounter Visit Diagnoses Not on filedocumented in this encounter Additional Health Concerns Infection Onset Date Last Indicated Resolved Time COVID - 19 09/26/2023 09/26/2023 10/06/2023 12:1 6 AM MUCK MINER BLASTING Assessment Noted Time PHQ-9 Depression Total Score: 0 04/10/20 17 1:00 PM CDT documented as of this encounter Care Teams Integrated Pest Management Technician Relationship Specialty Start Date End Date Mirella Mendoza APRN, TRIMMING MACHINE SET UP OPERATOR [address] [place] [address] PCP - General Family Medicine 12/25/21 Juanito Mckeon MD General Surgery 04/08/17 Damon Pollock MD #[address] [address] Consulting Physician Endocrinology 02/14/22 Serg Acosta MD [address] [place] [address] Consulting Physician Neurology 12/24/22 Brodie Drummond APRN, TRIMMING MACHINE SET UP OPERATOR [address] [place] [address] Nurse Practitioner Advanced Practice Nurse 01/21/24 documented as of this encounter
--- OUTSIDE RECORDS SUMMARY | 2025-05-14 15:56 | XMS_ITS | Encounter Summary ---
Author Organization [facility] Address [address] [place] [address] Phone Care Team Providers Care Sports Management Internship Name Role Phone Juanito Mckeon MD Unavailable [phone] Mirella Damon APRN, MANAGER TRANSPLANT Primary Care Provider [phone] Damon Pollock MD Unavailable Serg Acosta MD Unavailable [phone] Brodie Drummond APRN, MANAGER TRANSPLANT Unavailable Encounter Details Date Type Department Care Team (Late st Contact Info) Description 09/14/2022 Nursing Facility [facility] [address] [place] [address] Alethea Triado MD [address] [place] [address] Social History Tobacco Use Types Packs/Day Years [...] Coronavirus/COVID-19? No / Unsure 08/24/2022 11:15 PM TUB MENDER documented as of this encounter H&P Notes * Adama Morgan - 09/14/2022 2:58 PM CST . [facility] History and Physical Chief Complaint: Fall, left femur fracture s/p surgical repair HPI: Carmella Sheriff is a 67 y.o. female who has transferred to [facility] from [facility] for post-acute care and rehabilitation. The patient [...] past medical history of Bipolar 1 disorder ([facility]), Chronic hip pain,Concussion, COPD (chronic obstructive pulmonary disease) ([facility]), CVA (cerebral vascular accident) ([facility]), Diabetes mellitus ([facility]), Diabetic neuropathy ([facility]), and Gastroesophageal reflux disease without esophagitis. Surgical [...] Eliquis until 09/28 Advance Care Planning: Aggregate [id number] time, greater than 16 minutes was spent discussing end-of-life care planning with patient/family and/or Power of Data Governance Consultant. Discussed CPR, Intubation, treatment goals, and Quality of life/Intensity of care. Patient desires No CPR-Comfort focused treatment Adama Cherry, acting as a scribe, am personally taking down the notes in the presence of Dr. Alethea Tirado M.D. Take no action on this note until reviewed and authenticated by the physician. By: ADAMA MORGAN, 09/14/2022, 2:58 PM TUB MENDER Primary Care Physician: MIRELLA DAMON APRN, MANAGER TRANSPLANT Cosigned by Alethea Tirado MD at 09/18/2022 5:25 PM TUB MENDER MENDER MENDER Associated attestation - Alethea Tirado MD - 09/18/2022 5:25 PM TUB MENDER I evaluated and examined the patient in the presence of sebastienibe Adama Morgan and discussed the physical findings and clinical assessment with her and reviewed the medical records and notes above and agree with the content and details of the note. documented in this encounter Plan of Treatment Upcoming Encounters Date Type Department Care Team (Late st Contact Info) Description 07/27/2025 10:45 AM CDT Office Visit [facility] [address] [place] [address] Brodie Drummond APRN, MANAGER TRANSPLANT [address] [place] [address] 07/29/2025 10:30 AM CDT Office Visit [facility] - [facility] - [facility] [address] [place] [phone] Damon Pollock MD #[address] [address] documented as of this encounter Visit Diagnoses Not on filedocumented in this encounter Additional Health Concerns Infection Onset Date Last Indicated Resolved Time COVID - 19 09/26/2023 09/26/2023 10/06/2023 12:1 6 AM TUB MENDER Assessment Noted Time PHQ-9 Depression Total Score: 0 04/10/20 17 1:00 PM CDT documented as of this encounter Care Teams Sports Management Internship Relationship Specialty Start Date End Date Mirella Damon APRN, MANAGER TRANSPLANT [address] [place] [address] PCP - General Family Medicine 12/25/21 Juanito Mckeon MD General Surgery 04/08/17 Damon Pollock MD #[address] [phone] Consulting Physician Endocrinology 02/14/22 Serg Acosta MD [address] [place] [address] Consulting Physician Neurology 12/24/22 Brodie Drummond APRN, MANAGER TRANSPLANT [address] [place] [address] Nurse Practitioner Advanced Practice Nurse 01/21/24 documented as of this encounter
--- OUTSIDE RECORDS SUMMARY | 2025-05-14 15:56 | XMS_ITS | Clinical Summary ---
Author Organization [facility] Address [address] [place] [address] Care Team Providers Care Spinning Operator Name Role Phone Mirella Mendoza NP Primary Care Provider [phone] Allergies Active Allergy Reactions Criticality Noted Date [...] 1 tablet (150 mg total) by mouth telecommunications specialist before breakfast 5 Active ondansetron ODT (ZOFRAN-ODT) [...] total) by mouth daily 1 Active omega 5-jwu-mwr-fish oil (Fish OiL) 100-160-1,000 mg capsule Active [...] Units total) by mouth daily 3 Active lidocaine (LIDODERM) 5 % Place 1 patch on the skin daily 3 Active furosemide (LASIX) 20 mg tablet 3 Active busPIRone (BUSPAR) 10 mg tablet 4 Active omeprazole (PriLOSEC) 40 mg capsule 3 Active venlafaxine XR (EFFEXOR-XR) 150 mg 24 hr capsule 4 Active pancrelipase (Creon) 24,000 units of lipase capsule Take 1 capsule by mouth 3 (three) times a day with meals 270 capsule 3 5 Active mirabegron ER (MYRBETRIQ) 50 mg tablet extended release 24 hr Take 1 tablet (50 mg total) by mouth daily Active glimepiride (AMARYL) 1 mg tabletIndications: type 2 diabetes mellitus Take 1 tablet (1 mg total) by mouth daily before breakfast Active Active Problems Problem Noted Date Diagnosed Date IPMN (intraductal papillary mucinous neoplasm) 0 11/09/2024 Encounter for screening colonoscopy 09/28/2024 History of colonic polyps 09/28/2024 Family history of pancreatic cancer 04/30/2024 Pancreatic insufficiency 10/29/2023 Chronic pancreatitis 10/29/2023 Chronic diarrhea 06/29/2023 Assessment & Plan [...] time. 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 Assessment & Plan (09/19/2021 3:01 PM DRYWALL CARRIER): Pepcid 40 mg at bedtime Augmentin with a meal twice daily for 21 days Diflucan if needed Follow up in 3 months, earlier if needed, if 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, 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 Continue speech therapy exercises 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 Assessment & Plan (04/17/2022 1:55 PM CDT): Improved Continue working on smoking cessation Assessment & Plan (09/19/2021 3:01 PM DRYWALL CARRIER): Pepcid 40 mg at bedtime Augmentin with a meal twice daily for 21 days Diflucan if needed Follow up in 3 months, earlier if needed, if 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 Encounters Date Type Department Care Team Description 04/15/2025 Telephone [facility]ology at [address] [place] [address] Galilea Chan 04/13/2025 Results Follow-Up [facility] at [address] [place] [address] Luisa Schwab MD Surgical pathology 04/12/2025 11:30 AM CDT - 04/12/2025 12:00 PM CDT Surgery [address] [address] Luisa Schwab MD COLON REMOVAL SNARE 04/12/2025 10:38 AM CDT Anesthesia Event [address] [address] Clyde Cash MD 04/12/2025 10:08 AM CDT - 04/12/2025 12:13 PM CDT Hospital Encounter [address] [address] Luisa Schwab MD History of colonic polyps Discharge Disposition: Discharge to home or self care 04/06/2025 8:00 AM CDT Office Visit [facility] at [address] [place] [address] Luisa Schwab MD Chronic diarrhea (Primary Dx); Pancreatic insufficiency; Alcohol-induced chronic pancreatitis (HCC); IPMN (intraductal papillary mucinous neoplasm); Family history of pancreatic cancer; History of colonic polyps; Tobacco use from Last 3 Months Immunizations Immunization Administration [...] FEMUR FRACTURE SURGERY Left FOOT SURGERY Right COLONOSCOPY 09/30/2019 - 10/30/2019 COLONOSCOPY 04/12/2025 Medical History Medical History Date Comments Type 2 diabetes mellitus Bipolar disorder Stroke (HCC) Depression Peripheral neuropathy PONV (postoperative nausea and vomiting) Colon polyp GERD (gastroesophageal reflux disease) Cholelithiasis Hypertension COPD (chronic obstructive pulmonary disease) Family History Medical History Relation Name Comments [...] uit: Not Asked; Counseling Given: Not Answered Comments:Recommended not to smoke 24 hrs prior to surgery Alcohol Use Standard Drinks/Week Comments Yes 0 (1 standard drink = 0.6 oz pur e alcohol) AUDIT-C Answer Date Recorded Q1: How often do you have a drink containing alc ohol? Monthly or less 04/12/2025 Q2: How many drinks containi ng alcohol do you have on a typical day when you are drinking? 1 or 2 04/12/2025 Q3: How often do you have si x or more drinks on one occasion? Never 04/12/2025 Personal Safety Answer Date Recorded Have you ever been in or are you currently in a harmful physical or emotional relationship or is someone making you feel afraid or unsafe? Denies 04/12/2025 Comments No Sex and Gender Information Value Date Recorded Sex Assigned at Not on file Legal Sex Female 12:00 PM DRYWALL CARRIER Gender Identity Not on file Sexual Orientation Not on file Obstetrics History Last Filed Vital Signs Vital Sign Reading Time Taken Comments Blood Pressure 140/64 04/12/2025 12:05 PM CDT Pulse 71 04/12/2025 12:05 PM CDT Temperature 36.3 C (97.3 F) 04/12/2025 12:05 PM CDT Respiratory Rate 16 04/12/2025 12:05 PM CDT Oxygen Saturation 99% 04/12/2025 12:05 PM CDT Inhaled Oxygen Concentration - - Weight 74.4 kg (164 lb) 04/12/2025 10:17 AM CDT Height 167.6 cm (5' 6) 04/12/2025 10:17 AM CDT Body Mass Index 26.47 04/12/2025 10:17 AM CDT Plan of Treatment Upcoming Encounters Date Type Department Care Team (Late st Contact Info) Description 04/13/2026 11:00 AM CDT Hospital Encounter [address] [address]Luisa Tavarez MD [address] [place] [address] 04/13/2026 11:00 AM CDT - 04/13/2026 11:30 AM CDT Surgery [address] [phone] Tavarez MD [address] [place] [address] COLONOSCOPY Scheduled Procedures Name Priority Associated Diagnoses Date/Ti me COLONOSCOPY History of colonic polyps 04/13/2026 11:00 AM CDT Health Maintenance Due Date Last Done Comments Depression Screening 1955 Hepatitis C Screening 1955 Hepatitis B Screening 1974 Zoster Vaccine (1 of 2) 2006 Well Visit 65+ 2021 Pneumococcal vaccine 65+ (3 of 3 - PCV20 or PCV21) 09/01/2024 09/01/2019, 01/30/2019, 07/20/2018, Additional history exists Osteoporosis Screening-Bone Density Scan 05/01/2025 05/01/2023, 05/01/2023 Influenza Vaccine (#1) 2025 3, 11/08/2022, 07/06/2021, Additional history exists Breast Cancer Screening-Mammogram 06/19/2025 06/19/2024, 06/19/2024, 06/20/2022, Additional history exists Fall Risk Assessment 04/12/2026 04/12/2025 DTaP/Tdap/Td Vaccine (2 - Td or Tdap) 07/16/2034 07/16/2024 Colon Cancer Screening-Colonoscopy 04/12/2035 04/12/2025, 10/21/2019 Colon Cancer Screening-CT Colonography Discontinued 04/12/2025, 10/21/2019 Colon Cancer Screening-DNA Stool Discontinued 04/12/20 25, 10/21/2019 Colon Cancer Screening-FIT Discontinued 04/12/2025, Colon Cancer Screening-Sigmoidoscopy Discontinued 04/12/2025, 10/21/2019 Procedures Procedure Name Priority Date/Time Associated Diagnosis Comments SURGICAL PATHOLOGY STAT 04/12/2025 12 :45 PM CDT History of colonic polyps ENDO ADD ON COLON BIOPSY 04/12/2025 10:34 AM CDT History of colonic polyps COLON REMOVAL SNARE 04/12/2025 1 0:34 AM CDT History of colonic polyps POCT GLUCOSE DEVICE Routine 04/12/2025 1 0:33 AM CDT COLONOSCOPY 04/12/2025 10:31 AM CDT from Last 3 Months Results * Surgical pathology (04/12/2025 12:45 PM CDT) Tissue (Colon, Biopsy) 04/12/2025 11:10 AM CDT Comment:For diarrhea Tissue specimen (specimen) (Polyp(s), colon/colorectal, esophageal, gastric) 04/12/2025 11:12 AM CDT Tissue specimen (specimen) (Polyp(s), colon/colorectal, esophageal, gastric) 04/12/2025 11:20 AM CDT Narrative PATHOLOGY [facility] ([place]) - 04/13/2025 10:00 AM CDT EPIC results best viewed via link to PDF [facility] Department of Pathology [address] [place] [address] Note to Patients: This report may contain a detailed description of human tissue sent by a health care provider to the laboratory for pathologic evaluation. The content of this report is essential for diagnosis and may provide important critical findings. This information may be unfamiliar to patients to review without a medical professional present. It is advised that the patient review this report in the presence of a health care provider who can answer questions and explain the details. Final Report Patient Name: CARMELLA SHERIFF Address: [address] [place] [address] Gender: F : 1955 (Age: 69) Service: Gastro Location: [facility] #: [id number] Patient Type: [facility] Taken: 04/12/2025 Received: 04/12/2025 Accessioned: 04/12/2025 Reported: 04/13/2025 Physician(s):Luisa Schwab MD Diagnosis: A. Random colon, biopsy: - No significant histopathologic alteration. B. Transverse colon polyp, biopsy: - Hyperplastic polyp. C. Rectal polyp, biopsy: - Hyperplastic polyp. Jean Carlos Howell M.D. Report Electronically Reviewed and Signed Out By Jean Carlos Howell M.D. 04/13/2025 10:00:35 Specimen(s) Received: A: Random colon biopsies for diarrhea B: Transverse colon polyp x 1 C: Rectal polyp x 1 Microscopic Description: A. Sections show fragments of benign colonic mucosa. No significant acute inflammatory infiltrate is seen. There is no increase in intraepithelial lymphocytes. The subepithelial collagen layer appears to be of appropriate thickness. No organisms are identified. No chronic architectural changes are seen. There is no evidence of dysplasia or malignancy. B. Sections show a hyperplastic polyp. No features of a sessile serrated adenoma are seen. There is no evidence of dysplasia or malignancy. C. Sections show a hyperplastic polyp. No features of a sessile serrated adenoma are seen. There is no evidence of dysplasia or malignancy. Clinical History: History of colonic polyps. Colonoscopy. Gross Description: The specimen is submitted in three formalin containers labeled CARMELLA SHERIFF. A. The first container is labeled random colon biopsies for diarrhea. It is 6 caamcho tissue fragments between <1 and 1 mm. All in A. B. The second container is labeled transverse colon polyp. It is 1 camacho tissue fragment measuring 3 mm and an approximate 0.5 cc aggregate of fecal matter, food particles and pill fragments. Entirely submitted: Tissue B 1, debris B2 C. The third container is labeled rectal polyp. It is 1 camacho tissue fragment measuring 6 mm. Inked and bisected. All in C. T.A. Precious Kaur, P.A./Nj Sin M.D. REPORT IMAGES AND SCANNED DOCUMENTS, IF INCLUDED, ONLY VIEWABLE IN PDF VERSION OF REPORT The performance characteristics of some immunohistochemical stains, fluorescence in-situ hybridization tests and immunophenotyping by flow cytometry cited in this report (if any) were determined by the Surgical Pathology Department at [facility] as part of an ongoing senior quality analyst program and in compliance with federally mandated regulations drawn from the Clinical Laboratory Improvement Act of 1988 (CLIA '88). Some of these tests rely on the use of analyte specific reagents and are subject to specific labeling requirements by the US Food and Drug Administration. Such diagnostic tests may only be performed in a facility that is certified by the Department of Health and Human Services as a high complexity laboratory under CLIA '88. The FDA has determined that such clearance or approval is not necessary. This test is used for clinical purposes. It should not be regarded as investigational or for research. Nevertheless, federal rules concerning the medical use of analyte specific reagents require that the following disclaimer be attached to the report: This test was developed and its performance characteristics determined by the Surgical Pathology Department [facility]. It has not been cleared or approved by the U. S. Food and Drug Administration. Note for decalcified specimens: This assay has not been validated on decalcified tissues. Results should be interpreted with caution given the possibility of false negativity on decalcified specimens us Luisa Schwab MD LAB PATHOLOGY ORDERABLES Final R esult PATHOLOGY [facility] [address] [place] [address] * (ABNORMAL) POCT glucose (04/12/2025 10:33 AM CDT) Glucose, POC 213(H) 70 - 199 mg/dL Blood 04/12/2025 10:3 3 AM CDT 04/12/2025 10:33 AM CDT us Luisa Schwab MD LAB POCT ORDERABLES - DEVICE Fin al Result Performing Organization Address [facility] Co de Phone Number CERNER [facility] [address] [facility] Department [place] [address] * Colonoscopy (04/12/2025 10:31 AM CDT) Anatomical Region Laterality Modality Other Narrative Procedure Note Luisa Schwab MD - 04/12/2025 10:31 AM CDT [facility] Patient Name: Carmella Sheriff Procedure Date: 04/12/2025 10:31 AM Date of : 1955 Admit Type: Outpatient Age: 69 Gender: Female Attending MD: Luisa Schwab M.D., Room: [facility] ENDOSCOPY ROOM 3 Note Status: Finalized Patient Profile: This is a 69 year old female h/o DM, COPD, chronic pancreatitis with pancreatic insufficiency, IPMNhere for colonoscopy for evaluation of chronic diarrhea. Colonoscopy 2020 showed 7mm hyperplastic polyp. No family hx of colon cancer. Procedure: Colonoscopy Indications: Chronic diarrhea Referring MD: Mirella Mendoza NP Providers: Luisa Schwab M.D. Impression: - Preparation of the colon was inadequate. - Hemorrhoids found on perianal exam. - Two 8 to 10 mm polyps in the rectum and in the transverse colon, removed with a cold snare.Resected and retrieved. - Diverticulosis in the sigmoid colon, in the transverse colon and in the ascending colon. - There was significant looping of the colon. - External and internal hemorrhoids. - Biopsies were taken with a cold forceps from the entire colon for evaluation of microscopiccolitis. Recommendation: - Patient has a contact number available for emergencies. The signs and symptoms of potential delayed complications were discussed with thepatient. Return to normal activities tomorrow. Written discharge instructions were provided to thepatient. - Patient has a contact number available for emergencies. The signs and symptoms of potential delayed complications were discussed with thepatient. Return to normal activities tomorrow. Written discharge instructions were provided to thepatient. - Discharge patient to home (with escort). - High fiber diet. - Use sugar-free Metamucil one tablespoon POdaily. - Await pathology results. - Repeat colonoscopy in 1 year with 2 day prep for surveillance based on pathology results. Will needto better control her overflow diarrhea which isactually from constipation. - Return to GI clinic as previously scheduled. Medicines: Monitored Anesthesia Care Complications: No immediate complications. Estimated Blood Loss: Estimated blood loss was minimal. Estimated bloodloss was minimal. Procedure: Pre-Anesthesia Assessment: - Prior to the procedure, a History and Physicalwas performed, and patient medications and allergieswere reviewed. The patient is competent. The risks and benefits of the procedure and the sedation optionsand risks were discussed with the patient. Allquestions were answered and informed consent was obtained. Patient identification and proposed procedure were verified by the physician, the anesthesiologist and the zone maintenance technician in the endoscopy suite. MentalStatus Examination: normal. Prophylactic Antibiotics: The patient does not require prophylactic antibiotics. Prior Anticoagulants: The patient has taken no anticoagulant or antiplatelet agents. Afterreviewing the risks and benefits, the patient was deemed in satisfactory condition to undergo the procedure.The anesthesia plan was to use monitored anesthesiacare (MAC). Immediately prior to administration of medications, the patient was re-assessed foradequacy to receive sedatives. The heart rate, respiratory rate, oxygen saturations, blood pressure, adequacyof pulmonary ventilation, and response to care were monitored throughout the procedure. The physical status of the patient was re-assessed after the procedure. The benefits, risks and alternatives of theprocedure and sedation were discussed and informed consentwas obtained. All questions were answered. Please referto the signed informed consent document in the medical record. The scope was passed under direct vision.The Pediatric Colonoscope [id number]-[id number] was introduced through the anus and advanced to the the cecum, identified by appendiceal orifice andileocecal valve. The bowel preparation used was Miralax via extended prep with split dose instruction. Thebowel preparation used was bisacodyl tablets via extended prep with split dose instruction. The quality ofthe bowel preparation was inadequate. Bowel prep was administered using a split dose. Findings: Hemorrhoids were found on perianal exam. Two flat polyps were found in the rectum and transverse colon. The polyps were 8 to 10 mm in size. These polyps were removed with a cold snare. Resection and retrieval were complete. A few medium-mouthed and small-mouthed diverticula were found in the sigmoid colon, transverse colon and ascending colon. The colon (entire examined portion) revealed excessive looping. Advancing the scope required applying abdominal pressure. External and internal hemorrhoids were found during retroflexion. The exam was otherwise normal throughout the examined colon. Biopsies for histology were taken with a cold forceps from the entire colon for evaluation of microscopic colitis. Luisa Schwab M.D. 04/12/2025 11:37:06 AM Number of Addenda: 0 Note Initiated On: 04/12/2025 10:31 AM Procedure Code(s): --- Professional --- 52264, Colonoscopy, flexible; with removal of tumor(s), polyp(s), or other lesion(s) by snare technique 25484, 59, Colonoscopy, flexible; with biopsy, single or multiple --- Technical --- 13674, Colonoscopy, flexible; with removal of tumor(s), polyp(s), or other lesion(s) by snare technique 69991, 59, Colonoscopy, flexible; with biopsy, single or multiple Diagnosis Code(s): --- Professional --- K64.8, Other hemorrhoids D12.8, Benign neoplasm of rectum D12.3, Benign neoplasm of transverse colon (hepatic flexure orsplenic flexure) K52.9, Noninfective gastroenteritis and colitis, unspecified K57.30, Diverticulosis of large intestine without perforation orabscess without bleeding --- Technical --- K64.8, Other hemorrhoids D12.8, Benign neoplasm of rectum D12.3, Benign neoplasm of transverse colon (hepatic flexure orsplenic flexure) K52.9, Noninfective gastroenteritis and colitis, unspecified K57.30, Diverticulosis of large intestine without perforation orabscess without bleeding CPT copyright 2022 [employer]. All rights reserved. The codes documented in this report are preliminary and upon baccarat manager reviewmay be revised to meet current compliance requirements. Recognized by the [employer] for promoting quality in endoscopy Luisa Schwab MD ENDOSCOPY PROCEDURES Final Resul t from Last 3 Months Insurance [facility] Address: [address] [address] [place] [address] IDPA * Guarantor: Carmella Sheriff Account Type Relation to Patient Date of Phone Billing Address Personal/Family Self 1955 [address] [place] [address] [facility] MEDICARE ADVANTAGE [facility] Address: [address] [address] [place] [address] IDPA IDPA [facility] MEDICARE ADVANTAGE [facility] Address: [address] [address] [place] [address] Advance Directives For more information, please contact: [phone] * Full Code (Latest Code Status on File) Date Activated Date Inactivated Comments 04/12/2025 10:10 AM 04/12/2025 4:13 PM * Full Code Date Activated Date Inactivated Comments 04/12/2025 10:10 AM 04/12/2025 10:10 AM * Full Code Date Activated Date Inactivated Comments 12/17/2024 10:48 AM 12/17/2024 4:32 PM * Full Code Date Activated Date Inactivated Comments 12/17/2024 10:48 AM 12/17/2024 10:48 AM * Full Code Date Activated Date Inactivated Comments 12/08/2024 12:57 PM 12/08/2024 6:49 PM Care Teams Spinning Operator Relationship Specialty Start Date End Date Mirella Mendoza NP [address] [place] [address] PCP - General Nurse Practitioner 09/19/21
--- OUTSIDE RECORDS SUMMARY | 2025-05-14 15:56 | XMS_ITS | Encounter Summary ---
Author Organization [facility] Address [address] [place] [address] Phone Care Team Providers Care Solar Crew Member Name Role Phone Juanito Mckeon MD Unavailable [phone] Mirella Mendoza APRN, E LEARNING SPECIALIST Primary Care Provider [phone] Damon Pollock MD Unavailable Serg Acosta MD Unavailable Brodie Drummond APRN, E LEARNING SPECIALIST Unavailable Reason for Visit * Reason Comments Medication Refill Encounter Details Date Type Department Care Team (Late st Contact Info) Description 03/17/2024 Refill [facility] - [facility]ology - [place] [address] [place] [address] Damon Pollock MD [address] [address] Medication Refill Social History Tobacco [...] Description 07/27/2025 10:45 AM CDT Office Visit [facility] [address] [place] [address] Brodie Drummond APRN, IGNACIO [address] [place] [address] 07/29/2025 10:30 AM CDT Office Visit [facility] - Endocrinology - [place] [address] [place] [address] Damon Pollock MD [address] [address] documented as of this encounter Visit Diagnoses Not on filedocumented in this encounter Additional Health Concerns Assessment Noted Time PHQ-9 Depression Total Score: 0 04/10/20 17 1:00 PM CDT documented as of this encounter Care Teams Solar Crew Member Relationship Specialty Start Date End Date Mirella Mendoza APRN, E LEARNING SPECIALIST [address] [place] [address] PCP - General Family Medicine 12/25/21 Juanito cMkeon MD General Surgery 04/08/17 Damon Pollock MD [address] [phone] Consulting Physician Endocrinology 02/14/22 Serg Acosta MD [address] [place] [address] Consulting Physician Neurology 12/24/22 Brodie Drummond APRN, E LEARNING SPECIALIST [address] [place] [address] Nurse Practitioner Advanced Practice Nurse 01/21/24 documented as of this encounter
--- OUTSIDE RECORDS SUMMARY | 2025-05-14 15:56 | XMS_ITS | Encounter Summary ---
Author Organization [facility] Address [address] [place] [address] Phone Care Team Providers Care Director Of Services Name Role Phone Juanito Mckeon MD Unavailable [phone] Mirella Mendoza APRN, FUEL CELL BINDER Primary Care Provider [phone] Damon Pollock MD Unavailable Serg Acosta MD Unavailable Brodie Drummond APRN, FUEL CELL BINDER Unavailable Encounter Details Date Type Department Care Team (Late st Contact Info) Description 09/12/2022 Telephone [facility] [address] [place] [address] Jonas Elliott, PAC [address] [place], [place] [id number] Social History Tobacco Use Types Packs/Day Years [...] Coronavirus/COVID-19? No / Unsure 08/24/2022 11:15 PM FILM INSPECTOR documented as of this encounter Plan of Treatment Upcoming Encounters Date Type Department Care Team (Late st Contact Info) Description 07/27/2025 10:45 AM CDT Office Visit [facility] #2 [place] [address] Brodie Drummond APRN, IGNACIO [address]2 [place] [address] 07/29/2025 10:30 AM CDT Office Visit [facility] #2 [place] [address] Damon Pollock MD #[address] [address] documented as of this encounter Visit Diagnoses Diagnosis Closed nondisplaced fracture of patella, unspecified fracture morphology, unspecified laterality, initial encounter- Primary documented in this encounter Additional Health Concerns Infection Onset Date Last Indicated Resolved Time COVID - 19 09/26/2023 09/26/2023 10/06/2023 12:1 6 AM FILM INSPECTOR Assessment Noted Time PHQ-9 Depression Total Score: 0 04/10/20 17 1:00 PM CDT documented as of this encounter Care Teams Director Of Services Relationship Specialty Start Date End Date Mirella Mendoza APRN, IGNACIO [address] [place], [place] [phone] PCP - General Family Medicine 12/25/21 Juanito Mckeon MD General Surgery 04/08/17 Damon Pollock MD #[address] [address] Consulting Physician Endocrinology 02/14/22 Serg Acosta MD #2 [place] [address] Consulting Physician Neurology 12/24/22 Brodie Drummond, COIL SPRING ASSEMBLER, FUEL CELL BINDER [address] [place] [address] Nurse Practitioner Advanced Practice Nurse 01/21/24 documented as of this encounter
--- OUTSIDE RECORDS SUMMARY | 2025-05-14 15:56 | XMS_ITS | Encounter Summary ---
Author Organization [facility] Address [address] [place] [address] Phone Care Team Providers Care Director Of Culture Name Role Phone Juanito Mckeon MD Unavailable [phone] Mirella Damon APRN, OPERATIONS PROJECT MANAGER Primary Care Provider [phone] Damon Pollock MD Unavailable Serg Acosta MD Unavailable [phone] Brodie Drummond APRN, OPERATIONS PROJECT MANAGER Unavailable Encounter Details Date Type Department Care Team (Late st Contact Info) Description 01/29/2022 Nursing Facility [facility] [address] [place] [address] Jonas Elliott, PAC [address] [place], [place] [id number] Social History Tobacco Use Types Packs/Day Years [...] Elliott, SERGIO - 01/29/2022 1:35 PM CDT [facility] SUMMARY Name: Carmella Sheriff Age: 66 [...] CARE COURSE: Carmella Sheriff was admitted to correction facility for acute care rehabilitation. Prior to going to the rehabilitation facility she was hospitalized or influenza along with generalized weakness and altered mental status. She was sent to the nursing facility or a correction and rehabilitative care, especially considering she lives [...] home, lives by herself but she has adaughter that is heavily involved. Later in the day nursing leadership informed me that patient will be discharged and will go home later today [...] Lab / Imaging Review: None in the care home DISCHARGE PLAN: Patient will be discharged back [...] in coordinating care Advance Care Planning: Aggregate ssrb-[id number]-wcun time, greater than 16 minutes was spent discussing end-of-life care planning with patient/family and/or Power of Screen Printing Stencil Preparer. Discussed CPR, Intubation, treatment goals, and Quality of life/Intensity of care. Patient desires CPR-Full Treatment Signed: Jonas Elliott, PAC, 01/29/2022, 1:36 PM CDT documented in this encounter Plan of Treatment Upcoming Encounters Date Type Department Care Team (Late st Contact Info) Description 07/27/2025 10:45 AM CDT Office Visit [facility] #[address] [place] [address] Brodie Drummond APRN, OPERATIONS PROJECT MANAGER [address] [place] [address] 07/29/2025 10:30 AM CDT [facility] [place] #2 [place] [address] Damon Pollock MD #[address] [address] documented as of this encounter Visit Diagnoses Not on filedocumented in this encounter Additional Health Concerns Infection Onset Date Last Indicated Resolved Time Influenza 01/23/2022 01/23/2022 01/30/2022 12:1 6 AM CDT COVID - 19 09/26/2023 09/26/2023 10/06/2023 12:1 6 AM SENIOR HYDROGEOLOGIST Assessment Noted Time PHQ-9 Depression Total Score: 0 04/10/20 17 1:00 PM CDT documented as of this encounter Care Teams Director Of Culture Relationship Specialty Start Date End Date Mirella Damon APRN, OPERATIONS PROJECT MANAGER [address] [place], [place] [phone] PCP - General Family Medicine 12/25/21 Juanito Mckeon MD General Surgery 04/08/17 Damon Pollock MD #[address] [address] Consulting Physician Endocrinology 02/14/22 Serg Acosta MD #2 [place] [address] Consulting Physician Neurology 12/24/22 Brodie Durmmond APRN, OPERATIONS PROJECT MANAGER #[address] [place] [address] Nurse Practitioner Advanced Practice Nurse 01/21/24 documented as of this encounter
--- OUTSIDE RECORDS SUMMARY | 2025-05-14 15:56 | XMS_ITS | Encounter Summary ---
Author Organization [facility] Address [address] [place] [address] Phone Care Team Providers Care Biodiesel Engine Specialist Name Role Phone Juanito Mckeon MD Unavailable [phone] Mirella Mendoza APRN, SQL SERVER DBA DEVELOPER Primary Care Provider [phone] Damon Pollock MD Unavailable Serg Acosta MD Unavailable [phone] Brodie Drummond APRN, SQL SERVER DBA DEVELOPER Unavailable [phone] Reason for Visit * Reason Comments Medication Refill Encounter Details Date Type Department Care Team (Late st Contact Info) Description 09/29/2024 Refill [facility] #2 [place] [address] Brodie Drummond APRN, SQL SERVER DBA DEVELOPER #[address] [place] [address] Medication Refill Social History Tobacco Use Types [...] 07/27/2025 10:45 AM CDT Office Visit [facility] #2 [place] [address] Brodie Drummond APRN, SQL SERVER DBA DEVELOPER [address] [place] [address] 07/29/2025 10:30 AM CDT Office Visit [facility] #2 [place] [address] Damon Pollock MD #[address] [address] documented as of this encounter Visit Diagnoses Diagnosis Urinary frequency Nocturnal enuresis Urinary urgency Urgency of urination documented in this encounter Additional Health Concerns Assessment Noted Time PHQ-9 Depression Total Score: 0 04/10/20 17 1:00 PM CDT documented as of this encounter Care Teams Biodiesel Engine Specialist Relationship Specialty Start Date End Date Mirella Mendoza APRN, SQL SERVER DBA DEVELOPER [address] [place] [address] PCP - General Family Medicine 12/25/21 Juanito Mckeon MD General Surgery 04/08/17 Damon Pollock MD #[address] [phone] Consulting Physician Endocrinology 02/14/22 Serg Acosta MD #2 [place] [address] Consulting Physician Neurology 12/24/22 Brodie Drummond, THREAD SPINNER, SQL SERVER DBA DEVELOPER [address] [place] [address] Nurse Practitioner Advanced Practice Nurse 01/21/24 documented as of this encounter
--- OUTSIDE RECORDS SUMMARY | 2025-05-14 15:56 | XMS_ITS | Encounter Summary ---
Author Organization [facility] Address [address] [place] [address] Phone Care Team Providers Care Bowling Alley Refinisher Name Role Phone Juanito Mckeon MD Unavailable [phone] Mirella Mendoza APRN, PRECISION OPTICS TECHNICIAN Primary Care Provider [phone] Damon Pollock MD Unavailable Serg Acosta MD Unavailable Brodie Drummond APRN, PRECISION OPTICS TECHNICIAN Unavailable [phone] Encounter Details Date Type Department Care Team (Late st Contact Info) Description 09/20/2022 Nursing Facility [facility] [address] [place] [address] Jonas Elliott, PAC [address] [place], [place] [phone] Social History Tobacco Use Types Packs/Day Years [...] Coronavirus/COVID-19? No / Unsure 08/24/2022 11:15 PM ACCOUNTS SPECIALIST documented as of this encounter Progress Notes * Jonas Elliott, PAC - 09/20/2022 3:33 PM CST [facility] PROGRESS NOTE Carmella Sheriff is a 67 y.o. female at [facility] for rehabilitation. Prior to coming to rehabilitation facility patient was hospitalized at [facility] from 08/25 through 09/12 after [...] Positives Diagnosis Date ??? Bipolar 1 disorder ([facility]) ??? Chronic hip pain ??? Concussion ??? COPD (chronic obstructive pulmonary disease) ([facility]) ??? CVA (cerebral vascular accident) ([facility]) ??? Diabetes mellitus ([facility]) ??? Diabetic neuropathy ([facility]) ??? Gastroesophageal reflux disease without esophagitis Family [...] REPAIR WITH MESH; Surgeon: Juanito Mckeon MD; [facility]; Service: General Review of Systems: [...] to monitor. Generalized weakness and deconditioning Receiving senior care care and physical therapy rehabilitation Rash 09/17 [...] this patient. This note was dictated using SpeechTrans fluency dictation system and there may be errors in senior ui designer. Despite proof reading the note, there may be mistakes and I apologize for those. By: Jonas Elliott, PAC, 09/20/2022 3:34 PM ACCOUNTS SPECIALIST UNTS SPECIALIST documented in this encounter Plan of Treatment Upcoming Encounters Date Type Department Care Team (Late st Contact Info) Description 07/27/2025 10:45 AM CDT Office Visit [facility] #2 [place] [address] Brodie Drummond, STRIP CATCHER, PRECISION OPTICS TECHNICIAN [address] [place] [address] 07/29/2025 10:30 AM CDT Office Visit [facility] - [place] [address] [place] [address] Damon Pollock MD #[address] [address] documented as of this encounter Visit Diagnoses Not on filedocumented in this encounter Additional Health Concerns Infection Onset Date Last Indicated Resolved Time COVID - 19 09/26/2023 09/26/2023 10/06/2023 12:1 6 AM ACCOUNTS SPECIALIST Assessment Noted Time PHQ-9 Depression Total Score: 0 04/10/20 17 1:00 PM CDT documented as of this encounter Care Teams Bowling Alley Refinisher Relationship Specialty Start Date End Date Mirella Mendoza APRN, PRECISION OPTICS TECHNICIAN [address] [place] [address] PCP - General Family Medicine 12/25/21 Juanito Mckeon MD General Surgery 04/08/17 Damon Pollock MD #[address] [address] Consulting Physician Endocrinology 02/14/22 Serg Acosta MD #2 [place] [address] Consulting Physician Neurology 12/24/22 Brodie Drummond APRN, PRECISION OPTICS TECHNICIAN [address] [place] [address] Nurse Practitioner Advanced Practice Nurse 01/21/24 documented as of this encounter
--- OUTSIDE RECORDS SUMMARY | 2025-05-14 15:56 | XMS_ITS ---
Author Organization [employer] Care Team Providers Care Operation Shift Supervisor Name Role Phone Ampaugzman, Marques Unavailable Unavailable Ampaguzman, Rosalba Unavailable Unavailable Murtaza Agee Unavailable Unavailable Herberth, [place] Puente Unavailable Unavailable Schaffer, Cristiano Unavailable Unavailable Allergies and adverse reactions No Known Allergies Care Team Name Role Address Phone Organization Dates Marques Ampadu PCP [address] [place], [address], [facility] (Office): : : [employer] 07/29/2023 - 08/19/2023 Rosalba Ampadu [address] [place], [place], [place] (Office): : : [employer] 07/29/2023 - 08/19/2023 Murtaza Agee [address] [facility], [place], [address], [place] (Office): : [employer] 07/29/2023 - 08/19/2023 [place] Kevin [address], [place], [address], [place] (Office): : [employer] 07/29/2023 - 08/19/2023 Cristiano Schaffer [address] [place], [address], [place] (Office): [employer] 07/29/2023 - 08/19/2023 Immunizations Immunization Status Vaccine Details Vaccine Code CodeSystem Date Notes TB 2 Step Mantoux Skin Test completed tuberculin skin test; unspecified formulation lotNumber: [id number] expiry: 03/07/2025 Mfg: [employer] PASTEUR limited Given 0.1 ml Right Forearm intradermally Step 1 of Multi-step with next step required 98 CVX created date: 08/09/2023 consent date: 08/09/2023 administer ed date: 08/09/2023 Educated by Jean Carlos Resendez on 08/09/2023 Mental Status Section Date Assessment Total Score Description 08/19/2023 CAM 0 No delirium ind icated 08/05/2023 BIMS 15 cognitively int act CAM 0 No delirium ind icated PHQ-9 15 moderately liat re depression Problems Problem # Description Date of onset Resolved Date Code CodeSystem Concern Status 1 BIPOLAR DISORDER, UNSPECIFIED 3 07/29/[address] completed 2 BIPOLAR II DISORDER [address] active 3 CHRONIC OBSTRUCTIVE PULMONARY DISEASE, UNSPECIFIED [address] active 4 COGNITIVE COMMUNICATION DEFICIT [address] active 5 ESSENTIAL (PRIMARY) HYPERTENSION [address] active 6 FRACTURE OF UNSPECIFIED PART OF NECK OF LEFT FEMUR, SEQUELA 3 07/29/[address] completed 7 GASTRO-ESOPHAGEAL REFLUX DISEASE WITHOUT ESOPHAGITIS [address] active 8 HEREDITARY AND IDIOPATHIC NEUROPATHY, UNSPECIFIED [address] active 9 MORBID (SEVERE) OBESITY DUE TO EXCESS CALORIES [address] active 10 MUSCLE WEAKNESS (GENERALIZED) [address] active 11 NICOTINE DEPENDENCE, UNSPECIFIED, UNCOMPLICATED [address] active 12 OTHER FRACTURE OF LOWER END OF LEFT FEMUR, SUBSEQUENT ENCOUNTER FOR CLOSED FRACTURE WITH ROUTINE HEALING [address] active 13 TYPE 2 DIABETES MELLITUS WITHOUT COMPLICATIONS [address] active 14 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 [address] active 15 UNSPECIFIED CHRONIC BRONCHITIS [address] active 16 UNSPECIFIED SEQUELAE OF UNSPECIFIED CEREBROVASCULAR DISEASE [address] active 17 UNSTEADINESS ON FEET [address] active Reason for Referral No Reasons for Referral Entered Social History Social History Observation Description Start Date End Date Code Code System Current Smoking Status Tobacco smoking consumption unknown 800371915 SNOMED CT Sex Assigned At Female 1955 85722-1 [facility] Gender Identity Vital Signs Code Code System Vitals Name Values and Units Timing Information 06004-0 [facility] Pain Level Value=0.0 08/28/2023 21273-7 [facility] O2 % BldC Oximetry Value=98.0 Units= % 08/28/2023 2339-0 [facility] Blood Sugar Oycyq=149.0 Units=mg/dL 08/28/2023 13735-7 [facility] Weight Edbsj=486.5 Units=Lbs 9279-1 [facility] Respiratory Rate Value=20.0 Units=/m in 08/18/2023 8462-4 [facility] Blood Pressure-Diastolic Value=70 Un its=mmHg 08/18/2023 8480-6 [facility] Blood Pressure-Systolic Cvfuy=741 Un its=mmHg 08/18/2023 8310-5 [facility] Body Temperature Value=97.6 Units= F 08/18/2023 8867-4 [facility] Heart rate Value=68.0 Units=/min 8302-2 [facility] Height Value=66.0 Units=Inches 07/30/2023
--- OUTSIDE RECORDS SUMMARY | 2025-05-14 15:56 | XMS_ITS | Encounter Summary ---
Author Organization [facility] Address [address] [place] [address] Phone Care Team Providers Care Senior Credit Officer Name Role Phone Juanito Mckeon MD Unavailable [phone] Mirella Mendoza APRN, PUBLIC RELATIONS ACCOUNT EXECUTIVE Primary Care Provider [phone] Damon Pollock MD Unavailable Serg Acosta MD Unavailable Brodie Drummond APRN, PUBLIC RELATIONS ACCOUNT EXECUTIVE Unavailable Encounter Details Date Type Department Care Team (Late st Contact Info) Description 09/24/2022 Nursing Facility [facility] [address] [place] [address] Jonas Elliott, PAC [address] [place], [place] [id number] Social History Tobacco Use Types Packs/Day Years [...] Elliott, PAC - 09/24/2022 12:10 PM CST [facility] PROGRESS NOTE Carmella Sheriff is a 67 y.o. female at [facility] for rehabilitation. Prior to coming to rehabilitation facility patient was hospitalized at [facility] from 08/25 through 09/12 after suffering a [...] REPAIR WITH MESH; Surgeon: Juanito Mckeon MD; Location[facility]; Service: General Review of Systems: A [...] few days Generalized weakness and deconditioning Receiving [facility] care and physical therapy rehabilitation Rash 09/17 [...] this patient. This note was dictated using Leanplum dictation system and there may be errors in railroad repairer. Despite proof reading the note, there may be mistakes and I apologize for those. By: Jonas Elliott, PAC, 09/24/2022 12:10 PM METHODS TIME ANALYST ODS TIME ANALYST documented in this encounter Plan of Treatment Upcoming Encounters Date Type Department Care Team (Late st Contact Info) Description 07/27/2025 10:45 AM CDT Office Visit [facility] #2 [place] [address] Brodie Drummond APRN, PUBLIC RELATIONS ACCOUNT EXECUTIVE [address] [place] [address] 07/29/2025 10:30 AM CDT Office Visit [facility] [place] #2 [place] [address] Damon Pollock MD #[address] [address] documented as of this encounter Visit Diagnoses Not on filedocumented in this encounter Additional Health Concerns Infection Onset Date Last Indicated Resolved Time COVID - 19 09/26/2023 09/26/2023 10/06/2023 12:1 6 AM METHODS TIME ANALYST Assessment Noted Time PHQ-9 Depression Total Score: 0 04/10/20 17 1:00 PM CDT documented as of this encounter Care Teams Senior Credit Officer Relationship Specialty Start Date End Date Mirella Mendoza APRN, IGNACIO [address] [id number] PCP - General Family Medicine 12/25/21 Juanito Mckeon MD General Surgery 04/08/17 Damon Pollock MD #[address] [address] Consulting Physician Endocrinology 02/14/22 Serg Acosta MD #[address] [place] [address] Consulting Physician Neurology 12/24/22 Brodie Drummond APRN, PUBLIC RELATIONS ACCOUNT EXECUTIVE [address] [place] [address] Nurse Practitioner Advanced Practice Nurse 01/21/24 documented as of this encounter
--- OUTSIDE RECORDS SUMMARY | 2025-05-14 15:56 | XMS_ITS | Encounter Summary ---
Author Organization [facility] Address [address] [place] [address] Phone Care Team Providers Care Supervisor Vine Fruit Farming Name Role Phone Juanito Mckeon MD Unavailable [phone] Mirella Mendoza APRN, AIRFRAME AND POWERPLANT MECHANIC Primary Care Provider [phone] Damon Pollock MD Unavailable Serg Acosta MD Unavailable Brodie Drummond APRN, AIRFRAME AND POWERPLANT MECHANIC Unavailable [phone] Reason for Referral * PT/OT/ST (Routine) - [...] osteoarthritis, left shoulder Willie Payne MD [address] [place] [address] Phone: tel: fax: [facility] [address], [address] [place] [address] Phone: tel: fax: Referral ID Status Reason Start Date Expiration Date Visits Re quested Visits Authorized [id number] Closed 06/24/2024 50 10 Scheduling Instructions Encounter Details Date Type Department Care Team (Latest Contact Info) Description 06/24/2024 Transcribe Orders [facility] [address] [place] [address] Willie Payne MD [address] [place] [address] Pain in right thigh (Primary Dx); Left [...] Visit [facility] [place] [address] Brodie Drummond, INSPECTOR FLOOR SUB ASSEMBLY, AIRFRAME AND POWERPLANT MECHANIC [address] [place] [address] 07/29/2025 10:30 AM CDT Office Visit [facility] - [place] #[address] [place] [address] Damon Pollock MD [address] [address] Scheduled Referrals Name Type Priority Associated Diagnoses [...] documented as of this encounter Care Teams Supervisor Vine Fruit Farming Relationship Specialty Start Date End Date Mirella Mendoza APRN, AIRFRAME AND POWERPLANT MECHANIC [address] [place] [address] PCP - General Family Medicine 12/25/21 Juanito Mckeon MD General Surgery 04/08/17 Damon Pollock MD #[address] [address] Consulting Physician Endocrinology 02/14/22 Serg Acosta MD #[address] [place] [address] Consulting Physician Neurology 12/24/22 Brodie Drummond APRN, IGNACIO [address] [place] [address] Nurse Practitioner Advanced Practice Nurse 01/21/24 documented as of this encounter
--- OUTSIDE RECORDS SUMMARY | 2025-05-14 15:56 | XMS_ITS | Encounter Summary ---
Author Organization [facility] Address [address] [place] [address] Phone Care Team Providers Care Branch Credit Counselor Name Role Phone Juanito Mckeon MD Unavailable [phone] Mirella Mendoza APRN, DIRECTOR OF CASEWORK Primary Care Provider [phone] Damon Pollock MD Unavailable Serg Acosta MD Unavailable [phone] Brodie Drummond APRN, DIRECTOR OF CASEWORK Unavailable Reason for Visit * Reason Onset Date Comments Med reconciliation 05/27/2023 Encounter Details Date Type Department Care Team (Late st Contact Info) Description 05/27/2023 Telephone [facility] [address] [place] [address] Susie Linder, RN [place] Med reconciliation Social [...] back. Please review the following potential major odnj-vv-uxea interactions: Interaction Details Significance Orders Drug-Drug Drug-Drug: [...] 10:45 AM CDT Office Visit [facility] #[address] [place] [address] Brodie Drummond APRN, DIRECTOR OF CASEWORK [address] [place] [address] 07/29/2025 10:30 AM CDT Office Visit [facility] - [place] #[address] [place] [address] Damon Pollock MD #[address] [address] documented as of this encounter Visit Diagnoses Not on filedocumented in this encounter Additional Health Concerns Infection Onset Date Last Indicated Resolved Time COVID - 19 09/26/2023 09/26/2023 10/06/2023 12:1 6 AM GAS CHECK PAD MAKER Assessment Noted Time PHQ-9 Depression Total Score: 0 04/10/20 17 1:00 PM CDT documented as of this encounter Care Teams Branch Credit Counselor Relationship Specialty Start Date End Date Mirella Mendoza APRN, DIRECTOR OF CASEWORK [address] [place] [address] PCP - General Family Medicine 12/25/21 Juanito Mckeon MD General Surgery 04/08/17 Damon Pollock MD #[address] [address] Consulting Physician Endocrinology 02/14/22 Serg Acosta MD #2 [place] [address] Consulting Physician Neurology 12/24/22 Brodie Drummond APRN, DIRECTOR OF CASEWORK #[address] [place] [address] Nurse Practitioner Advanced Practice Nurse 01/21/24 documented as of this encounter
--- OUTSIDE RECORDS SUMMARY | 2025-05-14 15:56 | XMS_ITS | Encounter Summary ---
Author Organization [facility] Address [address] [place] [address] Phone Care Team Providers Care Research Chemist Name Role Phone Juanito Mckeon MD Unavailable [phone] Mirella Mendoza APRN, RECEIVABLE EXECUTIVE Primary Care Provider [phone] Damon Pollock MD Unavailable Serg Acosta MD Unavailable Brodie Drummond APRN, RECEIVABLE EXECUTIVE Unavailable Reason for Visit * Reason Comments Medication Refill Encounter Details Date Type Department Care Team (Late st Contact Info) Description 01/19/2025 Refill [facility] [address] [place] [address] Brodie Drummond APRN, RECEIVABLE EXECUTIVE [address] [place] [address] Medication Refill Social History Tobacco Use Types [...] encounter Miscellaneous Notes * Telephone Encounter - Lacy Dickens RN - 01/20/2025 9:17 AM CDT Medication failed the protocol, provider to review and approve the medication order if appropriate. Requested Prescriptions Pending Prescriptions Disp Refills nitrofurantoin, monohydrate-macrocrystal, (MACROBID) 100 MG Capsule [Pharmacy Med Name: NITROFURANTOIN MONO/MAC 100MG CAPS] 14 Capsule 0 Sig: TAKE 1 CAPSULE BY MOUTH TWICE DAILY FOR 7 DAYS Not Delegated - Off Protocol Failed - 01/20/2025 9:17 AM Failed - This refill cannot be delegated Passed - Visit with relevant provider in past 12 months or upcoming 90 days Recent Visits Date Type Provider Dept 01/19/25 Office Visit Brodie Drummond APRN, CNP [facility] [place] 06/29/24 Office Visit Brodie Drummond APRN, CNP [facility] [place] 03/23/24 Office Visit Brodie Drummond APRN, CNP [facility] [place] 01/21/24 Office Visit Brodie Drummond APRN, CNP [facility] [place] Showing recent visits within past 365 days and meeting all other requirements Future Appointments No visits were found meeting these conditions. Showing future appointments within next 90 days and meeting all other requirements documented in this encounter Plan of Treatment Upcoming Encounters Date Type Department Care Team (Late st Contact Info) Description 07/27/2025 10:45 AM CDT Office Visit [facility] [address] [place] [address] Brodie Drummond APRN, RECEIVABLE EXECUTIVE [address] [place] [address] 07/29/2025 10:30 AM CDT Office Visit [facility] [place] [address] [place] [address] Damon Pollock MD #[address] [address] documented as of this encounter Visit Diagnoses Diagnosis Abnormal urinalysis Other nonspecific finding on examination of urine documented in this encounter Additional Health Concerns Assessment Noted Time PHQ-9 Depression Total Score: 0 04/10/20 17 1:00 PM CDT documented as of this encounter Care Teams Research Chemist Relationship Specialty Start Date End Date Mirella Mendoza APRN, RECEIVABLE EXECUTIVE [address] [address] PCP - General Family Medicine 12/25/21 Juanito Mckeon MD General Surgery 04/08/17 Damon Pollock MD #[address] [address] Consulting Physician Endocrinology 02/14/22 Serg Acosta MD [address] [place] [address] Consulting Physician Neurology 12/24/22 Brodie Drummond APRN, RECEIVABLE EXECUTIVE [address] [place] [address] Nurse Practitioner Advanced Practice Nurse 01/21/24 documented as of this encounter
--- OUTSIDE RECORDS SUMMARY | 2025-05-14 15:56 | XMS_ITS | Encounter Summary ---
Author Organization [facility] Address [address] [place] [address] Phone Care Team Providers Care Genetics Nurse Name Role Phone Juanito Mckeon MD Unavailable [phone] Mirella Mendoza APRN, SOLDER TECHNICIAN Primary Care Provider [phone] Damon Pollock MD Unavailable Serg Acosta MD Unavailable Brodie Drummond APRN, SOLDER TECHNICIAN Unavailable [phone] Encounter Details Date Type Department Care Team (Late st Contact Info) Description 09/13/2022 Nursing Facility [facility] [address] [place] [address] Jonas Elliott, PAC [address] [place], [place] [id number] Social History Tobacco Use Types Packs/Day Years [...] Coronavirus/COVID-19? No / Unsure 08/24/2022 11:15 PM MOTORIZED SQUAD COMMANDING OFFICER documented as of this encounter Progress Notes * Jonas Elliott, PAC - 09/13/2022 3:28 PM CST [facility] PROGRESS NOTE Carmella Sheriff is a 67 y.o. female at [facility] for rehabilitation. Prior to coming to rehabilitation facility patient was hospitalized at [facility] from 08/25 through 09/12 after [...] Concussion ??? COPD (chronic obstructive pulmonary disease) ([facility]) ??? CVA (cerebral vascular accident) ([facility]) ??? Diabetes mellitus (HCC) ??? Diabetic neuropathy ([facility]) ??? Gastroesophageal reflux disease without [...] REPAIR WITH MESH; Surgeon: Juanito Mckeon MD; Location:[facility]; Service: General Review of [...] None Assessment/Plan: Generalized weakness and deconditioning Receiving [facility] care and physical therapy rehabilitation Left distal [...] this patient. This note was dictated using [employer] fluency dictation system and there may be errors in sifter and miller. Despite proof reading the note, there may be mistakes and I apologize for those. By: Jonas Elliott, PAC, 09/13/2022 3:28 PM MOTORIZED SQUAD COMMANDING OFFICER RIZED SQUAD COMMANDING OFFICER documented in this encounter Plan of Treatment Upcoming Encounters Date Type Department Care Team (Late st Contact Info) Description 07/27/2025 10:45 AM CDT Office Visit [facility] [address] [place] [address] Brodie Drummond APRN, SOLDER TECHNICIAN [address] [place] [address] 07/29/2025 10:30 AM CDT Office Visit [facility] - [place] [address] [place] [address] Damon Pollock MD #[address] [address] documented as of this encounter Visit Diagnoses Not on filedocumented in this encounter Additional Health Concerns Infection Onset Date Last Indicated Resolved Time COVID - 19 09/26/2023 09/26/2023 10/06/2023 12:1 6 AM MOTORIZED SQUAD COMMANDING OFFICER Assessment Noted Time PHQ-9 Depression Total Score: 0 04/10/20 17 1:00 PM CDT documented as of this encounter Care Teams Genetics Nurse Relationship Specialty Start Date End Date Mirella Mendoza APRN, IGNACIO [address] [facility] [address] [place] [address] PCP - General Family Medicine 12/25/21 Juanito Mckeon MD General Surgery 04/08/17 Damno Pollock MD #[address] [address] Consulting Physician Endocrinology 02/14/22 Serg Acosta MD [address] [place] [address] Consulting Physician Neurology 12/24/22 Brodie Drummond APRN, IGNACIO [address] [place] [address] Nurse Practitioner Advanced Practice Nurse 01/21/24 documented as of this encounter
--- OUTSIDE RECORDS SUMMARY | 2025-05-14 15:56 | XMS_ITS | Encounter Summary ---
Author Organization [facility] Address [address] [place] [address] Phone Care Team Providers Care C D Stripper Name Role Phone Juanito Mckeon MD Unavailable [phone] Mirella Mendoza APRN, CAD CAM PROGRAMMER Primary Care Provider [phone] Damon Pollock MD Unavailable Serg Acosta MD Unavailable [phone] Brodie Drummond APRN, CAD CAM PROGRAMMER Unavailable Encounter Details Date Type Department Care Team (Late st Contact Info) Description 09/17/2022 Nursing Facility [facility] [address] [place] [address] Jonas Elliott, PAC [address] [place], [place] [id number] Social History Tobacco Use Types Packs/Day Years [...] Coronavirus/COVID-19? No / Unsure 08/24/2022 11:15 PM NON DESTRUCTIVE TESTING SCIENTIST documented as of this encounter Progress Notes * Jonas Elliott, PAC - 09/17/2022 12:20 PM CST [facility] PROGRESS NOTE Carmella Sheriff is a 67 y.o. female at [facility] for rehabilitation. Prior to coming to rehabilitation facility patient was hospitalized at [facility] from 08/25 through 09/12 after suffering [...] Concussion ??? COPD (chronic obstructive pulmonary disease) ([facility]) ??? CVA (cerebral vascular accident) ([facility]) ??? Diabetes mellitus (HCC) ??? Diabetic neuropathy [...] WITH MESH; Surgeon: Juanito Mckeon MD; Location:[facility]; Service: General Review of [...] None Assessment/Plan: Generalized weakness and deconditioning Receiving [facility] care and physical therapy rehabilitation Rash 09/17 [...] this patient. This note was dictated using [employer] fluency dictation system and there may be errors in manager validation. Despite proof reading the note, there may be mistakes and I apologize for those. By: Jonas Elliott, PAC, 09/17/2022 12:22 PM NON DESTRUCTIVE TESTING SCIENTIST DESTRUCTIVE TESTING SCIENTIST documented in this encounter Plan of Treatment Upcoming Encounters Date Type Department Care Team (Late st Contact Info) Description 07/27/2025 10:45 AM CDT Office Visit [facility] [address] [place] [address] Brodie Drummond, INSURANCE ADJUSTER, CAD CAM PROGRAMMER [address] [place] [address] 07/29/2025 10:30 AM CDT Office Visit [facility] - [place] #[address] [place] [address] Damon Pollock MD #[address] [address] documented as of this encounter Visit Diagnoses Not on filedocumented in this encounter Additional Health Concerns Infection Onset Date Last Indicated Resolved Time COVID - 19 09/26/2023 09/26/2023 10/06/2023 12:1 6 AM NON DESTRUCTIVE TESTING SCIENTIST Assessment Noted Time PHQ-9 Depression Total Score: 0 04/10/20 17 1:00 PM CDT documented as of this encounter Care Teams C D Stripper Relationship Specialty Start Date End Date Mirella Mendoza APRN, CAD CAM PROGRAMMER [address] [place] [address] PCP - General Family Medicine 12/25/21 Juanito Mckeon MD General Surgery 04/08/17 Damon Pollock MD #[address] [address] Consulting Physician Endocrinology 02/14/22 Serg Acosta MD [address] [place] [address] Consulting Physician Neurology 12/24/22 Brodie Drummond APRN, CAD CAM PROGRAMMER [address] [place] [address] Nurse Practitioner Advanced Practice Nurse 01/21/24 documented as of this encounter
--- OUTSIDE RECORDS SUMMARY | 2025-05-14 15:59 | XMS_ITS ---
Author Organization [facility] Care Team Providers Care Loadmaster Name Role Phone Ampaguzman, Marques Unavailable Unavailable Ampaguzman, Rosalba Unavailable Unavailable Murtaza Agee Unavailable Unavailable Herber[place], [place] Puente Unavailable Unavailable Schaffer, Cristiano Unavailable Unavailable Allergies and adverse reactions No Known Allergies Care Team Name Role Address Phone Organization Dates Marques Ampadu PCP [address] [place], [address], [facility] (Office): : : [facility] 07/29/2023 - 08/19/2023 Rosalba Ampadu [address] [place], [place], [place] (Office): : : [facility] 07/29/2023 - 08/19/2023 Murtaza Agee [address] [facility], [place], [address], [place] (Office): : [facility] 07/29/2023 - 08/19/2023 [place] Kevin [address], [place], [address], [place] (Office): : [facility] 07/29/2023 - 08/19/2023 Cristiano Schaffer [address] [place], [address], [place] (Office): [facility] 07/29/2023 - 08/19/2023 Immunizations Immunization Status Vaccine Details Vaccine Code CodeSystem Date Notes TB 2 Step Mantoux Skin Test completed tuberculin skin test; unspecified formulation lotNumber: [id number] expiry: 03/07/2025 Mfg: SANOFI PASTEUR limited Given [...] Status 1 BIPOLAR DISORDER, UNSPECIFIED 3 07/29/[address] completed 2 BIPOLAR II DISORDER [address] active 3 CHRONIC OBSTRUCTIVE PULMONARY DISEASE, UNSPECIFIED [address] active 4 COGNITIVE COMMUNICATION DEFICIT [address] active 5 ESSENTIAL (PRIMARY) HYPERTENSION [address] active 6 FRACTURE OF UNSPECIFIED PART OF NECK OF LEFT FEMUR, SEQUELA 3 07/29/[address] completed 7 GASTRO-ESOPHAGEAL REFLUX DISEASE WITHOUT ESOPHAGITIS [address] active 8 HEREDITARY AND IDIOPATHIC NEUROPATHY, UNSPECIFIED [address] active 9 MORBID (SEVERE) OBESITY DUE TO EXCESS CALORIES [address] active 10 MUSCLE WEAKNESS (GENERALIZED) [address] active 11 NICOTINE DEPENDENCE, UNSPECIFIED, UNCOMPLICATED [address] active 12 OTHER FRACTURE OF LOWER END OF LEFT FEMUR, SUBSEQUENT ENCOUNTER FOR CLOSED FRACTURE WITH ROUTINE HEALING [address] active 13 TYPE 2 DIABETES MELLITUS WITHOUT COMPLICATIONS [address] active 14 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 [address] active 15 UNSPECIFIED CHRONIC BRONCHITIS [address] active 16 UNSPECIFIED SEQUELAE OF UNSPECIFIED CEREBROVASCULAR DISEASE [address] active 17 UNSTEADINESS ON FEET [address] active Reason for Referral No Reasons for Referral Entered Social History Social History Observation Description Start Date End Date Code Code System Current Smoking Status Tobacco smoking consumption unknown 362062507 SNOMED CT Sex Assigned At Female 1955 20250-9 [facility] Gender Identity Vital Signs Code Code System Vitals Name Values and Units Timing Information 04768-0 [facility] Pain Level Value=0.0 08/28/2023 73036-7 [facility] O2 % BldC Oximetry Value=98.0 Units= % 08/28/2023 2339-0 [facility] Blood Sugar Fsccx=311.0 Units=mg/dL 08/28/2023 90396-8 [facility] Weight Dngfq=933.5 Units=Lbs 9279-1 [facility] Respiratory Rate Value=20.0 Units=/m in 08/18/2023 8462-4 [facility] Blood Pressure-Diastolic Value=70 Un its=mmHg 08/18/2023 8480-6 [facility] Blood Pressure-Systolic Olfrt=882 Un its=mmHg 08/18/2023 8310-5 [facility] Body Temperature Value=97.6 Units= F 08/18/2023 8867-4 [facility] Heart rate Value=68.0 Units=/min 8302-2 [facility] Height Value=66.0 Units=Inches 07/30/2023
[2025-05-14 16:03] VITALS: BP 119/75; PULSE 79; RESP 16; TEMP 35.9; O2SAT 99
--- NOTE | 2025-05-14 16:19 | ED_ITS ---
HPI - Female Genitourinary General Chief complaint: Urogenital-Female Stated complaint: Urinary Problem Time Seen by Provider: 05/14/25 16:19 Source: patient Mode of arrival: ambulatory Limitations: no limitations History of Present Illness HPI Narrative: 70 yo F presents with c/o urinary frequency/urgency, dysuria, low back pain for 2 to 3 days. Afebrile. Denies N/V. all systems reviewed and negative except as noted above. Related Data Home Medications ?Medication ?Instructions ?Recorded ?Confirmed ?Last Taken ?Type buspirone 10 mg tablet 10 mg PO BID 02/06/20 05/26/20 Unknown History divalproex 500 mg tablet,delayed 500 mg PO TID 02/06/20 05/26/20 Unknown History release insulin lispro 100 unit/mL 10 unit subcut TID 02/06/20 05/14/25 Unknown History subcutaneous pen (Humalog KwikPen (U-100) Insulin) metformin 500 mg tablet 500 mg PO BID 02/06/20 05/26/20 Unknown History risperidone 1 mg tablet 1 mg PO DAILY 02/06/20 05/26/20 Unknown History venlafaxine 150 mg 150 mg PO DAILY 02/06/20 05/26/20 Unknown History capsule,extended release 24 hr glimepiride 1 mg tablet mg 12/01/24 Unknown History mirabegron 50 mg tablet,extended mg PO 12/01/24 Unknown History release 24 hr (Myrbetriq) furosemide 20 mg tablet mg 05/14/25 Unknown History latanoprost 0.005 % eye drops drp 05/14/25 Unknown History jdzvjr-illuyecg-ycitkvv cap PO 05/14/25 Unknown History 24,000-76,000-120,000 unit capsule,delayed rel (Creon) lisinopril 10 mg tablet mg 05/14/25 Unknown History lisinopril 5 mg tablet mg 05/14/25 Unknown History Allergies Allergy/AdvReac Type Severity Reaction Status Date / Time No Known Allergies Allergy Verified 05/14/25 16:14 [facility] Past Medical History Medical History (Updated 05/14/25 @ 17:05 by Nida Sharp NP) Femur fracture, left COPD (chronic obstructive pulmonary disease) Bipolar depression Diabetes mellitus, type II Heel spur Peripheral neuropathy TIA (transient ischemic attack) Surgical History Surgical History (System 12/18/24 @ 13:23 by Bradly Wright) Hx of inguinal hernia repair Hx of cholecystectomy Family History Family History (System 12/18/24 @ 13:23 by Bradly Wright) Other Diabetes mellitus Heart disease Hypertension Pancreatic cancer metastasized to intra-abdominal lymph node Social History Social History (System 12/18/24 @ 13:23 by Bradly Wright) Smoking packs per day: 1 Smoking cigarettes per day: 20.0 Years smoked: 44 Smoking pack-years: 44.00 Smoking status: Current every day smoker Tobacco type: cigarettes Alcohol intake: current Substance use: current Substance use type: marijuana Occupation/Education: other Additional occupation/education comments: Disable Gender identity (if verbalized by the patient): Female Comments At time of signature, agree with nursing past medical, surgical, social and family history. There is no relevant family history pertinent to the presenting complaint. Exam Narrative: GENERAL: This is a well-nourished, well-developed patient, in no apparent distress. HEAD: normocephalic, atraumatic. EYES: PERRL. Sclera clear/white. Vision is grossly intact. EARS: External ears normal NOSE: External nose normal NECK: Neck supple, non-tender without lymphadenopathy, masses or thyromegaly. CARDIOVASCULAR: Regular rate and rhythm without murmurs, gallops, or rubs. RESPIRATORY: Clear to auscultation. Breath sounds equal bilaterally. No wheezes, rales, or rhonchi. SKIN: warm, Dry, intact with no suspicious lesions or rash, good texture and turgor. NEURO: awake, alert, and oriented to person, place and time. There were no obvious focal neurologic abnormalities. EXTREMITIES: No joint tenderness, effusion, or edema noted. Course Course Level of Care: Express Care Visit Vital Signs Vital signs: Vital Signs Temperature 35.9 C L 05/14/25 16:03 Pulse Rate 79 05/14/25 16:03 Respiratory Rate 16 05/14/25 16:03 Blood Pressure 119/75 05/14/25 16:03 Pulse Oximetry 99 05/14/25 16:03 Oxygen Delivery Room Air 05/14/25 16:03 Temperature 35.9 C L 05/14/25 16:03 Pulse Rate 79 05/14/25 16:03 Respiratory Rate 16 05/14/25 16:03 Blood Pressure 119/75 05/14/25 16:03 Pulse Oximetry 99 05/14/25 16:03 Oxygen Delivery Room Air 05/14/25 16:03 Reviewed MDM - Female Genitourinary MDM Narrative Medical decision making narrative: urinalysis 1+ leukocytes, trace blood. Will treat with abx due to symptoms and uti hx. pt is well-appearing, nontoxic. agrees with plan of care. Differential Diagnosis Differential diagnosis: Likely urinary tract infection Lab Data Labs: Lab Results 05/14/25 Range/Units 16:53 POC Urine Color Yellow POC Urine Clarity Clear POC Urine pH 6.0 POC Ur Specif [place] 1.010 POC Urine Protein Negative (Negative) POC Ur Glucose (UA) Negative (Negative) POC Urine Ketones Negative (Negative) POC Urine Blood Trace (Negative) POC Urine Nitrite Negative (Negative) POC Urine Bilirubin Negative (Negative) POC Urine Urobilinogen 0.2 POC U Leukocyte Esteras 1+ (Negative) Discharge Plan Discharge Clinical Impression: Urinary tract infection Patient Disposition: Home Condition: Stable Instructions: Antibiotic Form, Urinary Tract Infection in Women (ED) Additional Instructions: take antibiotic as prescribed until gone. Drink at least 64 oz of water a day. See your doctor if symptoms are not improving. Patient Language: Albanian Prescriptions: New amoxicillin-pot clavulanate 875-125 mg tablet 1 tablet PO Q12H 7 Days Qty: 14 0RF phenazopyridine [Pyridium] 200 mg tablet 200 mg PO TID PRN (Reason: pain) 3 Days Qty: 10 0RF No Action glimepiride 1 mg tablet mirabegron [Myrbetriq] 50 mg tablet extended release 24 hr PO albuterol sulfate [Ventolin HFA] 90 mcg/actuation HFA aerosol inhaler 2 puff inhalation QID PRN (Reason: shortness of breath or wheezing) Qty: 8.5 0RF metformin 500 mg tablet 500 mg PO BID venlafaxine 150 mg capsule,extended release 24hr 150 mg PO DAILY divalproex 500 mg tablet,delayed release (DR/EC) 500 mg PO TID buspirone 10 mg tablet 10 mg PO BID risperidone 1 mg tablet 1 mg PO DAILY insulin lispro [Humalog KwikPen Insulin] 100 unit/mL insulin pen 10 unit SUBCUT TID latanoprost 0.005 % drops lisinopril 10 mg tablet lisinopril 5 mg tablet furosemide 20 mg tablet Creon 24,000-76,000 -120,000 unit capsule,delayed release(DR/EC) PO Follow-up/Referrals: UNKNOWN,DOCTOR [Primary Care Provider] - Time of Disposition: 17:08
[2025-05-14 16:56] LABS: EDUAAPPEAR Clear; EDUABILI Negative (Negative); EDUABLOOD Trace (Negative); EDUACOLOR1 Yellow; EDUAGLUCOSE Negative (Negative); EDUAKETONE Negative (Negative); EDUALEUKO 1+ (Negative); EDUANITRATE Negative (Negative); EDUAPH 6.0; EDUAPROTEIN Negative (Negative); EDUASPGRAVITY 1.010; EDUAUROBILI 0.2
== END 2025-05-14 17:20 | disposition home or self-care (01) ==
PROVIDERS: Emergency Provider Nurse Practitioner Family
DX: N39.0 Urinary tract infection, site not specified (principal); F17.210 Nicotine dependence, cigarettes, uncomplicated; F12.90 Cannabis use, unspecified, uncomplicated; E11.42 Type 2 diabetes mellitus with diabetic polyneuropathy; Z79.84 Long term (current) use of oral hypoglycemic drugs; Z79.4 Long term (current) use of insulin; J44.9 Chronic obstructive pulmonary disease, unspecified; F31.9 Bipolar disorder, unspecified; Z86.73 Personal history of transient ischemic attack (TIA), and cerebral infarction without residual deficits
CPT/HCPCS: 81003; 87086; 99213; G0463